=== PATIENT | male | born 1950 | race Caucasian/White ===

== ENCOUNTER 2021-11-22 11:44 | Emergency (ER) | payer MEDICARE, SELFPAY ==
--- NOTE | 2021-11-22 11:48 | ED.URI ---
HPI - URI/Sore Throat General Chief Complaint: Upper Respiratory Infection Stated Complaint: sinus infection Time Seen by Provider: 11/22/21 11:55 Source: patient Mode of arrival: ambulatory Limitations: no limitations History of Present Illness HPI Narrative: Mr. Tabares is a 71-year-old male patient presented to the clinic today with complaints of possible sinus infection. He reports he has been having a productive cough with green phlegm for the past 4 days. Denies any history of COPD or asthma he denies any fever or chills. Is currently on chemo treatment. History of 40-year smoker. He does not currently smoke and quit approximately 4 years ago MD elicited complaint: sore throat and nasal congestion Related Data Home Medications Medication Instructions Recorded Confirmed aspirin 81 mg tablet,delayed 81 mg PO DAILY 04/04/20 11/22/21 release tamsulosin 0.4 mg capsule 0.4 mg PO BID cap 04/04/20 11/22/21 cholecalciferol (vitamin D3) 25 2,000 unit PO DAILY tablet 08/07/20 11/22/21 mcg (1,000 unit) tablet atorvastatin 80 mg tablet 80 mg PO DAILY 08/09/20 11/22/21 multivitamin 1 tablet PO DAILY 08/09/20 11/22/21 glucosamine sulfate [Glucosamine] 500 mg PO DAILY 11/22/21 11/22/21 Allergies Allergy/AdvReac Type Severity Reaction Status Date / Time Penicillins Allergy Severe HALLUCINATIONS, Verified 11/22/21 11:58 PALPATATIONS Review of Systems Review of Systems: Pertinent positives per HPI. Patient denies any fever, chills, rash, headache, visual changes, dizziness, cough, shortness of breath, chest pain, palpitations, nausea, vomiting, diarrhea, constipation, abdominal pain, or any urinary issues. [facility] Past Medical History Medical History Colon polyp Diabetes Elevated PSA History of colon cancer Stage IV History of fracture History of prostate cancer HTN (hypertension) Hyperlipidemia Measles Mononucleosis Mumps HECTOR (obstructive sleep apnea) Surgical History Surgical History History of colon surgery Family History Family History Sibling Hepatitis C Social History Social History Smoking status: Former smoker Smoking end date: 08/17/12 Alcohol intake: current Comments At the time of my signature, I reviewed and agree with the nursing past medical, surgical, social, and family history. There is no relevant family history pertinent to the patient complaint. Exam Narrative: General: Well-developed, obese, in no apparent distress Head: Normocephalic, atraumatic Eyes: Pupils equally round and reactive to light bilaterally, EOM intact, sclera and conjunctive clear, no discharge, lids normal Ears: TMs intact and clear, ear canals clear, no drainage, grossly hearing normal. Nose: Nares patent, no discharge, no inflammation, no sinus tenderness. Mouth: Oral pharynx without lesions or masses, good dentition, MMM. Neck: Supple, trachea midline, no enlargement of anterior or posterior cervical nodes, no thyroid masses or goiter palpable. Cardio: Regular rate and rhythm, s1 and s2 normal, no murmur appreciated. Resp: Faint expiratory wheezing otherwise clear, no rhonchi, rales,or rubs Course Course Emergency Course: Portions of this record may have been created with voice recognition software. Level of Care: Express Care Visit Vital Signs Vital signs: Vital signs reviewed MDM - URI/Sore Throat MDM Narrative Medical decision making narrative: Upon assessment he is resting comfortably in the exam chair. Patient has expiratory wheezing. With productive cough with green phlegm. He has is currently on chemo treatment. Symptoms have been ongoing for 4 days. We will go ahead and treat for exacerbation of possible COPD as he does not have a diag
[2021-11-22 11:51] VITALS: BP 140/70; PULSE 72; RESP 20; TEMP 36.6; O2SAT 100
== END 2021-11-22 12:10 | disposition home or self-care (01) ==
PROVIDERS: Emergency Provider Nurse Practitioner Family
DX: J20.9 Acute bronchitis, unspecified (principal); Z87.891 Personal history of nicotine dependence; E11.9 Type 2 diabetes mellitus without complications; I10 Essential (primary) hypertension; E78.5 Hyperlipidemia, unspecified; G47.33 Obstructive sleep apnea (adult) (pediatric); Z85.038 Personal history of other malignant neoplasm of large intestine
CPT/HCPCS: 99213; G0463

== ENCOUNTER 2022-09-11 12:54 | Inpatient (IN) | payer MEDICARE, SELFPAY ==
[2022-09-11] VITALS (27 sets, daily range): BP systolic 102–140; BP diastolic 58–82; PULSE 72–147; RESP 13–20; TEMP 36.2–36.9; O2SAT 94–97; BMI 32.1
--- NOTE | ~2022-09-11 | XR_ITS ---
Portable chest x-ray Comparison: 07/21/2007 Clinical History: Shortness of breath Findings: Right-sided Mediport in satisfactory position. Lungs are clear, without focal consolidatio n or pleural effusion. Cardiomediastinal silhouette is stable. Bones and soft tissues are unremarkab le. Impression: Clear lungs. Reviewed, dictated and finalized at location . ONATION EQUIPMENT OPERATOR Impression: Clear lungs.
--- NOTE | 2022-09-11 13:24 | ECG_ITS ---
Measurements Intervals [place] Rate: 115 P: MN: 0 QRS: -81 QRSD: 124 T: 68 QT: 334 QTc: 463 Interpretive Statements ATRIAL FIBRILLATION WITH RAPID VENTRICULAR RESPONSE RIGHT BUNDLE BRANCH BLOCK LEFT ANTERIOR FASCICULAR BLOCK BASELINE ARTIFACT- V3 ABNORMAL ECG NO PREVIOUS ECG AVAILABLE FOR COMPARISON Electronically Signed On 09-11-2022 15:33:58 DRY CLEANER by Edgar Burciaga D.O.
--- NOTE | 2022-09-11 13:29 | ED.ARRPALP ---
HPI - Arrhythmia/Palpitations General Chief Complaint: Arrhythmia/Palpitations <Jyoti Whiting, AUTOMATIC PATTERN EDGER - Last Filed: 09/11/22 17:35> Stated Complaint: new onset afib <Jyoti Whiting AUTOMATIC PATTERN EDGER - Last Filed: 09/11/22 17:35> Time Seen by Provider: 09/11/22 12:58 <Jyoti Whiting, AUTOMATIC PATTERN EDGER - Last Filed: 09/11/22 17:35> History of Present Illness HPI narrative: 72-year-old male presents to the emergency room today by EMS for complaints of shortness of breath and cough since Thursday. He had a low-grade fever of 99.5 on Thursday but has not had any fever since then. He says that he felt little bit better yesterday but then started feeling worse again today. Cough has been semiproductive with white phlegm sometimes green sputum. He feels like his chest is tight. His EKG on arrival showed A. fib with RVR. He denies any previous history of atrial fibrillation. He has seen cardiology in the past but says all of his testing had been negative. Denies any history of congestive heart failure. He does have a history of colon cancer stage IV. He has mets to his lung and liver. He did not tolerate chemo so he is now taking Keytruda orally. He goes to [facility] for pulmonology and oncology. He says that all of his cancer lesions have been stable and not growing. <Jyoti Whiting, AUTOMATIC PATTERN EDGER - Last Filed: 09/11/22 17:35> Related Data Home Medications: Home Medications Medication Instructions Recorded Confirmed tamsulosin 0.4 mg capsule 0.4 mg PO BID 04/04/20 11/22/21 atorvastatin 80 mg tablet 80 mg PO DAILY 08/09/20 11/22/21 loratadine 10 mg tablet (Allergy 10 mg PO DAILY 01/07/22 Relief (loratadine)) ipratropium 18 mcg-albuterol 103 spray inhalation 09/11/22 mcg/actuation aerosol inhaler <Jyoti Whiting, AUTOMATIC PATTERN EDGER - Last Filed: 09/11/22 17:35> Allergies/Adverse Reactions: Allergies Allergy/AdvReac Type Severity Reaction Status Date / Time Penicillins Allergy Severe HALLUCINATIONS, Verified 09/11/22 11:33 PALPATATIONS <Jyoti Whiting APRN - Last Filed: 09/11/22 17:35> Review of Systems Review of Systems: CONSTITUTIONAL: feeling ill, low grade fever on Thursday ENT: Denies rhinorrhea, congestion, sore throat, or otalgia. CARDIOVASCULAR: Denies chest pain but reports that chest feels tight since Thursday. RESPIRATORY: Reports productive cough and shortness of breath. GASTROINTESTINAL: Denies abdominal pain, nausea, vomiting, or diarrhea. GENITOURINARY: Denies dysuria or hematuria. SKIN: Denies rash or itching. MUSCULOSKELETAL: Denies back pain, joint pain, or myalgia. NEUROLOGIC: Denies headache, numbness, dizziness, or weakness. PSYCHIATRIC: Denies anxiety or depression. <Jyoti Whiting APRN - Last Filed: 09/11/22 17:35> [facility] Past Medical History Medical History: Medical History Colon polyp Diabetes Elevated PSA History of colon cancer Stage IV History of fracture History of prostate cancer HTN (hypertension) Hyperlipidemia Measles Metastatic colon cancer to liver Mononucleosis Mumps HECTOR (obstructive sleep apnea) <Jyoti Whiting APRN - Last Filed: 09/11/22 17:35> Surgical History Surgical History: Surgical History History of colon surgery <Jyoti Whiting APRN - Last Filed: 09/11/22 17:35> Family History Family History: Family History Sibling Hepatitis C <Jyoti Whiting APRN - Last Filed: 09/11/22 17:35> Social History Social History: Social History Smoking packs per day: 1.5 Smoking cigarettes per day: 30.0 Years smoked: 45 Smoking pack-years: 67.50 Smoking status: Former smoker Tobacco type: cigarettes Smokeless tobacco user: other Smoking end date: 08/17/12 Alcohol intake: currangela
[2022-09-11] MEDS: ASPIRIN 81 MG CHEWABLE TABLET 324 MG PO (14:06)
[2022-09-11] MEDS: dilTIAZem HCl INJ 25 MG/5 ML VIAL 10 MG IV PUSH (14:06)
[2022-09-11] MEDS: dilTIAZem 100 MG/100 ML 100 MG/100 ML BAG IV CONT (14:14)
[2022-09-11 14:41] LABS: Basophils Absolute Auto 0.1 K/mm3 (0.0-0.1); Basophils Percent Auto 0.5 % (0.2-1.2); Eosinophils Absolute Auto 0.2 K/mm3 (0-0.3); Eosinophils Percent Auto 1.8 % (0-4.4); Hematocrit 39.4 % (42.0-52.0); Hemoglobin 12.8 g/dL (14.0-18.0); Immature Granulocyte Absolute 0.06 K/mm3 (0.00-0.031); Immature Granulocyte Percent A 0.5 % (0-0.5); Lymphocytes Absolute Auto 1.39 K/mm3 (0.9-3.2); Lymphocytes Percent Auto 12.7 % (18.3-44.2); Mean Corpuscular HGB Conc 32.5 g/dl (32-36); Mean Corpuscular Hemoglobin 29.1 pg (26-34); Mean Corpuscular Volume 89.5 fl (80-100); Mean Platelet Volume 9.4 fl (7.4-10.4); Monocytes Absolute Auto 0.8 K/mm3 (0.1-0.6); Monocytes Percent Auto 6.9 % (2.6-8.5); Neutrophils Absolute Auto 8.5 K/mm3 (1.3-6.7); Neutrophils Percent Auto 77.6 % (45.5-73.1); Platelet Count Result 296 k/mm3 (150-375); Red Cell Distribution Width 13.6 % (11.5-14.5); White Blood Count 10.9 K/mm3 (4.5-10.0)
[2022-09-11 14:45] LABS: Partial Thromboplastin Time 32.6 SECONDS (22.3-36.8)
[2022-09-11 14:48] LABS: Alanine Aminotransferase 33 U/L (6-50); Albumin Level 3.9 g/dL (3.5-5.1); Alkaline Phosphatase 104 U/L (38-126); Anion Gap 6 mmol/L (8-16); Aspartate Amino Transferase 33 U/L (17-59); Bilirubin,Total 0.5 mg/dL (0.2-1.3); Blood Urea Nitrogen 24 mg/dL (9-20); Calcium 8.6 mg/dL (8.4-10.2); Carbon Dioxide 25 mmol/L (22-30); Chloride 105 mmol/L (98-107); Estimated CRCL calculation 75 ml/min; Estimated Glomerular Filt Rate > 60; Glucose 134 mg/dL (65-110); Lipase 35 U/L (23-300); Magnesium 2.2 mg/dL (1.6-2.3); Potassium 4.7 mmol/L (3.4-5.0); Sodium 136 mmol/L (137-145)
[2022-09-11 14:59] LABS: Troponin I < 0.012 ng/mL (0.000-0.034)
[2022-09-11] MEDS: SODIUM CHLORIDE 0.9% IV 1,000 ML 999 ML IV CONT (15:23)
[2022-09-11 16:20] LABS: Influenza A QL RT-PCR Negative (Negative); Influenza B QL RT-PCR Negative (Negative); SARS-CoV-2 RNA PCR Negative
--- NOTE | 2022-09-11 17:20 | ADMGEN ---
This patient, Benjamin Tabares, was admitted to IMU Room 207-, 1700. Patient/family oriented to hospital policies and general routines including ID bracelet, bed and alarms, visiting hours, pain management, procedures, bathroom and other care routines, personal items, smoking policy, room service/diet, and visiting hours. Information on how to activate the Rapid Response Team has been discussed. Patient/Family are encouraged to report perceived risks to care and to ask questions if they do not understand what they are told or what they should do.
[2022-09-11 17:35] LABS: Troponin I < 0.012 ng/mL (0.000-0.034)
[2022-09-11 18:01] LABS: Glucose Point of Care 122 mg/dl (65-105)
--- NOTE | 2022-09-11 18:02 | PCRCNOTE ---
Spoke with Pt. about borrowing one of our CPAP machines or bringing his in from home. Pt. declined at this time but will let us know if he changes his mind. Cj. ruben.
--- NOTE | 2022-09-11 19:30 | PM.IMHP ---
H&P: HPI History of Present Illness Date/Time: 09/11/22 19:30 Chief Complaint: Palpitation Narrative: This is a 72-year-old male patient who has stage IV colon cancer who is on Keytruda and has had it under control. The patient stated that he has been feeling ill over the last several days. He had a low-grade fever of 99.5 on Thursday and has not had a fever since then. The patient has been coughing up thick sputum. The patient thought maybe he had COVID and test himself at home and it was negative. The patient continues to cough especially when laying flat. He has no history of any congestive heart failure any 8 irregular heart rate. The patient stated that he does have sleep apnea and has not had his machine change in several years. The patient stated that he is been changing his settings and turning it down lower than what it should be. He fears that his inappropriate use of his CPAP machine caused him to have an arrhythmia. Patient's EKG upon arrival was AFib with RVR. He denies any previous history of having atrial fibrillation. He has seen a boiler shop mechanic in the past but not for any specific problems. The patient stated that his cardiac workup a couple years ago was negative. He goes to the [facility] for his pulmonology and Oncology. He has states that he sees physicians over at [facility]. His white count is 10.9 H&H is 12.8 and 39.4. Have no previous labs for comparison. His blood sugars between 134 and 122. Last hemoglobin A1c was 6.3 that was noted from 3 years ago. His troponins are nonreactive. The patient is negative for influenza A/B influenza RSV and COVID. Chest x-ray was read as clear lungs. The patient was given aspirin, IV Cardizem, and placed on a Cardizem drip. He was also started on subcu Lovenox and normal saline. Patient's heart rate came down to the 70s and he converted to sinus rhythm. His Cardizem drip had been stopped. The patient is being admitted to observation status on the date of service of 09/11/2022. Review of Systems Review of Systems: See HPI All systems reviewed & are unremarkable except as noted in HPI and below Constitutional: Constitutional: Reports as per HPI and Reports no additional constitutional complaints Eyes: Eyes: Reports as per HPI and Reports no additional eye complaints ENT: Reports system reviewed and no additional complaints, except as documented and Reports Normal hearing present Cardiovascular: Cardiovascular: Reports no additional cardiovascular complaints Respiratory: Respiratory: Reports no additional respiratory complaints and Reports no additional respiratory complaints Gastrointestinal: Gastrointestinal: Reports as per HPI and Reports no additional gastrointestinal complaints Musculoskeletal: Musculoskeletal: Reports no additional musculoskeletal complaints Integumentary/Breasts: Skin/Breast: Reports system reviewed and no additional complaints, except as docu and Reports as per HPI Neurologic: Reports system reviewed and no additional complaints, except as documented, Reports as per HPI and Reports Normal hearing present Psychiatric: Psychiatric: Reports no additional psychiatric complaints and Reports as per HPI Endocrine: Endocrine: Reports no additional endocrine complaints Hematologic/Lymphatic: Hematologic/Lymphatic: Reports no additional hematologic/lymphatic complaints Allergic/Immunologic: Allergic/Immunologic: Reports no additional allergic/immunologic complaints [facility] Past Medical History Medical History (Updated 09/11/22 @ 20:57 by Deneen Valenzuela NP) Colon polyp Diabetes Elevated PSA History of colon cancer Stage IV History of diverticulitis History of fracture History of fracture of orbit History of kidney stones History of prostate cancer History of wrist fracture HTN (hypertension) Hyperlipidemia Measles Metastatic colon cancer to liver Mononucleosis Mumps HECTOR (obstructive sleep apnea) Surgical History Surgical History (
[2022-09-11 20:07] LABS: Troponin I < 0.012 ng/mL (0.000-0.034)
[2022-09-11] MEDS: ENOXAPARIN 100 MG/ML SYRINGE SUB-Q (21:05)
[2022-09-11] MEDS: LORATADINE 10 MG TABLET PO (21:37)
[2022-09-11] MEDS: ATORVASTATIN 40 MG TABLET 80 MG PO (21:37)
[2022-09-11] MEDS: TAMSULOSIN HCL 0.4 MG CAPSULE PO (21:37)
[2022-09-11] MEDS: guaiFENesin 12 HR 600 MG TABCR 1200 MG PO (21:37)
[2022-09-11] MEDS: FLUTICASONE PROPIONATE 0.05% NA SPR 16 GM BTL (*BKC) 1 SPRAY NASAL (21:38)
[2022-09-12] VITALS (24 sets, daily range): BP systolic 108–144; BP diastolic 60–84; PULSE 72–101; RESP 14–20; TEMP 36.2–36.9; O2SAT 95–98
--- NOTE | 2022-09-12 | ECHO_ITS ---
Patient Info Name: Benjamin Tabares Age: 72 years : 1950 Gender: Male Ht: 69 in Wt: 217 lbs BSA: 2.22 m2 HR: 90 bpm BP: 144 / 88 mmHg Heart Rhythm: Sinus Rhythm Technical Quality: Fair Exam Date: 09/12/2022 11:27 AM Exam Location: [facility] Room: 217 Patient Status: Inpatient Admit Date: 09/11/2022 Staff Ordering Physician: Deneen Valenzuela NP Electrical Engineer Mep: Bobbi Garcia RDCS Attending Provider: Costa Ruvalcaba MD Referring Physician: Bianca BERNSTEIN; Exam Type: CA echo doppler color flow Study Info Indications - new onset of AFIB RVR Complete two-dimensional, color flow and Doppler transthoracic echocardiogram is performed. Summary 1. Complete two-dimensional, color flow and Doppler transthoracic echocardiogram is performed. 2. Left ventricular chamber dimension is normal. 3. Left ventricular systolic function is normal, estimated at 50-55%. 4. Left atrial chamber dimension is mildly enlarged. 5. There is mild aortic valve sclerosis. 6. There is trace mitral valve regurgitation. Left Ventricle Left ventricular chamber dimension is normal. Left ventricular systolic function is normal, estimated at 50-55%. The left ventricular diastolic function is grade I diastolic dysfunction. Right Ventricle Right ventricular chamber dimension is normal. Left Atria Left atrial chamber dimension is mildly enlarged. Right Atria Right atrial chamber dimension is normal. Aortic Valve The aortic valve is trileaflet. There is mild aortic valve sclerosis. Pulmonic Valve The pulmonic valve is not well visualized. Mitral Valve The mitral valve has normal leaflets. There is trace mitral valve regurgitation. Tricuspid Valve The tricuspid valve leaflets are normal. Pericardium/Pleural The pericardium appears normal. Aorta The aortic root size at the sinus of Valsalva is normal. Left Ventricular Outflow Tract Name Value Normal LVOT 2D LVOT Diameter 2.1 cm LVOT Doppler LVOT Peak Gradient 4 mmHg LVOT Mean Gradient 3 mmHg LVOT VTI 21 cm LVOT VTI/AV VTI Ratio 0.9 LVOT Stroke Volume 72 ml LVOT CO 16.4 l/min LVOT CI 7.4 l/min/m2 Pulmonic Valve Name Value Normal PV Doppler PV Peak Gradient 4 mmHg Mitral Valve Name Value Normal MV Doppler MV Decel [place] 545 cm/s2 MV PHT 56 ms
[2022-09-12 05:12] LABS: Basophils Absolute Auto 0.1 K/mm3 (0.0-0.1); Basophils Percent Auto 0.5 % (0.2-1.2); Eosinophils Absolute Auto 0.3 K/mm3 (0-0.3); Eosinophils Percent Auto 3.1 % (0-4.4); Hematocrit 34.4 % (42.0-52.0); Hemoglobin 10.9 g/dL (14.0-18.0); Immature Granulocyte Absolute 0.07 K/mm3 (0.00-0.031); Immature Granulocyte Percent A 0.6 % (0-0.5); Lymphocytes Absolute Auto 2.12 K/mm3 (0.9-3.2); Lymphocytes Percent Auto 19.3 % (18.3-44.2); Mean Corpuscular HGB Conc 31.7 g/dl (32-36); Mean Corpuscular Hemoglobin 29.1 pg (26-34); Mean Corpuscular Volume 91.7 fl (80-100); Mean Platelet Volume 9.2 fl (7.4-10.4); Monocytes Absolute Auto 0.8 K/mm3 (0.1-0.6); Monocytes Percent Auto 6.8 % (2.6-8.5); Neutrophils Absolute Auto 7.7 K/mm3 (1.3-6.7); Neutrophils Percent Auto 69.7 % (45.5-73.1); Platelet Count Result 245 k/mm3 (150-375); Red Blood Count 3.75 M/mm3 (4.6-6.20); Red Cell Distribution Width 13.4 % (11.5-14.5)
[2022-09-12 05:24] LABS: Alanine Aminotransferase 30 U/L (6-50); Albumin Level 3.6 g/dL (3.5-5.1); Alkaline Phosphatase 93 U/L (38-126); Anion Gap 6 mmol/L (8-16); Aspartate Amino Transferase 29 U/L (17-59); Bilirubin,Total 0.7 mg/dL (0.2-1.3); Blood Urea Nitrogen 17 mg/dL (9-20); Carbon Dioxide 26 mmol/L (22-30); Chloride 104 mmol/L (98-107); Estimated CRCL calculation 83 ml/min; Estimated Glomerular Filt Rate > 60; Glucose 116 mg/dL (65-110); Magnesium 2.1 mg/dL (1.6-2.3); Potassium 4.1 mmol/L (3.4-5.0); Sodium 136 mmol/L (137-145)
[2022-09-12 05:26] LABS: Lactic Acid Reflex 0.8 mmol/L (0.7-2.0)
[2022-09-12] MEDS: LORATADINE 10 MG TABLET PO (08:50)
[2022-09-12] MEDS: amLODIPine BESYLATE 5 MG TABLET PO (08:51)
[2022-09-12] MEDS: ENOXAPARIN 40 MG/0.4 ML SYRINGE SUB-Q (08:51)
[2022-09-12] MEDS: guaiFENesin 12 HR 600 MG TABCR 1200 MG PO ×2 (08:51→20:19)
[2022-09-12] MEDS: TAMSULOSIN HCL 0.4 MG CAPSULE PO ×2 (08:51→18:04)
[2022-09-12] MEDS: lisinopriL 20 MG TABLET 40 MG PO (08:51)
[2022-09-12] MEDS: FLUTICASONE PROPIONATE 0.05% NA SPR 16 GM BTL (*BKC) 1 SPRAY NASAL ×2 (08:52→20:18)
--- NOTE | 2022-09-12 09:03 | ECG_ITS ---
Measurements Intervals [place] Rate: 82 P: 61 TN: 158 QRS: -77 QRSD: 129 T: 69 QT: 366 QTc: 428 Interpretive Statements SINUS RHYTHM ATRIAL PREMATURE COMPLEX RIGHT BUNDLE BRANCH BLOCK LEFT ANTERIOR FASCICULAR BLOCK ABNORMAL ECG COMPARED TO ECG 09/11/2022 13:02:49 SINUS RHYTHM NOW PRESENT Electronically Signed On 09-12-2022 11:09:10 DIRECTOR BIOLOGY by Edgar Burciaga D.O.
--- NOTE | 2022-09-12 09:18 | PM.IMPN ---
Progress Note: A&P Assessment and Plan (1) Atrial fibrillation with rapid ventricular response: Code(s): I48.91 - Unspecified atrial fibrillation Status: Acute Assessment and Plan: Appears to be new onset, possibly triggered by acute viral syndrome Cardiology consult pending Converted to normal sinus rhythm on cardizem drip, rate controlled at this time Echo pending Therapeutic dose of Lovenox x1 given in the ER TSH WNL (2) Viral syndrome: Code(s): B34.9 - Viral infection, unspecified Status: Acute Assessment and Plan: Suspect mild acute viral bronchitis vs URI, CXR clear, AFVSS on room air Flu/COVID negative (3) Metastatic colon cancer to liver: Code(s): C18.9 - Malignant neoplasm of colon, unspecified; C78.7 - Secondary malignant neoplasm of liver and intrahepatic bile duct Status: Acute Assessment and Plan: Stage IV colon cancer, sees Oncology at [facility] Controlled with Keytruda (4) HTN (hypertension): Qualifiers: Hypertension type: essential hypertension Qualified Code(s): I10 - Essential (primary) hypertension Code(s): I10 - Essential (primary) hypertension Status: Acute Assessment and Plan: Continue Norvasc and lisinopril (5) Hyperlipidemia: Qualifiers: Hyperlipidemia type: mixed hyperlipidemia Qualified Code(s): E78.2 - Mixed hyperlipidemia Code(s): E78.5 - Hyperlipidemia, unspecified Status: Acute Assessment and Plan: Continue statin (6) HECTOR (obstructive sleep apnea): Code(s): G47.33 - Obstructive sleep apnea (adult) (pediatric) Status: Acute Assessment and Plan: CPAP machine with auto titration given while in the hospital (7) Vitamin D deficiency: Code(s): E55.9 - Vitamin D deficiency, unspecified Status: Acute Assessment and Plan: Replace with vitamin D3 1000 IU daily Plan DVT prophylaxis with SCDs GI prophylaxis not indicated Code status full code Subjective Date/time seen: 09/12/22 09:18 Interval history: No overnight events noted. No chest pain or shortness of breath. No nausea, vomiting or diarrhea. No fevers or chills. Patient states he has had a sore throat, cough, runny nose as well as worsened shortness of breath over the last week, improving. Review of Systems Review of Systems: 12 point review of systems was assessed and was negative except as noted in the HPI Exam Narrative: General: No acute distress, alert and oriented per baseline HEENT: Atraumatic, normocephalic, mucous membranes moist CV: Regular rate and rhythm, S1, S2 Lungs: Scattered expiratory wheezes, good air entry, rhonchorous BS throughout Abdomen: Soft, nontender, nondistended Extremities: Normal to inspection Skin: No rashes noted, no lesions or wounds seen Psych: Euthymic, normal affect Objective Data Vital Signs Vital Signs: Vital Signs - 24 hr 09/11/22 12:54 09/11/22 13:05 09/11/22 13:08 Temperature 98.4 F Pulse Rate 147 H 114 H 107 H Respiratory Rate 18 Blood Pressure 139/74 Pulse Oximetry 96 95 Oxygen Delivery 09/11/22 13:12 09/11/22 13:15 09/11/22 14:14 Temperature Pulse Rate 119 H 132 H 110 H Respiratory Rate 17 16 Blood Pressure 120/62 120/62 Pulse Oximetry 97 96 Oxygen Delivery 09/11/22 13:30 09/11/22 13:45 09/11/22 14:00 Temperature Pulse Rate 122 H 110 H 127 H Respiratory Rate 13 16 Blood Pressure Pulse Oximetry 96 94 Oxygen Delivery 09/11/22 14:15 09/11/22 14:17 09/11/22 14:30 Temperature Pulse Rate 101 H 84 86 Respiratory Rate 15 17 Blood Pressure 102/64 Pulse Oximetry 97 95 96 Oxygen Delivery 09/11/22 14:31 09/11/22 14:45 09/11/22 15:00 Temperature Pulse Rate 81 88 90 Respiratory Rate 15 18 Blood Pressure Pulse Oximetry 95 95 94 Oxygen Delivery 09/11/22 15:14 09/11/22 15:15 09/11/22 15:16 Temperature Pulse Rate 107 H
--- NOTE | 2022-09-12 09:30 | PM.CNCAR ---
Assessment and Plan Assessment and plan (1) Atrial fibrillation with rapid ventricular response: Code(s): I48.91 - Unspecified atrial fibrillation Status: Acute Plan This is a 72-year-old man who has a history of stage IV colon cancer suboptimally treated sleep apnea and hypertension as well as a longstanding history of cigarette smoking which went on for about 40 years and undoubtedly by physical exam has significant obstructive lung disease as well. He presented with symptomatic atrial fibrillation after being given intravenous diltiazem he is back in sinus rhythm and feels better this morning. He clearly needs to be anticoagulated and I will start apixaban this morning. He also in my opinion should be started on antiarrhythmic therapy to try to maintain sinus rhythm. Because of his lung disease I have the sense that he will poorly tolerate a beta-murali so I am going to start some flecainide today. I will assess his response to that. Keep him here at least until tomorrow on telemetry. His echocardiogram has been ordered appropriately by the hospitalist but has not yet been performed this morning as of the time of this consultation. Costa Aparicio MD [facility] History of Present Illness History of Present Illness Consult date/time: 09/12/22 09:30 Reason For Visit: a fib with rvr Narrative: This is a 72-year-old man who is unknown to me prior to this consultation I am seeing him this morning at the request of the hospitalist because of atrial fibrillation. The patient was in his usual state of health until last weekend when he began to notice episodes of some shortness of breath and coughing. He was not really aware of the sense of palpitations or tachycardia. He had the symptoms significantly last Thursday they did get better for a couple of days and then persisted through the week. He was coughing and thought that he had some sort of bronchitis and went to see the PCP yesterday. In the office he was noted to be tachycardic and in rapid atrial fibrillation. He has no previous cardiac history is so he was sent to the emergency room for evaluation and management. In the emergency room his electrocardiogram shows atrial fibrillation with bifascicular block. His chest x-ray looked largely unremarkable and he was placed on intravenous diltiazem and given some subcutaneous Lovenox. Between admission and now he has converted to sinus rhythm his diltiazem infusion has been stopped he is relatively comfortable though says he still producing some mucus and coughing some sinus congestion this morning. He has no other complaints at this time. He says that he has seen a machinist supervisor in [place] for a cardiac evaluation in the past but for no particular reason he was just concerned that he was in his 60s and was at higher risk for heart disease. He describes having had a stress test of some sort which he was told was negative. His principal comorbidities are hypertension and history of colon cancer. Unfortunately he does have stage IV colon cancer which is metastatic to his liver and being followed by an oncologist in [place] as well. I have not had the opportunity to see any of those records at the time of this dictation this morning. His home medical regimen consists of amlodipine, atorvastatin and lisinopril. he also has a history of significant obstructive sleep apnea which according to the patient's is inadequately treated and is having adjustments made to his CPAP treatment. he a Review of Systems Constitutional: Constitutional: Reports no additional constitutional complaints Eyes: Eyes: Reports no additional eye complaints ENT: Reports nasal congestion Cardiovascular: Cardiovascular: Reports no additional cardiovascular complaints Respiratory: Respiratory: Reports dyspnea Gastrointestinal: Gastrointestinal: Reports no additional gastrointestinal complaints Genitourinary: Genitourinary: Reports no addit
[2022-09-12] MEDS: CHOLECALCIFEROL 1,000 UNITS TABLET 1000 UNITS PO (13:36)
[2022-09-12 14:28] LABS: Iron 66 ug/dL (49-181)
[2022-09-12 14:37] LABS: Percent Iron Saturation 21 % (20-50)
[2022-09-12 15:29] LABS: Folic Acid 12.1 ng/mL (2.76->20)
[2022-09-12] MEDS: ALBUTEROL SULFATE NEB 2.5 MG/3 ML INH INHALATION ×2 (16:24→20:54)
[2022-09-12] MEDS: ATORVASTATIN 40 MG TABLET 80 MG PO (20:17)
[2022-09-12] MEDS: APIXABAN 5 MG TABLET PO (20:17)
[2022-09-12] MEDS: FLECAINIDE ACETATE 100 MG TABLET PO (20:17)
[2022-09-13] VITALS (29 sets, daily range): BP systolic 112–153; BP diastolic 60–83; PULSE 31–99; RESP 14–24; TEMP 36.2–36.7; O2SAT 94–99
[2022-09-13] MEDS: ALBUTEROL SULFATE NEB 2.5 MG/3 ML INH INHALATION ×5 (00:28→20:53)
--- NOTE | 2022-09-13 08:08 | PM.PNCARD ---
Progress Note: A&P Assessment and Plan (1) Atrial fibrillation with rapid ventricular response: Code(s): I48.91 - Unspecified atrial fibrillation Status: Acute Plan 72-year-old man with symptomatic atrial fib with RVR. Currently in sinus rhythm started on flecainide yesterday. No adjustment in medication to recommend today. Patient states that someone on staff in the hospital told him that he has to stay here until Thursday because of initiation of antiarrhythmic therapy with flecainide. I am not sure why that was statement was made or by whom. I will see him tomorrow and by then he will of had 5 doses of flecainide on board and I do not see any reason he could go home if he has no signs of proarrhythmia Costa Aparicio MD [facility] Subjective Date/time seen: Date of service: 09/13/22 08:08 Interval history: Follow-up visit in this 72-year-old man with: Symptomatic atrial fibrillation with RVR. Patient has no previous underlying cardiac problems and has been converted to sinus rhythm. Started the patient yesterday on flecainide an attempt to maintain sinus rhythm. He does have underlying hypertension and sleep apnea as the most likely etiologies for this. Systemic anticoagulation also started. He feels well this morning asymptomatic says he slept well Exam Const: General: comfortable and no acute distress HENMT: Mouth: Yes moist mucous membranes Eyes: Sclera: sclerae normal Pupils: Equal, round and reactive pupils present Neck: Neck: supple and no JVD Resp: Effort & Inspection: normal respiratory effort Auscultation: clear to auscultation bilaterally Other: Breath sounds much clear today no significant wheezing Cardio: Rate: regular rate Rhythm: regular rhythm Other: No audible murmur gallop or rub GI: GI Palp: Yes Soft to palpation Auscultation: normal bowel sounds Skin: General skin exam: normal color Neuro: Other: Alert and oriented x3 Extrem: Other: Good distal perfusion Objective Data Vital Signs Vital Signs: Vital Signs - 24 hr 09/12/22 08:09 09/12/22 10:00 09/12/22 12:00 Temperature 36.2 C L Pulse Rate 83 81 85 Respiratory Rate 16 Blood Pressure 131/79 Pulse Oximetry 98 Oxygen Delivery 09/12/22 12:00 09/12/22 12:13 09/12/22 15:42 Temperature 36.5 C 36.9 C Pulse Rate 82 87 Respiratory Rate 16 16 Blood Pressure 134/83 119/84 Pulse Oximetry 96 97 Oxygen Delivery Room Air 09/12/22 16:00 09/12/22 14:00 09/12/22 16:00 Temperature 36.6 C Pulse Rate 80 84 85 Respiratory Rate 20 Blood Pressure 141/73 H Pulse Oximetry 96 Oxygen Delivery 09/12/22 16:00 09/12/22 16:24 09/12/22 16:33 Temperature Pulse Rate 81 87 Respiratory Rate 18 18 Blood Pressure Pulse Oximetry Oxygen Delivery Room Air 09/12/22 18:00 09/12/22 20:17 09/12/22 20:00 Temperature 36.7 C Pulse Rate 77 83 83 Respiratory Rate 20 Blood Pressure 139/71 Pulse Oximetry 97 Oxygen Delivery 09/12/22 20:00 09/12/22 20:00 09/12/22 22:00 Temperature Pulse Rate 83 83 84 Respiratory Rate 20 Blood Pressure Pulse Oximetry 97 Oxygen Delivery Room Air 09/12/22 23:03 09/12/22 23:44 09/13/22 00:00 Temperature 36.7 C Pulse Rate 82 82 79 Respiratory Rate 20 20 Blood Pressure 108/60 Pulse Oximetry 96 96 Oxygen Delivery Room Air 09/13/22 00:58 09/12/22 19:45 09/13/22 01:03 Temperature Pulse Rate 87 86 99 Respiratory Rate 16 14 Blood Pressure Pulse Oximetry 96 Oxygen Delivery Autopap 09/13/22 01:54 09/13/22 04:00 09/13/22 03:26 Temperature 36.7 C Pulse Rate 89 82 82 Respiratory Rate 20 20 Blood Pressure 135/80 Pulse Oximetry 95 95 Oxygen Delivery Room Air 09/13/22 04:00 09/13/22 05:15 09/13/22 00:52 Temperature Pulse Rate 81 80 87 Respiratory Rate 17 Blood Pressure Pulse Oximetry Oxygen Delivery 09/13/22 06:14 Temperature Pulse Rate 31 L Respi
[2022-09-13] MEDS: lisinopriL 20 MG TABLET 40 MG PO (08:57)
[2022-09-13] MEDS: CHOLECALCIFEROL 1,000 UNITS TABLET 1000 UNITS PO (08:57)
[2022-09-13] MEDS: TAMSULOSIN HCL 0.4 MG CAPSULE PO ×2 (08:58→17:23)
[2022-09-13] MEDS: amLODIPine BESYLATE 5 MG TABLET PO (08:58)
[2022-09-13] MEDS: LORATADINE 10 MG TABLET PO (08:58)
[2022-09-13] MEDS: FLECAINIDE ACETATE 100 MG TABLET PO ×2 (08:59→21:22)
[2022-09-13] MEDS: APIXABAN 5 MG TABLET PO ×2 (08:59→21:21)
[2022-09-13] MEDS: guaiFENesin 12 HR 600 MG TABCR 1200 MG PO ×2 (09:00→21:22)
[2022-09-13] MEDS: FLUTICASONE PROPIONATE 0.05% NA SPR 16 GM BTL (*BKC) 1 SPRAY NASAL ×2 (09:01→21:22)
--- NOTE | 2022-09-13 09:02 | PM.IMPN ---
Progress Note: A&P Assessment and Plan (1) Atrial fibrillation with rapid ventricular response: Code(s): I48.91 - Unspecified atrial fibrillation Status: Acute Assessment and Plan: Appears to be new onset, possibly triggered by acute viral syndrome Cardiology consult appreciated, started on flecainide, anticipate discharge tomorrow Converted to normal sinus rhythm on cardizem drip, rate controlled at this time Echo showed an EF of 50-55%, grade 1 diastolic dysfunction, no significant valvular abnormalities nor pulmonary hypertension noted Started on Eliquis TSH WNL (2) Viral syndrome: Code(s): B34.9 - Viral infection, unspecified Status: Acute Assessment and Plan: Suspect mild acute viral bronchitis vs URI, CXR clear, AFVSS on room air Flu/COVID negative (3) Metastatic colon cancer to liver: Code(s): C18.9 - Malignant neoplasm of colon, unspecified; C78.7 - Secondary malignant neoplasm of liver and intrahepatic bile duct Status: Acute Assessment and Plan: Stage IV colon cancer, sees Oncology at [facility] Controlled with Keytruda (4) HTN (hypertension): Qualifiers: Hypertension type: essential hypertension Qualified Code(s): I10 - Essential (primary) hypertension Code(s): I10 - Essential (primary) hypertension Status: Acute Assessment and Plan: Continue Norvasc and lisinopril (5) Hyperlipidemia: Qualifiers: Hyperlipidemia type: mixed hyperlipidemia Qualified Code(s): E78.2 - Mixed hyperlipidemia Code(s): E78.5 - Hyperlipidemia, unspecified Status: Acute Assessment and Plan: Continue statin (6) HECTOR (obstructive sleep apnea): Code(s): G47.33 - Obstructive sleep apnea (adult) (pediatric) Status: Acute Assessment and Plan: CPAP machine with auto titration given while in the hospital (7) Vitamin D deficiency: Code(s): E55.9 - Vitamin D deficiency, unspecified Status: Acute Assessment and Plan: Replace with vitamin D3 1000 IU daily Plan DVT prophylaxis with SCDs GI prophylaxis not indicated Code status full code Subjective Date/time seen: 09/13/22 09:02 Interval history: No overnight events noted. No chest pain or shortness of breath. No nausea, vomiting or diarrhea. No fevers or chills. Eager to go home tomorrow. Review of Systems Review of Systems: 12 point review of systems was assessed and was negative except as noted in the HPI Exam Narrative: General: No acute distress, alert and oriented per baseline HEENT: Atraumatic, normocephalic, mucous membranes moist CV: Regular rate and rhythm, S1, S2 Lungs: Scattered expiratory wheezes, good air entry, rhonchorous BS throughout Abdomen: Soft, nontender, nondistended Extremities: Normal to inspection Skin: No rashes noted, no lesions or wounds seen Psych: Euthymic, normal affect Objective Data Vital Signs Vital Signs: Vital Signs - 24 hr 09/12/22 10:00 09/12/22 12:00 09/12/22 12:00 Temperature Pulse Rate 81 85 Respiratory Rate Blood Pressure Pulse Oximetry Oxygen Delivery Room Air 09/12/22 12:13 09/12/22 15:42 09/12/22 16:00 Temperature 97.7 F 98.4 F 97.8 F Pulse Rate 82 87 80 Respiratory Rate 16 16 20 Blood Pressure 134/83 119/84 141/73 H Pulse Oximetry 96 97 96 Oxygen Delivery 09/12/22 14:00 09/12/22 16:00 09/12/22 16:00 Temperature Pulse Rate 84 85 Respiratory Rate Blood Pressure Pulse Oximetry Oxygen Delivery Room Air 09/12/22 16:24 09/12/22 16:33 09/12/22 18:00 Temperature Pulse Rate 81 87 77 Respiratory Rate 18 18 Blood Pressure Pulse Oximetry Oxygen Delivery 09/12/22 20:17 09/12/22 20:00 09/12/22 20:00 Temperature 98.1 F Pulse Rate 83 83 83 Respiratory Rate 20 20 Blood Pressure 139/71 Pulse Oximetry 97 97 Oxygen Delivery Room Air 09/12/22 20:00 09/12/22 22:00 09/12/22 23:0
[2022-09-13] MEDS: FLUTICASONE/UMECLIDIN/VILANTER 100-62.5-25 MCG ELLIPTA 1 PUFF INHALATION (09:11)
[2022-09-13] MEDS: ATORVASTATIN 40 MG TABLET 80 MG PO (21:21)
[2022-09-14] VITALS (15 sets, daily range): BP systolic 123–141; BP diastolic 81–92; PULSE 73–91; RESP 16–20; TEMP 36.3–36.8; O2SAT 95–98
[2022-09-14] MEDS: ALBUTEROL SULFATE NEB 2.5 MG/3 ML INH INHALATION ×3 (01:59→09:04)
[2022-09-14] MEDS: APIXABAN 5 MG TABLET PO (08:47)
[2022-09-14] MEDS: lisinopriL 20 MG TABLET 40 MG PO (08:47)
[2022-09-14] MEDS: amLODIPine BESYLATE 5 MG TABLET PO (08:47)
[2022-09-14] MEDS: CHOLECALCIFEROL 1,000 UNITS TABLET 1000 UNITS PO (08:47)
[2022-09-14] MEDS: FLECAINIDE ACETATE 100 MG TABLET PO (08:48)
[2022-09-14] MEDS: LORATADINE 10 MG TABLET PO (08:48)
[2022-09-14] MEDS: TAMSULOSIN HCL 0.4 MG CAPSULE PO (08:49)
[2022-09-14] MEDS: guaiFENesin 12 HR 600 MG TABCR 1200 MG PO (08:49)
[2022-09-14] MEDS: FLUTICASONE PROPIONATE 0.05% NA SPR 16 GM BTL (*BKC) 1 SPRAY NASAL (08:54)
[2022-09-14] MEDS: FLUTICASONE/UMECLIDIN/VILANTER 100-62.5-25 MCG ELLIPTA 1 PUFF INHALATION (09:04)
--- NOTE | 2022-09-14 10:22 | PM.DS ---
DS: Admitting Diagnosis Discharge Date 09/14/22 Admitting Diagnosis cough DS: Discharge Diagnosis Discharge Diagnosis (1) Atrial fibrillation with rapid ventricular response: Code(s): I48.91 - Unspecified atrial fibrillation Status: Acute (2) Viral syndrome: Code(s): B34.9 - Viral infection, unspecified Status: Acute (3) Metastatic colon cancer to liver: Code(s): C18.9 - Malignant neoplasm of colon, unspecified; C78.7 - Secondary malignant neoplasm of liver and intrahepatic bile duct Status: Acute (4) HTN (hypertension): Qualifiers: Hypertension type: essential hypertension Qualified Code(s): I10 - Essential (primary) hypertension Code(s): I10 - Essential (primary) hypertension Status: Acute (5) Hyperlipidemia: Qualifiers: Hyperlipidemia type: mixed hyperlipidemia Qualified Code(s): E78.2 - Mixed hyperlipidemia Code(s): E78.5 - Hyperlipidemia, unspecified Status: Acute (6) HECTOR (obstructive sleep apnea): Code(s): G47.33 - Obstructive sleep apnea (adult) (pediatric) Status: Acute (7) Vitamin D deficiency: Code(s): E55.9 - Vitamin D deficiency, unspecified Status: Acute DS: Summary Hospital Course Hospital Course: 72-year-old male patient who has stage IV colon cancer who is on Keytruda and has had it under control.? The patient stated that he has been feeling ill over the last several days.? He had a low-grade fever of 99.5 on Thursday and has not had a fever since then.? The patient has been coughing up thick sputum.? The patient thought maybe he had COVID and test himself at home and it was negative.? The patient continues to cough especially when laying flat.? He has no history of any congestive heart failure any 8 irregular heart rate.? The patient stated that he does have sleep apnea and has not had his machine change in several years.? The patient stated that he is been changing his settings and turning it down lower than what it should be.? He fears that his inappropriate use of his CPAP machine caused him to have an arrhythmia.? Patient's EKG upon arrival was AFib with RVR.? He denies any previous history of having atrial fibrillation.? He has seen a fiberline supervisor in the past but not for any specific problems.? The patient stated that his cardiac workup a couple years ago was negative.? He goes to the [facility] for his pulmonology and Oncology.? He has states that he sees physicians over at [facility].? His white count is 10.9 H&H is 12.8 and 39.4.? Have no previous labs for comparison.? His blood sugars between 134 and 122.? Last hemoglobin A1c was 6.3 that was noted from 3 years ago.? His troponins are nonreactive.? The patient is negative for influenza A/B influenza RSV and COVID.? Chest x-ray was read as clear lungs.? The patient was given aspirin, IV Cardizem, and placed on a Cardizem drip.? He was also started on subcu Lovenox and normal saline.? Patient's heart rate came down to the 70s and he converted to sinus rhythm. Echo with an EF 50-55%, grade I diastolic dysfunction, no major valvular abnormalities. Cardio was consulted and started the patient on flecainide and eliquis. The patient has converted to NSR and remained in NSR. After 5 doses of flecainide, he was able to be d/c in stable condition with close outpatient follow up by cardiology. Time Spent with Patient Time attestation: Total time spent providing and/or coordinating discharge services: Discharge Plan Discharge Attending physician on discharge: Chrissy Eagle Consulting providers: Reina Torres Discharging Clinician: Chrissy Eagle Patient Disposition: Home, Self-Care Activity: as tolerated Diet: as tolerated and heart healthy Patient Instructions: Antibiotic Form Stand Alone Forms: General Discharge Information Follow-up/Referrals: Reina Torres MD [Physician] - Jared Johnson DO [Primary Care Provider]
== END 2022-09-14 11:15 | disposition home or self-care (01) | DRG 309 ==
LOC: ANHED 15:48 → ANHIMU 16:06
PROVIDERS: Nurse Practitioner; Admitting Provider Chiropractor; Emergency Provider Nurse Practitioner Family; PCP Internal Medicine; Visit Provider Student in an Organized Health Care Education/Training Program
DX: I48.91 Unspecified atrial fibrillation (principal); C18.9 Malignant neoplasm of colon, unspecified; C78.00 Secondary malignant neoplasm of unspecified lung; C78.7 Secondary malignant neoplasm of liver and intrahepatic bile duct; B34.9 Viral infection, unspecified; C61 Malignant neoplasm of prostate; I10 Essential (primary) hypertension; E11.9 Type 2 diabetes mellitus without complications; E78.5 Hyperlipidemia, unspecified; G47.33 Obstructive sleep apnea (adult) (pediatric); Z87.891 Personal history of nicotine dependence; E55.9 Vitamin D deficiency, unspecified
CPT/HCPCS: 36415; 71045; 80053; 82607; 82728; 82746; 82948; 83540; 83550; 83605; 83690; 83735; 84443; 84484; 85025; 85610; 85730; 87636; 93005; 93306; 94640; 96365; 96372; 99285; A9270; G0378; J1650; J7030

== ENCOUNTER 2024-04-07 11:22 | Inpatient (IN) | payer MEDICARE, SELFPAY ==
[2024-04-07] VITALS (13 sets, daily range): BP systolic 118–141; BP diastolic 59–88; PULSE 92–143; RESP 14–20; TEMP 36.9–37; O2SAT 96–100
--- NOTE | ~2024-04-07 | XR_ITS ---
EXAMINATION: XR chest 2V DATE: 04/07/2024 12:45 INDICATION: Palpitations. TECHNIQUE: Frontal and lateral views of the chest were obtained. COMPARISON: Chest single view 09/11/22, CT abdomen and pelvis 07/15/17 FINDINGS: Calcified pulmonary nodules and calcified mediastinal lymph nodes are consistent with old g ranulomatous disease. No pleural effusion or pneumothorax. The heart size is normal. There is a right internal jugular port with tip in superior vena cava. There is mild chronic anterior wedging of L1 v ertebral body. IMPRESSION: 1. No acute cardiopulmonary disease. Reviewed, dictated and finalized at location A.
--- NOTE | 2024-04-07 11:33 | ECG_ITS ---
Test Date: 2024-04-07 11:36:55 Measurements Intervals [place] Rate: 126 P: 0 MS: 0 QRS: -88 QRSD: 137 T: 69 QT: 306 QTc: 444 Interpretive Statements ATRIAL FLUTTER/TACHYCARDIA WITH RAPID VENTRICULAR RESPONSE LEFT AXIS DEVIATION [QRS AXIS < -30] RIGHT BUNDLE BRANCH BLOCK [120+ ms QRS DURATION, UPRIGHT V1, 40+ ms S IN I/aVL/V4/V5/V6] No previous ECG available for comparison Electronically Signed On 04-07-2024 15:15:53 CDT by Arden Espinal M.D.
--- NOTE | 2024-04-07 11:55 | ED.ARRPALP ---
HPI - Arrhythmia/Palpitations General Chief Complaint: Arrhythmia/Palpitations <Leslie Faith APRN - Last Filed: 04/07/24 15:19> Stated Complaint: PALPATATIONS <Leslie Faith APRN - Last Filed: 04/07/24 15:19> Time Seen by Provider: 04/07/24 11:40 <Leslie Faith APRN - Last Filed: 04/07/24 15:19> Source: patient and family <Leslie Faith APRN - Last Filed: 04/07/24 15:19> Mode of arrival: EMS <Leslie Faith APRN - Last Filed: 04/07/24 15:19> Limitations: no limitations <Leslie Faith APRN - Last Filed: 04/07/24 15:19> History of Present Illness HPI narrative: Pt is a 73-year-old male who presents to the ER with complaints of chest pain and a fast heart rate. He reports he was diagnosed with a.fib several years ago, but today was the first day he had symptoms. 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 He endorses mild SOB and denies lower extremity edema. Pt also reports he has stage four cancer but I feel great! He currently denies chest pain, shortness of breath, or headaches. <Leslie Faith APRN - Last Filed: 04/07/24 15:19> Related Data Home Medications: Home Medications Medication Instructions Recorded Confirmed loratadine 10 mg tablet (Allergy 10 mg PO DAILY 01/07/22 04/07/24 Relief (loratadine)) Chemotherapy IV 03/31/23 10/07/23 loperamide 2 mg tablet 2 mg PO Q6H PRN Diarrhea 03/31/23 04/07/24 ondansetron HCl 4 mg tablet 4 mg PO Q8H 03/31/23 04/07/24 ropinirole 0.5 mg tablet 0.5 mg PO Q12H 03/31/23 04/07/24 albuterol sulfate 90 mcg/actuation 2 inh inhalation Q4-6H PRN 10/07/23 04/07/24 aerosol inhaler (Ventolin HFA) shortness of breath or wheezing budesonide 160 mcg-glycopyr 9 2 inh inhalation Q12H 10/07/23 04/07/24 mcg-formot 4.8 mcg/actuation HFA inhaler (Breztri Aerosphere) fluticasone propionate 50 1 spray intranasal Q12H 10/07/23 04/07/24 mcg/actuation nasal spray,suspension trazodone 50 mg tablet 150 mg PO QHS 10/07/23 04/07/24 finasteride 5 mg tablet 5 mg PO DAILY 04/07/24 04/07/24 tamsulosin 0.4 mg capsule 0.4 mg PO HS 04/07/24 04/07/24 trifluridine 15 mg-tipiracil 6.14 1 tablet PO Q12H 04/07/24 04/07/24 mg tablet (Lonsurf) <Leslie Faith APRN - Last Filed: 04/07/24 15:19> Allergies/Adverse Reactions: Allergies Allergy/AdvReac Type Severity Reaction Status Date / Time Penicillins Allergy Severe HALLUCINATIONS, Verified 03/31/23 10:58 PALPATATIONS <Leslie Faith APRN - Last Filed: 04/07/24 15:19> Review of Systems Review of Systems: All systems reviewed & are unremarkable except as noted in HPI and below <Leslie Faith APRN - Last Filed: 04/07/24 15:19> [facility] Past Medical History Medical History: Medical History (Updated 04/07/24 @ 15:33 by Mitali Aden APRN) Atrial fibrillation with RVR Colon polyp Elevated PSA History of colon cancer Stage IV History of diverticulitis History of fracture History of fracture of orbit History of kidney stones History of prostate cancer History of wrist fracture HTN (hypertension) Hyperlipidemia Measles Metastatic colon cancer to liver Mononucleosis Mumps HECTOR (obstructive sleep apnea) Prostate cancer Viral syndrome <Leslie Faith APRN - Last Filed: 04/07/24 15:19> Surgical History Surgical History: Surgical History H/O colonoscopy with polypectomy History of cataract extraction History of colon surgery Hx of total hip arthroplasty Hx of total knee arthroplasty Partial <Leslie Faith APRN - Last Filed: 04/07/24 15:19> Family History Family History: Family History (Updated 04/07/24 @ 16:21 by Diane Castro RN) Sibling Hepatitis C Hypertension Mother Macular degeneration Parkinson disease <Leslie Faith, KARYNA - Last Filed: 04/07/24 15:19> Social History Social History:
[2024-04-07 12:01] LABS: Basophils Percent Auto 0.5 % (0.2-1.2); Eosinophils Percent Auto 1.8 % (0-4.4); Hematocrit 31.7 % (42.0-52.0); Hemoglobin 10.2 g/dL (14.0-18.0); Immature Granulocyte Absolute 0.01 K/mm3 (0.00-0.031); Immature Granulocyte Percent A 0.5 % (0-0.5); Lymphocytes Absolute Auto 0.59 K/mm3 (0.9-3.2); Lymphocytes Percent Auto 27.2 % (18.3-44.2); Mean Corpuscular HGB Conc 32.2 g/dl (32-36); Mean Corpuscular Hemoglobin 30.8 pg (26-34); Mean Corpuscular Volume 95.8 fl (80-100); Mean Platelet Volume 10.1 fl (7.4-10.4); Monocytes Absolute Auto 0.2 K/mm3 (0.1-0.6); Monocytes Percent Auto 10.1 % (2.6-8.5); Neutrophils Absolute Auto 1.3 K/mm3 (1.3-6.7); Neutrophils Percent Auto 59.9 % (45.5-73.1); Platelet Count Result 212 k/mm3 (150-375); Red Blood Count 3.31 M/mm3 (4.6-6.20); Red Cell Distribution Width 16.9 % (11.5-14.5); White Blood Count 2.2 K/mm3 (4.5-10.0)
[2024-04-07 12:10] LABS: INR 1.2; Prothrombin Time 15.6 Seconds (11.1-14.7)
[2024-04-07 12:11] LABS: Partial Thromboplastin Time 34.3 Seconds (22.3-36.8)
[2024-04-07] MEDS: dilTIAZem HCl INJ 25 MG/5 ML VIAL 10 MG IV PUSH (12:14)
[2024-04-07 12:18] LABS: Alanine Aminotransferase 29 U/L (6-50); Albumin Level 3.5 g/dL (3.5-5.1); Alkaline Phosphatase 93 U/L (38-126); Anion Gap 8 mmol/L (4-12); Aspartate Amino Transferase 43 U/L (17-59); Bilirubin,Total 0.3 mg/dL (0.2-1.3); Blood Urea Nitrogen 26 mg/dL (9-20); Calcium 7.5 mg/dL (8.4-10.2); Carbon Dioxide 19 mmol/L (22-30); Chloride 107 mmol/L (98-107); Estimated CRCL calculation 87 ml/min; Estimated Glomerular Filt Rate > 60; Glucose 135 mg/dL (65-110); Lipase 90 U/L (23-300); Potassium 4.4 mmol/L (3.4-5.0); Sodium 134 mmol/L (137-145)
[2024-04-07 12:32] LABS: Troponin I 0.039 ng/mL (0.000-0.034)
[2024-04-07 13:52] LABS: Magnesium 1.9 mg/dL (1.6-2.3)
--- NOTE | 2024-04-07 15:07 | PM.IMHP ---
H&P: HPI History of Present Illness Date/Time: 04/07/24 15:07 Chief Complaint: Palpitations Narrative: 73 y/o M presents here with palpitations and chest tightness with PMH of AFib, stage 4 colorectal cancer (partial colon resection, undergoing chemo), COPD The patient presents here via EMS from home for further evaluation of palpitations and chest tightness. Patient reports onset of symptoms 1 hour prior to arrival at the emergency room, around 10:00-10:30 a.m. He further describes the chest tightness as non-painful, nonradiating, ebbed and flowed, aggravated by exertion, and alleviated by rest. He denies associated chest pain, diaphoresis, syncope, or nausea. Endorses accompanying mild shortness of breath and dizziness with exertion during event. Has known history of AFib and is currently on Flecainide and Eliquis. Denies any recent missed doses of Flecainide. Last occurrence of AFib was approximately 2 years ago. Follows with Markus FRANCO for his cardiac care, last visit on 01/21/24. Patient suspected an AFib episode which prompted his visit today. Currently receiving treatment for stage 4 colon cancer with mets to lungs and liver at [facility] with [facility], undergoing chemo and hopeful most recent oral chemo may bring remission. Has CT scheduled for tomorrow to reassess. Initial VS at presentation: 98.4? F, HR 143, RR 17, 123/64, and 99% on RA. ED workup showed: WBC 2.2, hemoglobin 10.2, INR 1.2, creatinine 0.7 and GFR >60, calcium 7.5 in the setting of normal albumin level, initial troponin 0.039. CXR showed no acute cardiopulmonary disease. Initial EKG showed atrial flutter/tachycardia with RVR, rate 126. Review of Systems Review of Systems: All systems reviewed & are unremarkable except as noted in HPI and below PMFSH Past Medical History Medical History (Updated 04/07/24 @ 15:33 by Mitali Aden APRN) Atrial fibrillation with RVR Colon polyp Elevated PSA History of colon cancer Stage IV History of diverticulitis History of fracture History of fracture of orbit History of kidney stones History of prostate cancer History of wrist fracture HTN (hypertension) Hyperlipidemia Measles Metastatic colon cancer to liver Mononucleosis Mumps HECTOR (obstructive sleep apnea) Prostate cancer Viral syndrome Surgical History Surgical History H/O colonoscopy with polypectomy History of cataract extraction History of colon surgery Hx of total hip arthroplasty Hx of total knee arthroplasty Partial Family History Family History (Updated 04/07/24 @ 16:21 by Diane Castro RN) Sibling Hepatitis C Hypertension Mother Macular degeneration Parkinson disease Social History Social History Social History: The patient is a former smoker. The patient lives with his and has 2 children. Patient stated he quit smoking many years ago. Code status full code Smoking packs per day: 1.5 Smoking cigarettes per day: 30.0 Years smoked: 50 Smoking pack-years: 75.00 Smoking status: Former smoker Tobacco type: cigarettes Smokeless tobacco user: other Smoking end date: 08/17/13 Alcohol intake: current Drinks per week: 3 Substance use: former Substance use type: marijuana Other substance usage details: Marihuana stopped 2 months ago Do You Feel Safe in your Home?: Yes Lack of Transportation: No Lack of Food: Never True Current Housing: I Have Housing Concerned About Future Housing: No Difficulty Paying Gas/Electric Bills: No Difficulty Paying for Meds: No Currently Unemployed: No Education: Decline to Answer Difficulty w/ Childcare or Family Care: Decline to Answer Spiritual care concerns: No Meds Home Medications and Allergies Home Medications Medication Instructions Recorded Confirmed Type loratadine 10 mg tablet (Allergy 1
[2024-04-07 15:17] LABS: Troponin I 0.054 ng/mL (0.000-0.034)
--- NOTE | 2024-04-07 16:09 | ADMGEN ---
This patient, Benjamin Tabares, was admitted to IMU Room 200-01. Patient/family oriented to hospital policies and general routines including ID bracelet, bed and alarms, visiting hours, pain management, procedures, bathroom and other care routines, personal items, smoking policy, room service/diet, and visiting hours. Information on how to activate the Rapid Response Team has been discussed. Patient/Family are encouraged to report perceived risks to care and to ask questions if they do not understand what they are told or what they should do.
[2024-04-07 18:29] LABS: Troponin I 0.049 ng/mL (0.000-0.034)
[2024-04-07] MEDS: METOPROLOL TARTRATE INJ 5 MG/5 ML VIAL IV PUSH ×3 (18:59→23:13)
[2024-04-07] MEDS: FLECAINIDE ACETATE 100 MG TABLET PO (21:27)
[2024-04-07] MEDS: APIXABAN 5 MG TABLET PO (21:27)
[2024-04-07] MEDS: ONDANSETRON HCL ODT 4 MG TABLET PO (21:27)
[2024-04-07] MEDS: rOPINIRole HCL 0.5 MG TABLET PO (21:27)
[2024-04-07] MEDS: ATORVASTATIN 40 MG TABLET 80 MG PO (21:28)
[2024-04-07] MEDS: traZODone HCL 50 MG TABLET 150 MG PO (21:28)
[2024-04-07] MEDS: FLUTICASONE PROPIONATE 0.05% NA SPR 16 GM BTL (*BKC) 1 SPRAY NASAL (21:29)
[2024-04-07] MEDS: TAMSULOSIN HCL 0.4 MG CAPSULE PO (22:34)
[2024-04-07] MEDS: METOPROLOL TARTRATE 25 MG TABLET PO (23:34)
[2024-04-08] VITALS (26 sets, daily range): BP systolic 92–110; BP diastolic 50–83; PULSE 55–100; RESP 16–18; TEMP 36.4–36.8; O2SAT 97–99
[2024-04-08 05:28] LABS: Anion Gap 6 mmol/L (4-12); Blood Urea Nitrogen 23 mg/dL (9-20); Calcium 8.3 mg/dL (8.4-10.2); Carbon Dioxide 26 mmol/L (22-30); Chloride 103 mmol/L (98-107); Eosinophils Percent Auto 1.6 % (0-4.4); Estimated CRCL calculation 75 ml/min; Estimated Glomerular Filt Rate > 60; Glucose 94 mg/dL (65-110); Hematocrit 31.6 % (42.0-52.0); Hemoglobin 9.9 g/dL (14.0-18.0); Immature Granulocyte Absolute 0.03 K/mm3 (0.00-0.031); Immature Granulocyte Percent A 1.2 % (0-0.5); Lymphocytes Absolute Auto 1.16 K/mm3 (0.9-3.2); Lymphocytes Percent Auto 46.8 % (18.3-44.2); Mean Corpuscular HGB Conc 31.3 g/dl (32-36); Mean Corpuscular Hemoglobin 30.1 pg (26-34); Monocytes Absolute Auto 0.3 K/mm3 (0.1-0.6); Monocytes Percent Auto 11.3 % (2.6-8.5); Neutrophils Percent Auto 39.1 % (45.5-73.1); Platelet Count Result 220 k/mm3 (150-375); Potassium 4.4 mmol/L (3.4-5.0); Red Blood Count 3.29 M/mm3 (4.6-6.20); Red Cell Distribution Width 16.8 % (11.5-14.5); Sodium 135 mmol/L (137-145); White Blood Count 2.5 K/mm3 (4.5-10.0)
[2024-04-08 05:58] LABS: Anisocytosis 1+; Hypochromasia 1+; Platelet Estimate Adequate (Adequate); Poikilocytosis 1+; Schistocytes None Seen
[2024-04-08] MEDS: ONDANSETRON HCL ODT 4 MG TABLET PO ×2 (06:24→14:00)
[2024-04-08] MEDS: FLUTICASONE/UMECLIDIN/VILANTER 100-62.5-25 MCG ELLIPTA 1 PUFF INHALATION (09:07)
[2024-04-08] MEDS: METOPROLOL TARTRATE 25 MG TABLET PO ×2 (09:14→20:17)
[2024-04-08] MEDS: APIXABAN 5 MG TABLET PO ×2 (09:15→20:18)
[2024-04-08] MEDS: FLECAINIDE ACETATE 100 MG TABLET PO (09:15)
[2024-04-08] MEDS: amLODIPine BESYLATE 5 MG TABLET PO (09:15)
[2024-04-08] MEDS: lisinopriL 20 MG TABLET 40 MG PO (09:16)
[2024-04-08] MEDS: CHOLECALCIFEROL 1,000 UNITS TABLET 1000 UNITS PO (09:16)
[2024-04-08] MEDS: rOPINIRole HCL 0.5 MG TABLET PO ×2 (09:16→20:17)
[2024-04-08] MEDS: TAMSULOSIN HCL 0.4 MG CAPSULE PO ×2 (09:16→20:18)
[2024-04-08] MEDS: FINASTERIDE 5 MG TABLET PO (09:16)
[2024-04-08] MEDS: LORATADINE 10 MG TABLET PO (09:16)
--- NOTE | 2024-04-08 11:16 | PM.IMPN ---
Progress Note: A&P Assessment and Plan (1) Atrial flutter with rapid ventricular response: Code(s): I48.92 - Unspecified atrial flutter Status: Acute Assessment and Plan: - EKG, initial: atrial flutter/ tachycardia with RVR, rate 126, left axis deviation, RBBB. - CXR showed no evidence of pulmonary edema or cardiomegaly - Troponin: 0.039 -> 0.054 -> 6 hr ordered - given diltiazem 10 mg IVP in ED, initially rate controlled. Now back in AFib with rate 100-115. Will trial metoprolol 5 mg IVP. If successful will add metoprolol 12.5 mg b.i.d., may need to be titrated to 25 mg b.i.d.. Restarted flecainide. - cardiology consulted, awaiting recs - continue home anticoagulant: Eliquis - echo, previous (08/2022): normal LV systolic function, estimated EF 50-55%, grade 1 diastolic dysfunction. See report for details. - telemetry monitoring - seen per card:'He reports to be very compliant with his antiarrhythmic and anticoagulation regimen. It is certainly possible that this recurrences related to his recent COVID infection and/or recent intake of a more alcohol than typical. In any event I believe we should transition his antiarrhythmic regimen to amiodarone. I am going to start him on intravenous amiodarone since he is hospitalized. Stop the flecainide and observed for conversion to sinus rhythm. If he does not medically convert I would anticipate electrical cardioversion Thursday. If he does convert over the weekend he can be transitioned to oral amiodarone regimen and discharged. (2) HECTOR (obstructive sleep apnea): Code(s): G47.33 - Obstructive sleep apnea (adult) (pediatric) Status: Acute Assessment and Plan: - continue home CPAP (3) HTN (hypertension): Qualifiers: Hypertension type: essential hypertension Qualified Code(s): I10 - Essential (primary) hypertension Code(s): I10 - Essential (primary) hypertension Status: Acute Assessment and Plan: - chronic, currently 141/73 - continue home medications: Amlodipine 5 mg, lisinopril 40 mg - monitor Plan Diet: heart healthy GI Prophylaxis: not currently indicated DVT Prophylaxis: continue home anticoagulant Lines: peripheral Code Status: full code Time Spent With Patient Time with patient: Greater than 35 minutes Subjective Date/time seen: 04/08/24 11:16 Interval history: Chief Complaint: Palpitations Narrative retrieved form H/P: 73 y/o M presents here with palpitations and chest tightness with PMH of AFib, stage 4 colorectal cancer (partial colon resection, undergoing chemo), COPD The patient presents here via EMS from home for further evaluation of palpitations and chest tightness. Patient reports onset of symptoms 1 hour prior to arrival at the emergency room, around 10:00-10:30 a.m. He further describes the chest tightness as non-painful, nonradiating, ebbed and flowed, aggravated by exertion, and alleviated by rest. He denies associated chest pain, diaphoresis, syncope, or nausea. Endorses accompanying mild shortness of breath and dizziness with exertion during event. Has known history of AFib and is currently on Flecainide and Eliquis. Denies any recent missed doses of Flecainide. Last occurrence of AFib was approximately 2 years ago. Follows with Markus FRANCO for his cardiac care, last visit on 01/21/24. Patient suspected an AFib episode which prompted his visit today. Currently receiving treatment for stage 4 colon cancer with mets to lungs and liver at [facility] with [facility], undergoing chemo and hopeful most recent oral chemo may bring remission. Has CT scheduled for tomorrow to reassess. Initial VS at presentation: 98.4? F, HR 143, RR 17, 123/64, and 99% on RA. ED workup showed: WBC 2.2, hemoglobin 10.2, INR 1.2, creatinine 0.7 and GFR >60, calcium 7.5 in the setting of normal albumin level, initial troponin 0.039. CXR showed no acute cardiopulmonary disease. Initial EKG showed
--- NOTE | 2024-04-08 11:43 | PM.CNCAR ---
Assessment and Plan Assessment and plan (1) Atrial flutter with rapid ventricular response: Code(s): I48.92 - Unspecified atrial flutter Status: Acute Plan this is a 73-year-old man with a history of paroxysmal atrial fib admitted with a persistent/ symptomatic recurrence of his arrhythmia despite taking flecainide. He reports to be very compliant with his antiarrhythmic and anticoagulation regimen. It is certainly possible that this recurrences related to his recent COVID infection and/or recent intake of a more alcohol than typical. In any event I believe we should transition his antiarrhythmic regimen to amiodarone. I am going to start him on intravenous amiodarone since he is hospitalized. Stop the flecainide and observed for conversion to sinus rhythm. If he does not medically convert I would anticipate electrical cardioversion Thursday. If he does convert over the weekend he can be transitioned to oral amiodarone regimen and discharged. Costa Aparicio MD [facility] History of Present Illness History of Present Illness Consult date/time: 04/08/24 11:43 Reason For Visit: a fib with rvr,positive baseline troponin Narrative: this is a 73-year-old man I am seeing in consultation request today because of recurrent atrial fibrillation. The patient was in his usual state of when he thinks his rather good health until the evening before last when he was feeling unwell somewhat lightheaded and noticed he was feeling generally weak. After a while of this he decided to check his pulse and found to be rapid and difficult to appreciate. When this went on for most of the day he came into the hospital last night for evaluation was found to be in atrial fibrillation with rapid ventricular response. He was given some intravenous med to metoprolol, it looks acute received a dose of intravenous diltiazem and was admitted to IMU. The patient has a history of atrial fibrillation I saw him I believe back in 2021 with the 1st episode of this. My impression clinically was that this is related to chronic lung disease with a prior history of COPD he also has a important history of colorectal cancer which is known to be metastatic and is being managed by his oncologist. On the combination of flecainide and apixaban he has been maintaining sinus rhythm and has not had any significant complaints. He does not have history of ischemic heart disease or left ventricular systolic dysfunction. He does have bifascicular block on his electrocardiogram as well. In this setting I am seeing him in consultation. He is currently feeling better he still in atrial fib with a heart rate in the 80s. the patient states that prior to this recurrence of his atrial fib he was recently on vacation up in [place] and he did come down with a febrile illness and tested positive for coronavirus. He did have some fever and chest discomfort with coughing with that illness but did not really notice any symptoms of recurrent atrial fib at that time. He states that the day before the symptoms began he was out to dinner with some friends and drank about 4 or 5 glasses of wine which is more alcohol than he will typically drink Review of Systems Constitutional: Constitutional: Reports lethargy Eyes: Eyes: Reports no additional eye complaints ENT: Reports system reviewed and no additional complaints, except as documented Cardiovascular: Cardiovascular: Reports palpitations Respiratory: Respiratory: Reports dyspnea Gastrointestinal: Gastrointestinal: Reports no additional gastrointestinal complaints Musculoskeletal: Musculoskeletal: Reports no additional musculoskeletal complaints Integumentary/Breasts: Skin/Breast: Reports system reviewed and no additional complaints, except as docu Neurologic: Comments: Lightheadedness Endocrine: Endocrine: Reports no additional endocrine complaints Hematologic/Lymphatic: Hematologic/Lymphatic: Reports no additional hematol
[2024-04-08] MEDS: AMIODARONE 150 MG/D5W 100 ML 150 MG/100 ML BAG 600 MG IV CONT ×2 (12:03→12:30)
[2024-04-08] MEDS: AMIODARONE 360 MG/D5W 200 ML 360 MG/200 ML BAG 16.67 MG IV CONT ×2 (12:54→23:50)
[2024-04-08] MEDS: FLUTICASONE PROPIONATE 0.05% NA SPR 16 GM BTL (*BKC) 1 SPRAY NASAL (17:59)
[2024-04-08] MEDS: traZODone HCL 50 MG TABLET 150 MG PO (20:15)
[2024-04-08] MEDS: ATORVASTATIN 40 MG TABLET 80 MG PO (20:17)
[2024-04-09] VITALS (16 sets, daily range): BP systolic 96–119; BP diastolic 57–75; PULSE 54–80; RESP 12–20; TEMP 36.2–36.8; O2SAT 97–100
--- NOTE | 2024-04-09 07:33 | PM.IMPN ---
Progress Note: A&P Assessment and Plan (1) Atrial flutter with rapid ventricular response: Code(s): I48.92 - Unspecified atrial flutter Status: Acute Assessment and Plan: - EKG, initial: atrial flutter/ tachycardia with RVR, rate 126, left axis deviation, RBBB. - CXR showed no evidence of pulmonary edema or cardiomegaly - Troponin: 0.039 -> 0.054 -> 6 hr ordered - given diltiazem 10 mg IVP in ED, initially rate controlled. Now back in AFib with rate 100-115. Will trial metoprolol 5 mg IVP. If successful will add metoprolol 12.5 mg b.i.d., may need to be titrated to 25 mg b.i.d.. Restarted flecainide. - cardiology consulted, awaiting recs - continue home anticoagulant: Eliquis - echo, previous (08/2022): normal LV systolic function, estimated EF 50-55%, grade 1 diastolic dysfunction. See report for details. - telemetry monitoring - seen per card:'He reports to be very compliant with his antiarrhythmic and anticoagulation regimen. It is certainly possible that this recurrences related to his recent COVID infection and/or recent intake of a more alcohol than typical. In any event I believe we should transition his antiarrhythmic regimen to amiodarone. I am going to start him on intravenous amiodarone since he is hospitalized. Stop the flecainide and observed for conversion to sinus rhythm. If he does not medically convert I would anticipate electrical cardioversion Thursday. If he does convert over the weekend he can be transitioned to oral amiodarone regimen and discharged. 04/09- nsr this am- card is follwoing- will switch to amiodarone po and monitor. discharge when stable and ok with card (2) HECTOR (obstructive sleep apnea): Code(s): G47.33 - Obstructive sleep apnea (adult) (pediatric) Status: Acute Assessment and Plan: - continue home CPAP (3) HTN (hypertension): Qualifiers: Hypertension type: essential hypertension Qualified Code(s): I10 - Essential (primary) hypertension Code(s): I10 - Essential (primary) hypertension Status: Acute Assessment and Plan: - chronic, currently 141/73 - continue home medications: Amlodipine 5 mg, lisinopril 40 mg - monitor Plan Diet: heart healthy GI Prophylaxis: not currently indicated DVT Prophylaxis: continue home anticoagulant Lines: peripheral Code Status: full code Time Spent With Patient Time with patient: Greater than 35 minutes Subjective Date/time seen: 04/09/24 07:33 Interval history: Chief Complaint: Palpitations Narrative retrieved form H/P: 73 y/o M presents here with palpitations and chest tightness with PMH of AFib, stage 4 colorectal cancer (partial colon resection, undergoing chemo), COPD The patient presents here via EMS from home for further evaluation of palpitations and chest tightness. Patient reports onset of symptoms 1 hour prior to arrival at the emergency room, around 10:00-10:30 a.m. He further describes the chest tightness as non-painful, nonradiating, ebbed and flowed, aggravated by exertion, and alleviated by rest. He denies associated chest pain, diaphoresis, syncope, or nausea. Endorses accompanying mild shortness of breath and dizziness with exertion during event. Has known history of AFib and is currently on Flecainide and Eliquis. Denies any recent missed doses of Flecainide. Last occurrence of AFib was approximately 2 years ago. Follows with Markus FRANCO for his cardiac care, last visit on 01/21/24. Patient suspected an AFib episode which prompted his visit today. Currently receiving treatment for stage 4 colon cancer with mets to lungs and liver at [facility] with [facility], undergoing chemo and hopeful most recent oral chemo may bring remission. Has CT scheduled for tomorrow to reassess. Initial VS at presentation: 98.4? F, HR 143, RR 17, 123/64, and 99% on RA. ED workup showed: WBC 2.2, hemoglobin 10.2, INR 1.2, creatinine 0.7 and GFR >60, calcium 7.5 in th
[2024-04-09] MEDS: FLUTICASONE/UMECLIDIN/VILANTER 100-62.5-25 MCG ELLIPTA 1 PUFF INHALATION (07:54)
[2024-04-09] MEDS: APIXABAN 5 MG TABLET PO (09:05)
[2024-04-09] MEDS: TAMSULOSIN HCL 0.4 MG CAPSULE PO (09:06)
[2024-04-09] MEDS: rOPINIRole HCL 0.5 MG TABLET PO (09:06)
[2024-04-09] MEDS: METOPROLOL TARTRATE 25 MG TABLET PO (09:07)
[2024-04-09] MEDS: FINASTERIDE 5 MG TABLET PO (09:07)
[2024-04-09] MEDS: LORATADINE 10 MG TABLET PO (09:08)
[2024-04-09] MEDS: amLODIPine BESYLATE 5 MG TABLET PO (09:08)
[2024-04-09] MEDS: CHOLECALCIFEROL 1,000 UNITS TABLET 1000 UNITS PO (09:08)
[2024-04-09] MEDS: lisinopriL 20 MG TABLET 40 MG PO (09:09)
--- NOTE | 2024-04-09 11:08 | PM.PNCARD ---
Progress Note: A&P Assessment and Plan (1) Atrial flutter with rapid ventricular response: Code(s): I48.92 - Unspecified atrial flutter Status: Acute Assessment and Plan: Converted to sinus rhythm. Stop IV Amiodarone drip. Start PO Amiodarone 400mg once daily. Will keep him on this dose until he follows up with Dr. Aparicio in the office. He will call our office Thursday morning to make a hospital follow up appointment. Continue Apixaban for anticoagulation. Continue Metoprolol. (2) HTN (hypertension): Qualifiers: Hypertension type: essential hypertension Qualified Code(s): I10 - Essential (primary) hypertension Code(s): I10 - Essential (primary) hypertension Status: Acute Assessment and Plan: Stable. Continue Amlodipine, Lisinopril, Metoprolol. (3) Diabetes: Qualifiers: Diabetes mellitus type: type 2 Diabetes mellitus intermediate insulin use: without terminal operations manager use Diabetes mellitus complication status: without complication Qualified Code(s): E11.9 - Type 2 diabetes mellitus without complications Code(s): E11.9 - Type 2 diabetes mellitus without complications Status: Acute Assessment and Plan: Management as per primary team. (4) Hyperlipidemia: Qualifiers: Hyperlipidemia type: mixed hyperlipidemia Qualified Code(s): E78.2 - Mixed hyperlipidemia Code(s): E78.5 - Hyperlipidemia, unspecified Status: Acute Assessment and Plan: Continue Atorvastatin. Plan Recommendations and plan discussed with Hospitalist. Subjective Date/time seen: 04/09/24 11:08 Interval history: Reason for visit: Atrial flutter with RVR HPI: This is a 73-year-old man I am seeing in consultation request today because of recurrent atrial fibrillation. The patient was in his usual state of when he thinks his rather good health until the evening before last when he was feeling unwell somewhat lightheaded and noticed he was feeling generally weak. After a while of this he decided to check his pulse and found to be rapid and difficult to appreciate. When this went on for most of the day he came into the hospital last night for evaluation was found to be in atrial fibrillation with rapid ventricular response. He was given some intravenous med to metoprolol, it looks acute received a dose of intravenous diltiazem and was admitted to IMU. The patient has a history of atrial fibrillation I saw him I believe back in 2021 with the 1st episode of this. My impression clinically was that this is related to chronic lung disease with a prior history of COPD he also has a important history of colorectal cancer which is known to be metastatic and is being managed by his oncologist. On the combination of flecainide and apixaban he has been maintaining sinus rhythm and has not had any significant complaints. He does not have history of ischemic heart disease or left ventricular systolic dysfunction. He does have bifascicular block on his electrocardiogram as well. In this setting I am seeing him in consultation. He is currently feeling better he still in atrial fib with a heart rate in the 80s. the patient states that prior to this recurrence of his atrial fib he was recently on vacation up in [place] and he did come down with a febrile illness and tested positive for coronavirus. He did have some fever and chest discomfort with coughing with that illness but did not really notice any symptoms of recurrent atrial fib at that time. He states that the day before the symptoms began he was out to dinner with some friends and drank about 4 or 5 glasses of wine which is more alcohol than he will typically drink Date of service 04/09: Converted to sinus rhythm around 11PM last night and is remaining in sinus rhythm this morning. Feeling well. Review of Systems Review of Systems: All systems reviewed & are unremarkable except as noted in HPI and below (HPI) Exam Const:
--- NOTE | 2024-04-09 11:23 | PM.DS ---
DS: Admitting Diagnosis Discharge Date 04/09 Admitting Diagnosis palpitations DS: Discharge Diagnosis Discharge Diagnosis (1) Atrial flutter with rapid ventricular response: Code(s): I48.92 - Unspecified atrial flutter Status: Acute Assessment and Plan: - EKG, initial: atrial flutter/ tachycardia with RVR, rate 126, left axis deviation, RBBB. - CXR showed no evidence of pulmonary edema or cardiomegaly - Troponin: 0.039 -> 0.054 -> 6 hr ordered - given diltiazem 10 mg IVP in ED, initially rate controlled. Now back in AFib with rate 100-115. Will trial metoprolol 5 mg IVP. If successful will add metoprolol 12.5 mg b.i.d., may need to be titrated to 25 mg b.i.d.. Restarted flecainide. - cardiology consulted, awaiting recs - continue home anticoagulant: Eliquis - echo, previous (08/2022): normal LV systolic function, estimated EF 50-55%, grade 1 diastolic dysfunction. See report for details. - telemetry monitoring - seen per card:'He reports to be very compliant with his antiarrhythmic and anticoagulation regimen. It is certainly possible that this recurrences related to his recent COVID infection and/or recent intake of a more alcohol than typical. In any event I believe we should transition his antiarrhythmic regimen to amiodarone. I am going to start him on intravenous amiodarone since he is hospitalized. Stop the flecainide and observed for conversion to sinus rhythm. If he does not medically convert I would anticipate electrical cardioversion Thursday. If he does convert over the weekend he can be transitioned to oral amiodarone regimen and discharged. 04/09- nsr this am- card is follwoing- will switch to amiodarone po and monitor. discharge when stable and ok with card. ok to dischareg from cardiology stand point- will send PO amio rx and f/u - call mondya for an garcia (2) HECTOR (obstructive sleep apnea): Code(s): G47.33 - Obstructive sleep apnea (adult) (pediatric) Status: Acute Assessment and Plan: - continue home CPAP (3) HTN (hypertension): Qualifiers: Hypertension type: essential hypertension Qualified Code(s): I10 - Essential (primary) hypertension Code(s): I10 - Essential (primary) hypertension Status: Acute Assessment and Plan: - chronic, currently 141/73 - continue home medications: Amlodipine 5 mg, lisinopril 40 mg - monitor Plan Diet: heart healthy GI Prophylaxis: not currently indicated DVT Prophylaxis: continue home anticoagulant Lines: peripheral Code Status: full code DS: Summary Hospital Course Hospital Course: Narrative retrieved form H/P: 73 y/o M presents here with palpitations and chest tightness with PMH of AFib, stage 4 colorectal cancer (partial colon resection, undergoing chemo), COPD The patient presents here via EMS from home for further evaluation of palpitations and chest tightness. Patient reports onset of symptoms 1 hour prior to arrival at the emergency room, around 10:00-10:30 a.m. He further describes the chest tightness as non-painful, nonradiating, ebbed and flowed, aggravated by exertion, and alleviated by rest. He denies associated chest pain, diaphoresis, syncope, or nausea. Endorses accompanying mild shortness of breath and dizziness with exertion during event. Has known history of AFib and is currently on Flecainide and Eliquis. Denies any recent missed doses of Flecainide. Last occurrence of AFib was approximately 2 years ago. Follows with Markus FARNCO for his cardiac care, last visit on 01/21/24. Patient suspected an AFib episode which prompted his visit today. Currently receiving treatment for stage 4 colon cancer with mets to lungs and liver at [facility] with [facility], undergoing chemo and hopeful most recent oral chemo may bring remission. Has CT scheduled for tomorrow to reassess. Initial VS at presentation: 98.4? F, HR 143, RR 17, 123/64, and 99% on RA. ED workup showed: WBC 2.2, hemog
[2024-04-09] MEDS: AMIODARONE HCL 200 MG TABLET 400 MG PO (11:35)
== END 2024-04-09 13:33 | disposition home or self-care (01) | DRG 309 ==
LOC: ANHED 14:47 → ANHIMU 15:41
PROVIDERS: Emergency Medicine; Student in an Organized Health Care Education/Training Program; Admitting Provider General Practice; Emergency Provider Registered Nurse; PCP Internal Medicine; Visit Provider Nurse Practitioner
DX: I48.92 Unspecified atrial flutter (principal); C18.9 Malignant neoplasm of colon, unspecified; C78.7 Secondary malignant neoplasm of liver and intrahepatic bile duct; C78.00 Secondary malignant neoplasm of unspecified lung; I48.20 Chronic atrial fibrillation, unspecified; I45.2 Bifascicular block; I10 Essential (primary) hypertension; C61 Malignant neoplasm of prostate; E78.5 Hyperlipidemia, unspecified; K57.30 Diverticulosis of large intestine without perforation or abscess without bleeding; G47.33 Obstructive sleep apnea (adult) (pediatric); Z96.649 Presence of unspecified artificial hip joint; Z96.659 Presence of unspecified artificial knee joint; Z87.891 Personal history of nicotine dependence; Z79.01 Long term (current) use of anticoagulants
CPT/HCPCS: 36415; 71046; 80048; 80053; 83690; 83735; 84484; 85025; 85610; 85730; 87040; 93005; 94640; 96374; 96375; 96376; 99285; A9270; G0378; J0282

== ENCOUNTER 2025-01-28 12:09 | Emergency (ER) | payer MEDICARE, SELFPAY ==
[2025-01-28] VITALS (21 sets, daily range): BP systolic 101–125; BP diastolic 67–88; PULSE 65–91; RESP 15–26; TEMP 36.9; O2SAT 95–100
--- NOTE | ~2025-01-28 | XR_ITS ---
XR chest 1V portable 01/28/2025 12:35 Indication: Shortness of breath. Atrial fibrillation. Procedure: AP portable chest Comparison: 04/07/2024 Findings: Borderline heart size. Portacatheter tip in the SVC. No focal air space disease, pulmonary edema, pleural effusion or suspected pneumothorax. Prominent bilateral second costochondral cartilage . Impression: 1: No acute cardiopulmonary disease. Reviewed, dictated and finalized at location B. Impression: 1: No acute cardiopulmonary disease.
--- NOTE | 2025-01-28 12:10 | ECG_ITS ---
Test Date: 2025-01-28 12:17:54 Measurements Intervals [place] Rate: 90 P: -16 [place]: 176 QRS: -82 QRSD: 144 T: 72 QT: 384 QTc: 471 Interpretive Statements SINUS RHYTHM RIGHT BUNDLE BRANCH BLOCK LEFT ANTERIOR FASCICULAR BLOCK CANNOT R/O SEPTAL INFARCT, AGE INDETERMINATE ABNORMAL ECG Compared to ECG 04/07/2024 11:36:55 ATRIAL FLUTTER/TACHYCARDIA NO LONGER PRESENT Electronically Signed On 01-28-2025 13:43:06 CDT by Edgar Burciaga D.O.
--- OUTSIDE RECORDS SUMMARY | 2025-01-28 12:10 | XMS_ITS | Continuity of Care Document ---
Author Organization [facility] [place] [address] [place] [address] Phone Care Team Providers Care Casino Banker Name Role Phone Noe Velasco Unavailable Unavailable Procedures Procedure Date Post-op Follow-up Visit Post-op Follow-up Visit Remove Cataract, Insert Lens Eye Exam, New Patient Echo Exam Of Eye Advance Directives Directive Yes / No Effective Date File Name No Information Encounters Encounter Description Practice Location Reason(s) For Visit Diagnoses Date Provider Providers Copied on Encounter [facility], [address] [place] [address] [address], [place], [place], [id number], tel:[phone] [facility] No Information 8 Rod Liu. [address] [place], [place] [address]ate [address], [place], [place], [facility], . tel:[phone] [facility], [address] [place] [address] [address], [place], [place], [id number], [place] tel:[phone] [facility] No Information 8 Rod Liu. [address] [facility] [address], [place], [place], [facility], [place]. tel:[phone] Referring Provider: Felice Odom, [address], [place], [place], [facility]. tel:[phone] [facility], [address], [place], [place], [id number], [place] tel:[phone] [facility] No Information 200 [address] Rod Edzaria. [address] [place] [address] , [address], [place], [place], [facility], [place]. tel:[phone] Referring Provider: Feilce Odom, [address] [place] [address] [address], [place], [place], [facility]. tel:[phone] [facility], [address], [place], [place], [id number], [place] tel:[phone] [facility] No Information 200 [address] Rod Liu. [address] [place] [address] , [address], [place], [place], [facility], [place]. tel:[phone] Referring Provider: Felice Odom, [address] [place] [address] [address], [place], [place], [facility]. tel:[phone] Family History Family Member Type Diagnosis Age At Onset No Information Payers Payer name Insurance type Covered libertarian ID Authoriza tion(s) No Information Social History Type Description Quantity Date Captured Comments Sex Male Smoking Status No Information Chief Complaint And Reason For Visit No Information Reason For Referral Reason For Referral No Information History Of Present Illness Encounter Date Complaint History Of Prese nt Illness No Information Functional Status Date Functional Assessmen t No Information Instructions Date Instruction Additional Infor mation No Information Assessments Type Assessment Date No Information Patient Care Teams Name Effective Dates (start - stop) Status Members No Information
--- OUTSIDE RECORDS SUMMARY | 2025-01-28 12:10 | XMS_ITS | Continuity of Care Document ---
Author Organization [facility] Address [address] [place] [address] Phone Care Team Providers Care Airplane Dispatcher Name Role Phone Amie Duran MD Unavailable Unavailable Allergies, Adverse Reactions, Alerts Substance Reaction Status Criticality PENICILLIN Active No Information Medications Medication Instructions Dosage Effective Dates (start - stop) Status Comments amlodipine 10 mg tablet take 1 tablet by oral route every day 10 MG - Active lisinopril 40 mg tablet take 1 tablet by oral route every day 40 MG - Active hydrochlorothiazide 12.5 mg capsule take 1 capsule by oral route every day 12.5 MG - Active atorvastatin 80 mg tablet take 1 tablet by oral route every day 80 MG - Active Aspir-81 81 mg tablet,delayed release take 1 tablet by oral route every day - Active Advance Directives Directive Yes / No Effective Date File Name No Information Encounters Encounter Description Practice Location Reason(s) For Visit Diagnoses Date Provider Providers Copied on Encounter [facility], [address], [place], [place], [id number], tel:[phone] [facility] Status post total hip replacement, right Renee Holloway. [address], [place], [place], [id number] , [place]. tel: [phone] Referring Provider: [address], [place], [address] . tel:[phone] [facility], [address], [place], [place], [id number], tel:[phone] [facility] Primary osteoarthritis of right hipStatus post total hip replacement, right Renee Holloway. [address], [place], [place], [id number] , [place]. [phone] Referring Provider: Amie Duran, [address], [place], [address] . tel:[phone] [facility], [address], [place], [place], [id number], [place] tel:[phone] [facility] Primary osteoarthritis of right hip Renee Hammondon. [address], [place], [place], [id number] , [place]. [phone] Referring Provider: Delonte [address], [place], [address] . tel:[phone] Family History Family Member Type Diagnosis Age At Onset Problem (finding) Family history of Hepat itis C Payers Payer name Insurance type Covered libertarian ID Authoriza tion(s) MEDICARE MB [id number] BCBS INACTIVE OUT OF STATE [id number] Social History Type Description Quantity Date Captured Comments Alcohol Use Details beer & wine Caffeine Use Details Unknown Tobacco Use Status No Information Smoking Status Former smoker Sex Male Chief Complaint And Reason For Visit No Information Reason For Referral Reason For Referral No Information History Of Present Illness Encounter Date Complaint History Of Prese nt Illness No Information Functional Status Date Functional Assessmen t No Information Medications Administered Medication Instructions Dosage Effective Dates (start - stop) Status Comments No Drug Therapy Prescribed Instructions Date Instruction Additional Infor mation No Information Assessments Type Assessment Date No Information Patient Care Teams Name Effective Dates (start - stop) Status Members No Information
--- OUTSIDE RECORDS SUMMARY | 2025-01-28 12:11 | XMS_ITS | Encounter Summary ---
Author Organization [facility] Healthcare Address [address] [place] [address] Care Team Providers Care General Assignment Reporter Name Role Phone Benjamin Murrell DO Unavailable [phone] Brad Farrell MD Unavailable [phone] Jared Johnson DO Primary Care Provider [phone] Costa Aparicio MD Unavailable [phone] Encounter Details Date Type Department Care Team (Late st Contact Info) Description 01/27/2025 Telephone [facility] Medical Group Cardiology [address] [facility] [address] [address] Costa Aparicio MD [address] [place] [address] Social History Tobacco Use Types Packs/Day Years Used Date Smoking Tobacco: Former Cigarettes 1.5 45 1 971 - 2016 Passive Smoke Exposure: Past Smokeless Tobacco: Never Alcohol Use Standard Drinks/Week Comments Yes 0 (1 standard drink = 0.6 oz pur e alcohol) 2-3 pr week [facility] Utilities Answer Date Recorded In the past 12 months has e electric, gas, oil, or water company threatened to shut off services in your home? No 03/08/2024 Social Connection and Isolat ion Panel [NHANES] Answer Date Recorded In a typical week, how many times do you talk on the phone with family, friends, or neighbors? More than three times a week 03/08/2024 How often do you get togethe r with friends or relatives? More than three times a week 03/08/2024 How often do you attend chur ch or shinto services? More than 4 times per year 03/08/2024 Do you belong to any clubs o r organizations such as congregational groups, unions, fraternal or athletic groups, or school groups? No 03/08/2024 How often do you attend meet ings of the clubs or organizations you belong to? Never 03/08/2024 Are you , , di vorced, , never , or living with a partner? 03/08/2024 AUDIT-C Answer Date Recorded Q1: How often do you have a drink containing alcohol? Monthly or less 01/20/2025 Q2: How many drinks containi ng alcohol do you have on a typical day when you are drinking? Patient does not drink Q3: How often do you have si x or more drinks on one occasion? Never 01/20/2025 Overall Financial Resource Strain (CARDIA) Answe r Date Recorded How hard is it for you to pa y for the very basics like food, housing, medical care, and heating? Not hard at all 03/08/2024 Hunger Vital Sign Answer Date Recorded Within the past 12 months, y ou worried that your food would run out before you got the money to buy more. Never true 03/08/20 24 Within the past 12 months, t he food you bought just didn't last and you didn't have money to get more. Never true 03/08/2024 PRAPARE - Transportation Answer Date Re corded In the past 12 months, has l ack of transportation kept you from medical appointments or from getting medications? No 02/15 In the past 12 months, has l ack of transportation kept you from meetings, work, or from getting things needed for daily living? No 03/08/2024 Housing Stability Vital Sign Answer Mario e Recorded In the last 12 months, was t here a time when you were not able to pay the mortgage or rent on time? No 03/05/2023 In the last 12 months, how many places have you lived? 1 03/05/2023 In the last 12 months, was t here a time when you did not have a steady place to sleep or slept in a jail (including now)? No 03/05/2023 Housing Stability Vital Sign Answer Mario e Recorded In the last 12 months, was t here a time when you were not able to pay the mortgage or rent on time? No 03/08/2024 In the past 12 months, how m any times have you moved where you were living? 0 03/08/2024 At any time in the past 12 m [facility], were you homeless or living in a jail (including now)? No 03/08/2024 Personal Safety Answer Date Recorded Have you ever been in or are you currently in a harmful physical or emotional relationship or is someone making you feel afraid or unsafe? 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 Pt hasn't had any med changes recently, and usually only experiences symptoms when going from sitting to standing position, but was dizzy the other night when just laying in bed. Informed her would send to Dr. Aparicio for review and call her back with his recommendations please advise * Telephone Encounter - Alice Mirza - 01/27/2025 11:08 AM CDT Thu (pts spouse) returning call to provide the following BP and HR information: Resting BP: 108/60 HR: 62 Standing BP: 104/61 HR: 70 Contact [phone] * Telephone Encounter - Osmel Mcclure RN - 01/27/2025 9:51 AM CDT Spoke with , only experiencing symptoms when going from sitting to standing position. They havechecked it during this time and states it is lower. She is not at home right now. She reports he has had a problem with dehydration in the past but he's been receiving fluids outpatient at [facility] (pt continues to be treated by oncologist at [facility] for colon cancer) Advised to call back with BP and HR readings while resting, and then within 1 minute of standing. Advised to stand up slowly, make sure to stay hydrated, compression stockings. Will review readingswhen calls back, and can forward to Dr. Aparicio for review. * Telephone Encounter - Diane Barnes - 01/27/2025 9:26 AM CDT Pts called to let us know pt has been having episodes of lightheadedness and dizziness. They went and saw his urologist and he recommended they speak to his formal waiter/waitress because he may be on toomuch BP medications. Please advise she would a call back with an update on what [facility] thinks needs niles done thank you Contact: documented in this encounter Plan of Treatment Not on file documented as of this encounter Visit Diagnoses Not on filedocumented in this encounter Care Teams General Assignment Reporter Relationship Specialty Start Date End Date Jared Johnson DO [address] [place] [address] PCP - General Internal Medicine 03/25/23 Benjamin Murrell DO [address] [place] [address] MEDICAL ONCOLOGY, [address] [address] Medical Oncologist/Nipping Machine Operator Hematology and Oncology 08/21/22 Brad Farrell MD [address] [address] Consulting Physician Pulmonary Disease 03/05/23 Costa Aparicio MD [address] [address] Consulting Physician Cardiology 03/25/23 documented as of this encounter
--- OUTSIDE RECORDS SUMMARY | 2025-01-28 12:11 | XMS_ITS ---
Author Organization [facility] Address [facility] [place] [address] Care Team Providers Care Assurance Associate Name Role Phone Benjamin Murrell DO Unavailable [phone] Brad Farrell MD Unavailable [phone] Jared Johnson DO Primary Care Provider [phone] Costa Aparicio MD Unavailable [phone] Active Problems Problem Noted Date Diagnosed Date Acute dehydration 01/20/2025 Anemia associated with chemotherapy 12/16/2024 Carcinoma metastatic to lung 08/21/2024 Prevention of chemotherapy-induced neutropenia 1 10/06/2023 Gastroesophageal reflux disease without esophagi tis 06/10/2024 COVID 03/07/2024 Hypocalcemia 03/07/2024 Elevated troponin 03/07/2024 Sepsis 03/07/2024 Urinary retention due to benign prostatic hyperp lasia 03/07/2024 Insomnia 03/07/2024 Centrilobular emphysema 06/15/2023 Assessment & Plan (10/31/2024 11:18 AM CDT): Due to ongoing symptoms, the patient will continue with Breztri 2 puffs b.i.d.. Patient has an albuterol inhaler to use on a p.r.n. basis and up to 4 times a day as needed for symptom control. The patient continues his allergy regimen. I asked the patient to resume the Mucinex b.i.d. to see if this may help with the postnasal drip/phlegm. Assessment & Plan (07/21/2024 10:38 AM ALTERATION TAILOR): The patient has stage II COPD and no significant change in the spirometric flows on baseline spirometry. His bronchodilator response was not as great. The DLCO was decreased but I suspect this is related to his anemia from treatment of his colon cancer. I will continue with Breztri 2 puffs b.i.d. and albuterol MDI q.i.d. p.r.n. Assessment & Plan (06/13/2024 11:30 AM CDT): Due to continued symptoms, the patient will continue Breztri 2 puffs b.i.d.. The patient has an albuterol inhaler to use on a p.r.n. basis and up to 4 times a day as needed for symptom control. The patient will continue Claritin and Flonase. I have added Astelin nasal spray due to the postnasal drip causing a cough. I have ordered a PFT Assessment & Plan (12/07/2023 10:36 AM CDT): His breathing is comfortable with use of breztri 2 puffs b.i.d. and p.r.n. albuterol MDI Assessment & Plan (06/15/2023 11:19 AM CDT): He continues on breztri 2 puffs b.i.d. and I did recommend that he complete the 5 day course of doxycycline for the possible bronchitis and I did recommend that he wear a mask when he is outside to help decrease his coughing and use albuterol MDI on a p.r.n. basis. He will follow up here in 6 months. 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 Pulmonary nodule 10/23/2022 Assessment & Plan (10/31/2024 11:19 AM CDT): CT scanning managed by Oncology every 3 months. Assessment & Plan (07/21/2024 10:36 AM ALTERATION TAILOR): The pulmonary nodules are presumed metastatic lesions from his colon cancer. He has another chest/abdomen CT scheduled for later this month and he continues to follow with his oncologist. Assessment & Plan (06/13/2024 11:14 AM CDT): The pulmonary nodules continue to be monitored by oncology with CT scanning every 3 months. The patient is currently on treatment for stage IV cancer Assessment & Plan (12/07/2023 10:35 AM CDT): Pulmonary nodules have not changed on the chest CT from last month and the oncologist is following Q three-month studies. Assessment & Plan (06/15/2023 11:18 AM CDT): Pulmonary nodules have been stable on the most recent chest CT from yesterday and he continues to follow with Dr. Murrell who has been ordering the serial chest CTs. Assessment & Plan (12/08/2022 11:13 AM CDT): The patient is getting a CT scan of the chest and abdomen every three months as ordered by the oncologist. There was pulmonary nodules noted on the last CT scan. He continues to be followed by Oncology. The patient is currently on Keytruda. Assessment & Plan (10/23/2022 12:49 PM ALTERATION TAILOR): The patient is getting a CT scan of the chest and abdomen every three months as ordered by the oncologist. There was pulmonary nodules noted on the last CT scan. He continues to be followed by Oncology. The patient is currently on Keytruda. PLMD (periodic limb movement disorder) Assessment & Plan (10/31/2024 11:19 AM CDT): Under control with gabapentin 600 mg 4 times a day and Requip 1 mg t.i.d.. Oncology is ordering the gabapentin. I will refill the Requip for 1 year Assessment & Plan (07/21/2024 10:37 AM ALTERATION TAILOR): The PLMS/RLS symptoms are under control with Requip 1 mg in the morning and 2 mg at bedtime. Assessment & Plan (06/13/2024 11:14 AM CDT): Due to continued symptoms, the patient will continue Requip 1 mg t.i.d.. I did encourage the patient to take 1 mg ropinirole in the morning and 2 mg in the evening/bedtime. The patient is also going to reach out to Oncology in regards to gabapentin Assessment & Plan (12/07/2023 10:35 AM CDT): PLMS are under control with Requip 0.5 mg at bedtime. Assessment & Plan (06/15/2023 11:18 AM CDT): The PLMS are under control with Requip 0.5 mg at bedtime. Assessment & Plan (12/08/2022 11:13 AM CDT): The patient has seen a significant change in his limb movements with the Requip 0.5 mg. Assessment & Plan (10/23/2022 12:50 PM ALTERATION TAILOR): Due to the patient's limb movements on the titration study and also reported by his I have started him on a trial of Requip 0.5 mg p.o. Q bedtime. Personal history of tobacco use 10/23/2022 Assessment & Plan (10/31/2024 11:19 AM CDT): Continues to be tobacco free for approximately [address] scanning is being managed by Oncology every 3 months Assessment & Plan (07/21/2024 10:37 AM ALTERATION TAILOR): The patient did smoke a few cigarettes 1-2 months ago but currently is not smoking. Assessment & Plan (06/13/2024 11:15 AM CDT): Continues to be tobacco free and is having CT scans monitored by Oncology Assessment & Plan (12/07/2023 10:36 AM CDT): He would qualify for screening chest CTs but he is undergoing every 3 month chest CTs to follow the pulmonary nodules. He quit smoking about 8 years ago. Assessment & Plan (06/15/2023 11:18 AM CDT): He would qualify for screening chest CTs but currently is obtaining serial CTs through the oncologist. Assessment & Plan (12/08/2022 11:15 AM CDT): The patient did smoke 1-2 packs of cigarettes per day for 45 years. He did stop smoking six years ago however was smoking marijuana. He has stop smoking marijuana. Currently he is having chest CT scans ordered by his oncologist. The patient does qualify for low-dose screening CT scan. After the oncologist is no longer ordering CT scans of the chest he would need a low-dose screening CT scan ordered. Assessment & Plan (10/23/2022 12:52 PM ALTERATION TAILOR): The patient did smoke 1-2 packs of cigarettes per day for 45 years. He did stop smoking six years ago however was smoking marijuana. He has stop smoking marijuana. Currently he is having chest CT scans ordered by his oncologist. The patient does qualify for low-dose screening CT scan. After the oncologist is no longer ordering CT scans of the chest he would need a low-dose screening CT scan ordered. Paroxysmal atrial fibrillation 09/12/2022 Encounter for management of implanted device 03/2023 HTN (hypertension) 07/17/2022 Mixed hyperlipidemia 07/17/2022 Overview (07/17/2022): 04/05 Cholesterol 121 HDL 51 LDL 56 triglyceride 70, AST 26 ALT 24 glucose 92 11/03 Cholesterol 137 HDL 55 LDL 62-66d triglyceride 102, CMP virtually normal except glucose 124 11/02 Cholesterol 129 HDL 45 LDL 58 triglyceride 131, AST 29 ALT 36 glucose 124 08/03 Cholesterol 130 HDL 55 LDL 62 triglyceride 64, normal LFTs glucose 120 10/03 Cholesterol 149 HDL 55 LDL 69 triglyceride 126 11/30 Cholesterol 157 HDL 52 LDL 89 triglyceride 79, on atorvastatin 80 mg daily 07/31 cholesterol 264 HDL 64 LDL 155 triglyceride 226, normal AST/ALT glucose 116, on simvastatin 20 mg daily 2000s cholesterol 280s Acute cough 07/17/2022 Assessment & Plan (08/21/2022 11:15 AM ALTERATION TAILOR): Has improved with the use of Mucinex and Flonase daily Assessment & Plan (07/17/2022 12:38 PM ALTERATION TAILOR): The patient has had problems with significant coughing and sputum production. I will order Mucinex 600 mg p.o. b.i.d. and he will also start Flonase 2 puffs in each nostril daily. Prostate cancer 05/28/2022 Overview (05/28/2022): Added automatically from request for surgery [id number] Dehydration 12/03/2020 Malignant neoplasm of cecum 08/29/2020 Malignant neoplasm metastatic to liver 0 HECTOR on CPAP 06/30/2016 Overview (07/17/2022): 07/02 sleep study: mild HECTOR -> CPAP Assessment & Plan (10/31/2024 11:20 AM CDT): Due to the patient stating it feels like his pressure may be too high, I have decreased the pressure to 9 cm water pressure. I have asked the patient to call into the office if the pressure needs to be readjusted. DME [employer] Assessment & Plan (07/21/2024 10:36 AM ALTERATION TAILOR): The patient has restarted CPAP at 11 cm water pressure for ongoing symptoms of HECTOR. His DME supplier is [employer]. Assessment & Plan (06/13/2024 11:13 AM CDT): Due to continued symptoms, the patient will continue CPAP at 15 cm water pressure. Denied need for supplies. DME [employer] Assessment & Plan (12/07/2023 10:35 AM CDT): The patient continues to benefit from CPAP at 15 cm water pressure for ongoing symptoms of HECTOR. His DME supplier is [employer]. Assessment & Plan (06/15/2023 11:18 AM CDT): The patient continues to benefit from CPAP at 15 cm water pressure. His DME supplier is [employer]. Assessment & Plan (12/08/2022 11:14 AM CDT): Patient continue to wear his CPAP at 15 cm water pressure while sleeping. His DME is [employer]. Assessment & Plan (10/23/2022 12:49 PM ALTERATION TAILOR): Due to the patient being unable to tolerate the CPAP titration study and snoring under the mask I will increase the patient's CPAP to 13 cm of water pressure while sleeping. His DME is [employer]. Assessment & Plan (08/21/2022 11:16 AM ALTERATION TAILOR): Will continue with CPAP therapy at 11 cm water pressure. Patient will complete a CPAP titration study later this month starting at 11 cm water pressure and titrated as needed. Assessment & Plan (07/17/2022 12:36 PM ALTERATION TAILOR): The patient was diagnosed with obstructive sleep apnea in 2015 and is currently using CPAP at 11 cm water pressure. Because of his snoring under the CPAP mask, I will proceed with a CPAP titration study starting at 11 cm water pressure. Abnormal EKG 09/26/2015 Overview (07/17/2022): 01/28 EKG: SR, RBBB, LAD 07/31 EKG: SR, RBBB, LAD, PRWP 10/02 stress echo 6:31--93% maximal heart rate, no ischemia, EF 65-70% 07/02 EKG: SR, PACs, RBBB, LAD, PRWP, tiny -Q-waves 08/03 EKG: SR at 98, PACs, RBBB, LAD, PRWP, tiny -Q-waves 05/06 EKG: SR at 80, RBBB, LAD, PRWP, tiny -Q-waves; little change c/w 07/02 & 08/03 Vasovagal syncope 09/26/2015 Overview (07/17/2022): 11/28 probable vasovagal syncope after coughing fit 10/02 Holter: SR at 79, range 54-129, rare PVCs/PACs, no pauses Type 2 diabetes mellitus 09/24/2015 Overview (07/17/2022): 10/03 A1c 6 07/31 A1c 6.6 Current Treatment and Therapy Plans DARBEPOETIN (ARANESP) INJECTION EVERY 3 WEEKS* Plan Start Date:12/30/2024 Plan Provider:Benjamin Murrell DO Linked Problems Anemia associated with chemo therapyMalignant neoplasm metastatic to liver (HCC)Malignant neoplasm of cecum (HCC) Treatment Medications No medications scheduled. Fluorouracil / Leucovorin ([place]) 8 week Cycles - Colon* Plan Start Date: 02/01/2025 Plan Provider:Benjamin Murrell DO Linked Problems Malignant neoplasm metastati c to liver (HCC)Malignant neoplasm of cecum (HCC) Treatment Medications Current Day (Day 1 , Cycle 1 - Planned for 02/01/2025) Next Day (Day 8, Cycle 1 - Planned for 02/08/2025) fluorouracil (ADRUCIL)leucovorin fluorouracil (ADRUCIL) IV syringe 1,025 mg 20.5 mLleucovorin 1,025 mg in dextrose 5% 250 mL IVPB fluorouracil (ADRUCIL) IV syringe 1,025 mg 20.5 mLleucovorin 1,025 mg in dextrose 5% 250 mL IVPB Hydration Therapy Plan* Plan Start Date:12/30/2024 Plan Provider:Benjamin Murrell DO Linked Problems Malignant neoplasm of cecum (HCC)Dehydration Treatment Medications No medications scheduled. Other Current Plans IV Maintenance Therapy Plan & ALTEPLASE (CATHFLO ACTIVASE) - ORDERS FOR OCCLUDED CATHETERS* Plan Start Date:12/04/2021 Plan Provider:Benjamin Murrell DO Linked Problems Encounter for management of implanted device Treatment Medications No medications scheduled. Past Treatment and Therapy Plans Blood Products Plan Name Start Date Discontinue Date Treatment Medications Discontinue Reason Plan Provider Adult BMT/ONC - Blood and/or Platelet Administration for Outpatient 12/30/2024 01/24/2025 No medications scheduled. Therapy Complete Benjamin Murrell DO Adult BMT/ONC - Blood and/or Platelet Administration for Outpatient 10/21/2024 11/18/2024 No medications scheduled. Therapy Complete Benjamin Murrell DO Oncology Chemotherapy Treatment Plan Name Start Date Discontinue Date Treatment Medications Discontinue Reason Plan Provider Cycles Regorafenib 80 mg Titrated to 160 mg PO 28 Day Cycles - GI 05/11/20 24 08/04/2024 regorafenib (STIVARGA) Provider Discretion Benjamin Murrell DO 3 of 6 cycles started Panitumumab / Irinotecan 14 Day Cycles - Colon/Rectal 04/01/20 23 01/06/2024 IRINOtecan (CAMPTOSAR)IRINOte can (CAMPTOSAR) IVPB in 250 mLpanitumumab (VECTIBIX)panitumu mab (VECTIBIX) IVPB in 100 mL Progression Benjamin Murrell DO 19 of 23 cycles started Pembrolizumab 21 Day Cycles 12/12/19 22 03/25/2023 pembrolizumab (KEYTRUDA)pembroli zumab (KEYTRUDA) IVPB in 100 mL Progression Benjamin Murrell DO 21 of 24 cycles started [id number]: (Fluorouracil / Leucovorin/ Oxaliplatin) + Parris (Starting C2) 14 Day Cycles - GI - Eloxatin d/c'd on 12/26/20 08/27/19 21 12/04/2021 bevacizumab (AVASTIN)bevacizum ab (AVASTIN) IVPBfluorouracil (ADRUCIL)fluoroura cil (ADRUCIL) infusion - for home infusion (ADRUCIL)leucovori nleucovorin IVPB in 250 mLoxaliplatin (ELOXATIN)oxalipla tin (ELOXATIN) IVPB Progressive Disease Artis Quiroga Jr., MD 29 of 31 cycles completed Oncology Treatment (2) Plan Name Start Date Discontinue Date Treatment Medications Discontinue Reason Plan Provider Cycles IROX: (Oxaliplat in / Irinotecan ) 21 Day Cycles - Colon/Rect um 08/12/20 24 01/20/2025 dexAMETHasone (DECADRON)IRINOt ecan (CAMPTOSAR)IRINO tecan (CAMPTOSAR) IVPB in 250 mLoxaliplatin (ELOXATIN)oxalip latin (ELOXATIN) IVPB Toxicity/Compl ication Benjamin Murrell DO 7 of 9 cycles started Trifluridi ne/Tipirac il PO BID 28 days/cycle - GI 4 05/09/2024 No medications scheduled. Progression Benjamin Murrell DO Treatment not started Specialty Infusion Treatment Plan Name Start Date Discontinue Date Treatment Medications Discontinue Reason Plan Provider ALTEPLASE (CATHFLO ACTIVASE) - ORDERS FOR OCCLUDED CATHETERS 06/10/2021 08/24/2022 No medications scheduled. Therapy Complete Artis Quiroga Jr., MD Lifetime Dose Tracking * Chemical Lifetime Dose Automatic Entry Manual Entr y Fluoro Time 0.883 minutes 0.883 minutes 0 minutes Air kerma at the reference point (Ka,r) 7.375 mGy 7 .375 mGy 0 mGy DLP 1,996 mGycm 1,996 mGycm 0 mGycm Resolved Problems Problem Noted Date Diagnosed Date Resolved Date Chest pain, unspecified type 08/20/2024 08/22/2024 COPD (chronic obstructive pulmonary disease) 4 06/13/2024 Panlobular emphysema 10/23/2022 023 Assessment & Plan (12/08/2022 11:14 AM CDT): The patient continue with Breztri two puffs twice a day. I have sent out an albuterol inhaler for the patient to use as needed up to 4 times a day for shortness of breath. Assessment & Plan (10/23/2022 12:48 PM ALTERATION TAILOR): Patient continue to use Breztri two puffs twice a day. Patient continue with an albuterol inhaler as needed up to 4 times a day for shortness of breath. I did recommend the patient start pulmonary rehab. The patient states that he would like to think about it and be ask again at his next visit. The patient states that he does have a lot of medical issues going on at this time due to his cancer diagnosis. Shortness of breath 07/17/2022 10/24/19 23 Assessment & Plan (08/21/2022 11:16 AM ALTERATION TAILOR): Patient will complete a PFT later this month. I have given the patient a discount card for Breztri and the patient will continue with Combivent in the meantime. The patient was instructed to call into the office to see if we have samples of Breztri. Patient is following with Oncology and continues Keytruda. Assessment & Plan (07/17/2022 12:36 PM ALTERATION TAILOR): The patient presents with dyspnea and has been receiving Keytruda. He quit smoking 6 years ago and did smoke 1.5 packs of cigarettes per day for 45 years. I have recommended starting with full PFTs .
--- OUTSIDE RECORDS SUMMARY | 2025-01-28 12:11 | XMS_ITS | Clinical Summary ---
Author Organization [facility] Address [address] [place] [address] Care Team Providers Care Dba Manager Name Role Phone Jared Johnson DO Primary Care Provider Amie Duran MD Unavailable [phone] Source Comments [facility],non-owned Affiliates and Associated Physician Practices is amultiple site organization consisting of ambulatory clinics and hospital sitesin [place], [place], [place] and [place]. This disclosure is being madepursuant to the Care Everywhere program and may not contain all information available regarding this patient. Last updated 18.[facility] Allergies Active Allergy Reactions Criticality Noted Date Comments Penicillins Other 01/11/2014 hallucinations Medications * Be aware that medications may not be up to date on this document. Alwaysverify current medications with the patient. lisinopril (PRINIVIL; ZESTRIL) 40 MG tablet Take 40 mg by mouth once daily Active hydrochlorothia zide (MICROZIDE) 12.5 MG capsule Take 12.5 mg by mouth once daily Active aspirin EC (ECOTRIN) 81 MG tablet Take 1 Tab by mouth 2 times daily Take for 4 weeks for blood clot prevention 0 6 Active tamsulosin (FLOMAX) 0.4 MG capsule Take 0.4 mg by mouth once daily 5 06/03/ 8 Active Glucosamine-Cho ndroitin (GLUCOSAMINE CHONDR COMPLEX PO) Take by mouth once daily Active Active Problems Problem Noted Date Diagnosed Date HECTOR on CPAP 06/30/2016 Overview (06/30/2017): 07/02 sleep study: mild HECTOR -> CPAP Abnormal EKG 09/26/2015 Overview (04/17/2020): 01/28 EKG: SR, RBBB, LAD 07/31 EKG: SR, RBBB, LAD, PRWP 10/02 stress echo 6:31--93% maximal heart rate, no ischemia, EF 65-70% 07/02 EKG: SR, PACs, RBBB, LAD, PRWP, tiny -Q-waves 08/03 EKG: SR at 98, PACs, RBBB, LAD, PRWP, tiny -Q-waves 05/06 EKG: SR at 80, RBBB, LAD, PRWP, tiny -Q-waves; little change c/w 07/02 & 08/03 Vasovagal syncope 09/26/2015 Overview (10/03/2015): 11/28 probable vasovagal syncope after coughing fit 10/02 Holter: SR at 79, range 54-129, rare PVCs/PACs, no pauses Type 2 diabetes mellitus 09/24/2015 Overview (08/02/2018): 10/03 A1c 6 07/31 A1c 6.6 Hypertension Mixed hyperlipidemia Overview (04/17/2020): 04/05 Cholesterol 121 HDL 51 LDL 56 [...] simvastatin 20 mg daily 2000s cholesterol 280s Resolved Problems Problem Noted Date Diagnosed Date Resolved Date Colon polyps 09/24/2015 09/24/2015 S/P left unicompartmental knee replacement 05/26/2014 09/24/2015 Knee pain-left 01/11/2014 09/24/2015 Family History Relation Name Status Comments Brother 1 Alive no known heart dz Brother 2 Alive no known heart dz Brother 3 Alive no known heart dz Father (Age 35) in ca r accident; no known heart dz Maternal Grandfather (Age 93) (o ld MIs at autopsy) Maternal Grandmother (Age 99) ol d age Mother Alive no known heart dz Paternal Grandfather (Age 72) di ed cerebral hemorrhage Paternal Grandmother (Age 93) ol d age half-brother Jose Herrera Alive CAD (severe CAD at 45) half-sister Alive no known heart dz Social History Tobacco Use Types Packs/Day Years Used Date Smoking Tobacco: Former Cigarettes Q uit: 12/15/2013 Smokeless Tobacco: Never Alcohol Use Standard Drinks/Week Comments Yes 1 (1 standard drink = 0.6 oz pur e alcohol) previously more Sex and Gender Information Value Date Recorded Sex Assigned at Not on file Legal Sex Male 11:02 AM CDT Gender Identity Not on file Sexual Orientation Not on file 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) Not on file Not on file N ot on file Last Filed Vital Signs Vital Sign Reading Time Taken Comments Blood Pressure 131/89 04/17/2020 2:06 PM CDT Pulse 69 04/17/2020 2:06 PM CDT Temperature 36.7 C (98 F) 10/13/2017 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 Respiratory Rate 20 08/02/2018 1:55 PM SECURITY DOOR INSTALLER Oxygen Saturation 99% 04/17/2020 2:06 PM CDT Inhaled Oxygen Concentration - - Weight 90.7 kg (200 lb) 04/17/2020 2:06 PM CDT Height 174 cm (5' 8.5) 04/17/2020 2:06 PM CDT Body Mass Index 29.97 04/17/2020 2:06 PM CDT Plan of Treatment Health Maintenance Due Date Last Done Comments REBEKAH (AGES 45-75) - COLON CA SCREENING 1949 COLON MONITORING 1949 COLONOSCOPY - COLON CA SCREENING 1949 CT COLONOGRAPHY - COLON CA SCREENING 1949 Colorectal Cancer Screening 1949 FIT - COLON CA SCREENING 1949 FLEX SIG - COLON CA SCREENING 1949 DTAP/TDAP/TD VACCINES (1 - Tdap) 1968 DIABETES-STATIN 1989 PNEUMOCOCCAL VACCINE 50+ (1 of 1 - PCV) 1999 ZOSTER VACCINE (1 of 2) 1999 DIABETES-FOOT EXAM WITH MONOFILAMENT 06/30/2017 DIABETES-HGB A1C 06/30/2017 DIABETES-SERUM CREATININE 10/30/20202019, 07/21/2018, 09/14/2017, Additional history exists COVID-19 VACCINE ( - season) 2024 Respiratory Syncytial Virus (RSV) Vaccine Pt: or over 60 yrs (1 - 1-dose 75+ series) 2024 DEPRESSION SCREENING 08/17/2024 DIABETES - URINE PROTEIN SCREENING 08/17/2024 INFLUENZA VACCINE (Season Ended) 2025 HEPATITIS C SCREENING Completed 09/14/2017 HEPATITIS B VACCINE Aged Out No longe r eligible based on patient's age to complete this topic HIB VACCINE Aged Out No longer eligi ble based on patient's age to complete this topic HPV VACCINE Aged Out No longer eligi ble based on patient's age to complete this topic MENINGOCOCCAL (Group B) VACCINE SHARED DECISION-MAKING Aged Out No longer eligible based on patient's age to complete this topic MENINGOCOCCAL GROUPS A/C/Y/W VACCINE Aged Out No longer eligible based on patient's age to complete this topic Medical Devices Implanted Type Area Welding Pantograph Machine Operator Device Identifier Shelf Expiration Date Model / Serial / Lot Kannan Bone [place] Hv Implanted:Qty: 1 on 02/23/2014 by Amie Duran MD at [facility] Left: Knee [employer] 06/17/2015 [id number] / / Femural 2 Pegged Medium Implanted:Qty: 1 on 02/23/2014 by Amie Duran MD at [facility] Left: Knee [id number] / / Tibial Component B 4 Implanted:Qty: 1 on 02/23/2014 by Amie Duran MD at [facility] Left: Knee [id number] / / Acetabular Liner Implanted:Qty: 1 on 07/29/2016 by Amie Duran MD at [facility] Right: Hip [id number] 01/17/2021 [id number] / / [id number] Bone Screw Implanted:Qty: 1 on 07/29/2016 by Amie Duran MD at [facility] Right: Hip [id number] 05/23/2025 [id number] / / [id number] Acetabular Shell Implanted:Qty: 1 on 07/29/2016 by Amie Duran MD at [facility] Right: Hip [id number] 07/06/2026 [id number] / / [id number] Femoral Stem Implanted:Qty: 1 on 07/29/2016 by Amie Duran MD at [facility] Right: Hip [id number] 02/19/2026 [id number] / / [id number] Head Implanted:Qty: 1 on 07/29/2016 by Amie Duran MD at [facility] Right: Hip [id number] 06/22/2026 [id number] / / [id number] Procedures Procedure Name Priority Date/Time Associated Diagnosis Comments COMPREHENSIVE METABOLIC PANEL 10/31/2019 9:58 AM CDT HEPATITIS C RNA QUANTITATIVE Routine 09/14/2017 3:03 PM 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 DOOR 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 from Last 3 Months or Most Recently Relevant to Health Maintenance Results * (ABNORMAL) COMPREHENSIVE METABOLIC PANEL (10/31/2019 9:58 AM CDT) Glucose 124(H) 65 - 99 mg/dL [facility] B[facility] BUN 23 8 - 27 mg/dL [facility] Creatinine 0.94 0.76 - 1.27 mg/dL [facility]URANCE BILL eGFR by MDRD 82 >59 mL/min/1.7 3 [facility] INSURANCE BILL eGFR by MDRD 95 >59 mL/min/1.7 3 [facility] INSURANCE BILL BUN/Creatinine Ratio 24 10 - 24 [facility] Sodium 135 134 - 144 mmol/L [facility] Potassium 4.7 3.5 - 5.2 mmol/L [facility] BILL Chloride 98 96 - 106 mmol/L [facility]ANCE B[facility] CO2 23 20 - 29 mmol/L [facility] B[facility] Calcium 9.4 8.6 - 10.2 mg/dL [facility] B[facility] Protein Total 6.9 6.0 - 8.5 g/dL [facility]ANCE B[facility] Albumin 4.8 3.8 - 4.8 g/dL [facility] BILL Globulin Total 2.1 1.5 - 4.5 g/dL [facility]URANCE BILL Albumin/Globulin Ratio 2.3(H) 1.2 - 2.2 [facility]URANCE BILL Bilirubin Total 0.4 0.0 - 1.2 mg/dL [facility]URANCE BILL Alkaline Phosphatase 77 39 - 117 IU/L [facility] AST 23 0 - 40 IU/L [facility]ANCE B[facility] ALT 30 0 - 44 IU/L [facility] B[facility] Comment:FASTING 10/31/2019 9:58 AM CDT 10/31/2019 Narrative Resulting Agency Comment Lab Testing performed at: [facility] [address] [id number] Cheikh Valdez MD LAB - CHEMISTRY ORDERABLES F inal Result [facility]URANCE BILL [address] [place] [address] * HEPATITIS C RNA QUANTITATIVE PCR (09/14/2017 3:03 PM SECURITY DOOR INSTALLER) Hepatitis C Virus RNA PCR Accession No: [id number] [facility] Hepatitis C Virus RNA PCR Specimen: Serum [facility] Hepatitis C Virus RNA PCR Reference: [id number] [facility] Hepatitis C Virus RNA PCR [facility] Hepatitis C Virus RNA PCR [facility] Hepatitis C Virus RNA PCR [facility] Hepatitis C Virus RNA PCR Test: Hepatitis C RT-PCR (Quantitative) [facility] Hepatitis C Virus RNA PCR [facility] Hepatitis C Virus RNA PCR [facility] Hepatitis C Virus RNA PCR RESULT [facility] Hepatitis C Virus RNA PCR Not Detected [facility] Hepatitis C Virus RNA PCR [facility] Hepatitis C Virus RNA PCR Reference Range [facility] Hepatitis C Virus RNA PCR Not Detected [facility] Hepatitis C Virus RNA PCR [facility] Hepatitis C Virus RNA PCR INTERPRETATION [facility] Hepatitis C Virus RNA PCR The quantitative Hepatitis C viral RNA RT-PCR determination [facility] Hepatitis C Virus RNA PCR was performed on a serum sample and is reported in IU/ml. [facility] Hepatitis C Virus RNA PCR Hepatitis C viral RNA was not detected. [facility] Hepatitis C Virus RNA PCR [facility] Hepatitis C Virus RNA PCR COMMENT [facility] Hepatitis C Virus RNA PCR The Hepatitis C viral (HCV) RNA analysis utilized a serum [facility] Hepatitis C Virus RNA PCR sample, real-time reverse city carrier PCR, and is reported [facility] Hepatitis C Virus RNA PCR as Not Detected, Detected (<12 IU/ml), Quantity (IU/ml) or [facility] Hepatitis C Virus RNA PCR >100,000,000 IU/ml. [facility] Hepatitis C Virus RNA PCR [facility] Hepatitis C Virus RNA PCR The limit of quantiation of the assay is 12 IU/ml (100% of [facility] Hepatitis C Virus RNA PCR samples with this HCV RNA level were detected). The linear [facility] Hepatitis C Virus RNA PCR range is from 12 IU/ml to 100,000,000 IU/ml. Values less [facility] Hepatitis C Virus RNA PCR than 12 IU/ml are reported as Detected (<12 IU/ml). Values [facility] Hepatitis C Virus RNA PCR greater than 100,000,000 IU/ml are reported as >100,000,000 [facility] Hepatitis C Virus RNA PCR IU/ml. [facility] Hepatitis C Virus RNA PCR [facility] Hepatitis C Virus RNA PCR The detection/quantita tion of HCV RNA in serum is based on [facility] Hepatitis C Virus RNA PCR the isolation of HCV RNA with reverse city carrier of [facility] Hepatitis C Virus RNA PCR genomic HCV RNA followed by real-time PCR in the presence of [facility] Hepatitis C Virus RNA PCR an unrelated RNA internal control. The internal control [facility] Hepatitis C Virus RNA PCR ensures that RNA is isolated, and that no general [facility] Hepatitis C Virus RNA PCR significant inhibitors of the RT-PCR process are present. [facility] Hepatitis C Virus RNA PCR [facility] Hepatitis C Virus RNA PCR This analysis was performed using an [place] FDA approved test [facility] Hepatitis C Virus RNA PCR methodology (Bro RealTime HCV). [facility] Hepatitis C Virus RNA PCR [facility] Hepatitis C Virus RNA PCR [facility] Hepatitis C Virus RNA PCR [facility] Hepatitis C Virus RNA PCR [facility] Hepatitis C Virus RNA PCR Test performed at [facility] Hepatitis C Virus RNA PCR Laboratories, [address] [place] [address] PATHOLOGY LAB Hepatitis C Virus RNA PCR [facility] Hepatitis C Virus RNA PCR [facility] Hepatitis C Virus RNA PCR [facility] Hepatitis C Virus RNA PCR This case has been personally reviewed and interpreted by [facility] Hepatitis C Virus RNA PCR the attending (teaching) pathologist. [facility] Hepatitis C Virus RNA PCR [facility] Hepatitis C Virus RNA PCR [facility] Hepatitis C Virus RNA PCR Final Diagnosis performed by Carlos Seth PHD. [facility] Hepatitis C Virus RNA PCR Electronically signed 09/19/2017 [facility] Blood specimen (specimen) BLOOD SPECIMEN / Unknown 09/14/2017 3:03 PM SECURITY DOOR INSTALLER 09/14/2017 3:22 PM SECURITY DOOR INSTALLER Ba Lau MD LAB - CHEMISTRY ORDERABLES Alexandra pedroza Result [facility] [address] [place] [address]. [address] [phone] from Last 3 Months or Most Recently Relevant to Health Maintenance Insurance MEDICARE ANTHEM MEDICARE ANTHEM ANTHEM MEDICARE [facility] Advance Directives * Full Code (Latest Code Status on File) Date Activated Date Inactivated Comments 07/29/2016 2:38 PM 07/31/2016 3:10 PM * Full Code Date Activated Date Inactivated Comments 02/23/2014 11:04 AM 02/24/2014 4:53 PM Care Teams Dba Manager Relationship Specialty Start Date End Date Jared Johnson DO PCP - General Internal Medicine 01/02/14 Amie Duran MD Orthopedic Surgery 01/11/14
--- OUTSIDE RECORDS SUMMARY | 2025-01-28 12:11 | XMS_ITS | Referral Summary ---
Author Organization [facility] Address [facility] [place] [address] Care Team Providers Care Pharmaceutical Salesperson Name Role Phone Benjamin Murrell DO Unavailable [phone] Brad Farrell MD Unavailable [phone] Jared Johnson DO Primary Care Provider + [phone] Costa Aparicio MD Unavailable [phone] Encounters Date Type Department Care Team Description 01/27/2025 Telephone [facility] Cardiology [address] [place] [address] Costa Aparicio MD 01/20/2025 10:17 AM CDT - 01/21/2025 4:40 PM CDT Hospital Encounter [facility] 4 Med [address] [place] [phone] Benjamin Murrell DO Obstipation (Primary Dx); Centrilobular emphysema (HCC); Lumbar radiculopathy; Paroxysmal atrial fibrillation (HCC); Primary hypertension; Urinary retention due to benign prostatic hyperplasia; Gastroesophageal reflux disease without esophagitis; Cluneal neuropathy; Chronic right-sided low back pain, unspecified whether sciatica present; Spondylosis of lumbar region without myelopathy or radiculopathy; Insomnia, unspecified type; Acute dehydration Discharge Disposition: Discharge to home or self care 01/20/2025 Orders Only [facility] Oncology [address] [place] [phone] Meg Lopez RN Malignant neoplasm of cecum (HCC) (Primary Dx); Malignant neoplasm metastatic to liver (HCC) 01/20/2025 7:30 AM CDT Clinical Support [address] [address] Malignant neoplasm metastatic to liver (HCC); Malignant neoplasm of cecum (HCC); Prevention of chemotherapy-induced neutropenia 01/20/2025 8:00 AM CDT Office Visit [facility] Oncology [address] [place] [phone] Benjamin Murrell DO Malignant neoplasm of cecum (HCC) (Primary Dx); Malignant neoplasm metastatic to liver (HCC); Prevention of chemotherapy-induced neutropenia 01/17/2025 3:06 PM CDT - 01/17/2025 11:59 PM CDT Hospital Encounter [facility] Office Building [address] [place] [phone] Prostate cancer (HCC); Incomplete bladder emptying Discharge Disposition: Discharge to home or self care 01/17/2025 2:20 PM CDT Office Visit [facility] Surgery [address] [place] [phone] Cheikh Dexter MD Prostate cancer (HCC) (Primary Dx); Incomplete bladder emptying; BPH with obstruction/lower urinary tract symptoms 01/06/2025 12:45 PM CDT Infusion [address] [phone] Dehydration (Primary Dx); Malignant neoplasm of cecum (HCC); Malignant neoplasm metastatic to liver (HCC) 01/06/2025 11:30 AM CDT - 01/06/2025 11:59 PM CDT Hospital Encounter [facility] MOB 1 DIAG IMG [address] [place] [phone] Malignant neoplasm of cecum (HCC); Malignant neoplasm metastatic to liver (HCC); Bloating Discharge Disposition: Discharge to home or self care 01/06/2025 11:15 AM CDT Clinical Support [facility] at [address] [phone] Malignant neoplasm of cecum (HCC); Malignant neoplasm metastatic to liver (HCC) 01/06/2025 10:30 AM CDT Office Visit [facility] Oncology [address] [place] [phone] Benjamin Murrell DO Bloating (Primary Dx); Malignant neoplasm of cecum (HCC); Malignant neoplasm metastatic to liver (HCC) 01/05/2025 Telephone [facility] Oncology [address] [place] [phone] Bianca Christianson, ELI 01/03/2025 Telephone [facility] Oncology [address] [place] [phone] Bianca Christianson, ELI 12/30/2024 2:44 PM CDT - 12/30/2024 11:59 PM CDT Hospital Encounter [facility] [address] [place] [address] Malignant neoplasm of cecum (HCC); Malignant neoplasm metastatic to liver (HCC); Memory loss; Dizziness Discharge Disposition: Discharge to home or self care 12/30/2024 1:00 PM CDT Infusion [facility] at [address] [phone] Anemia associated with chemotherapy (Primary Dx); Malignant neoplasm of cecum (HCC); Malignant neoplasm metastatic to liver (HCC); Iron deficiency anemia, unspecified iron deficiency anemia type 12/30/2024 Orders Only [facility] Oncology [address] [place] [phone] Bianca Christianson, ELI Malignant neoplasm of cecum (HCC) (Primary Dx); Malignant neoplasm metastatic to liver (HCC); Iron deficiency anemia, unspecified iron deficiency anemia type; Memory loss; Dizziness 12/30/2024 Orders Only [facility] Oncology [address] [place] [phone] Benjamin Murrell DO 12/30/2024 4:30 PM CDT Infusion [facility] at [address] [phone] Malignant neoplasm of cecum (HCC); Malignant neoplasm metastatic to liver (HCC) 12/30/2024 8:30 AM CDT Infusion [address] [phone] Anemia associated with chemotherapy (Primary Dx); Malignant neoplasm metastatic to liver (HCC); Malignant neoplasm of cecum (HCC); Prevention of chemotherapy-induced neutropenia; Dehydration; Iron deficiency anemia, unspecified iron deficiency anemia type 12/30/2024 8:00 AM CDT Clinical Support [address] [address] Malignant neoplasm metastatic to liver (HCC); Malignant neoplasm of cecum (HCC); Prevention of chemotherapy-induced neutropenia; Iron deficiency anemia, unspecified iron deficiency anemia type 12/16/2024 10:30 AM CDT Clinical Support [address] [address] Malignant neoplasm metastatic to liver (HCC); Malignant neoplasm of cecum (HCC); Prevention of chemotherapy-induced neutropenia 12/16/2024 11:00 AM CDT Office Visit [facility] Physicians [facility] Oncology [address] [place] [phone] Benjamin Murrell DO Malignant neoplasm of cecum (HCC) (Primary Dx); Malignant neoplasm metastatic to liver (HCC); Prevention of chemotherapy-induced neutropenia 12/15/2024 Orders Only [facility] Oncology [address] [place] [phone] Benjamin Murrell DO 11/24/2024 8:45 AM CDT Clinical Support [address] [address] Malignant neoplasm metastatic to liver (HCC); Malignant neoplasm of cecum (HCC); Prevention of chemotherapy-induced neutropenia; Abnormal PSA 11/24/2024 9:45 AM CDT Infusion [facility] at [address] [phone] Prevention of chemotherapy-induced neutropenia (Primary Dx); Malignant neoplasm metastatic to liver (HCC); Malignant neoplasm of cecum (HCC) 11/24/2024 9:15 AM CDT Office Visit [facility] Physicians [facility] Oncology [address] [place] [phone] Benjamin Murrell DO Malignant neoplasm metastatic to liver (HCC) (Primary Dx); Malignant neoplasm of cecum (HCC); Prevention of chemotherapy-induced neutropenia; Iron deficiency anemia, unspecified iron deficiency anemia type 11/23/2024 Orders Only [facility] Oncology [address] [place] [phone] Benjamin Murrell DO 11/18/2024 5:23 PM CDT - 11/18/2024 11:59 PM CDT Hospital Encounter [facility] [address] [place] [address] Malignant neoplasm metastatic to liver (HCC); Malignant neoplasm of cecum (HCC) Discharge Disposition: Discharge to home or self care 11/04/2024 Orders Only [facility] Oncology [address] [place] [phone] Benjamin Murrell DO 11/04/2024 12:30 PM CDT Infusion [facility] at [address] [phone] Prevention of chemotherapy-induced neutropenia (Primary Dx); Malignant neoplasm metastatic to liver (HCC); Malignant neoplasm of cecum (HCC); Abnormal PSA 11/04/2024 12:00 PM CDT Clinical Support [address] [phone] Malignant neoplasm metastatic to liver (HCC); Malignant neoplasm of cecum (HCC); Prevention of chemotherapy-induced neutropenia 10/31/2024 Telephone [facility] Pulmonary [address] [place] [phone] Brad Farrell MD Request For Order(s) 10/31/2024 10:45 AM CDT Office Visit [facility] Pulmonary [address] [place] [phone] Christina Owen NP HECTOR on CPAP (Primary Dx); Pulmonary nodule; Centrilobular emphysema (HCC); PLMD (periodic limb movement disorder); Personal history of tobacco use from Last 3 Months Allergies Active Allergy Reactions Criticality Noted Date Comments Penicillins Palpitations,Hallucinations Medium 014 Medications atorvastatin (LIPITOR) 80 mg tablet Take 1 tablet (80 mg total) by mouth nightly 4 03/10/20 19 Active lisinopril (PRINIVIL,ZEST RIL) 40 mg tablet Take 1 tablet (40 mg total) by mouth daily 0 03/31/20 19 Active loratadine (CLARITIN) 10 mg tablet Take 1 tablet (10 mg total) by mouth daily Active inhalational spacing device (Aerochamber MV) spacerIndicati ons:Cough, unspecified type 1 applicator 2 (two) times a day 1 each 2 07/17/20 22 Active Breztri Aerosphere 160-9-4.8 mcg/actuation HFA aerosol inhaler INHALE 2 PUFFS BY MOUTH TWICE DAILY. RINSE MOUTH WITH WATER AFTER USE. DO NOT SWALLOW 10.7 g 5 08/05/20 23 Active ondansetron (ZOFRAN) 8 mg tabletIndicati ons:Malignant neoplasm of cecum (HCC),Malignan t neoplasm metastatic to liver (HCC) Take 30 minutes prior to each dose of Lonsurf, then every 8 hours as needed up to 3 doses in 24 hours for nausea/vomiting i 24 tablet 3 01/06/20 24 Active Additional Information Patient taking differently: As needed, Take 30 minutes prior to each dose of Lonsurf, then every 8 hours as needed up to 3 doses in 24 hours for nausea/vomiting i, Reported on 01/20/2025 amLODIPine (NORVASC) 5 mg tablet Take 1 tablet (5 mg total) by mouth daily 04/21/20 24 Active cholecalcifero l 25 mcg (1,000 unit) tablet Take 1 tablet (1,000 Units total) by mouth daily Active rOPINIRole (REQUIP) 1 mg tablet Take 1 tablet (1 mg total) by mouth 3 (three) times a day 90 tablet 5 08/30/19 25 Active furosemide (LASIX) 20 mg tablet Take 1 tablet (20 mg total) by mouth daily for 7 days 7 tablet 11/01/19 25 Active metoprolol tartrate (LOPRESSOR) 25 mg immediate release tablet TAKE 1 TABLET BY MOUTH EVERY 12 HOURS 180 tablet 11/19/19 25 Active albuterol HFA (PROVENTIL HFA,VENTOLIN HFA,PROAIR HFA) 90 mcg/actuation inhaler INHALE 2 PUFFS BY MOUTH EVERY 6 HOURS NEEDED FOR WHEEZING OR SHORTNESS OF BREATH 3 each 1 11/30/19 25 Active fluticasone propionate (FLONASE) 50 mcg/actuation nasal sprayIndicatio ns:Cough, unspecified type SHAKE LIQUID AND USE 2 SPRAYS IN EACH NOSTRIL EVERY DAY 48 g 12/20/19 25 Active azelastine (ASTELIN) 137 mcg (0.1 %) nasal sprayIndicatio ns:Centrilobul ar emphysema (HCC) USE 1 SPRAY IN EACH NOSTRIL TWICE DAILY DIRECTED 30 mL 3 12/29/19 25 Active amiodarone (PACERONE) 200 mg tablet TAKE 1 TABLET(200 MG) BY MOUTH DAILY 30 tablet 1 01/03/20 25 Active amantadine (SYMMETREL) 100 mg capsule Take 1 capsule (100 mg total) by mouth 2 (two) times a day 60 capsule 01/04/20 25 2024 Active gabapentin (NEURONTIN) 600 mg tablet TAKE 1 TABLET(600 MG) BY MOUTH FOUR TIMES DAILY 120 tablet 1 01/06/20 25 Active levOCARNitine 500 mg tabletIndicati ons:NEUROPATHY Take 1,000 mg by mouth 2 (two) times a day 120 tablet 2 01/14/20 25 Active pyridoxine (VITAMIN B-6) 100 mg tabletIndicati ons:NEUROPATHY Take 2 tablets (200 mg total) by mouth daily 60 tablet 2 01/14/20 25 Active alpha lipoic acid 600 mg capsuleIndicat ions:NEUROPATH Y Take 1 capsule (600 mg total) by mouth 2 (two) times a day 60 capsule 2 01/14/20 25 Active FeroSuL 325 mg (65 mg iron) tablet TAKE 1 TABLET(325 MG) BY MOUTH THREE TIMES DAILY WITH MEALS 90 tablet 01/17/20 25 Active finasteride (PROSCAR) 5 mg tablet Take 1 tablet (5 mg total) by mouth daily 90 tablet 3 01/18/20 25 2025 Active tamsulosin (FLOMAX) 0.4 mg extended release capsule Take 1 capsule (0.4 mg total) by mouth 2 (two) times a day 90 capsule 3 01/18/20 25 Active lactulose solution 10 gram/15mL Take 15 mL by mouth twice a day on 01/07 and 01/08 then twice a day as needed for constipation 473 mL 01/19/20 25 Active Eliquis 5 mg tablet TAKE 1 TABLET(5 MG) BY MOUTH TWICE DAILY 180 tablet 3 01/26/20 25 Active loperamide (IMODIUM) 2 mg capsule Take 1-2 tabs after first loose stool and 1 tab after each subsequent stool, up to 8 tabs per day 30 capsule 1 01/28/[address] (PROTONIX) 40 mg EC tablet TAKE 1 TABLET(40 MG) BY MOUTH TWICE DAILY 180 tablet 01/28/20 25 Active tamsulosin (FLOMAX) 0.4 mg extended release capsule Take 1 capsule (0.4 mg total) by mouth 2 (two) times a day 06/03/20 18 2024 Discontinued(R eorder) apixaban (Eliquis) 5 mg tablet TAKE 1 TABLET(5 MG) BY MOUTH TWICE DAILY 180 tablet 3 02/04/20 24 2024 Discontinued finasteride (PROSCAR) 5 mg tablet Take 1 tablet (5 mg total) by mouth daily 30 tablet 11 04/05/20 24 2024 Discontinued(R eorder) loperamide (IMODIUM) 2 mg capsule Take 1 capsule (2 mg total) by mouth 4 (four) times a day as needed for diarrhea 30 capsule 08/02/20 24 2024 Discontinued(R eorder) aspirin 81 mg enteric coated tablet Take 1 tablet (81 mg total) by mouth daily 30 tablet 11 08/22/19 25 2024 Discontinued(T herapy completed) amiodarone (PACERONE) 200 mg tablet TAKE 1 TABLET(200 MG) BY MOUTH DAILY 30 tablet 1 09/07/19 [address] (PROTONIX) 40 mg EC tablet TAKE 1 TABLET(40 MG) BY MOUTH TWICE DAILY 180 tablet 10/29/19 25 2024 Discontinued gabapentin (NEURONTIN) 600 mg tablet TAKE 1 TABLET(600 MG) BY MOUTH FOUR TIMES DAILY 120 tablet 1 11/10/19 25 2024 Discontinued mirtazapine (REMERON) 7.5 mg tablet Take 1 tablet (7.5 mg total) by mouth nightly 30 tablet 12/17/19 25 2024 Discontinued ferrous sulfate (FeroSuL) 325 mg (65 mg of elemental iron) tablet Take 1 tablet (325 mg total) by mouth 3 (three) times a day with meals 90 tablet 12/20/19 25 2024 Discontinued pyridoxine (VITAMIN B-6) 100 mg tablet TAKE 1 TABLET BY MOUTH DAILY 30 tablet 12/23/19 25 2024 Discontinued(A lternate therapy) lactulose solution 10 gram/15mL Take 15 mL by mouth twice a day on 01/07 and 01/08 then twice a day as needed for constipation 473 mL 01/07/20 25 2024 Discontinued(R eorder) Active Problems Problem Noted Date Diagnosed Date [...] drip/phlegm. Assessment & Plan (07/21/2024 10:38 AM OEM SALES MANAGER): The patient has stage II COPD and [...] 10/23/2022 Assessment & Plan (10/23/2022 12:50 PM OEM SALES MANAGER): I have ordered an iron and ferritin level. Pulmonary nodule 10/23/2022 Assessment & Plan (10/31/2024 11:19 AM CDT): CT scanning managed by Oncology every 3 months. Assessment & Plan (07/21/2024 10:36 AM OEM SALES MANAGER): The pulmonary nodules are presumed metastatic lesions [...] Keytruda. 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 Assessment & Plan (10/23/2022 12:50 PM OEM SALES MANAGER): Due to the patient's limb movements on [...] months Assessment & Plan (07/21/2024 10:37 AM OEM SALES MANAGER): The patient did smoke a few cigarettes [...] ordered. Assessment & Plan (10/23/2022 12:52 PM OEM SALES MANAGER): The patient did smoke 1-2 packs of [...] 09/12/2022 Encounter for management of implanted device 01/ 03/2023 HTN (hypertension) 07/17/2022 Mixed hyperlipidemia 07/17/2022 [...] 07/17/2022 Assessment & Plan (08/21/2022 11:15 AM OEM SALES MANAGER): Has improved with the use of Mucinex and Flonase daily Assessment & Plan (07/17/2022 12:38 PM OEM SALES MANAGER): The patient has had problems with significant coughing and sputum production. I will order Mucinex 600 mg p.o. b.i.d. and he will also start Flonase 2 puffs in each nostril daily. Prostate cancer 05/28/2022 Overview (05/28/2022): Added automatically from request for surgery [id number] Dehydration 12/03/2020 Malignant neoplasm of cecum 08/29/2020 [...] adapt Assessment & Plan (07/21/2024 10:36 AM OEM SALES MANAGER): The patient has restarted CPAP at 11 [...] adapt. Assessment & Plan (10/23/2022 12:49 PM OEM SALES MANAGER): Due to the patient being unable to tolerate the CPAP titration study and snoring under the mask I will increase the patient's CPAP to 13 cm of water pressure while sleeping. His DME is adapt. Assessment & Plan (08/21/2022 11:16 AM OEM SALES MANAGER): Will continue with CPAP therapy at 11 cm water pressure. Patient will complete a CPAP titration study later this month starting at 11 cm water pressure and titrated as needed. Assessment & Plan (07/17/2022 12:36 PM OEM SALES MANAGER): The patient was diagnosed with obstructive sleep [...] (07/17/2022): 10/03 A1c 6 07/31 A1c 6.6 Resolved Problems Problem Noted Date Diagnosed Date [...] breath. Assessment & Plan (10/23/2022 12:48 PM OEM SALES MANAGER): Patient continue to use Breztri two puffs [...] cancer diagnosis. Shortness of breath 07/17/2022 10/24/19 Assessment & Plan (08/21/2022 11:16 AM OEM SALES MANAGER): Patient will complete a PFT later this month. I have given the patient a discount card for Breztri and the patient will continue with Combivent in the meantime. The patient was instructed to call into the office to see if we have samples of Breztri. Patient is following with Oncology and continues Keytruda. Assessment & Plan (07/17/2022 12:36 PM OEM SALES MANAGER): The patient presents with dyspnea and has been receiving Keytruda. He quit smoking 6 years ago and did smoke 1.5 packs of cigarettes per day for 45 years. I have recommended starting with full PFTs . Immunizations Immunization Administration Dates Next Due Influenza, Quadrivalent, Spl it, Intramuscular 06/13/2022 Influenza, Quadrivalent, Spl it, Preservative Free, Intramuscular 04/05/2020 Influenza, Trivalent, High D ose, Split, Preservative Free, Intramuscular 08/22/2024(Deferred: Patient Refused),07/02/2019,04/26/2017 Moderna SARS-CoV-2 Monovalen t Vaccination (12+ YRS) 06/12/2021,10/30/2020,09/19/2020 Tdap 04/26/2017 Social History Tobacco Use Types Packs/Day Years Used Date Smoking Tobacco: Former Cigarettes 1.5 45 1 971 - 2016 Passive Smoke Exposure: Past Smokeless Tobacco: Never Tobacco Cessation:Counseling Given: Not Answered Alcohol Use Standard Drinks/Week Comments Yes 0 (1 standard drink = 0.6 oz pur e alcohol) 2-3 pr week [facility] Utilities Answer Date Recorded In the past 12 months has [employer], gas, oil, or water company threatened to [...] often do you attend chur ch or jehovah's witness services? More than 4 times per year 03/08/2024 Do you belong to any clubs o r organizations such as druze groups, unions, fraternal or athletic groups, or [...] place to sleep or slept in a residential (including now)? No 03/05/2023 Housing Stability Vital Sign Answer Mario e Recorded In the last 12 months, was t here a time when you were not able to pay the mortgage or rent on time? No 03/08/2024 In the past 12 months, how m any times have you moved where you were living? 0 03/08/2024 At any time in the past 12 m [facility], were you homeless or living in a residential (including now)? No 03/08/2024 Personal Safety Answer Date Recorded Have you ever been in or are you currently in a harmful physical or emotional relationship or is someone making you feel afraid or unsafe? Denies 01/20/2025 Sex and Gender Information Value Date Recorded Sex Assigned at Not on file Legal Sex Male 4:14 AM OEM SALES MANAGER Gender Identity Male 11/07/2019 11:07 AM CDT Sexual Orientation Straight 11/07/2019 11 :07 AM CDT Last Filed Vital Signs Vital Sign Reading Time Taken Comments Blood Pressure 120/68 01/21/2025 9:10 AM CDT Pulse 73 01/21/2025 9:04 AM CDT Temperature 36.4 C (97.5 F) 01/21/2025 8:38 AM CDT Respiratory Rate 18 01/21/2025 9:10 AM CDT Oxygen Saturation 100% 01/21/2025 9:10 AM CDT Inhaled Oxygen Concentration - - Weight 88.3 kg (194 lb 10.7 oz) 025 10:45 AM CDT Height 175.3 cm (5' 9) 01/20/2025 10:4 5 AM CDT Body Mass Index 28.75 01/20/2025 10:45 AM CDT Plan of Treatment Not on file Medical Devices Implanted Type Area Derrick Boat Operator Device Identifier Shelf Expiration Date Model / Serial / Lot Lt Partial Knee Arthroplasty-09/17 Implanted:2013 (Quantity not on file) Knee Rt Total Hip Arthroplasty-09/17 Implanted:2015 (Quantity not on file) Hip Procedures Procedure Name Priority Date/Time Associated Diagnosis Comments CT ABDOMEN PELVIS W CONTRAST ED Urgent/IP Urgent 01/20/2025 12:17 PM CDT EGFR STAT 01/20/2025 7:43 AM CDT Malignant neoplasm metastatic to liver (HCC) Malignant neoplasm of cecum (HCC) Prevention of chemotherapy-induc ed neutropenia DIFFERENTIAL AUTO Routine 01/20/2025 7:4 3 AM CDT Malignant neoplasm metastatic to liver (HCC) Malignant neoplasm of cecum (HCC) Prevention of chemotherapy-induc ed neutropenia CBC WITH AUTO DIFFERENTIAL Routine 01/20/2025 7:43 AM CDT Malignant neoplasm metastatic to liver (HCC) Malignant neoplasm of cecum (HCC) Prevention of chemotherapy-induc ed neutropenia COMPREHENSIVE METABOLIC PANEL STAT 01/20/2025 7:43 AM CDT Malignant neoplasm metastatic to liver (HCC) Malignant neoplasm of cecum (HCC) Prevention of chemotherapy-induc ed neutropenia MEASURE POST VOID RESIDUAL Routine 01/17/2025 2:51 PM CDT Prostate cancer (HCC) Incomplete bladder emptying URINE CULTURE Routine 01/17/2025 2:49 PM CDT Prostate cancer (HCC) Incomplete bladder emptying POCT URINALYSIS DIPSTICK Routine 01/17/2025 2:48 PM CDT Prostate cancer (HCC) Incomplete bladder emptying XR ABDOMEN ERECT AND OR DECUBITS 2 VIEWS Schedule Routine, Read Routine (OP Routine) 01/06/2025 11:57 AM CDT Malignant neoplasm of cecum (HCC) Malignant neoplasm metastatic to liver (HCC) Bloating EGFR Routine 01/06/2025 11:25 AM CDT Malignant neoplasm of cecum (HCC) Malignant neoplasm metastatic to liver (HCC) DIFFERENTIAL AUTO Routine 01/06/2025 11:25 AM CDT Malignant neoplasm of cecum (HCC) Malignant neoplasm metastatic to liver (HCC) CBC WITH AUTO DIFFERENTIAL Routine 01/06/2025 11:25 AM CDT Malignant neoplasm of cecum (HCC) Malignant neoplasm metastatic to liver (HCC) COMPREHENSIVE METABOLIC PANEL Routine 01/06/2025 11:25 AM CDT Malignant neoplasm of cecum (HCC) Malignant neoplasm metastatic to liver (HCC) AMMONIA Routine 01/06/2025 11:25 AM CDT Malignant neoplasm of cecum (HCC) Malignant neoplasm metastatic to liver (HCC) CT HEAD W WO CONTRAST Schedule LUCIE, Read LUCIE (Appt Today, Awaiting Results) 12/30/2024 3:37 PM CDT Malignant neoplasm of cecum (HCC) Malignant neoplasm metastatic to liver (HCC) Memory loss Dizziness TRANSFUSE RED BLOOD CELLS Timed 12/30/2024 10:58 AM CDT Malignant neoplasm of cecum (HCC) Malignant neoplasm metastatic to liver (HCC) Anemia associated with chemotherapy PREPARE RBC STAT 12/30/2024 10:21 AM CDT Malignant neoplasm of cecum (HCC) Malignant neoplasm metastatic to liver (HCC) Anemia associated with chemotherapy CROSSMATCH Routine 12/30/2024 9:14 AM CDT Malignant neoplasm of cecum (HCC) Malignant neoplasm metastatic to liver (HCC) Iron deficiency anemia, unspecified iron deficiency anemia type ANTIBODY SCREEN Routine 12/30/2024 9:14 AM CDT Malignant neoplasm of cecum (HCC) Malignant neoplasm metastatic to liver (HCC) Iron deficiency anemia, unspecified iron deficiency anemia type ABO/RH Routine 12/30/2024 9:14 AM CDT Malignant neoplasm of cecum (HCC) Malignant neoplasm metastatic to liver (HCC) Iron deficiency anemia, unspecified iron deficiency anemia type TYPE AND SCREEN Routine 12/30/2024 9:14 AM CDT Malignant neoplasm of cecum (HCC) Malignant neoplasm metastatic to liver (HCC) Iron deficiency anemia, unspecified iron deficiency anemia type RETICULOCYTES Routine 12/30/2024 8:14 AM CDT Malignant neoplasm metastatic to liver (HCC) Malignant neoplasm of cecum (HCC) Prevention of chemotherapy-induc ed neutropenia FERRITIN Routine 12/30/2024 8:14 AM CDT Malignant neoplasm of cecum (HCC) Malignant neoplasm metastatic to liver (HCC) Iron deficiency anemia, unspecified iron deficiency anemia type IRON PROFILE W/ IBC Routine 12/30/2024 8 :14 AM CDT Malignant neoplasm of cecum (HCC) Malignant neoplasm metastatic to liver (HCC) Iron deficiency anemia, unspecified iron deficiency anemia type VITAMIN B12 Routine 12/30/2024 8:14 AM CDT Malignant neoplasm of cecum (HCC) Malignant neoplasm metastatic to liver (HCC) Iron deficiency anemia, unspecified iron deficiency anemia type EGFR STAT 12/30/2024 8:14 AM CDT Malignant neoplasm metastatic to liver (HCC) Malignant neoplasm of cecum (HCC) Prevention of chemotherapy-induc ed neutropenia DIFFERENTIAL AUTO Routine 12/30/2024 8:1 4 AM CDT Malignant neoplasm metastatic to liver (HCC) Malignant neoplasm of cecum (HCC) Prevention of chemotherapy-induc ed neutropenia CBC WITH AUTO DIFFERENTIAL Routine 12/30/2024 8:14 AM CDT Malignant neoplasm metastatic to liver (HCC) Malignant neoplasm of cecum (HCC) Prevention of chemotherapy-induc ed neutropenia COMPREHENSIVE METABOLIC PANEL STAT 12/30/2024 8:14 AM CDT Malignant neoplasm metastatic to liver (HCC) Malignant neoplasm of cecum (HCC) Prevention of chemotherapy-induc ed neutropenia EGFR STAT 12/16/2024 10:11 AM CDT Malignant neoplasm metastatic to liver (HCC) Malignant neoplasm of cecum (HCC) Prevention of chemotherapy-induc ed neutropenia DIFFERENTIAL AUTO Routine 12/16/2024 10:11 AM CDT Malignant neoplasm metastatic to liver (HCC) Malignant neoplasm of cecum (HCC) Prevention of chemotherapy-induc ed neutropenia CBC WITH AUTO DIFFERENTIAL Routine 12/16/2024 10:11 AM CDT Malignant neoplasm metastatic to liver (HCC) Malignant neoplasm of cecum (HCC) Prevention of chemotherapy-induc ed neutropenia COMPREHENSIVE METABOLIC PANEL STAT 12/16/2024 10:11 AM CDT Malignant neoplasm metastatic to liver (HCC) Malignant neoplasm of cecum (HCC) Prevention of chemotherapy-induc ed neutropenia ERYTHROPOIETIN Routine 11/24/2024 11:02 AM CDT Malignant neoplasm metastatic to liver (HCC) EGFR STAT 11/24/2024 8:51 AM CDT Malignant neoplasm metastatic to liver (HCC) Malignant neoplasm of cecum (HCC) Prevention of chemotherapy-induc ed neutropenia DIFFERENTIAL AUTO Routine 11/24/2024 8:5 1 AM CDT Malignant neoplasm metastatic to liver (HCC) Malignant neoplasm of cecum (HCC) Prevention of chemotherapy-induc ed neutropenia PSA DIAGNOSTIC Routine 11/24/2024 8:51 AM CDT Malignant neoplasm metastatic to liver (HCC) Malignant neoplasm of cecum (HCC) Abnormal PSA CEA Routine 11/24/2024 8:51 AM CDT Malignant neoplasm metastatic to liver (HCC) Malignant neoplasm of cecum (HCC) CBC WITH AUTO DIFFERENTIAL Routine 11/24/2024 8:51 AM CDT Malignant neoplasm metastatic to liver (HCC) Malignant neoplasm of cecum (HCC) Prevention of chemotherapy-induc ed neutropenia COMPREHENSIVE METABOLIC PANEL STAT 11/24/2024 8:51 AM CDT Malignant neoplasm metastatic to liver (HCC) Malignant neoplasm of cecum (HCC) Prevention of chemotherapy-induc ed neutropenia CT CHEST ABDOMEN PELVIS W CONTRAST Schedule Routine, Read Routine (OP Routine) 11/18/2024 5:53 PM CDT Malignant neoplasm metastatic to liver (HCC) Malignant neoplasm of cecum (HCC) CEA Routine 11/04/2024 12:33 PM CDT Malignant neoplasm metastatic to liver (HCC) Malignant neoplasm of cecum (HCC) EGFR STAT 11/04/2024 12:33 PM CDT Malignant neoplasm metastatic to liver (HCC) Malignant neoplasm of cecum (HCC) Prevention of chemotherapy-induc ed neutropenia DIFFERENTIAL AUTO Routine 11/04/2024 12:33 PM CDT Malignant neoplasm metastatic to liver (HCC) Malignant neoplasm of cecum (HCC) Prevention of chemotherapy-induc ed neutropenia CBC WITH AUTO DIFFERENTIAL Routine 11/04/2024 12:33 PM CDT Malignant neoplasm metastatic to liver (HCC) Malignant neoplasm of cecum (HCC) Prevention of chemotherapy-induc ed neutropenia COMPREHENSIVE METABOLIC PANEL STAT 11/04/2024 12:33 PM CDT Malignant neoplasm metastatic to liver (HCC) Malignant neoplasm of cecum (HCC) Prevention of chemotherapy-induc ed neutropenia POCT LIPID PANEL Routine 08/30/2024 3:16 PM [employer] Need for lipid screening HEMOGLOBIN A1C Routine 10/14/2023 9:51 AM [employer] SAL[employer]GER HEPATITIS C ANTIBODY Routine 07/30/2017 4:07 PM [employer] SALES MA[employer]GER from Last 3 Months or Most Recently Relevant to Health Maintenance Results * CT abdomen pelvis with contrast (01/20/2025 12:17 PM CDT) Anatomical Region Laterality Modality Body N/A Computed Tomogra phy 01/20/2025 12:3 5 PM CDT Narrative 01/20/2025 12:52 PM CDT EXAM DESCRIPTION: CT ABDOMEN PELVIS W CONTRAST REASON FOR STUDY: Bowel obstruction suspected Suspected bowel obstruction TECHNIQUE: CT scan of the abdomen and pelvis performed with intravenous and without oral contrast using helical scanning technique with dynamic intravenous contrast injection. Reconstructed coronal and sagittal MPR images reviewed. All images stored on PACS. Automated exposure control was used as a dose optimization technique for this examination. CONTRAST TYPE/DOSE: 100mL of IOVERSOL 350 MG IODINE/ML INTRAVENOUS SYRINGE injected via intravenous COMPARISON: 11/18/2024 FINDINGS: LOWER CHEST: Solid pulmonary nodule in the right lower lobe measures 1.8 cm, previously 1.5 cm. 8 mm pulmonary nodule in the right middle lobe, previously 6 mm. And other small right middle lobe pulmonary nodule has increased in size. New 4 mm pulmonary nodule in the right middle lobe (series 2, image 8). Right lower lobe pulmonary nodule measuring 7 mm in the right lower lobe has increased, previously measuring 4 mm. New 6 mm pulmonary nodule in the left lower lobe (series 2, image 8). New 15 mm pulmonary nodule in the right middle lobe (series 2, image 20). New 10 mm and 4 mm pulmonary nodule in the right middle lobe (series 2, image 27). Coronary artery calcification. The heart is mildly enlarged. LIVER: Interval increase in size of the hypoenhancing mass in hepatic segment 7 measuring 8.2 x 8.0 cm, previously 6.9 x 6.6 cm when remeasured today. Multiple other hepatic lesions have increased in size in the interval. Numerous new lesions such as a new 2.0 cm lesion in hepatic segment 2 (series 2, image 43). New perihepatic ascites. The liver has a mildly nodular surface contour which could possibly represent developing pseudo cirrhosis. Redemonstrated partially occlusive thrombus within the main portal vein. Thrombus appears increased in size and more occlusive compared to the prior examination. 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 GALLBLADDER: No stones identified. No wall thickening or inflammatory changes. BILE DUCTS: There is increasing biliary dilation in the left hepatic lobe which is now moderate to severe, presumably due to the metastasis near the robert hepatis. SPLEEN: The spleen is now mildly enlarged measuring 14.0 cm in craniocaudal dimension, likely due to developing portal hypertension from metastasis/portal vein thrombus. PANCREAS: No identified cystic or solid masses. No significant calcifications. No adjacent inflammation or peripancreatic fluid collections. Pancreatic duct not dilated. ADRENALS: Mild interval increase in the right adrenal metastasis measuring 4.1 cm, previously 3.8 cm. No definitive left adrenal lesion. KIDNEYS/URINARY TRACT: No identified significant cystic or solid masses. No visualized stones. No hydronephrosis or hydroureter. Symmetric enhancement. The urinary bladder is moderately distended. There are numerous bladder diverticula. GI: Trace hiatal hernia which contains a small amount of ascites. Stomach enhances homogeneously. There is no evidence of small-bowel obstruction. There is colonic diverticulosis without evidence of acute diverticulitis. The sigmoid colon is significantly redundant. There is postoperative changes of right hemicolectomy with ileocolonic anastomosis. PERITONEUM: Small volume ascites, primarily perihepatic, is new from prior examination no free air identified. There is redemonstration of celiac axis, gastrohepatic ligament, and robert hepatis lymphadenopathy. A precaval lymph node now measures 1.8 cm in short axis, previously 1.6 cm (series 2, image 57). A celiac axis/gastrohepatic ligament lymph node and robert hepatis lymph node have mildly increased in size. RETROPERITONEUM: No mass or adenopathy. REPRODUCTIVE: The prostate gland is obscured due to beam hardening artifact. VASCULATURE: Moderate vascular calcifications are noted. No aneurysm of the aorta. MUSCULOSKELETAL: Multilevel degenerative changes are present without fracture. No concerning lesions are present. Right hip arthroplasty. OTHER: No other abnormality. IMPRESSION: No evidence of bowel obstruction as clinically queried. Redemonstrated right hemicolectomy with ileocolonic anastomosis. Interval disease progression since 11/18/2024. This includes interval development of multiple new pulmonary nodules measuring up to 1.5 cm. Multiple new and enlarging hepatic metastasis with increased left hepatic lobe biliary dilation. 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 Right adrenal metastasis has mildly increased. New small volume ascites. New mild splenomegaly. THIS IS AN ELECTRONICALLY VERIFIED FINAL REPORT 01/20/2025 12:52 PM - Electronically signed by Frank Evangelista M.D. MM: MM Report ID: [id number] Reading Location: [place] [address] Procedure Note Frank Evangelista MD - 01/20/2025 EXAM DESCRIPTION: CT ABDOMEN PELVIS W CONTRAST REASON FOR STUDY: Bowel obstruction suspected Suspected bowel obstruction TECHNIQUE: CT scan of the abdomen and pelvis performed with intravenousand without oral contrast using helical scanning technique with dynamic intravenous contrast injection. Reconstructed coronal and sagittal MPRimages reviewed. All images stored on PACS. Automated exposure control was usedas a dose optimization technique for this examination. CONTRAST TYPE/DOSE: 100mL of IOVERSOL 350 MG IODINE/ML INTRAVENOUSSYRINGE injected via intravenous COMPARISON: 11/18/2024 FINDINGS: LOWER CHEST: Solid pulmonary nodule in the right lower lobe measures 1.8 cm, previously 1.5 cm. 8 mm pulmonary nodule in the right middle lobe, previously 6 mm. And other small right middle lobe pulmonary nodule has increased in size. New 4 mm pulmonary nodule in the rightmiddle lobe (series 2, image 8). Right lower lobe pulmonary nodule measuring 7mm in the right lower lobe has increased, previously measuring 4 mm. New 6 mm pulmonary nodule in the left lower lobe (series 2, image 8). New 15 mm pulmonary nodule in the right middle lobe (series 2, image 20). New 10 mmand 4 mm pulmonary nodule in the right middle lobe (series 2, image 27).Coronary artery calcification. The heart is mildly enlarged. LIVER: Interval increase in size of the hypoenhancing mass in hepatic segment 7 measuring 8.2 x 8.0 cm, previously 6.9 x 6.6 cm when remeasured today. Multiple other hepatic lesions have increased in size in theinterval. Numerous new lesions such as a new 2.0 cm lesion in hepatic segment 2 (series 2, image 43). New perihepatic ascites. The liver has a mildly nodular surface contour which could possibly represent developing pseudo cirrhosis. Redemonstrated partially occlusive thrombus within the main portal vein. Thrombus appears increased in size and more occlusive compared to theprior examination. 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 GALLBLADDER: No stones identified. No wall thickening or inflammatory changes. BILE DUCTS: There is increasing biliary dilation in the left hepaticlobe which is now moderate to severe, presumably due to the metastasis near the robert hepatis. SPLEEN: The spleen is now mildly enlarged measuring 14.0 cm incraniocaudal dimension, likely due to developing portal hypertension frommetastasis/portal vein thrombus. PANCREAS: No identified cystic or solid masses. No significant calcifications. No adjacent inflammation or peripancreatic fluidcollections. Pancreatic duct not dilated. ADRENALS: Mild interval increase in the right adrenal metastasismeasuring 4.1 cm, previously 3.8 cm. No definitive left adrenal lesion. KIDNEYS/URINARY TRACT: No identified significant cystic or solid masses.No visualized stones. No hydronephrosis or hydroureter. Symmetricenhancement. The urinary bladder is moderately distended. There are numerous bladder diverticula. GI: Trace hiatal hernia which contains a small amount of ascites.Stomach enhances homogeneously. There is no evidence of small-bowel obstruction. There is colonic diverticulosis without evidence of acute diverticulitis.The sigmoid colon is significantly redundant. There is postoperative changesof right hemicolectomy with ileocolonic anastomosis. PERITONEUM: Small volume ascites, primarily perihepatic, is new fromprior examination no free air identified. There is redemonstration of celiac axis, gastrohepatic ligament, and robert hepatis lymphadenopathy. A precaval lymph node now measures 1.8 cm inshort axis, previously 1.6 cm (series 2, image 57). A celiacaxis/gastrohepatic ligament lymph node and robert hepatis lymph node have mildly increased insize. RETROPERITONEUM: No mass or adenopathy. REPRODUCTIVE: The prostate gland is obscured due to beam hardeningartifact. VASCULATURE: Moderate vascular calcifications are noted. No aneurysm ofthe aorta. MUSCULOSKELETAL: Multilevel degenerative changes are present without fracture. No concerning lesions are present. Right hip arthroplasty. OTHER: No other abnormality. IMPRESSION: No evidence of bowel obstruction as clinically queried. Redemonstratedright hemicolectomy with ileocolonic anastomosis. Interval disease progression since 11/18/2024. This includes interval development of multiple new pulmonary nodules measuring up to 1.5 cm. Multiple new and enlarging hepatic metastasis with increased left hepaticlobe biliary dilation. 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 Right adrenalmetastasis has mildly increased. New small volume ascites. New mild splenomegaly. THIS IS AN ELECTRONICALLY VERIFIED FINAL REPORT 01/20/2025 12:52 PM - Electronically signed by Frank Evangelista M.D. MM: MM Report ID: [id number] Reading Location: [id number] Mitali Moulton [employer] IMG CT PROCEDURES Final Resul t * eGFR (01/20/2025 7:43 AM CDT) eGFR 89 >=60 mL/min/1. 73 m2 Comment: Interpretive Data Reference Interval Normal >/= 90 mL/min/1.73m2 Mildly decreased* 60 - 89 mL/min/1.73m2 Mildly to moderately decreased 45 - 59 mL/min/1.73m2 Moderately to severely decreased 30 - 44 mL/min/1.73m2 Severely decreased 15 - 29 mL/min/1.73m2 Kidney Failure < 15 mL/min/1.73m2 *Relative to young adult level Estimated glomerular filtration rate is determined by the 2020 CKD-EPI equation recommended by the National Kid[employer] (A Unifying Approach to GFR Estimation: Recommendations of the NKF-ASK Task Force on Reassessing the Inclusion of Race in Diagnosing Kidney Disease, JASN 202). The CKD-EPI equation should not be used for patients with unstable renal function and has not been validated in children and those over 70. Current interpretive data was last reviewed 2021. Testing performed by: [address] [address] Blood 01/20/2025 7:43 AM CDT 01/20/2025 8:06 AM CDT Benjamin Murrell DO LAB BLOOD ORDERABLES Final R esult [facility] [address] [facility] Department [place] [address] * Differential, auto (01/20/2025 7:43 AM CDT) Neutrophil abs 4.76 1.50 - 6.50 K/cumm Comment:Testing performed by : [address] [address] Imm gran abs 0.02 0.00 - 0.10 K/cumm UBALDO Comment:Testing performed by : [address] [address] Lymphocyte abs 1.70 0.80 - 3.30 K/cumm UBALDO Comment:Testing performed by : [address] [address] Monocyte abs 0.76 0.20 - 0.80 K/cumm UBALDO Comment:Testing performed by : [address] [address] Eosinophil abs 0.10 0.00 - 0.50 K/cumm UBALDO Comment:Testing performed by : [address] [address] Basophil abs 0.04 0.00 - 0.10 K/cumm [facility] Comment:Testing performed by : [address] [address] Neutrophil pct 64.5 % [facility] Comment: Interpretive Data Percent cell count reference ranges are not reported, since discordance with absolute values may lead to misinterpretation of CBC data. Current Interpretive Data was last revised on 2017. Testing performed by: [address] [address] Imm gran pct 0.3 % [facility] Comment: Interpretive Data Percent cell count reference ranges are not reported, since discordance with absolute values may lead to misinterpretation of CBC data. Current Interpretive Data was last revised on 2017. Testing performed by: [address] [address] Lymphocyte pct 23.0 % [facility] Comment: Interpretive Data Percent cell count reference ranges are not reported, since discordance with absolute values may lead to misinterpretation of CBC data. Current Interpretive Data was last revised on 2017. Testing performed by: [address] [address] Monocyte pct 10.3 % [facility] Comment: Interpretive Data Percent cell count reference ranges are not reported, since discordance with absolute values may lead to misinterpretation of CBC data. Current Interpretive Data was last revised on 2017. Testing performed by: [address] [address] Eosinophil pct 1.4 % [facility] Comment: Interpretive Data Percent cell count reference ranges are not reported, since discordance with absolute values may lead to misinterpretation of CBC data. Current Interpretive Data was last revised on 2017. Testing performed by: [address] [address] Basophil pct 0.5 % [facility] Comment: Interpretive Data Percent cell count reference ranges are not reported, since discordance with absolute values may lead to misinterpretation of CBC data. Current Interpretive Data was last revised on 2017. Testing performed by: [address] [address] Blood 01/20/2025 7:43 AM CDT 01/20/2025 7:45 AM CDT Benjamin Murrell DO LAB BLOOD ORDERABLES Final R esult [facility] [address] [facility] Department of Laboratories [place], [place] [id number] * (ABNORMAL) CBC with auto differential (01/20/2025 7:43 AM CDT) Pathologist [facility] WBC 7.38 3.80 - 9.90 K/cumm Comment:Testing performed by : [address] [address] Hgb 9.9(L) 13.0 - 17.5 g/dL UBALDO Comment:Testing performed by : [address] [address] Hct 31.8(L) 38.9 - 50.3 % UBALDO Comment:Testing performed by : [address] [address] Plt 250 150 - 400 K/cumm UBALDO Comment:Testing performed by : [address] [address] MPV 11.0 9.1 - 12.3 fL UBALDO Comment:Testing performed by : [address] [address] RBC 3.66(L) 4.30 - 5.80 M/cumm UBALDO Comment:Testing performed by : [address] [address] MCV 86.9 81.3 - 96.4 fL UBALDO Comment:Testing performed by : [address] [address] MCH 27.0(L) 27.1 - 33.3 pg UBALDO Comment:Testing performed by : [address] [address] MCHC 31.1(L) 32.3 - 35.7 g/dL UBALDO Comment:Testing performed by : [address] [address] RDW CV 19.3(H) 11.1 - 14.9 % UBALDO Comment:Testing performed by : [address] [address] RDW SD 61.1(H) 35.7 - 48.1 fL UBALDO MATAMOROS Comment:Testing performed by : [address] [address] NRBC abs 0.00 0.00 - 0.01 K/cumm UBALDO Comment:Testing performed by : [address] [address] ANC Prelim 4.76 1.50 - 6.50 K/cumm UBALDO Comment: Interpretive Data The rapid ANC is a preliminary automated count and may vary from the final ANC (Neut Abs) reported in the WBC differential that follows. Current interpretive data was last revised 2024. Testing performed by: [address] [address] Blood 01/20/2025 7:43 AM CDT 01/20/2025 7:45 AM CDT us Benjamin Murrell DO LAB BLOOD ORDERABLES Final R esult [facility] [address] [facility] Department [place] [address] * (ABNORMAL) Comprehensive metabolic panel (01/20/2025 7:43 AM CDT) Sodium 131(L) 135 - 145 mmol/L Comment:Testing performed by : [address] [address] Potassium, pl 4.1 3.3 - 4.9 mmol/L UBALDO MATAMOROS Comment:Testing performed by : [address] [address] Chloride 99 97 - 110 mmol/L UBALDO Comment:Testing performed by : [address] [address] CO2 21(L) 22 - 32 mmol/L UBALDO MH Comment:Testing performed by : [address] [address] Anion gap 11 2 - 15 mmol/L [facility] Comment:Testing performed by : [address] [address] BUN 14 6 - 25 mg/dL [facility] Comment:Testing performed by : [address] [address] Creatinine 0.90 0.80 - 1.30 mg/dL [facility] Comment:Testing performed by : [address] [address] Glucose 103 70 - 199 mg/dL [facility] Comment: Interpretive Data Fasting glucose >/= 126 mg/dl is diagnostic for diabetes. Fasting is defined as no caloric intake for at least 8 hours. Fasting glucose between 100 mg/dl to 125 mg/dl is diagnostic of prediabetes. In a patient with classic symptoms of hyperglycemia or hyperglycemic crisis, a random glucose >/= 200 mg/dl is diagnostic for diabetes. In the absence of unequivocal hyperglycemia, results should be confirmed by repeat testing. The classification and Diagnosis of Diabetes Diabetes Care 202; 46: S19-S40. Current interpretive data was last revised 2022. Testing performed by: [address] [address] Calcium 9.2 8.5 - 10.3 mg/dL [facility] Comment:Testing performed by : [address] [address] Bilirubin, total 0.7 0.1 - 1.2 mg/dL [facility] Comment:Testing performed by : [address] [address] Protein, pl 7.1 6.5 - 8.5 g/dL [facility] Comment:Testing performed by : [address] [address] Albumin 3.4(L) 3.5 - 5.0 g/dL [facility] Comment:Testing performed by : [address] [address] Alk phos 414(H) 40 - 130 Units/L UBALDO MATAMOROS Comment:Testing performed by : [facility], [address] [place] [address]., [address] ALT 27 7 - 55 Units/L UBALDO MATAMOROS Comment:Testing performed by : [address] [address] AST 81(H) 10 - 50 Units/L UBALDO MATAMOROS Comment:Testing performed by : [facility], [address] [place] [address]., [address] Blood 01/20/2025 7:43 AM CDT 01/20/2025 7:45 AM CDT Benjamin Murrell DO LAB BLOOD ORDERABLES Final R esult [facility] [address] [facility] [employer] [place], [place] [id number] * Measure post void residual (01/17/2025 2:51 PM CDT) Narrative Stephanie Bailey [facility] - 01/17/2025 2:51 PM CDT Measurement of Post Void Residual urine and/or bladder capacity PVR = 369 ml Cheikh Dexter MD NURSING ASSESSMENTS Final Result * Urine culture Urine, bladder (01/17/2025 2:49 PM CDT) Report Final Report: Less than 100,000 colonies/mL (clinically insignificant growth based on current clinical standards) Comment:Testing performed by : [facility], [address] [place]., [address] Organism (CLINICALLY INSIGNIFICANT GROWTH UBALDO MATAMOROS Urine, bladder 01/17/2025 2: 49 PM CDT 01/18/2025 12:02 AM CDT Narrative UBALDO MATAMOROS - 01/19/2025 8:08 AM CDT Testing performed by [facility] Microbiology Laboratory ([phone]) Cheikh Dexter MD LAB MICROBIOLOGY - GENERAL ORDER CAM Final Result Performing Organization Address City/[facility]/ZIP Co de Phone Number UBALDO [address] [facility] [place] [address] * (ABNORMAL) POCT urinalysis dipstick (01/17/2025 2:48 PM CDT) Color, Urine, POC Dark Kasey Clarity, ur, POC Clear Clear Glucose, ur, POC Negative Negative Bilirubin, ur, POC 1+(A) Negative Ketones, ur, POC Negative Negative Specific Tiro, POC 1.025 1.003 - 1.030 Blood, ur, POC Negative Negative pH, ur, POC 6.0 5.0 - 8.0 Protein, ur, POC 1+(A) Negative Urobilinogen, urine, POC 0.2 0.2 - 1.0 mg/dL Nitrite, ur, POC Negative Negative Leukocytes, ur, POC Large(A) Negative Lot Number 0 Urine 01/17/2025 2:48 PM CDT Cheikh Dexter MD POINT OF CARE TEST ORDERABLES Fi nal Result * XR Abdomen Erect and or Decubitus 2 Views (01/06/2025 11:57 AM CDT) Anatomical Region Laterality Modality Body, Abdomen N/A Computed Radiogr aphy 01/06/2025 2:33 PM CDT Narrative 01/06/2025 2:38 PM CDT EXAM DESCRIPTION: XR ABDOMEN ERECT AND OR DECUBITUS 2 VIEWS REASON FOR STUDY: bloating, metastatic colon cancer Bloating for a few days , concern for possible ascites. TECHNIQUE: Frontal radiograph of the abdomen and pelvis. COMPARISON: CT abdomen and pelvis 11/18/2024. FINDINGS: The lung bases are clear. There is no pleural effusion. There is a mild dextrocurvature of the lumbar spine. There is a large amount of fecal material present in the colon evidence of constipation. The fecal material seen throughout the colon. There is a nonobstructive bowel gas pattern. There is no acute osseous abnormality. Mild elevation of the right hemidiaphragm. No aggressive osseous lesions are identified. There is a right hip arthroplasty. No acute or aggressive osseous lesion is seen. The liver size appears prominent. Although not optimally suited for assessment of ascites, there does not appear to be central ization of bowel as can be seen with ascites. IMPRESSION: Large amount of fecal material in the colon evidence of constipation. Nonobstructive bowel gas pattern. Hepatomegaly. THIS IS AN ELECTRONICALLY VERIFIED FINAL REPORT 01/06/2025 2:38 PM - Electronically signed by Ryan Greene M.D. CH: CH Report ID: [id number] Reading Location: [id number] Procedure Note Ryan Greene Jr., MD - 01/06/2025 EXAM DESCRIPTION: XR ABDOMEN ERECT AND OR DECUBITUS 2 VIEWS REASON FOR STUDY: bloating, metastatic colon cancer Bloating for a few days , concern for possible ascites. TECHNIQUE: Frontal radiograph of the abdomen and pelvis. COMPARISON: CT abdomen and pelvis 11/18/2024. FINDINGS: The lung bases are clear. There is no pleural effusion. Thereis a mild dextrocurvature of the lumbar spine. There is a large amount offecal material present in the colon evidence of constipation. The fecalmaterial seen throughout the colon. There is a nonobstructive bowel gas pattern. There is no acute osseous abnormality. Mild elevation of the right hemidiaphragm. No aggressive osseous lesions are identified. There is a right hip arthroplasty. No acute or aggressive osseous lesion is seen. The liver size appears prominent. Although not optimally suited for assessment of ascites, there does not appear to be central ization ofbowel as can be seen with ascites. IMPRESSION: Large amount of fecal material in the colon evidence of constipation. Nonobstructive bowel gas pattern. Hepatomegaly. THIS IS AN ELECTRONICALLY VERIFIED FINAL REPORT 01/06/2025 2:38 PM - Electronically signed by Ryan Greene M.D. CH: CH Report ID: [id number] Reading Location: [id number] Benjamin Murrell DO IMG XR PROCEDURES Final Resu lt * eGFR (01/06/2025 11:25 AM CDT) eGFR 89 >=60 mL/min/1. 73 m2 Comment: Interpretive Data Reference Interval Normal >/= 90 mL/min/1.73m2 Mildly decreased* 60 - 89 mL/min/1.73m2 Mildly to moderately decreased 45 - 59 mL/min/1.73m2 Moderately to severely decreased 30 - 44 mL/min/1.73m2 Severely decreased 15 - 29 mL/min/1.73m2 Kidney Failure < 15 mL/min/1.73m2 *Relative to young adult level Estimated glomerular filtration rate is determined by the 2020 CKD-EPI equation recommended by the National Kidney Foundation (A Unifying Approach to GFR Estimation: Recommendations of the NKF-ASK Task Force on Reassessing the Inclusion of Race in Diagnosing Kidney Disease, JASN 2020). The CKD-EPI equation should not be used for patients with unstable renal function and has not been validated in children and those over 70. Current interpretive data was last reviewed 2021. Testing performed by: [address] [address] Blood 01/06/2025 11:2 5 AM CDT 01/06/2025 11:36 AM CDT us Benjamin Murrell DO LAB BLOOD ORDERABLES Final R esult UBALDO [address] [facility] Department [place] [address] * (ABNORMAL) Differential, auto (01/06/2025 11:25 AM CDT) Neutrophil abs 4.42 1.50 - 6.50 K/cumm Comment:Testing performed by : [address] [address] Imm gran abs 0.40(H) 0.00 - 0.10 K/cumm UBALDO MATAMOROS Comment:Testing performed by : [address] [address] Lymphocyte abs 1.10 0.80 - 3.30 K/cumm UBALDO Comment:Testing performed by : [address] [address] Monocyte abs 0.59 0.20 - 0.80 K/cumm [facility] Comment:Testing performed by : [address] [address] Eosinophil abs 0.12 0.00 - 0.50 K/cumm [facility] Comment:Testing performed by : [address] [address] Basophil abs 0.03 0.00 - 0.10 K/cumm [facility] Comment:Testing performed by : [address] [address] Neutrophil pct 66.3 % [facility] Comment: Interpretive Data Percent cell count reference ranges are not reported, since discordance with absolute values may lead to misinterpretation of CBC data. Current Interpretive Data was last revised on 2017. Testing performed by: [address] [address] Imm gran pct 6.0 % [facility] Comment: Interpretive Data Percent cell count reference ranges are not reported, since discordance with absolute values may lead to misinterpretation of CBC data. Current Interpretive Data was last revised on 2017. Testing performed by: [address] [address] Lymphocyte pct 16.5 % [facility] Comment: Interpretive Data Percent cell count reference ranges are not reported, since discordance with absolute values may lead to misinterpretation of CBC data. Current Interpretive Data was last revised on 2017. Testing performed by: [address] [address] Monocyte pct 8.9 % [facility] Comment: Interpretive Data Percent cell count reference ranges are not reported, since discordance with absolute values may lead to misinterpretation of CBC data. Current Interpretive Data was last revised on 2017. Testing performed by: [address] [address] Eosinophil pct 1.8 % [facility] Comment: Interpretive Data Percent cell count reference ranges are not reported, since discordance with absolute values may lead to misinterpretation of CBC data. Current Interpretive Data was last revised on 2017. Testing performed by: [address] [address] Basophil pct 0.5 % UBALDO MATAMOROS Comment: Interpretive Data Percent cell count reference ranges are not reported, since discordance with absolute values may lead to misinterpretation of CBC data. Current Interpretive Data was last revised on 2017. Testing performed by: [address] [address] Blood 01/06/2025 11:2 5 AM CDT 01/06/2025 11:36 AM CDT us Benjamin Murrell DO LAB BLOOD ORDERABLES Final R esult UBALDO [address] [facility] Department [place] [address] * (ABNORMAL) CBC with auto differential (01/06/2025 11:25 AM CDT) WBC 6.66 3.80 - 9.90 K/cumm Comment:Testing performed by : [address] [address] Hgb 9.4(L) 13.0 - 17.5 g/dL UBALDO Comment:Testing performed by : [address] [address] Hct 29.8(L) 38.9 - 50.3 % UBALDO Comment:Testing performed by : [address] [address] Plt 207 150 - 400 K/cumm UBALDO Comment:Testing performed by : [address] [address] MPV 10.8 9.1 - 12.3 fL UBALDO Comment:Testing performed by : [address] [address] RBC 3.36(L) 4.30 - 5.80 M/cumm UBALDO MATAMOROS Comment:Testing performed by : [address] [address] MCV 88.7 81.3 - 96.4 fL UBALDO Comment:Testing performed by : [address] [address] MCH 28.0 27.1 - 33.3 pg UBALDO Comment:Testing performed by : [address] [address] MCHC 31.5(L) 32.3 - 35.7 g/dL UBALDO Comment:Testing performed by : [address] [address] RDW CV 18.5(H) 11.1 - 14.9 % UBALDO Comment:Testing performed by : [address] [address] RDW SD 60.4(H) 35.7 - 48.1 fL UBALDO Comment:Testing performed by : [address] [address] NRBC abs 0.00 0.00 - 0.01 K/cumm UBALDO Comment:Testing performed by : [address] [address] ANC Prelim 4.42 1.50 - 6.50 K/cumm UBALDO Comment: Interpretive Data The rapid ANC is a preliminary automated count and may vary from the final ANC (Neut Abs) reported in the WBC differential that follows. Current interpretive data was last revised 2024. Testing performed by: [address] [address] Blood 01/06/2025 11:2 5 AM CDT 01/06/2025 11:36 AM CDT Benjamin Murrell DO LAB BLOOD ORDERABLES Final R esult [facility] [address] [facility] Department [place] [address] * Ammonia (01/06/2025 11:25 AM CDT) Ammonia 32 <=50 mcmol/L Comment: Please note on 12/23/2023 the unit of measure changed from mcg/dL to mcmol/L. Current Interpretive Data was last revised on 2023. Testing performed by: [address] [address] Blood 01/06/2025 11:2 5 AM CDT 01/06/2025 11:36 AM CDT Benjamin Murrell DO LAB BLOOD ORDERABLES Final R esult [facility] [address] [facility] Department [place] [address] * (ABNORMAL) Comprehensive metabolic panel (01/06/2025 11:25 AM CDT) Sodium 134(L) 135 - 145 mmol/L Comment:Testing performed by : [address] [address] Potassium, pl 4.6 3.3 - 4.9 mmol/L UBALDO Comment:Testing performed by : [address] [address] Chloride 101 97 - 110 mmol/L UBALDO Comment:Testing performed by : [address] [address] CO2 23 22 - 32 mmol/L UBALDO Comment:Testing performed by : [address] [address] Anion gap 10 2 - 15 mmol/L UBALDO Comment:Testing performed by : [address] [address] BUN 16 6 - 25 mg/dL UBALDO Comment:Testing performed by : [address] [address] Creatinine 0.90 0.80 - 1.30 mg/dL UBALDO Comment:Testing performed by : [address] [address] Glucose 139 70 - 199 mg/dL UBALDO Comment: Interpretive Data Fasting glucose >/= 126 mg/dl is diagnostic for diabetes. Fasting is defined as no caloric intake for at least 8 hours. Fasting glucose between 100 mg/dl to 125 mg/dl is diagnostic of prediabetes. In a patient with classic symptoms of hyperglycemia or hyperglycemic crisis, a random glucose >/= 200 mg/dl is diagnostic for diabetes. In the absence of unequivocal hyperglycemia, results should be confirmed by repeat testing. The classification and Diagnosis of Diabetes Diabetes Care 202; 46: S19-S40. Current interpretive data was last revised 2022. Testing performed by: [address] [address] Calcium 8.9 8.5 - 10.3 mg/dL UBALDO Comment:Testing performed by : [address] [address] Bilirubin, total 0.6 0.1 - 1.2 mg/dL UBALDO Comment:Testing performed by : [address] [address] Protein, pl 6.7 6.5 - 8.5 g/dL UBALDO Comment:Testing performed by : [address] [address] Albumin 3.2(L) 3.5 - 5.0 g/dL UBALDO Comment:Testing performed by : [address] [address] Alk phos 375(H) 40 - 130 Units/L UBALDO Comment:Testing performed by : [address] [address] ALT 27 7 - 55 Units/L UABLDO Comment:Testing performed by : [address] [address] AST 60(H) 10 - 50 Units/L UBALDO Comment:Testing performed by : [address] [address] Blood 01/06/2025 11:2 5 AM CDT 01/06/2025 11:36 AM CDT us Benjamin Murrell DO LAB BLOOD ORDERABLES Final R esult UBALDO MATAMOROS [address] [facility] Department [place] [address] * CT head with & without contrast (12/30/2024 3:37 PM CDT) Anatomical Region Laterality Modality Head and Neck N/A Computed Tomogra phy 12/30/2024 4:33 PM CDT Narrative 12/30/2024 4:38 PM CDT EXAM DESCRIPTION: CT HEAD W WO CONTRAST REASON FOR STUDY: dizziness, memory loss Patient having dizziness and memory loss over the last month, history of malignant neoplasm of cecum TECHNIQUE: Axial images acquired through the brain without and with intravenous contrast. Images stored on PACS. Automated exposure control was used as a dose optimization technique for this examination. CONTRAST TYPE/DOSE: 50mL of IOVERSOL 350 MG IODINE/ML INTRAVENOUS SYRINGE injected via intravenous COMPARISON: 06/14/2023. FINDINGS: BRAIN: No acute intraparenchymal hemorrhage, cerebral edema, hydrocephalus, mass, or mass effect. Mild periventricular white matter hypoattenuation is present, while nonspecific, evidence of chronic microangiopathic gliosis. EXTRA-AXIAL SPACES: No extra-axial fluid collection or mass. CALVARIUM: No acute skull base or calvarial abnormality. SINUSES/MASTOIDS: The left frontal sinus is opacified. ORBITS: No significant abnormality. OTHER: No other significant abnormality. POSTCONTRAST: No identified abnormal postcontrast enhancement. IMPRESSION: No evidence of an acute intracranial abnormality. Evidence of mild chronic microangiopathic gliosis. Left frontal sinus opacification. THIS IS AN ELECTRONICALLY VERIFIED FINAL REPORT 12/30/2024 4:38 PM - Electronically signed by Ryan Greene M.D. T: Report ID: [id number] Reading Location: [id number] Procedure Note Ryan Greene Jr., MD - 12/30/2024 EXAM DESCRIPTION: CT HEAD W WO CONTRAST REASON FOR STUDY: dizziness, memory loss Patient having dizziness and memory loss over the last month, history of malignant neoplasm of cecum TECHNIQUE: Axial images acquired through the brain without and with intravenous contrast. Images stored on PACS. Automated exposure controlwas used as a dose optimization technique for this examination. CONTRAST TYPE/DOSE: 50mL of IOVERSOL 350 MG IODINE/ML INTRAVENOUS SYRINGE injected via intravenous COMPARISON: 06/14/2023. FINDINGS: BRAIN: No acute intraparenchymal hemorrhage, cerebral edema,hydrocephalus, mass, or mass effect. Mild periventricular white matter hypoattenuationis present, while nonspecific, evidence of chronic microangiopathic gliosis. EXTRA-AXIAL SPACES: No extra-axial fluid collection or mass. CALVARIUM: No acute skull base or calvarial abnormality. SINUSES/MASTOIDS: The left frontal sinus is opacified. ORBITS: No significant abnormality. OTHER: No other significant abnormality. POSTCONTRAST: No identified abnormal postcontrast enhancement. IMPRESSION: No evidence of an acute intracranial abnormality. Evidence of mild chronic microangiopathic gliosis. Left frontal sinus opacification. THIS IS AN ELECTRONICALLY VERIFIED FINAL REPORT 12/30/2024 4:38 PM - Electronically signed by Ryan Greene M.D. T: Report ID: [id number] Reading Location: [place] [address] Benjamin Murrell DO IMG CT PROCEDURES Final Resu lt * Transfuse RBC (12/30/2024 1:19 PM CDT) Blood Benjamin Murrell DO BLOOD TRANSFUSION ORDERABLES Final Result * Prepare RBC: 1 Units (12/30/2024 10:21 AM CDT) Units requested 1 Comment:Testing performed by : [address] [address] Units requested Ready UBALDO Comment:Testing performed by : [address] [address] Unit Number [id number] Product code [id number] UBALDO Blood Expiration Date [id number] UBALDO Product Blood Type (for scanning) 6200 UBALDO Product Blood Type APOS UBALDO Dispense Status DISPENSED UBALDO Blood 12/30/2024 10:2 1 AM CDT 12/30/2024 10:21 AM CDT Benjamin Murrell DO BLOOD BANK PRODUCT ORDERABLE S Final Result [address] [address] * ABO/Rh (12/30/2024 9:14 AM CDT) ABO/Rh A Positive Comment:Testing performed by : [facility], [address] [place] [address]., [address] Blood 12/30/2024 9:14 AM CDT 12/30/2024 9:37 AM CDT Narrative UBALDO - 12/30/2024 10:19 AM CDT Has the patient had Daratumumab or Isatuximab in the past 6 months?->No Benjamin Murrell DO LAB BLOOD BANK TEST ORDERABL ES Final Result Performing Organization Address [facility] de Phone Number [address] [address] * Crossmatch (12/30/2024 9:14 AM CDT) Pathologist [facility] Crossmatch Compatible [facility] Unit number for crossmatch [id number] [facility] Blood 12/30/2024 9:14 AM CDT 12/30/2024 9:37 AM CDT Benjamin Murrell DO LAB BLOOD BANK TEST ORDERABL ES Final Result Performing Organization Address [facility] de Phone Number [address] [address] * Antibody screen (12/30/2024 9:14 AM CDT) Ruperto, indirect, Gel Interpretation Negative ABSC Comment:Testing performed by : [facility], [address] [place] [address]., [address] Blood 12/30/2024 9:14 AM CDT 12/30/2024 9:37 AM CDT Narrative UBALDO - 12/30/2024 10:22 AM CDT Has the patient had Daratumumab or Isatuximab in the past 6 months?->No Benjamin Murrell DO LAB BLOOD BANK TEST ORDERABL ES Final Result Performing Organization Address [facility] de Phone Number UBALDO [address] [place] [address] * eGFR (12/30/2024 8:14 AM CDT) eGFR 78 >=60 mL/min/1. 73 m2 Comment: Interpretive Data Reference Interval Normal >/= 90 mL/min/1.73m2 Mildly decreased* 60 - 89 mL/min/1.73m2 Mildly to moderately decreased 45 - 59 mL/min/1.73m2 Moderately to severely decreased 30 - 44 mL/min/1.73m2 Severely decreased 15 - 29 mL/min/1.73m2 Kidney Failure < 15 mL/min/1.73m2 *Relative to young adult level Estimated glomerular filtration rate is determined by the 2020 CKD-EPI equation recommended by the National Kidney Foundation (A Unifying Approach to GFR Estimation: Recommendations of the NKF-ASK Task Force on Reassessing the Inclusion of Race in Diagnosing Kidney Disease, JASN 2020). The CKD-EPI equation should not be used for patients with unstable renal function and has not been validated in children and those over 70. Current interpretive data was last reviewed 2021. Testing performed by: [facility], [address] [place] [address]., [address] Blood 12/30/2024 8:14 AM CDT 12/30/2024 8:16 AM CDT Benjamin Murrell DO LAB BLOOD ORDERABLES Final R esult Performing Organization Address [facility] Co de Phone Number UBALDO [address] [place] [address] * Differential, auto (12/30/2024 8:14 AM CDT) Neutrophil abs 5.64 1.50 - 6.50 K/cumm Comment:Testing performed by : [address] [address] Imm gran abs 0.08 0.00 - 0.10 K/cumm [facility] Comment:Testing performed by : [address] [address] Lymphocyte abs 1.33 0.80 - 3.30 K/cumm [facility] Comment:Testing performed by : [address] [address] Monocyte abs 0.80 0.20 - 0.80 K/cumm [facility] Comment:Testing performed by : [address], [place]., [address] Eosinophil abs 0.07 0.00 - 0.50 K/cumm [facility] Comment:Testing performed by : [address] [address] Basophil abs 0.04 0.00 - 0.10 K/cumm [facility] Comment:Testing performed by : [address] [address] Neutrophil pct 70.8 % [facility] Comment: Interpretive Data Percent cell count reference ranges are not reported, since discordance with absolute values may lead to misinterpretation of CBC data. Current Interpretive Data was last revised on 2017. Testing performed by: [address] [address] Imm gran pct 1.0 % [facility] Comment: Interpretive Data Percent cell count reference ranges are not reported, since discordance with absolute values may lead to misinterpretation of CBC data. Current Interpretive Data was last revised on 2017. Testing performed by: [address] [address] Lymphocyte pct 16.7 % [facility] Comment: Interpretive Data Percent cell count reference ranges are not reported, since discordance with absolute values may lead to misinterpretation of CBC data. Current Interpretive Data was last revised on 2017. Testing performed by: [address] [address] Monocyte pct 10.1 % [facility] Comment: Interpretive Data Percent cell count reference ranges are not reported, since discordance with absolute values may lead to misinterpretation of CBC data. Current Interpretive Data was last revised on 2017. Testing performed by: [address] [address] Eosinophil pct 0.9 % UBALDO Comment: Interpretive Data Percent cell count reference ranges are not reported, since discordance with absolute values may lead to misinterpretation of CBC data. Current Interpretive Data was last revised on 2017. Testing performed by: [address] [address] Basophil pct 0.5 % UBALDO Comment: Interpretive Data Percent cell count reference ranges are not reported, since discordance with absolute values may lead to misinterpretation of CBC data. Current Interpretive Data was last revised on 2017. Testing performed by: [address] [address] Blood 12/30/2024 8:14 AM CDT 12/30/2024 8:16 AM CDT Benjamin Murrell DO LAB BLOOD ORDERABLES Final R esult [facility] [address] [facility] Department [place] [address] * (ABNORMAL) Iron profile w/ IBC (12/30/2024 8:14 AM CDT) Iron 24(L) 50 - 150 mcg/dL Comment:Testing performed by : [address] [address] TIBC 199(L) 250 - 400 mcg/dL UBALDO Comment:Testing performed by : [address] [address] Transferrin saturation 12(L) 20 - 50 % UBALDO Comment:Testing performed by : [address] [address] Blood 12/30/2024 8:14 AM CDT 12/30/2024 9:37 AM CDT Benjamin Murrell DO LAB BLOOD ORDERABLES Final R esult [facility] [address] [facility] Department [place] [address] * (ABNORMAL) CBC with auto differential (12/30/2024 8:14 AM CDT) WBC 7.96 3.80 - 9.90 K/cumm Comment:Testing performed by : [address] [address] Hgb 8.3(L) 13.0 - 17.5 g/dL UBALDO Comment:Testing performed by : [address] [address] Hct 26.2(L) 38.9 - 50.3 % UBALDO Comment:Testing performed by : [address] [address] Plt 210 150 - 400 K/cumm UBALDO Comment:Testing performed by : [address] [address] MPV 9.9 9.1 - 12.3 fL UBALDO Comment:Testing performed by : [address] [address] RBC 2.95(L) 4.30 - 5.80 M/cumm UBALDO Comment:Testing performed by : [address] [address] MCV 88.8 81.3 - 96.4 fL UBALDO Comment:Testing performed by : [address] [address] MCH 28.1 27.1 - 33.3 pg UBALDO Comment:Testing performed by : [address] [address] MCHC 31.7(L) 32.3 - 35.7 g/dL UBALDO Comment:Testing performed by : [address] [address] RDW CV 18.7(H) 11.1 - 14.9 % UBALDO Comment:Testing performed by : [address], [address] RDW SD 60.2(H) 35.7 - 48.1 fL UBALDO Comment:Testing performed by : [address] [address] NRBC abs 0.00 0.00 - 0.01 K/cumm UBALDO Comment:Testing performed by : [address] [address] ANC Prelim 5.64 1.50 - 6.50 K/cumm UBALDO Comment: Interpretive Data The rapid ANC is a preliminary automated count and may vary from the final ANC (Neut Abs) reported in the WBC differential that follows. Current interpretive data was last revised 2024. Testing performed by: [address] [address] Blood 12/30/2024 8:14 AM CDT 12/30/2024 8:16 AM CDT Benjamin Murrell DO LAB BLOOD ORDERABLES Final R esult Performing Organization Address [facility]/State/ZIP Co de Phone Number UBALDO [address] [facility] Department [place] [address] * (ABNORMAL) Reticulocyte Count (12/30/2024 8:14 AM CDT) Retics, absolute 58 20 - 87 K/cumm Comment:Testing performed by : [address] [address] Retics 1.9 0.4 - 2.9 % UBALDO Comment:Testing performed by : [address] [address] Reticulocyte Hgb 25.4(L) 30.5 - 38.0 pg UBALDO Comment:Testing performed by : [address] [address] Blood 12/30/2024 8:14 AM CDT 12/30/2024 8:16 AM CDT Benjamin Murrell DO LAB BLOOD ORDERABLES Final R esult Performing Organization Address [facility] Co de Phone Number ANGELA[address] [address] * (ABNORMAL) Ferritin (12/30/2024 8:14 AM CDT) Pathologist [facility] Ferritin 942(H) 30 - 400 ng/mL Comment:Testing performed by : [address] [address] Blood 12/30/2024 8:14 AM CDT 12/30/2024 9:37 AM CDT Benjamin Murrell DO LAB BLOOD ORDERABLES Final R esult Performing Organization Address [facility] Co de Phone Number ANGELA[address] [place] [address] * (ABNORMAL) Vitamin B12 (12/30/2024 8:14 AM CDT) [facility] Vitamin B12 >2,000(H) 230 - 1,250 pg/mL Comment:Testing performed by : [address] [address] Blood 12/30/2024 8:14 AM CDT 12/30/2024 9:37 AM CDT Benjamin Murrell DO LAB BLOOD ORDERABLES [facility] Performing Organization Address [facility] Co de Phone Number ANGELA[address] [address] * (ABNORMAL) Comprehensive metabolic panel (12/30/2024 8:14 AM CDT) [facility] Sodium 134(L) 135 - 145 mmol/L Comment:Testing performed by : [address] [address] Potassium, pl 4.2 3.3 - 4.9 mmol/L UBALDO Comment:Testing performed by : [address] [address] Chloride 101 97 - 110 mmol/L UBALDO Comment:Testing performed by : [address] [address] CO2 21(L) 22 - 32 mmol/L UBALDO Comment:Testing performed by : [address] [address] Anion gap 12 2 - 15 mmol/L UBALDO Comment:Testing performed by : [address] [address] BUN 18 6 - 25 mg/dL UBALDO Comment:Testing performed by : [address], [place]., [address] Creatinine 1.00 0.80 - 1.30 mg/dL UBALDO Comment:Testing performed by : [address] [address] Glucose 187 70 - 199 mg/dL UBALDO Comment: Interpretive Data Fasting glucose >/= 126 mg/dl is diagnostic for diabetes. Fasting is defined as no caloric intake for at least 8 hours. Fasting glucose between 100 mg/dl to 125 mg/dl is diagnostic of prediabetes. In a patient with classic symptoms of hyperglycemia or hyperglycemic crisis, a random glucose >/= 200 mg/dl is diagnostic for diabetes. In the absence of unequivocal hyperglycemia, results should be confirmed by repeat testing. The classification and Diagnosis of Diabetes Diabetes Care 202; 46: S19-S40. Current interpretive data was last revised 2022. Testing performed by: [address] [address] Calcium 8.5 8.5 - 10.3 mg/dL UBALDO Comment:Testing performed by : [address] [address] Bilirubin, total 0.4 0.1 - 1.2 mg/dL UBALDO Comment:Testing performed by : [address] [address] Protein, pl 6.5 6.5 - 8.5 g/dL UBALDO Comment:Testing performed by : [address] [address] Albumin 3.2(L) 3.5 - 5.0 g/dL UBALDO Comment:Testing performed by : [address] [address] Alk phos 346(H) 40 - 130 Units/L UBALDO MATAMOROS Comment:Testing performed by : [address] [address] ALT 26 7 - 55 Units/L UBALDO MATAMOROS Comment:Testing performed by : [address] [address] AST 65(H) 10 - 50 Units/L UBALDO Comment:Testing performed by : [address] [address] Blood 12/30/2024 8:14 AM CDT 12/30/2024 8:16 AM CDT Benjamin Murrell DO LAB BLOOD ORDERABLES Final R esult UBALDO [facility] Department [place] [address] * eGFR (12/16/2024 10:11 AM CDT) eGFR >90 >=60 mL/min/1. 73 m2 Comment: Interpretive Data Reference Interval Normal >/= 90 mL/min/1.73m2 Mildly decreased* 60 - 89 mL/min/1.73m2 Mildly to moderately decreased 45 - 59 mL/min/1.73m2 Moderately to severely decreased 30 - 44 mL/min/1.73m2 Severely decreased 15 - 29 mL/min/1.73m2 Kidney Failure < 15 mL/min/1.73m2 *Relative to young adult level Estimated glomerular filtration rate is determined by the 2020 CKD-EPI equation recommended by the National Kidney Foundation (A Unifying Approach to GFR Estimation: Recommendations of the NKF-ASK Task Force on Reassessing the Inclusion of Race in Diagnosing Kidney Disease, JASN 202). The CKD-EPI equation should not be used for patients with unstable renal function and has not been validated in children and those over 70. Current interpretive data was last reviewed 2021. Testing performed by: [address] [address] Blood 12/16/2024 10:1 1 AM CDT 12/16/2024 10:16 AM CDT us Benjamin Murrell DO LAB BLOOD ORDERABLES Final R esult UBALDO [address] [facility] Department [place] [address] * (ABNORMAL) Differential, auto (12/16/2024 10:11 AM CDT) Neutrophil abs 6.39 1.50 - 6.50 K/cumm Comment:Testing performed by : [address] [address] Imm gran abs 0.19(H) 0.00 - 0.10 K/cumm UBALDO Comment:Testing performed by : [address] [address] Lymphocyte abs 1.68 0.80 - 3.30 K/cumm UBALDO Comment:Testing performed by : [address] [address] Monocyte abs 1.61(H) 0.20 - 0.80 K/cumm UBALDO Comment:Testing performed by : [address] [address] Eosinophil abs 0.07 0.00 - 0.50 K/cumm UBALDO Comment:Testing performed by : [address] [address] Basophil abs 0.03 0.00 - 0.10 K/cumm [facility] Comment:Testing performed by : [address] [address] Neutrophil pct 64.1 % [facility] Comment: Interpretive Data Percent cell count reference ranges are not reported, since discordance with absolute values may lead to misinterpretation of CBC data. Current Interpretive Data was last revised on 2017. Testing performed by: [address] [address] Imm gran pct 1.9 % UBALDO Comment: Interpretive Data Percent cell count reference ranges are not reported, since discordance with absolute values may lead to misinterpretation of CBC data. Current Interpretive Data was last revised on 2017. Testing performed by: [address] [address] Lymphocyte pct 16.9 % [facility] Comment: Interpretive Data Percent cell count reference ranges are not reported, since discordance with absolute values may lead to misinterpretation of CBC data. Current Interpretive Data was last revised on 2017. Testing performed by: [address] [address] Monocyte pct 16.1 % [facility] Comment: Interpretive Data Percent cell count reference ranges are not reported, since discordance with absolute values may lead to misinterpretation of CBC data. Current Interpretive Data was last revised on 2017. Testing performed by: [address] [address] Eosinophil pct 0.7 % [facility] Comment: Interpretive Data Percent cell count reference ranges are not reported, since discordance with absolute values may lead to misinterpretation of CBC data. Current Interpretive Data was last revised on 2017. Testing performed by: [address] [address] Basophil pct 0.3 % [facility] Comment: Interpretive Data Percent cell count reference ranges are not reported, since discordance with absolute values may lead to misinterpretation of CBC data. Current Interpretive Data was last revised on 2017. Testing performed by: [address] [address] Blood 12/16/2024 10:1 1 AM CDT 12/16/2024 10:16 AM CDT us Benjamin Murrell DO LAB BLOOD ORDERABLES Final R esult UBALDO MATAMOROS [address] [facility] Department [place] [address] * (ABNORMAL) CBC with auto differential (12/16/2024 10:11 AM CDT) WBC 9.97(H) 3.80 - 9.90 K/cumm Comment:Testing performed by : [address] [address] Hgb 9.2(L) 13.0 - 17.5 g/dL CERMARK MH Comment:Testing performed by : [address] [address] Hct 29.5(L) 38.9 - 50.3 % CERNER MH Comment:Testing performed by : [address] [address] Plt 261 150 - 400 K/cumm CERMARK MH Comment:Testing performed by : [address] [address] MPV 11.0 9.1 - 12.3 fL CERMARK Comment:Testing performed by : [address] [address] RBC 3.26(L) 4.30 - 5.80 M/cumm CERMARK MH Comment:Testing performed by : [address] [address] MCV 90.5 81.3 - 96.4 fL CERNER Comment:Testing performed by : [address], [address] MCH 28.2 27.1 - 33.3 pg CERMARK MH Comment:Testing performed by : [address] [address] MCHC 31.2(L) 32.3 - 35.7 g/dL CERNER Comment:Testing performed by : [address] [address] RDW CV 18.4(H) 11.1 - 14.9 % CERNER Comment:Testing performed by : [address], [address] RDW SD 60.7(H) 35.7 - 48.1 fL CERMARK Comment:Testing performed by : [address] [address] NRBC abs 0.00 0.00 - 0.01 K/cumm UBALDO MH Comment:Testing performed by : [address] [address] ANC Prelim 6.39 1.50 - 6.50 K/cumm UBALDO Comment: Interpretive Data The rapid ANC is a preliminary automated count and may vary from the final ANC (Neut Abs) reported in the WBC differential that follows. Current interpretive data was last revised 2024. Testing performed by: [address] [address] Blood 12/16/2024 10:1 1 AM CDT 12/16/2024 10:16 AM CDT us Benjamin Murrell DO LAB BLOOD ORDERABLES Final R esult UBALDO [address] [facility] Department [place] [address] * (ABNORMAL) Comprehensive metabolic panel (12/16/2024 10:11 AM CDT) Sodium 133(L) 135 - 145 mmol/L Comment:Testing performed by : [address] [address] Potassium, pl 4.1 3.3 - 4.9 mmol/L UBALDO Comment:Testing performed by : [address] [address] Chloride 96(L) 97 - 110 mmol/L UBALDO Comment:Testing performed by : [address] [address] CO2 25 22 - 32 mmol/L UBALDO Comment:Testing performed by : [address] [address] Anion gap 12 2 - 15 mmol/L UBALDO Comment:Testing performed by : [address] [address] BUN 15 6 - 25 mg/dL UBALDO Comment:Testing performed by : [address] [address] Creatinine 0.70(L) 0.80 - 1.30 mg/dL UBALDO Comment:Testing performed by : [address] [address] Glucose 149 70 - 199 mg/dL UBALDO Comment: Interpretive Data Fasting glucose >/= 126 mg/dl is diagnostic for diabetes. Fasting is defined as no caloric intake for at least 8 hours. Fasting glucose between 100 mg/dl to 125 mg/dl is diagnostic of prediabetes. In a patient with classic symptoms of hyperglycemia or hyperglycemic crisis, a random glucose >/= 200 mg/dl is diagnostic for diabetes. In the absence of unequivocal hyperglycemia, results should be confirmed by repeat testing. The classification and Diagnosis of Diabetes Diabetes Care 2021; 46: S19-S40. Current interpretive data was last revised 2022. Testing performed by: [address] [address] Calcium 8.6 8.5 - 10.3 mg/dL UBALDO Comment:Testing performed by : [address] [address] Bilirubin, total 0.4 0.1 - 1.2 mg/dL UBALDO Comment:Testing performed by : [address] [address] Protein, pl 6.5 6.5 - 8.5 g/dL UBALDO Comment:Testing performed by : [address] [address] Albumin 3.5 3.5 - 5.0 g/dL UBALDO Comment:Testing performed by : [address] [address] Alk phos 375(H) 40 - 130 Units/L UBALDO Comment:Testing performed by : [address] [address] ALT 24 7 - 55 Units/L UBALDO Comment:Testing performed by : [address] [address] AST 51(H) 10 - 50 Units/L UBALDO Comment:Testing performed by : [address] [address] Blood 12/16/2024 10:1 1 AM CDT 12/16/2024 10:16 AM CDT Benjamin Murrell [employer] LAB BLOOD ORDERABLES Final R esult Performing Organization Address City/[facility] Co de Phone Number UBALDO [address] [employer] [place], [place] [id number] * (ABNORMAL) Erythropoietin (11/24/2024 11:02 AM CDT) Erythropoietin 36.7(H) 2.6 - 18.5 mIUnits/m L [place] [facility] Comment: Test Performed by: [facility] [address] [place] [address] Statistics Manager: Leighton Gregory Ph.D.; CLIA# [id number] Testing performed by: [facility], [address] [place] [address]., [address] Blood 11/24/2024 11:0 2 AM CDT 11/24/2024 11:13 AM CDT Benjamin Murrell [employer] LAB BLOOD ORDERABLES Final R esult Performing Organization Address [facility] Co de Phone Number UBALDO [address] [place] [address] [place] ref Lab * eGFR (11/24/2024 8:51 AM CDT) eGFR >90 >=60 mL/min/1. 73 m2 Comment: Interpretive Data Reference Interval Normal >/= 90 mL/min/1.73m2 Mildly decreased* 60 - 89 mL/min/1.73m2 Mildly to moderately decreased 45 - 59 mL/min/1.73m2 Moderately to severely decreased 30 - 44 mL/min/1.73m2 Severely decreased 15 - 29 mL/min/1.73m2 Kidney Failure < 15 mL/min/1.73m2 *Relative to young adult level Estimated glomerular filtration rate is determined by the 2020 CKD-EPI equation recommended by the National Kidney Foundation (A Unifying Approach to GFR Estimation: Recommendations of the NKF-ASK Task Force on Reassessing the Inclusion of Race in Diagnosing Kidney Disease, JASN 2020). The CKD-EPI equation should not be used for patients with unstable renal function and has not been validated in children and those over 70. Current interpretive data was last reviewed 2021. Testing performed by: [address] [address] Blood 11/24/2024 8:51 AM CDT 11/24/2024 8:52 AM CDT Benjamin Murrell DO LAB BLOOD ORDERABLES Final R esult [facility] [address] [facility] Department [place] [address] * (ABNORMAL) Differential, auto (11/24/2024 8:51 AM CDT) Neutrophil abs 8.23(H) 1.50 - 6.50 K/cumm Comment:Testing performed by : [address] [address] Imm gran abs 0.21(H) 0.00 - 0.10 K/cumm UBALDO Comment:Testing performed by : [address] [address] Lymphocyte abs 1.69 0.80 - 3.30 K/cumm UBALDO Comment:Testing performed by : [address] [address] Monocyte abs 1.45(H) 0.20 - 0.80 K/cumm UBALDO Comment:Testing performed by : [address] [address] Eosinophil abs 0.04 0.00 - 0.50 K/cumm UBALDO Comment:Testing performed by : [address] [address] Basophil abs 0.03 0.00 - 0.10 K/cumm UBALDO Comment:Testing performed by : [address] [address] Neutrophil pct 70.7 % UBALDO Comment: Interpretive Data Percent cell count reference ranges are not reported, since discordance with absolute values may lead to misinterpretation of CBC data. Current Interpretive Data was last revised on 2017. Testing performed by: [address] [address] Imm gran pct 1.8 % [facility] Comment: Interpretive Data Percent cell count reference ranges are not reported, since discordance with absolute values may lead to misinterpretation of CBC data. Current Interpretive Data was last revised on 2017. Testing performed by: [address] [address] Lymphocyte pct 14.5 % [facility] Comment: Interpretive Data Percent cell count reference ranges are not reported, since discordance with absolute values may lead to misinterpretation of CBC data. Current Interpretive Data was last revised on 2017. Testing performed by: [address] [address] Monocyte pct 12.4 % [facility] Comment: Interpretive Data Percent cell count reference ranges are not reported, since discordance with absolute values may lead to misinterpretation of CBC data. Current Interpretive Data was last revised on 2017. Testing performed by: [address] [address] Eosinophil pct 0.3 % [facility] Comment: Interpretive Data Percent cell count reference ranges are not reported, since discordance with absolute values may lead to misinterpretation of CBC data. Current Interpretive Data was last revised on 2017. Testing performed by: [address] [address] Basophil pct 0.3 % [facility] Comment: Interpretive Data Percent cell count reference ranges are not reported, since discordance with absolute values may lead to misinterpretation of CBC data. Current Interpretive Data was last revised on 2017. Testing performed by: [address] [address] Blood 11/24/2024 8:51 AM CDT 11/24/2024 8:52 AM CDT us Benjamin Murrell DO LAB BLOOD ORDERABLES Final R esult UBALDO [address] [facility] Department [place] [address] * (ABNORMAL) CBC with auto differential (11/24/2024 8:51 AM CDT) [facility] WBC 11.65(H) 3.80 - 9.90 K/cumm Comment:Testing performed by : [address] [address] Hgb 8.8(L) 13.0 - 17.5 g/dL UBALDO Comment:Testing performed by : [address] [address] Hct 28.0(L) 38.9 - 50.3 % UBALDO Comment:Testing performed by : [address], [address] Plt 191 150 - 400 K/cumm UBALDO Comment:Testing performed by : [address] [address] MPV 9.7 9.1 - 12.3 fL UABLDO Comment:Testing performed by : [address], [address] RBC 3.13(L) 4.30 - 5.80 M/cumm UBALDO Comment:Testing performed by : [address] [address] MCV 89.5 81.3 - 96.4 fL UBALDO Comment:Testing performed by : [address] [address] MCH 28.1 27.1 - 33.3 pg UBALDO Comment:Testing performed by : [address], [address] MCHC 31.4(L) 32.3 - 35.7 g/dL UBALDO Comment:Testing performed by : [address], [address] RDW CV 19.4(H) 11.1 - 14.9 % UBALDO Comment:Testing performed by : [address] [address] RDW SD 63.8(H) 35.7 - 48.1 fL UBALDO Comment:Testing performed by : [address], [address] NRBC abs 0.00 0.00 - 0.01 K/cumm UBALDO Comment:Testing performed by : [address] [address] ANC Prelim 8.23(H) 1.50 - 6.50 K/cumm UBALDO Comment: Interpretive Data The rapid ANC is a preliminary automated count and may vary from the final ANC (Neut Abs) reported in the WBC differential that follows. Current interpretive data was last revised 2024. Testing performed by: [address] [address] Blood 11/24/2024 8:51 AM CDT 11/24/2024 8:52 AM CDT Benjamin Murrell [employer] LAB BLOOD ORDERABLES Final R esult Performing Organization Address [facility] de Phone Number [place] [id number] [facility] [place] [address] * PSA diagnostic (11/24/2024 8:51 AM CDT) PSA-Total 1.67 <=6.20 ng/mL Comment: Interpretive Data AGE SEX REFERENCE INTERVAL 0 minutes-150 years Female None 0 minutes-49 years Male None 50-59 years Male 0-3.90 60-69 years Male 0-5.40 70-79 years Male 0-6.20 80-150 years Male 0-6.20 The [email or web address] PSA Total assay procedure was used. Results from different manufacturers or methods may not be comparable. Serial testing should be performed using the same method. Current interpretive data last revised 21. Testing performed by: [address] [address] Blood 11/24/2024 8:51 AM CDT 11/24/2024 9:43 AM CDT Benjamin Vidya Handy LAB BLOOD ORDERABLES Final R esult Performing Organization Address [facility] de Phone Number [place] [id number] [facility] [place] [address] * (ABNORMAL) CEA (11/24/2024 8:51 AM CDT) Pathologist [facility] CEA 156.0(H) <=5.0 ng/mL Comment: Interpretive Data: Reference Range: Non-Smokers: 0.0 5.0 ng/mL Smokers: 0.0 6.5 ng/mL The [employer] CEA assay procedure was used. Results from different manufacturers or methods may not be comparable. Serial testing should be performed using the same method. Current interpretive data was last revised 2023. Testing performed by: [address] [address] Blood 11/24/2024 8:51 AM CDT 11/24/2024 9:43 AM CDT Benjamin Murrell DO LAB BLOOD ORDERABLES Final R esult UBALDO [address] [facility] Department [place] [address] * (ABNORMAL) Comprehensive metabolic panel (11/24/2024 8:51 AM CDT) [facility] Sodium 135 135 - 145 mmol/L Comment:Testing performed by : [address] [address] Potassium, pl 4.3 3.3 - 4.9 mmol/L UBALDO Comment:Testing performed by : [address] [address] Chloride 100 97 - 110 mmol/L UBALDO Comment:Testing performed by : [address] [address] CO2 25 22 - 32 mmol/L UBALDO Comment:Testing performed by : [address] [address] Anion gap 10 2 - 15 mmol/L UBALDO Comment:Testing performed by : [address] [address] BUN 18 6 - 25 mg/dL UBALDO Comment:Testing performed by : [address] [place] [address] Creatinine 0.70(L) 0.80 - 1.30 mg/dL UBALDO Comment:Testing performed by : [address] [address] Glucose 120 70 - 199 mg/dL UBALDO Comment: Interpretive Data Fasting glucose >/= 126 mg/dl is diagnostic for diabetes. Fasting is defined as no caloric intake for at least 8 hours. Fasting glucose between 100 mg/dl to 125 mg/dl is diagnostic of prediabetes. In a patient with classic symptoms of hyperglycemia or hyperglycemic crisis, a random glucose >/= 200 mg/dl is diagnostic for diabetes. In the absence of unequivocal hyperglycemia, results should be confirmed by repeat testing. The classification and Diagnosis of Diabetes Diabetes Care 2021; 46: S19-S40. Current interpretive data was last revised 2022. Testing performed by: [address] [address] Calcium 8.8 8.5 - 10.3 mg/dL UBALDO Comment:Testing performed by : [address] [address] Bilirubin, total 0.5 0.1 - 1.2 mg/dL [facility] Comment:Testing performed by : [address] [address] Protein, pl 6.7 6.5 - 8.5 g/dL [facility] Comment:Testing performed by : [address] [address] Albumin 3.7 3.5 - 5.0 g/dL [facility] Comment:Testing performed by : [address] [address] Alk phos 310(H) 40 - 130 Units/L UBALDO Comment:Testing performed by : [address] [address] ALT 29 7 - 55 Units/L [facility] Comment:Testing performed by : [address] [address] AST 51(H) 10 - 50 Units/L UBALDO Comment:Testing performed by : [address] [address] Blood 11/24/2024 8:51 AM CDT 11/24/2024 8:52 AM CDT us Benjamin Murrell DO LAB BLOOD ORDERABLES Final R esult UBALDO [address] [facility] Department [place] [address] * CT Chest Abdomen Pelvis W Contrast (11/18/2024 5:53 PM CDT) Anatomical Region Laterality Modality Body N/A Computed Tomogra phy 11/25/2024 8:08 AM CDT Narrative 11/25/2024 8:46 AM CDT EXAM DESCRIPTION: CT CHEST ABDOMEN PELVIS W CONTRAST REASON FOR STUDY: restaging metastatic colon cancer Dx approx 3 yrs ago with metastatic colon cancer, metastatic to liver and cecum. Pt states no sx hx TECHNIQUE: CT scan of the chest, abdomen, and pelvis performed with intravenous and without oral contrast using helical scanning technique with dynamic intravenous contrast injection. Reconstructed coronal and sagittal MPR images reviewed. All images stored on PACS. Automated exposure control was used as a dose optimization technique for this examination. CONTRAST TYPE/DOSE: 100mL of IOVERSOL 350 MG IODINE/ML INTRAVENOUS SYRINGE injected via intravenous COMPARISON: 10/10/2024 FINDINGS: CHEST LUNGS: There is no definite evidence of a pneumothorax. The central airways are grossly patent. There are scattered subtle mild bronchial wall thickening, which raises the concern for mild acute or chronic bronchitis/bronchiolitis. There are trace bilateral pleural effusions versus pleural thickening. There is scattered mild subsegmental atelectasis and scarring. There is no definite evidence of focal consolidation. There is redemonstration of multiple pulmonary nodules in the bilateral lungs which is overall similar to the prior study. For example, there is stable spiculated nodule in the central right upper lobe measuring 1.0 x 0.7 cm (axial image 26). There is a stable 0.6 cm nodule in the right middle lobe (axial image 56). There is stable spiculated nodule in the posterior right lower lobe measuring 1.5 by 1.5 cm (axial image 64). There is stable lobulated spiculated nodule in the central left upper lobe measuring 1.3 cm (axial image 20). There is a stable 0.7 cm left lower lobe pulmonary nodule (axial image 76). MEDIASTINUM/VELMA: The heart size is stable. There is no definite evidence of a pericardial effusion. There are atherosclerotic changes of the coronary vessels and aorta. There is no definite evidence of mediastinal, hilar, or axillary lymphadenopathy. There are scattered prominent subcentimeter mediastinal lymph nodes noted with largest measuring 0.8 cm in the subcarinal region (axial image 45). There are scattered calcified mediastinal and right hilar lymph nodes noted. CHEST WALL: No masses. No subcutaneous air. HARDWARE/LINES/TUBES: Right-sided infusion port is noted with its distal tip in the right subclavian vein, similar to the prior study. ABDOMEN/PELVIS LIVER: The liver is grossly stable in size and contour. There is redemonstration of multiple lesions in the liver, which is compatible with metastasis. Some of these lesions containing calcifications, which is likely related to posttreatment changes. For example, there is lesion noted in segment 4A of the liver measuring 8.0 by 6.6 cm, which previously measured 8.0 x 6.6 cm (axial image 27). This lesion is associated tumor thrombus extending into the main portal vein measuring 2.8 by 1.4 cm, which previously measured 2.9 by 1.4 cm (axial image 41). This mass continues to encase the hepatic veins along with intrahepatic biliary ductal dilatation in the left hepatic lobe, which is similar to the prior study. This mass encases the intrahepatic IVC with mild associated narrowing, which is similar to the prior study. There is a lesion in segment 8/7 of the liver measuring 7.0 cm, which previously measured up to 7.0 cm (axial image 28). There is a lesion noted in segment 5/6 of the liver measuring 2.6 by 1.8 cm, which previously measured 2.6 x 1.8 cm (axial image 46). 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 GALLBLADDER: Grossly unremarkable. BILE DUCTS: There is intrahepatic biliary ductal dilatation of the left hepatic lobe, which is overall similar to multiple prior studies. There is no definite evidence of extrahepatic biliary ductal dilatation. SPLEEN: The spleen is grossly stable in size and unremarkable. PANCREAS: The pancreas appears grossly stable without definite of pancreatic ductal dilatation, peripancreatic inflammatory changes, or peripancreatic fluid collection. ADRENALS: There is redemonstration of the right adrenal metastasis measuring 4.1 x 2.6 cm, which previously measured 4.1 x 2.4 cm (axial image 21). There is grossly stable nonspecific nodular thickening of the left adrenal gland. KIDNEYS/URINARY TRACT: The bilateral kidneys enhance symmetrically. There is no definite evidence of a focal renal lesion. There is no definite evidence of hydronephrosis or hydroureter. There is circumferential mucosal thickening of the urinary bladder. There is a redemonstration of the trabeculated appearance of the urinary bladder with multiple bladder diverticula, which may be related to sequela of chronic urinary bladder outlet obstruction. The prostate gland measures 5.3 cm. GI: Postsurgical changes of right hemicolectomy with ileocolonic anastomosis are noted. There is no definite evidence of local recurrence. There is no definite evidence of a bowel obstruction. There are scattered colonic diverticula without definite evidence of diverticulitis. There is small fat containing periumbilical hernia. There is no definite evidence of free air or fluid in the abdomen and pelvis. There is redemonstration of celiac axis, gastrohepatic ligament, and robert hepatis lymphadenopathy, which is similar to the prior study. For example, there is a celiac axis/gastrohepatic ligament lymph node measuring 1.3 cm, which previously measured 1.3 cm (axial image 29). There is a robert hepatis lymph node measuring 1.4 cm, which previously measured 1.4 cm (axial image 45). MUSCULOSKELETAL: There is mild osteopenia. There is minimal reverse S shaped scoliotic curvature of the spine with degenerative changes. There are degenerative changes bilateral sacroiliac joints and left hip. Postsurgical changes right hip arthroplasty are noted. 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 OTHER: No significant abnormality. IMPRESSION: Grossly stable postsurgical changes of right hemicolectomy with ileocolonic anastomosis. No definite evidence of local recurrence or bowel obstruction. Redemonstration of the pulmonary metastasis, which is overall similar to the prior study. 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 Redemonstration of celiac axis, gastrohepatic ligament, and robert hepatis lymphadenopathy, which is overall similar to the prior study. Redemonstration of the right adrenal metastasis, which is overall grossly similar to the prior study. Scattered mild subsegmental atelectasis and scarring. No definite evidence of focal consolidation. No definite evidence of bowel obstruction. Circumferential mucosal thickening of the urinary bladder, which may be related to underdistention, chronic urinary bladder outlet obstruction secondary to enlarged prostate gland, or cystitis. Clinical correlation with urinary analysis is recommended as clinically indicated. Enlarged prostate gland. Clinical correlation with physical exam findings and PSA values is recommended as clinically indicated. Scattered colonic diverticula without definite evidence of diverticulitis. THIS IS AN ELECTRONICALLY VERIFIED FINAL REPORT 11/25/2024 8:46 AM - Electronically signed by Tony Marsh D.O. PS: PS Report ID: [id number] Reading Location: [id number] Procedure Note Tony Marsh, DO - 11/25/2024 EXAM DESCRIPTION: CT CHEST ABDOMEN PELVIS W CONTRAST REASON FOR STUDY: restaging metastatic colon cancer Dx approx 3 yrs ago with metastatic colon cancer, metastatic to liver and cecum. Pt states no sx hx TECHNIQUE: CT scan of the chest, abdomen, and pelvis performed with intravenous and without oral contrast using helical scanning techniquewith dynamic intravenous contrast injection. Reconstructed coronal and sagittalMPR images reviewed. All images stored on PACS. Automated exposure control was used as a dose optimization technique for this examination. CONTRAST TYPE/DOSE: 100mL of IOVERSOL 350 MG IODINE/ML INTRAVENOUS SYRINGE injected via intravenous COMPARISON: 10/10/2024 FINDINGS: CHEST LUNGS: There is no definite evidence of a pneumothorax. The centralairways are grossly patent. There are scattered subtle mild bronchial wall thickening, which raises the concern for mild acute or chronic bronchitis/bronchiolitis. There are trace bilateral pleural effusionsversus pleural thickening. There is scattered mild subsegmental atelectasis and scarring. There is no definite evidence of focal consolidation. There is redemonstration of multiple pulmonary nodules in the bilaterallungs which is overall similar to the prior study. For example, there is stable spiculated nodule in the central right upper lobe measuring 1.0 x 0.7 cm (axial image 26). There is a stable 0.6 cm nodule in the right middlelobe (axial image 56). There is stable spiculated nodule in the posteriorright lower lobe measuring 1.5 by 1.5 cm (axial image 64). There is stable lobulated spiculated nodule in the central left upper lobe measuring 1.3cm (axial image 20). There is a stable 0.7 cm left lower lobe pulmonarynodule (axial image 76). MEDIASTINUM/VELMA: The heart size is stable. There is no definiteevidence of a pericardial effusion. There are atherosclerotic changes of thecoronary vessels and aorta. There is no definite evidence of mediastinal, hilar, or axillary lymphadenopathy. There are scattered prominent subcentimeter mediastinal lymph nodes noted with largest measuring 0.8 cm in the subcarinal region (axial image 45). There are scattered calcified mediastinal and righthilar lymph nodes noted. CHEST WALL: No masses. No subcutaneous air. HARDWARE/LINES/TUBES: Right-sided infusion port is noted with its distaltip in the right subclavian vein, similar to the prior study. ABDOMEN/PELVIS LIVER: The liver is grossly stable in size and contour. There is redemonstration of multiple lesions in the liver, which is compatible with metastasis. Some of these lesions containing calcifications, which islikely related to posttreatment changes. For example, there is lesion noted in segment 4A of the liver measuring 8.0 by 6.6 cm, which previously measured8.0 x 6.6 cm (axial image 27). This lesion is associated tumor thrombusextending into the main portal vein measuring 2.8 by 1.4 cm, which previouslymeasured 2.9 by 1.4 cm (axial image 41). This mass continues to encase the hepatic veins along with intrahepatic biliary ductal dilatation in the lefthepatic lobe, which is similar to the prior study. This mass encases theintrahepatic IVC with mild associated narrowing, which is similar to the prior study. There is a lesion in segment 8/7 of the liver measuring 7.0 cm, which previously measured up to 7.0 cm (axial image 28). There is a lesionnoted in segment 5/6 of the liver measuring 2.6 by 1.8 cm, which previouslymeasured 2.6 x 1.8 cm (axial image 46). 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 GALLBLADDER: Grossly unremarkable. BILE DUCTS: There is intrahepatic biliary ductal dilatation of the left hepatic lobe, which is overall similar to multiple prior studies. Thereis no definite evidence of extrahepatic biliary ductal dilatation. SPLEEN: The spleen is grossly stable in size and unremarkable. PANCREAS: The pancreas appears grossly stable without definite ofpancreatic ductal dilatation, peripancreatic inflammatory changes, or peripancreatic fluid collection. ADRENALS: There is redemonstration of the right adrenal metastasismeasuring 4.1 x 2.6 cm, which previously measured 4.1 x 2.4 cm (axial image 21).There is grossly stable nonspecific nodular thickening of the left adrenalgland. KIDNEYS/URINARY TRACT: The bilateral kidneys enhance symmetrically.There is no definite evidence of a focal renal lesion. There is no definite evidence of hydronephrosis or hydroureter. There is circumferentialmucosal thickening of the urinary bladder. There is a redemonstration of the trabeculated appearance of the urinary bladder with multiple bladder diverticula, which may be related to sequela of chronic urinary bladderoutlet obstruction. The prostate gland measures 5.3 cm. GI: Postsurgical changes of right hemicolectomy with ileocolonicanastomosis are noted. There is no definite evidence of local recurrence. There isno definite evidence of a bowel obstruction. There are scattered colonic diverticula without definite evidence of diverticulitis. There is smallfat containing periumbilical hernia. There is no definite evidence of freeair or fluid in the abdomen and pelvis. There is redemonstration of celiac axis, gastrohepatic ligament, and robert hepatis lymphadenopathy, which is similar to the prior study. Forexample, there is a celiac axis/gastrohepatic ligament lymph node measuring 1.3 cm, which previously measured 1.3 cm (axial image 29). There is a portahepatis lymph node measuring 1.4 cm, which previously measured 1.4 cm (axial image 45). MUSCULOSKELETAL: There is mild osteopenia. There is minimal reverse S shaped scoliotic curvature of the spine with degenerative changes. Thereare degenerative changes bilateral sacroiliac joints and left hip.Postsurgical changes right hip arthroplasty are noted. 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 OTHER: No significant abnormality. IMPRESSION: Grossly stable postsurgical changes of right hemicolectomy withileocolonic anastomosis. No definite evidence of local recurrence or bowelobstruction. Redemonstration of the pulmonary metastasis, which is overall similar tothe prior study. 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 Redemonstration of celiac axis, gastrohepatic ligament, and robert hepatis lymphadenopathy, which is overall similar to the prior study. Redemonstration of the right adrenal metastasis, which is overall grossly similar to the prior study. Scattered mild subsegmental atelectasis and scarring. No definiteevidence of focal consolidation. No definite evidence of bowel obstruction. Circumferential mucosal thickening of the urinary bladder, which may be related to underdistention, chronic urinary bladder outlet obstruction secondary to enlarged prostate gland, or cystitis. Clinical correlationwith urinary analysis is recommended as clinically indicated. Enlarged prostate gland. Clinical correlation with physical exam findingsand PSA values is recommended as clinically indicated. Scattered colonic diverticula without definite evidence ofdiverticulitis. THIS IS AN ELECTRONICALLY VERIFIED FINAL REPORT 11/25/2024 8:46 AM - Electronically signed by Tony Marsh D.O. PS: PS Report ID: [id number] Reading Location: [id number] us Benjamin Murrell DO IMG CT PROCEDURES Final Resu lt * eGFR (11/04/2024 12:33 PM CDT) eGFR >90 >=60 mL/min/1. 73 m2 Comment: Interpretive Data Reference Interval Normal >/= 90 mL/min/1.73m2 Mildly decreased* 60 - 89 mL/min/1.73m2 Mildly to moderately decreased 45 - 59 mL/min/1.73m2 Moderately to severely decreased 30 - 44 mL/min/1.73m2 Severely decreased 15 - 29 mL/min/1.73m2 Kidney Failure < 15 mL/min/1.73m2 *Relative to young adult level Estimated glomerular filtration rate is determined by the 2020 CKD-EPI equation recommended by the National [employer] (A Unifying Approach to GFR Estimation: Recommendations of the NKF-ASK Task Force on Reassessing the Inclusion of Race in Diagnosing Kidney Disease, JASN 2020). The CKD-EPI equation should not be used for patients with unstable renal function and has not been validated in children and those over 70. Current interpretive data was last reviewed 2021. Testing performed by: [address] [address] Blood 11/04/2024 12:3 3 PM CDT 11/04/2024 12:35 PM CDT Benjamin Murrell DO LAB BLOOD ORDERABLES Final R esult UBALDO [facility] Department of Laboratories [place], [place] [id number] * (ABNORMAL) Differential, auto (11/04/2024 12:33 PM CDT) Neutrophil abs 7.4(H) 1.5 - 6.5 K/cumm Comment:Testing performed by : [address] [address] Imm gran abs 0.2(H) 0.0 - 0.1 K/cumm UBALDO Comment:Testing performed by : [address] [address] Lymphocyte abs 1.8 0.8 - 3.3 K/cumm UBALDO Comment:Testing performed by : [address] [address] Monocyte abs 1.5(H) 0.2 - 0.8 K/cumm UBALDO Comment:Testing performed by : [address] [address] Eosinophil abs 0.1 0.0 - 0.5 K/cumm UBALDO Comment:Testing performed by : [address] [address] Basophil abs 0.0 0.0 - 0.1 K/vickeym UBALDO Comment:Testing performed by : [address] [address] Neutrophil pct 67.2 % UBALDO Comment: Interpretive Data Percent cell count reference ranges are not reported, since discordance with absolute values may lead to misinterpretation of CBC data. Current Interpretive Data was last revised on 2017. Testing performed by: [address] [address] Imm gran pct 1.6 % [facility] Comment: Interpretive Data Percent cell count reference ranges are not reported, since discordance with absolute values may lead to misinterpretation of CBC data. Current Interpretive Data was last revised on 2017. Testing performed by: [address] [address] Lymphocyte pct 16.5 % [facility] Comment: Interpretive Data Percent cell count reference ranges are not reported, since discordance with absolute values may lead to misinterpretation of CBC data. Current Interpretive Data was last revised on 2017. Testing performed by: [address] [address] Monocyte pct 13.2 % [facility] Comment: Interpretive Data Percent cell count reference ranges are not reported, since discordance with absolute values may lead to misinterpretation of CBC data. Current Interpretive Data was last revised on 2017. Testing performed by: [address] [address] Eosinophil pct 1.1 % UBALDO Comment: Interpretive Data Percent cell count reference ranges are not reported, since discordance with absolute values may lead to misinterpretation of CBC data. Current Interpretive Data was last revised on 2017. Testing performed by: [address] [address] Basophil pct 0.4 % [facility] Comment: Interpretive Data Percent cell count reference ranges are not reported, since discordance with absolute values may lead to misinterpretation of CBC data. Current Interpretive Data was last revised on 2017. Testing performed by: [address] [address] Blood 11/04/2024 12:3 3 PM CDT 11/04/2024 12:35 PM CDT us Benjamin Murrell DO LAB BLOOD ORDERABLES Final R esult UBALDO [address] [facility] Department [place] [address] * (ABNORMAL) CBC with auto differential (11/04/2024 12:33 PM CDT) WBC 11.0(H) 3.8 - 9.9 K/cumm Comment:Testing performed by : [address] [address] Hgb 9.7(L) 13.0 - 17.5 g/dL UBALDO Comment:Testing performed by : [address] [address] Hct 31.3(L) 38.9 - 50.3 % UBALDO Comment:Testing performed by : [address] [address] Plt 290 150 - 400 K/cumm UBALDO Comment:Testing performed by : [address] [address] MPV 9.6 9.1 - 12.3 fL UBALDO Comment:Testing performed by : [address] [address] RBC 3.46(L) 4.30 - 5.80 M/cumm UBALDO Comment:Testing performed by : [address] [address] MCV 90.5 81.3 - 96.4 fL UBALDO Comment:Testing performed by : [address] [address] MCH 28.0 27.1 - 33.3 pg UBALDO Comment:Testing performed by : [address] [address] MCHC 31.0(L) 32.3 - 35.7 g/dL UBALDO Comment:Testing performed by : [facility], [address] [place] [address]., [address] RDW CV 20.1(H) 11.1 - 14.9 % UBALDO Comment:Testing performed by : [address] [address] RDW SD 67.0(H) 35.7 - 48.1 fL UBALDO Comment:Testing performed by : [address] [address] NRBC abs 0.00 0.00 - 0.01 K/cumm UBALDO Comment:Testing performed by : [address] [address] Blood 11/04/2024 12:3 3 PM CDT 11/04/2024 12:35 PM CDT Benjamin Murrell [employer] LAB BLOOD ORDERABLES Final R [employer] Performing Organization Address [facility] de Phone Number [address] Department [place] [address] * (ABNORMAL) CEA (11/04/2024 12:33 PM CDT) [facility] Signature CEA 141.0(H) <=5.0 ng/mL Comment: Interpretive Data: Reference Range: Non-Smokers: 0.0 5.0 ng/mL Smokers: 0.0 6.5 ng/mL The Lester CEA assay procedure was used. Results from different manufacturers or methods may not be comparable. Serial testing should be performed using the same method. Current interpretive data was last revised 2023. Testing performed by: [address] [address] Blood 11/04/2024 12:3 3 PM CDT 11/04/2024 3:56 PM CDT Benjamin Murrell [employer] LAB BLOOD ORDERABLES Final R [employer] Per[employer] Organization Address [facility] de Phone Number [address] Department [place] [address] * (ABNORMAL) Comprehensive metabolic panel (11/04/2024 12:33 PM CDT) Sodium 135 135 - 145 mmol/L Comment:Testing performed by : [address], [place]., [address] Potassium, pl 4.8 3.3 - 4.9 mmol/L UBALDO Comment:Testing performed by : [address], [place]., [address] Chloride 99 97 - 110 mmol/L UBALDO Comment:Testing performed by : [address] [address] CO2 27 22 - 32 mmol/L UBALDO Comment:Testing performed by : [address], [place]., [address] Anion gap 9 2 - 15 mmol/L UBALDO Comment:Testing performed by : [address] [address] BUN 22 6 - 25 mg/dL UBALDO Comment:Testing performed by : [address], [place]., [address] Creatinine 0.70(L) 0.80 - 1.30 mg/dL UBALDO Comment:Testing performed by : [address], [place]., [address] Glucose 91 70 - 199 mg/dL UBALDO Comment: Interpretive Data Fasting glucose >/= 126 mg/dl is diagnostic for diabetes. Fasting is defined as no caloric intake for at least 8 hours. Fasting glucose between 100 mg/dl to 125 mg/dl is diagnostic of prediabetes. In a patient with classic symptoms of hyperglycemia or hyperglycemic crisis, a random glucose >/= 200 mg/dl is diagnostic for diabetes. In the absence of unequivocal hyperglycemia, results should be confirmed by repeat testing. The classification and Diagnosis of Diabetes Diabetes Care 202; 46: S19-S40. Current interpretive data was last revised 2022. Testing performed by: [address], [place]., [address] Calcium 9.0 8.5 - 10.3 mg/dL UBALDO Comment:Testing performed by : [address] [address] Bilirubin, total 0.3 0.1 - 1.2 mg/dL UBALDO Comment:Testing performed by : [address] [address] Protein, pl 6.8 6.5 - 8.5 g/dL UBALDO Comment:Testing performed by : [address] [address] Albumin 3.8 3.5 - 5.0 g/dL UBALDO Comment:Testing performed by : [address], [place]., [address] Alk phos 360(H) 40 - 130 Units/L UBALDO Comment:Testing performed by : [address] [address] ALT 21 7 - 55 Units/L UBALDO Comment:Testing performed by : [address] [address] AST 30 10 - 50 Units/L UBALDO Comment:Testing performed by : [address] [address] Blood 11/04/2024 12:3 3 PM CDT 11/04/2024 12:35 PM CDT Benjamin Murrell DO LAB BLOOD ORDERABLES Final R esult UBALDO [address] [facility] Department [place] [address] * POCT lipid panel (08/30/2024 3:16 PM OEM SALES MANAGER) Cholesterol, POC 113 mg/dL Comment:GLU 100 HDL, POC 44 mg/dL Triglycerides, POC 79 mg/dL LDL Cholesterol POC 53 mg/dL Chol/HDL Ratio, POC 1.2 Non-HDL Cholesterol, POC 69 mg/dL Cholesterol Total, POC 113 mg/dL Capillary blood 08/30/2024 3 :16 PM OEM SALES MANAGER Costa Aparicio MD POINT OF CARE TEST ORDER CAM Final Result * (ABNORMAL) Hemoglobin A1c (10/14/2023 9:51 AM OEM SALES MANAGER) [facility] Hgb A1C 6.6(H) 4.0 - 5.6 % UBALDO Comment:Testing performed by : [facility], [address] [place] [address]., [address] Estimated Average Glucose 143 mg/dL UBALDO Comment: The ADA recommends reporting an estimated Average Glucose (eAG) with all Hemoglobin A1c results using the equation derived from a study of 507 normal and diabetic adults. Minority populations were underrepresented and children were not included. (Diabetes Care 31:1895-9161, 2008). The eAG is not equivalent to a fasting glucose. Testing performed by: [facility], [address] [place] [address]., [id number] Blood 10/14/2023 9:51 AM OEM SALES MANAGER 10/14/2023 12:19 PM OEM SALES MANAGER us [employer] Unknown LAB BLOOD ORDERABLES Final Res ult UBALDO [address] [facility] Department of Laboratories [place], [place] [id number] * (ABNORMAL) Hepatitis C antibody (07/30/2017 4:07 PM OEM SALES MANAGER) [facility] Hep C Ab REACTIVE( H) NONREACTIVE 07/30/2017 6:24 PM OEM SALES MANAGER [facility] HISTORICAL RESULTS Comment: [employer]ens [employer] using LUIS DANIEL (chemiluminescent immunoassay) technology. NONREACTIVE: Antibodies to Hepatitis C not detected. This does not exclude early acute Hepatitis C infection, possibility of exposure to Hepatitis C, antibodies below detection limit, or to lack of antibody reactivity to the antigen used in this assay. EQUIVOCAL: Antibodies to Hepatitis C may or may not be present. Sample to be confirmed by real-time PCR method. REACTIVE: Antibodies to Hepatitis C detected. Hepatitis C Virus Note 07/30/2017 6:24 PM OEM SALES MANAGER [facility] HISTORICAL RESULTS Comment: Sample to be confirmed by real-time PCR method. 07/30/2017 4:07 PM OEM SALES MANAGER 07/30/2017 4:12 PM OEM SALES MANAGER Narrative [facility] HISTORICAL RESULTS - 07/30/2017 6:24 PM OEM SALES MANAGER Mayco Mcmullen MD LAB MICROBIOLOGY - GENERAL ORDERABLES Final Result [facility] HISTORICAL RESULTS from Last 3 Months or Most Recently Relevant to Health Maintenance Insurance MEDICARE [facility] MEDICARE SUPPLEMENT MEDICARE [facility] MEDICARE SUPPLEMENT Advance Directives For more information, please contact: [phone] * Full Code (Latest Code Status on File) Date Activated Date Inactivated Comments 08/20/2024 10:17 AM 08/22/2024 7:39 PM * Full Code Date Activated Date Inactivated Comments 08/11/2024 11:45 AM 08/12/2024 5:12 AM * Full Code Date Activated Date Inactivated Comments 03/07/2024 3:13 PM 03/09/2024 6:03 PM * Full Code Date Activated Date Inactivated Comments 03/04/2023 3:57 PM 03/06/2023 5:13 PM Care Teams Pharmaceutical Salesperson Relationship Specialty Start Date End Date Jared Johnson DO [address] [place] [address] PCP - General Internal Medicine 03/25/23 Benjamin Murrell DO [address] [place] [address] MEDICAL ONCOLOGY, [address] [address] Medical Oncologist/Sleeve Maker Hematology and Oncology 08/21/22 Brad Farrell MD [address] [place] [address] Consulting Physician Pulmonary Disease 03/05/23 Costa Aparicio MD [address] [facility] [address] [place] [address] Consulting Physician Cardiology 03/25/23
--- OUTSIDE RECORDS SUMMARY | 2025-01-28 12:11 | XMS_ITS | Clinical Summary ---
Author Organization [facility] Address [facility] [place] [address] Care Team Providers Care Director Of Marketing Communications Name Role Phone Benjamin Murrell DO Unavailable [phone] Brad Farrell MD Unavailable [phone] Jared Johnson DO Primary Care Provider Costa Aparicio MD Unavailable [phone] Allergies Active Allergy Reactions Criticality Noted Date [...] drip/phlegm. Assessment & Plan (07/21/2024 10:38 AM MITER SAWYER): The patient has stage II COPD and [...] 10/23/2022 Assessment & Plan (10/23/2022 12:50 PM MITER SAWYER): I have ordered an iron and ferritin level. Pulmonary nodule 10/23/2022 Assessment & Plan (10/31/2024 11:19 AM CDT): CT scanning managed by Oncology every 3 months. Assessment & Plan (07/21/2024 10:36 AM MITER SAWYER): The pulmonary nodules are presumed metastatic lesions [...] Keytruda. 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 Assessment & Plan (10/23/2022 12:50 PM MITER SAWYER): Due to the patient's limb movements on [...] months Assessment & Plan (07/21/2024 10:37 AM MITER SAWYER): The patient did smoke a few cigarettes [...] ordered. Assessment & Plan (10/23/2022 12:52 PM MITER SAWYER): The patient did smoke 1-2 packs of [...] 07/17/2022 Assessment & Plan (08/21/2022 11:15 AM MITER SAWYER): Has improved with the use of Mucinex and Flonase daily Assessment & Plan (07/17/2022 12:38 PM MITER SAWYER): The patient has had problems with significant coughing and sputum production. I will order Mucinex 600 mg p.o. b.i.d. and he will also start Flonase 2 puffs in each nostril daily. Prostate cancer 05/28/2022 Overview (05/28/2022): Added automatically from request for surgery [id number] Dehydration 12/03/2020 Malignant neoplasm of cecum 08/29/2020 [...] adapt Assessment & Plan (07/21/2024 10:36 AM MITER SAWYER): The patient has restarted CPAP at 11 [...] adapt. Assessment & Plan (10/23/2022 12:49 PM MITER SAWYER): Due to the patient being unable to tolerate the CPAP titration study and snoring under the mask I will increase the patient's CPAP to 13 cm of water pressure while sleeping. His DME is adapt. Assessment & Plan (08/21/2022 11:16 AM MITER SAWYER): Will continue with CPAP therapy at 11 cm water pressure. Patient will complete a CPAP titration study later this month starting at 11 cm water pressure and titrated as needed. Assessment & Plan (07/17/2022 12:36 PM MITER SAWYER): The patient was diagnosed with obstructive sleep [...] breath. Assessment & Plan (10/23/2022 12:48 PM MITER SAWYER): Patient continue to use Breztri two puffs [...] 23 Assessment & Plan (08/21/2022 11:16 AM MITER SAWYER): Patient will complete a PFT later this month. I have given the patient a discount card for Breztri and the patient will continue with Combivent in the meantime. The patient was instructed to call into the office to see if we have samples of Breztri. Patient is following with Oncology and continues Keytruda. Assessment & Plan (07/17/2022 12:36 PM MITER SAWYER): The patient presents with dyspnea and has been receiving Keytruda. He quit smoking 6 years ago and did smoke 1.5 packs of cigarettes per day for 45 years. I have recommended starting with full PFTs . Encounters Date Type Department Care Team Description 01/27/2025 Telephone [facility] Medical Group Cardiology [address] [place] [address] Costa Aparicio MD 01/20/2025 10:17 AM CDT - 01/21/2025 4:40 PM CDT Hospital Encounter [place] [address] Med Surg [address] [place] [address] Benjamin Murrell, Obstipation (Primary Dx); Centrilobular emphysema (HCC); Lumbar radiculopathy; Paroxysmal atrial fibrillation (HCC); Primary hypertension; Urinary retention due to benign prostatic hyperplasia; Gastroesophageal reflux disease without esophagitis; Cluneal neuropathy; Chronic right-sided low back pain, unspecified whether sciatica present; Spondylosis of lumbar region without myelopathy or radiculopathy; Insomnia, unspecified type; Acute dehydration Discharge Disposition: Discharge to home or self care 01/20/2025 8:00 AM CDT Office Visit [facility] Oncology [address] [place] [address] [phone] Benjamin Murrell DO Malignant neoplasm of cecum (HCC) (Primary Dx); Malignant neoplasm metastatic to liver (HCC); Prevention of chemotherapy-induced neutropenia 01/20/2025 7:30 AM CDT Clinical Support [address] [address] Malignant neoplasm metastatic to liver (HCC); Malignant neoplasm of cecum (HCC); Prevention of chemotherapy-induced neutropenia 01/20/2025 Orders Only [facility] Oncology [address] [place] [address] [phone] Meg Lopez RN Malignant neoplasm of cecum (HCC) (Primary Dx); Malignant neoplasm metastatic to liver (HCC) 01/17/2025 3:06 PM CDT - 01/17/2025 11:59 PM CDT Hospital Encounter [facility] Office Building [address] [place] [address] Prostate cancer (HCC); Incomplete bladder emptying Discharge Disposition: Discharge to home or self care 01/17/2025 2:20 PM CDT Office Visit [facility] Surgery [address] [place] [address] [phone] Cheikh Dexter MD Prostate cancer (HCC) (Primary Dx); Incomplete bladder emptying; BPH with obstruction/lower urinary tract symptoms 01/06/2025 12:45 PM CDT Infusion [address] [phone] Dehydration (Primary Dx); Malignant neoplasm of cecum (HCC); Malignant neoplasm metastatic to liver (HCC) 01/06/2025 11:30 AM CDT - 01/06/2025 11:59 PM CDT Hospital Encounter [facility] MOB 1 DIAG IMG [address] [place] [address] Malignant neoplasm of cecum (HCC); Malignant neoplasm metastatic to liver (HCC); Bloating Discharge Disposition: Discharge to home or self care 01/06/2025 11:15 AM CDT Clinical Support [address] [address] Malignant neoplasm of cecum (HCC); Malignant neoplasm metastatic to liver (HCC) 01/06/2025 10:30 AM CDT Office Visit [facility] Oncology [address] [place] [address] [phone] Benjamin Murrell, Bloating (Primary Dx); Malignant neoplasm of cecum (HCC); Malignant neoplasm metastatic to liver (HCC) 01/05/2025 Telephone [facility] Oncology [address] [place] [address] [place] [phone] Bianca Christianson, ELI 01/03/2025 Telephone [facility] Oncology [address] [place] [address] [place] [phone] Bianca Christianson, ELI 12/30/2024 4:30 PM CDT Infusion [address] [phone] Malignant neoplasm of cecum (HCC); Malignant neoplasm metastatic to liver (HCC) 12/30/2024 2:44 PM CDT - 12/30/2024 11:59 PM CDT Hospital Encounter [facility] CT [address] [place] [address] Malignant neoplasm of cecum (HCC); Malignant neoplasm metastatic to liver (HCC); Memory loss; Dizziness Discharge Disposition: Discharge to home or self care 12/30/2024 1:00 PM CDT Infusion [address] [phone] Anemia associated with chemotherapy (Primary Dx); Malignant neoplasm of cecum (HCC); Malignant neoplasm metastatic to liver (HCC); Iron deficiency anemia, unspecified iron deficiency anemia type 12/30/2024 8:30 AM CDT Infusion [facility] at [address] [phone] Anemia associated with chemotherapy (Primary Dx); Malignant neoplasm metastatic to liver (HCC); Malignant neoplasm of cecum (HCC); Prevention of chemotherapy-induced neutropenia; Dehydration; Iron deficiency anemia, unspecified iron deficiency anemia type 12/30/2024 8:00 AM CDT Clinical Support [address] [address] Malignant neoplasm metastatic to liver (HCC); Malignant neoplasm of cecum (HCC); Prevention of chemotherapy-induced neutropenia; Iron deficiency anemia, unspecified iron deficiency anemia type 12/30/2024 Orders Only [facility] Oncology [address] [place] [phone] Bianca Christianson RN Malignant neoplasm of cecum (HCC) (Primary Dx); Malignant neoplasm metastatic to liver (HCC); Iron deficiency anemia, unspecified iron deficiency anemia type; Memory loss; Dizziness 12/30/2024 Orders Only [facility] Oncology [address] [place] [phone] Benjamin Murrell DO 12/16/2024 11:00 AM CDT Office Visit [facility] Oncology [address] [place] [phone] Benjamin Murrell, Malignant neoplasm of cecum (HCC) (Primary Dx); Malignant neoplasm metastatic to liver (HCC); Prevention of chemotherapy-induced neutropenia 12/16/2024 10:30 AM CDT Clinical Support [facility] at [address] [address] Malignant neoplasm metastatic to liver (HCC); Malignant neoplasm of cecum (HCC); Prevention of chemotherapy-induced neutropenia 12/15/2024 Orders Only [facility] Oncology [address] [place] [phone] Benjamin Murrell DO 11/24/2024 9:45 AM CDT Infusion [address] [place] [phone] Prevention of chemotherapy-induced neutropenia (Primary Dx); Malignant neoplasm metastatic to liver (HCC); Malignant neoplasm of cecum (HCC) 11/24/2024 9:15 AM CDT Office Visit [facility] Oncology [address] [place] [phone] Benjamin Murrell, Malignant neoplasm metastatic to liver (HCC) (Primary Dx); Malignant neoplasm of cecum (HCC); Prevention of chemotherapy-induced neutropenia; Iron deficiency anemia, unspecified iron deficiency anemia type 11/24/2024 8:45 AM CDT Clinical Support [address] [address] Malignant neoplasm metastatic to liver (HCC); Malignant neoplasm of cecum (HCC); Prevention of chemotherapy-induced neutropenia; Abnormal PSA 11/23/2024 Orders Only [facility] Oncology [address] [place] [phone] Benjamin Murrell DO 11/18/2024 5:23 PM CDT - 11/18/2024 11:59 PM CDT Hospital Encounter [facility] [address] [place] [address] Malignant neoplasm metastatic to liver (HCC); Malignant neoplasm of cecum (HCC) Discharge Disposition: Discharge to home or self care 11/04/2024 12:30 PM CDT Infusion [address] [phone] Prevention of chemotherapy-induced neutropenia (Primary Dx); Malignant neoplasm metastatic to liver (HCC); Malignant neoplasm of cecum (HCC); Abnormal PSA 11/04/2024 12:00 PM CDT Clinical Support [place] [address] [place] [address] Malignant neoplasm metastatic to liver (HCC); Malignant neoplasm of cecum (HCC); Prevention of chemotherapy-induced neutropenia 11/04/2024 Orders Only [facility] Oncology [address] [place] [address] [address] [place] [phone] Benjamin Murrell DO 10/31/2024 10:45 AM CDT Office Visit [facility] Medical Group Pulmonary [address] [place] [phone] Christina Owen NP HECTOR on CPAP (Primary Dx); Pulmonary nodule; Centrilobular emphysema (HCC); PLMD (periodic limb movement disorder); Personal history of tobacco use 10/31/2024 Telephone [facility] Pulmonary [address] [place] [phone] Brad Farrell MD Request For Order(s) from Last 3 Months Immunizations Immunization Administration Dates Next Due Influenza, Quadrivalent, Spl it, Intramuscular 06/13/2022 Influenza, Quadrivalent, Spl it, Preservative Free, Intramuscular 04/05/2020 Influenza, Trivalent, High D ose, Split, Preservative Free, Intramuscular 08/22/2024(Deferred: Patient Refused),07/02/2019,04/26/2017 Moderna SARS-CoV-2 Monovalen t Vaccination (12+ YRS) 06/12/2021,10/30/2020,09/19/2020 Tdap 04/26/2017 Surgical History Surgery Date Site/Laterality Comments COLECTOMY 06/17/2017 - 07/16/2017 1 foot of colon removed r/t cancerous polyp UMBILICAL HERNIA REPAIR CATARACT EXTRACTION Bilateral TOTAL HIP ARTHROPLASTY Right PARTIAL KNEE ARTHROPLASTY Left COLONOSCOPY PORTACATH PLACEMENT 08/17/2020 - 09/16/2020 PROSTATE BIOPSY x2; Post Positive. Medical History Medical History Date Comments Colon cancer (HCC) Hypertension Hypercholesteremia Sleep apnea + CPAP Irregular heart beat cardiologis t seen in PACU - anxiety Allergic rhinitis OWEN (dyspnea on exertion) Pulmonary nodules GERD (gastroesophageal reflux disease) Hepatitis C antibody test positive Never developed the virus per PCP. Neuropathy to feet from [place] very mild. Liver metastases 2020 from colon canc er in 2017; Cancer currently Stable per Oncologist History of chemotherapy x 11 mon ths Immunotherapy 2021 Obesity HL (hearing loss) BPH (benign prostatic hyperplasia) Dental crowns present molar [place] Hyperlipidemia Anesthesia complication Difficu tly laying still during surgery COPD (chronic obstructive pu lmonary disease) (HCC) 08/27/2022 Prostate cancer (HCC) Family History Medical History Relation Name Comments Parkinsonism Mother Colon cancer Mother's Sister Kidney disease Mother's Sister Stomach cancer Other Relation Name Status Comments Mother Mother's Sister Other Social History Tobacco Use Types Packs/Day Years Used Date Smoking Tobacco: Former Cigarettes 1.5 45 1 971 - 2016 Passive Smoke Exposure: Past Smokeless Tobacco: Never Tobacco Cessation:Counseling Given: Not Answered Alcohol Use Standard Drinks/Week Comments Yes 0 (1 standard drink = 0.6 oz pur e alcohol) 2-3 pr week [facility] Utilities Answer Date Recorded In the past 12 months has e [employer], gas, oil, or water [email or web address] threatened to shut off services in your [...] week 03/08/2024 How often do you attend [facility] or restorationist services? More than 4 times per year 03/08/2024 Do you belong to any clubs o r organizations such as rastafari groups, unions, fraternal or athletic groups, or [...] place to sleep or slept in a long term (including now)? No 03/05/2023 Housing Stability Vital Sign Answer Mario e Recorded In the last 12 months, was t here a time when you were not able to pay the mortgage or rent on time? No 03/08/2024 In the past 12 months, how m any times have you moved where you were living? 0 03/08/2024 At any time in the past 12 [facility], were you homeless or living in a long term (including now)? No 03/08/2024 Personal Safety Answer Date Recorded Have you ever been in or are you currently in a harmful physical or emotional relationship or is someone making you feel afraid or unsafe? Denies 01/20/2025 Sex and Gender Information Value Date Recorded Sex Assigned at Not on file Legal Sex Male 4:14 AM MITER SAWYER Gender Identity Male 11/07/2019 11:07 AM CDT Sexual Orientation Straight 11/07/2019 11 :07 AM CDT Obstetrics History Last Filed Vital Signs Vital Sign Reading [...] 01/20/2025 10:45 AM CDT Plan of Treatment Health Maintenance Due Date Last Done Comments Albumin Creatinine Ratio, Urine 1949 Colon Cancer Screening-Colonoscopy 1950 Depression Screening 1950 Dilated Eye Exam 1949 Foot Exam 1949 Hepatitis B Screening 1967 Pneumococcal vaccine 65+ (1 of 2 - PCV) 1968 Zoster Vaccine (1 of 2) 1968 Well Visit 65+ 2014 Hemoglobin A1C 04/13/2024 10/14/2023, 03/17, 03/04/2023 Covid-19 Vaccine (2023-2 5 season) 2024 06/02/2022, 12/20/2021, 06/12/2021, Additional history exists Influenza Vaccine (Season Ended) 2025 06/13/2022, 04/05/2020, 07/02/2019, Additional history exists Lipid Panel 08/30/2025 08/30/2024, 06/0 01/2024, 03/05/2023, Additional history exists eGFR 01/20/2026 01/20/2025, 2 10/2024, 12/30/2024, Additional history exists Fall Risk Assessment 01/21/2026 01/21/2025 DTaP/Tdap/Td Vaccine (2 - Td or Tdap) 04/26/2027 04/26/2017 Hepatitis C Screening Completed 07/30/2017 , 07/30/2017, 07/30/2017 Abdominal Aortic Aneurysm (A AA) Screen Completed 01/20/2025, 11/18/2024, 10/10/2024, Additional history exists Medical Devices Implanted Type Area Bread Packer Device Identifier Shelf Expiration Date Model / [...] POCT LIPID PANEL Routine 08/30/2024 3:16 PM MITER SAWYER Need for lipid screening HEMOGLOBIN A1C Routine 10/14/2023 9:51 AM MITER SAWYER HEPATITIS C ANTIBODY Routine 07/30/2017 4:07 PM MITER SAWYER from Last 3 Months or Most Recently [...] Frank Evangelista M.D. MM: MM Report ID: [id number] Reading Location: [place] [address] Procedure Note Frank Evangelista MD - 01/20/2025 [...] Frank Evangelista M.D. MM: MM Report ID: [id number] Reading Location: [id number] us Mitali [place] [facility] LIBRARIAN IMG CT PROCEDURES Final Resul t * [...] was last reviewed 2021. Testing performed by: [address] [address] Blood 01/20/2025 7:43 AM CDT 01/20/2025 8:06 AM CDT us Benjamin Murrell DO LAB BLOOD ORDERABLES Final R esult [facility] [address] [facility] Department [place] [address] * Differential, auto (01/20/2025 7:43 AM CDT) Neutrophil abs 4.76 1.50 - 6.50 K/cumm Comment:Testing performed by : [address] [address] Imm gran abs 0.02 0.00 - 0.10 K/cumm [facility] Comment:Testing performed by : [address] [address] Lymphocyte abs 1.70 0.80 - 3.30 K/cumm [facility] Comment:Testing performed by : [address], [place]., [address] Monocyte abs 0.76 0.20 - 0.80 K/cumm [facility] Comment:Testing performed by : [address], [place]., [address] Eosinophil abs 0.10 0.00 - 0.50 K/cumm [facility] Comment:Testing performed by : [address], [place]., [address] Basophil abs 0.04 0.00 - 0.10 K/cumm [facility] Comment:Testing performed by : [address] [address] Neutrophil pct 64.5 % [facility] Comment: Interpretive Data Percent cell count reference ranges are not reported, since discordance with absolute values may lead to misinterpretation of CBC data. Current Interpretive Data was last revised on 2017. Testing performed by: [address] [address] Imm gran pct 0.3 % [facility] Comment: Interpretive Data Percent cell count reference ranges are not reported, since discordance with absolute values may lead to misinterpretation of CBC data. Current Interpretive Data was last revised on 2017. Testing performed by: [address] [address] Lymphocyte pct 23.0 % [facility] Comment: Interpretive Data Percent cell count reference ranges are not reported, since discordance with absolute values may lead to misinterpretation of CBC data. Current Interpretive Data was last revised on 2017. Testing performed by: [address] [address] Monocyte pct 10.3 % [facility] Comment: Interpretive Data Percent cell count reference ranges are not reported, since discordance with absolute values may lead to misinterpretation of CBC data. Current Interpretive Data was last revised on 2017. Testing performed by: [address] [address] Eosinophil pct 1.4 % [facility] Comment: Interpretive Data Percent cell count reference ranges are not reported, since discordance with absolute values may lead to misinterpretation of CBC data. Current Interpretive Data was last revised on 2017. Testing performed by: [address] [address] Basophil pct 0.5 % [facility] Comment: Interpretive Data Percent cell count reference ranges are not reported, since discordance with absolute values may lead to misinterpretation of CBC data. Current Interpretive Data was last revised on 2017. Testing performed by: [address] [address] Blood 01/20/2025 7:43 AM CDT 01/20/2025 7:45 AM CDT Benjamin Murrell DO LAB BLOOD ORDERABLES Final R esult [facility] Department [place] [address] * (ABNORMAL) CBC with auto differential (01/20/2025 7:43 AM CDT) WBC 7.38 3.80 - 9.90 K/cumm Comment:Testing performed by : [address] [address] Hgb 9.9(L) 13.0 - 17.5 g/dL [facility] Comment:Testing performed by : [address] [address] Hct 31.8(L) 38.9 - 50.3 % [facility] Comment:Testing performed by : [address] [address] Plt 250 150 - 400 K/cumm [facility] Comment:Testing performed by : [address] [address] MPV 11.0 9.1 - 12.3 fL [facility]AM[facility]OS Comment:Testing performed by : [address] [address] RBC 3.66(L) 4.30 - 5.80 M/cumm [facility] MATAMOROS Comment:Testing performed by : [address] [address] MCV 86.9 81.3 - 96.4 fL [facility] Comment:Testing performed by : [address] [address] MCH 27.0(L) 27.1 - 33.3 pg [facility] Comment:Testing performed by : [address] [address] MCHC 31.1(L) 32.3 - 35.7 g/dL [facility] Comment:Testing performed by : [address] [address] RDW CV 19.3(H) 11.1 - 14.9 % [facility] Comment:Testing performed by : [address] [address] RDW SD 61.1(H) 35.7 - 48.1 fL [facility] Comment:Testing performed by : [address] [address] NRBC abs 0.00 0.00 - 0.01 K/cumm [facility] Comment:Testing performed by : [address] [address] ANC Prelim 4.76 1.50 - 6.50 K/cumm [facility] Comment: Interpretive Data The rapid ANC is a preliminary automated count and may vary from the final ANC (Neut Abs) reported in the WBC differential that follows. Current interpretive data was last revised 2024. Testing performed by: [address] [address] Blood 01/20/2025 7:43 AM CDT 01/20/2025 7:45 AM CDT us Benjamin Murrell DO LAB BLOOD ORDERABLES Final R esult [facility]AM[facility] [address] [facility] Department [place] [address] * (ABNORMAL) Comprehensive metabolic panel (01/20/2025 7:43 AM CDT) Sodium 131(L) 135 - 145 mmol/L Comment:Testing performed by : [facility], [address] [place] [address]., [address] Potassium, pl 4.1 3.3 - 4.9 mmol/L [facility] Comment:Testing performed by : [address], [place]., [address] Chloride 99 97 - 110 mmol/L [facility] Comment:Testing performed by : [address], [place]., [address] CO2 21(L) 22 - 32 mmol/L [facility] Comment:Testing performed by : [address], [place]., [address] Anion gap 11 2 - 15 mmol/L [facility] Comment:Testing performed by : [address], [place]., [address] BUN 14 6 - 25 mg/dL [facility] Comment:Testing performed by : [address], [place]., [address] Creatinine 0.90 0.80 - 1.30 mg/dL [facility] Comment:Testing performed by : [address], [place]., [address] Glucose 103 70 - 199 mg/dL [facility] Comment: Interpretive Data Fasting glucose >/= 126 [...] was last revised 2022. Testing performed by: [address] [address] Calcium 9.2 8.5 - 10.3 mg/dL [facility] Comment:Testing performed by : [address], [place]., [address] Bilirubin, total 0.7 0.1 - 1.2 mg/dL [facility] Comment:Testing performed by : [address] [address] Protein, pl 7.1 6.5 - 8.5 g/dL [facility] Comment:Testing performed by : [address] [address] Albumin 3.4(L) 3.5 - 5.0 g/dL [facility] Comment:Testing performed by : [address] [address] Alk phos 414(H) 40 - 130 Units/L [facility] Comment:Testing performed by : [address] [address] ALT 27 7 - 55 Units/L [facility] Comment:Testing performed by : [address] [address] AST 81(H) 10 - 50 Units/L [facility] Comment:Testing performed by : [address] [address] Blood 01/20/2025 7:43 AM CDT 01/20/2025 7:45 AM CDT us Benjamin Murrell DO LAB BLOOD ORDERABLES Final R esult [facility] Department [place] [address] * Measure post void residual (01/17/2025 2:51 PM CDT) Narrative Stephanie Bailey [facility] - 01/17/2025 2:51 PM CDT Measurement of Post Void Residual urine and/or bladder capacity PVR = 369 ml us Cheikh Dexter MD NURSING ASSESSMENTS Final Result * Urine culture Urine, bladder (01/17/2025 2:49 PM CDT) Report Final Report: Less than 100,000 colonies/mL (clinically insignificant growth based on current clinical standards) Comment:Testing performed by : [facility], [address] [facility] [place] [address] Organism (CLINICALLY INSIGNIFICANT GROWTH UBALDO Urine, bladder 01/17/2025 2: 49 PM CDT 01/18/2025 12:02 AM CDT Narrative UBALDO MATAMOROS - 01/19/2025 8:08 AM CDT Testing performed by [facility] ([phone]) Cheikh Dexter MD LAB MICROBIOLOGY - GENERAL ORDER CAM Final Result UBALDO [address] [facility] Department [place] [address] * (ABNORMAL) POCT urinalysis dipstick (01/17/2025 2:48 PM CDT) Color, Urine, POC Dark Kasey Clarity, ur, POC Clear Clear Glucose, ur, POC Negative Negative Bilirubin, ur, POC 1+(A) Negative Ketones, ur, POC Negative Negative Specific Maunie, POC 1.025 1.003 - 1.030 Blood, ur, [...] Electronically signed by Ryan Greene M.D. CH: Report ID: [id number] Reading Location: [id number] Procedure Note Ryan Greene Jr., MD - [...] Electronically signed by Ryan Greene M.D. CH: SARITA Report ID: [id number] Reading Location: [id number] us Benjamin Murrell DO IMG XR PROCEDURES Final [...] was last reviewed 2021. Testing performed by: [facility], [address] [place] [address]., [address] Blood 01/06/2025 11:2 5 AM CDT 01/06/2025 11:36 AM CDT us Benjamin Murrell DO LAB BLOOD ORDERABLES Final R esult UBALDO IV [address] [facility] Department [place] [address] * (ABNORMAL) Differential, auto (01/06/2025 11:25 AM CDT) Neutrophil abs 4.42 1.50 - 6.50 K/cumm Comment:Testing performed by : [facility], [address] [place] [address], [place]., [address] Imm gran abs 0.40(H) 0.00 - 0.10 K/cumm [facility] Comment:Testing performed by : [address], [place]., [address] Lymphocyte abs 1.10 0.80 - 3.30 K/cumm [facility] Comment:Testing performed by : [address], [place]., [address] Monocyte abs 0.59 0.20 - 0.80 K/cumm [facility] Comment:Testing performed by : [address], [place]., [address] Eosinophil abs 0.12 0.00 - 0.50 K/cumm [facility] Comment:Testing performed by : [address], [place]., [address] Basophil abs 0.03 0.00 - 0.10 K/cumm [facility] Comment:Testing performed by : [address] [address] Neutrophil pct 66.3 % [facility] Comment: Interpretive Data Percent cell count reference ranges are not reported, since discordance with absolute values may lead to misinterpretation of CBC data. Current Interpretive Data was last revised on 2017. Testing performed by: [address] [address] Imm gran pct 6.0 % [facility] Comment: Interpretive Data Percent cell count reference ranges are not reported, since discordance with absolute values may lead to misinterpretation of CBC data. Current Interpretive Data was last revised on 2017. Testing performed by: [address] [address] Lymphocyte pct 16.5 % CERNER Comment: Interpretive Data Percent cell count reference ranges are not reported, since discordance with absolute values may lead to misinterpretation of CBC data. Current Interpretive Data was last revised on 2017. Testing performed by: [address] [address] Monocyte pct 8.9 % CERNER Comment: Interpretive Data Percent cell count reference ranges are not reported, since discordance with absolute values may lead to misinterpretation of CBC data. Current Interpretive Data was last revised on 2017. Testing performed by: [address] [address] Eosinophil pct 1.8 % UBALDO Comment: Interpretive Data Percent cell count reference ranges are not reported, since discordance with absolute values may lead to misinterpretation of CBC data. Current Interpretive Data was last revised on 2017. Testing performed by: [address] [address] Basophil pct 0.5 % UBALDO Comment: Interpretive Data Percent cell count reference ranges are not reported, since discordance with absolute values may lead to misinterpretation of CBC data. Current Interpretive Data was last revised on 2017. Testing performed by: [address] [address] Blood 01/06/2025 11:2 5 AM CDT 01/06/2025 11:36 AM CDT us Benjamin Murrell DO LAB BLOOD ORDERABLES Final R esult UBALDO [address] [facility] Department [place] [address] * (ABNORMAL) CBC with auto differential (01/06/2025 11:25 AM CDT) WBC 6.66 3.80 - 9.90 K/cumm Comment:Testing performed by : [address] [address] Hgb 9.4(L) 13.0 - 17.5 g/dL UBALDO Comment:Testing performed by : [address] [address] Hct 29.8(L) 38.9 - 50.3 % UBALDO Comment:Testing performed by : [address] [address] Plt 207 150 - 400 K/cumm UBALDO Comment:Testing performed by : [address] [address] MPV 10.8 9.1 - 12.3 fL UBALDO Comment:Testing performed by : [address] [address] RBC 3.36(L) 4.30 - 5.80 M/cumm UBALDO Comment:Testing performed by : [address] [address] MCV 88.7 81.3 - 96.4 fL UBALDO Comment:Testing performed by : [address] [address] MCH 28.0 27.1 - 33.3 pg UBALDO Comment:Testing performed by : [address] [address] MCHC 31.5(L) 32.3 - 35.7 g/dL UBALDO Comment:Testing performed by : [address] [address] RDW CV 18.5(H) 11.1 - 14.9 % UBALDO Comment:Testing performed by : [address] [address] RDW SD 60.4(H) 35.7 - 48.1 fL UBALDO Comment:Testing performed by : [address] [address] NRBC abs 0.00 0.00 - 0.01 K/cumm UBALDO Comment:Testing performed by : [address] [address] ANC Prelim 4.42 1.50 - 6.50 K/cumm UBALDO Comment: Interpretive Data The rapid ANC is a preliminary automated count and may vary from the final ANC (Neut Abs) reported in the WBC differential that follows. Current interpretive data was last revised 2024. Testing performed by: [address] [address] Blood 01/06/2025 11:2 5 AM CDT 01/06/2025 11:36 AM CDT us Benjamin Murrell DO LAB BLOOD ORDERABLES Final R esult Performing Organization Address City/[facility] Co de Phone Number UBALDO [address] [place] [address] * Ammonia (01/06/2025 11:25 AM CDT) Ammonia 32 <=50 mcmol/L Comment: Please note on 12/23/2023 the unit of measure changed from mcg/dL to mcmol/L. Current Interpretive Data was last revised on 2023. Testing performed by: [address] [address] Blood 01/06/2025 11:2 5 AM CDT 01/06/2025 11:36 AM CDT Benjamin Murrell DO LAB BLOOD ORDERABLES Final R esult Performing Organization Address [facility] Co de Phone Number UBALDO [facility] [place] [address] * (ABNORMAL) Comprehensive metabolic panel (01/06/2025 11:25 AM CDT) Sodium 134(L) 135 - 145 mmol/L Comment:Testing performed by : [address] [address] Potassium, pl 4.6 3.3 - 4.9 mmol/L UBALDO Comment:Testing performed by : [address] [address] Chloride 101 97 - 110 mmol/L UBALDO Comment:Testing performed by : [address] [address] CO2 23 22 - 32 mmol/L UBALDO Comment:Testing performed by : [address] [address] Anion gap 10 2 - 15 mmol/L UBALDO Comment:Testing performed by : [address] [address] BUN 16 6 - 25 mg/dL UBALDO Comment:Testing performed by : [address] [address] Creatinine 0.90 0.80 - 1.30 mg/dL [facility] Comment:Testing performed by : [address] [address] Glucose 139 70 - 199 mg/dL [facility] Comment: Interpretive Data Fasting glucose >/= 126 [...] was last revised 2022. Testing performed by: [address] [address] Calcium 8.9 8.5 - 10.3 mg/dL [facility] Comment:Testing performed by : [address] [address] Bilirubin, total 0.6 0.1 - 1.2 mg/dL [facility] Comment:Testing performed by : [address] [address] Protein, pl 6.7 6.5 - 8.5 g/dL [facility] Comment:Testing performed by : [address] [address] Albumin 3.2(L) 3.5 - 5.0 g/dL [facility] Comment:Testing performed by : [address] [address] Alk phos 375(H) 40 - 130 Units/L [facility] Comment:Testing performed by : [address] [address] ALT 27 7 - 55 Units/L [facility] Comment:Testing performed by : [address] [address] AST 60(H) 10 - 50 Units/L [facility] Comment:Testing performed by : [address] [address] Blood 01/06/2025 11:2 5 AM CDT 01/06/2025 11:36 AM CDT Benjamin Murrell DO LAB BLOOD ORDERABLES Final R esult UBALDO [facility] Department [place] [address] * CT head with & without contrast [...] by Ryan Greene M.D. T: Report ID: [id number] Reading Location: [id number] Procedure Note Ryan Greene Jr., MD - [...] 4:38 PM - Electronically signed by Ryan Grenee M.D. T: Report ID: [id number] Reading Location: [place] [address] Benjamin Murrell DO IMG CT PROCEDURES Final Resu lt * Transfuse RBC (12/30/2024 1:19 PM CDT) Blood us Benjamin Murrell DO BLOOD TRANSFUSION ORDERABLES Final Result * Prepare RBC: 1 Units (12/30/2024 10:21 AM CDT) Units requested 1 Comment:Testing performed by : [facility], [address] [place] [address]., [address] Units requested Cata MATAMOROS Comment:Testing performed by : [address] [address] Unit Number [id number] Product code [id number] [facility] Blood Expiration Date [facility] Product Blood Type (for scanning) 6200 [facility] Product Blood Type APOS [facility] Dispense Status DISPENSED [facility] Blood 12/30/2024 10:2 1 AM CDT 12/30/2024 10:21 AM CDT Benjamin Murrell BLOOD BANK PRODUCT ORDERABLE S Final Result Performing Organization Address [facility] de Phone Number [address] [place] [address] * ABO/Rh (12/30/2024 9:14 AM CDT) ABO/Rh A Positive Comment:Testing performed by : [facility], [address] [place] [address], [address] Blood 12/30/2024 9:14 AM CDT 12/30/2024 9:37 AM CDT Narrative [facility] - 12/30/2024 10:19 AM CDT Has the patient had Daratumumab or Isatuximab in the past 6 months?->No Benjamin Murrell LAB BLOOD BANK TEST ORDERABL ES Final Result Performing Organization Address [facility] de Phone Number [address] [place] [address] * Crossmatch (12/30/2024 9:14 AM CDT) Crossmatch Compatible [facility] Unit number for crossmatch [id number] [facility] Blood 12/30/2024 9:14 AM CDT 12/30/2024 9:37 AM CDT Benjamin Murrell LAB BLOOD BANK TEST ORDERABL ES Final Result Performing Organization Address [facility] Co de Phone Number [address] [place] [address] * Antibody screen (12/30/2024 9:14 AM CDT) Ruperto, indirect, Gel Interpretation Negative ABSC Comment:Testing performed by : [facility], [address] [place] [address]., [address] Blood 12/30/2024 9:14 AM CDT 12/30/2024 9:37 AM CDT Kelly UBALDO - 12/30/2024 10:22 AM CDT Has the patient had Daratumumab or Isatuximab in the past 6 months?->No Benjamin Murrell DO LAB BLOOD BANK TEST ORDERABL ES Final Result UBALDO [facility] [place] [address] * eGFR (12/30/2024 8:14 AM CDT) Pathologist [facility] eGFR 78 >=60 mL/min/1. 73 m2 Comment: [...] was last reviewed 2021. Testing performed by: [facility], [address] [place] [address]., [address] Blood 12/30/2024 8:14 AM CDT 12/30/2024 8:16 AM CDT us Benjamin Murrell DO LAB BLOOD ORDERABLES Final R esult UBALDO [address] [facility] Department [place] [address] * Differential, auto (12/30/2024 8:14 AM CDT) Neutrophil abs 5.64 1.50 - 6.50 K/cumm Comment:Testing performed by : [address] [address] Imm gran abs 0.08 0.00 - 0.10 K/cumm UBALDO Comment:Testing performed by : [address] [address] Lymphocyte abs 1.33 0.80 - 3.30 K/cumm UBALDO Comment:Testing performed by : [address] [address] Monocyte abs 0.80 0.20 - 0.80 K/cumm UBALDO Comment:Testing performed by : [address] [address] Eosinophil abs 0.07 0.00 - 0.50 K/cumm UBALDO Comment:Testing performed by : [address] [address] Basophil abs 0.04 0.00 - 0.10 K/cumm UBALDO Comment:Testing performed by : [address] [address] Neutrophil pct 70.8 % UBALDO Comment: Interpretive Data Percent cell count reference ranges are not reported, since discordance with absolute values may lead to misinterpretation of CBC data. Current Interpretive Data was last revised on 2017. Testing performed by: [address] [address] Imm gran pct 1.0 % UBALDO Comment: Interpretive Data Percent cell count reference ranges are not reported, since discordance with absolute values may lead to misinterpretation of CBC data. Current Interpretive Data was last revised on 2017. Testing performed by: [address] [address] Lymphocyte pct 16.7 % [facility] Comment: Interpretive Data Percent cell count reference ranges are not reported, since discordance with absolute values may lead to misinterpretation of CBC data. Current Interpretive Data was last revised on 2017. Testing performed by: [address] [address] Monocyte pct 10.1 % [facility] Comment: Interpretive Data Percent cell count reference ranges are not reported, since discordance with absolute values may lead to misinterpretation of CBC data. Current Interpretive Data was last revised on 2017. Testing performed by: [address] [address] Eosinophil pct 0.9 % [facility] Comment: Interpretive Data Percent cell count reference ranges are not reported, since discordance with absolute values may lead to misinterpretation of CBC data. Current Interpretive Data was last revised on 2017. Testing performed by: [address] [address] Basophil pct 0.5 % [facility] Comment: Interpretive Data Percent cell count reference ranges are not reported, since discordance with absolute values may lead to misinterpretation of CBC data. Current Interpretive Data was last revised on 2017. Testing performed by: [address] [address] Blood 12/30/2024 8:14 AM CDT 12/30/2024 8:16 AM CDT Benjamin Murrell DO LAB BLOOD ORDERABLES Final R esult [facility] [address] [facility] Department [place] [address] * (ABNORMAL) Iron profile w/ IBC (12/30/2024 8:14 AM CDT) Pathologist [facility] Iron 24(L) 50 - 150 mcg/dL Comment:Testing performed by : [address] [address] TIBC 199(L) 250 - 400 mcg/dL UBALDO Comment:Testing performed by : [address] [address] Transferrin saturation 12(L) 20 - 50 % UBALDO Comment:Testing performed by : [address] [address] Blood 12/30/2024 8:14 AM CDT 12/30/2024 9:37 AM CDT Benjamin Murrell DO LAB BLOOD ORDERABLES Final R esult [facility] [address] [facility] Department [place] [address] * (ABNORMAL) CBC with auto differential (12/30/2024 8:14 AM CDT) WBC 7.96 3.80 - 9.90 K/cumm Comment:Testing performed by : [address] [address] Hgb 8.3(L) 13.0 - 17.5 g/dL UBALDO Comment:Testing performed by : [address] [address] Hct 26.2(L) 38.9 - 50.3 % UBALDO Comment:Testing performed by : [address] [address] Plt 210 150 - 400 K/cumm UBALDO Comment:Testing performed by : [address] [address] MPV 9.9 9.1 - 12.3 fL UBALDO Comment:Testing performed by : [address] [address] RBC 2.95(L) 4.30 - 5.80 M/cumm UBALDO Comment:Testing performed by : [address] [address] MCV 88.8 81.3 - 96.4 fL UBALDO Comment:Testing performed by : [address] [address] MCH 28.1 27.1 - 33.3 pg UBALDO Comment:Testing performed by : [address] [address] MCHC 31.7(L) 32.3 - 35.7 g/dL UBALDO MATAMOROS Comment:Testing performed by : [address] [address] RDW CV 18.7(H) 11.1 - 14.9 % UBALDO Comment:Testing performed by : [address] [address] RDW SD 60.2(H) 35.7 - 48.1 fL UBALDO Comment:Testing performed by : [address] [address] NRBC abs 0.00 0.00 - 0.01 K/cumm UBALDO Comment:Testing performed by : [address] [address] ANC Prelim 5.64 1.50 - 6.50 K/cumm UBALDO Comment: Interpretive Data The rapid ANC is a preliminary automated count and may vary from the final ANC (Neut Abs) reported in the WBC differential that follows. Current interpretive data was last revised 2024. Testing performed by: [address] [address] Blood 12/30/2024 8:14 AM CDT 12/30/2024 8:16 AM CDT Benjamin Murrell DO LAB BLOOD ORDERABLES Final R esult UBALDO [address] [facility] Department [place] [address] * (ABNORMAL) Reticulocyte Count (12/30/2024 8:14 AM CDT) Retics, absolute 58 20 - 87 K/cumm Comment:Testing performed by : [address] [address] Retics 1.9 0.4 - 2.9 % UBALDO Comment:Testing performed by : [address] [address] Reticulocyte Hgb 25.4(L) 30.5 - 38.0 pg UBALDO Comment:Testing performed by : [address] [address] Blood 12/30/2024 8:14 AM CDT 12/30/2024 8:16 AM CDT Benjamin Murrell DO LAB BLOOD ORDERABLES Final R esult Performing Organization Address City/[facility] Co de Phone Number [address] [place] [address] * (ABNORMAL) Ferritin (12/30/2024 8:14 AM CDT) Ferritin 942(H) 30 - 400 ng/mL Comment:Testing performed by : [address] [address] Blood 12/30/2024 8:14 AM CDT 12/30/2024 9:37 AM CDT Benjamin Murrell DO LAB BLOOD ORDERABLES Final R esult Performing Organization Address [facility] Co de Phone Number [address] [place] [address] * (ABNORMAL) Vitamin B12 (12/30/2024 8:14 AM CDT) Vitamin B12 >2,000(H) 230 - 1,250 pg/mL Comment:Testing performed by : [address] [address] Blood 12/30/2024 8:14 AM CDT 12/30/2024 9:37 AM CDT Benjamin Murrell DO LAB BLOOD ORDERABLES Final R esult Performing Organization Address City/[facility] Co de Phone Number [address] [place] [address] * (ABNORMAL) Comprehensive metabolic panel (12/30/2024 8:14 AM CDT) Sodium 134(L) 135 - 145 mmol/L Comment:Testing performed by : [address] [address] Potassium, pl 4.2 3.3 - 4.9 mmol/L UBALDO Comment:Testing performed by : [address] [address] Chloride 101 97 - 110 mmol/L UBALDO Comment:Testing performed by : [address] [address] CO2 21(L) 22 - 32 mmol/L UBALDO Comment:Testing performed by : [address] [address] Anion gap 12 2 - 15 mmol/L UBALDO Comment:Testing performed by : [address] [address] BUN 18 6 - 25 mg/dL UBALDO Comment:Testing performed by : [address] [address] Creatinine 1.00 0.80 - 1.30 mg/dL UBALDO Comment:Testing performed by : [address] [address] Glucose 187 70 - 199 mg/dL UBALDO [...] was last revised 2022. Testing performed by: [address] [address] Calcium 8.5 8.5 - 10.3 mg/dL UBALDO Comment:Testing performed by : [address] [address] Bilirubin, total 0.4 0.1 - 1.2 mg/dL UBALDO Comment:Testing performed by : [address] [address] Protein, pl 6.5 6.5 - 8.5 g/dL UBALDO Comment:Testing performed by : [address] [address] Albumin 3.2(L) 3.5 - 5.0 g/dL UBALDO Comment:Testing performed by : [address] [address] Alk phos 346(H) 40 - 130 Units/L UBALDO Comment:Testing performed by : [address] [address] ALT 26 7 - 55 Units/L UBALDO Comment:Testing performed by : [address], [address] AST 65(H) 10 - 50 Units/L UBALDO Comment:Testing performed by : [address] [address] Blood 12/30/2024 8:14 AM CDT 12/30/2024 8:16 AM CDT Benjamin Murrell DO LAB BLOOD ORDERABLES Final R esult UBALDO [address] [facility] Department of Laboratories [place] [id number] * eGFR (12/16/2024 10:11 AM CDT) eGFR [...] was last reviewed 2021. Testing performed by: [address] [address] Blood 12/16/2024 10:1 1 AM CDT 12/16/2024 10:16 AM CDT Benjamin Murrell DO LAB BLOOD ORDERABLES Final R esult [facility] [address] [facility] Department [place] [address] * (ABNORMAL) Differential, auto (12/16/2024 10:11 AM CDT) Neutrophil abs 6.39 1.50 - 6.50 K/cumm Comment:Testing performed by : [address] [address] Imm gran abs 0.19(H) 0.00 - 0.10 K/cumm UBALDO Comment:Testing performed by : [address] [address] Lymphocyte abs 1.68 0.80 - 3.30 K/cumm UBALDO Comment:Testing performed by : [address] [address] Monocyte abs 1.61(H) 0.20 - 0.80 K/cumm UBALDO Comment:Testing performed by : [address] [address] Eosinophil abs 0.07 0.00 - 0.50 K/cumm UBALDO Comment:Testing performed by : [address] [address] Basophil abs 0.03 0.00 - 0.10 K/cumm UBALDO Comment:Testing performed by : [address] [address] Neutrophil pct 64.1 % UBALDO Comment: Interpretive Data Percent cell count reference ranges are not reported, since discordance with absolute values may lead to misinterpretation of CBC data. Current Interpretive Data was last revised on 2017. Testing performed by: [address] [address] Imm gran pct 1.9 % UBALDO Comment: Interpretive Data Percent cell count reference ranges are not reported, since discordance with absolute values may lead to misinterpretation of CBC data. Current Interpretive Data was last revised on 2017. Testing performed by: [address] [address] Lymphocyte pct 16.9 % [facility] Comment: Interpretive Data Percent cell count reference ranges are not reported, since discordance with absolute values may lead to misinterpretation of CBC data. Current Interpretive Data was last revised on 2017. Testing performed by: [address] [address] Monocyte pct 16.1 % [facility] Comment: Interpretive Data Percent cell count reference ranges are not reported, since discordance with absolute values may lead to misinterpretation of CBC data. Current Interpretive Data was last revised on 2017. Testing performed by: [address] [address] Eosinophil pct 0.7 % [facility] Comment: Interpretive Data Percent cell count reference ranges are not reported, since discordance with absolute values may lead to misinterpretation of CBC data. Current Interpretive Data was last revised on 2017. Testing performed by: [address] [address] Basophil pct 0.3 % [facility] Comment: Interpretive Data Percent cell count reference ranges are not reported, since discordance with absolute values may lead to misinterpretation of CBC data. Current Interpretive Data was last revised on 2017. Testing performed by: [address] [address] Blood 12/16/2024 10:1 1 AM CDT 12/16/2024 10:16 AM CDT us Benjamin Murrell DO LAB BLOOD ORDERABLES Final R esult UBALDO [address] [facility] [place] [address] * (ABNORMAL) CBC with auto differential (12/16/2024 10:11 AM CDT) [facility] [address] WBC 9.97(H) 3.80 - 9.90 K/cumm Comment:Testing performed by : [address] [address] Hgb 9.2(L) 13.0 - 17.5 g/dL UBALDO Comment:Testing performed by : [address] [address] Hct 29.5(L) 38.9 - 50.3 % UBALDO Comment:Testing performed by : [address] [address] Plt 261 150 - 400 K/cumm UBALDO Comment:Testing performed by : [address] [address] MPV 11.0 9.1 - 12.3 fL UBALDO Comment:Testing performed by : [address] [address] RBC 3.26(L) 4.30 - 5.80 M/cumm UBALDO Comment:Testing performed by : [address] [address] MCV 90.5 81.3 - 96.4 fL UBALDO Comment:Testing performed by : [address] [address] MCH 28.2 27.1 - 33.3 pg UBALDO Comment:Testing performed by : [address] [address] MCHC 31.2(L) 32.3 - 35.7 g/dL UBALDO Comment:Testing performed by : [address], [address] RDW CV 18.4(H) 11.1 - 14.9 % UBALDO MATAMOROS Comment:Testing performed by : [address] [address] RDW SD 60.7(H) 35.7 - 48.1 fL UBALDO MATAMOROS Comment:Testing performed by : [address] [address] NRBC abs 0.00 0.00 - 0.01 K/cumm UBALDO MATAMOROS Comment:Testing performed by : [address] [address] ANC Prelim 6.39 1.50 - 6.50 K/cumm UBALDO Comment: Interpretive Data The rapid ANC is a preliminary automated count and may vary from the final ANC (Neut Abs) reported in the WBC differential that follows. Current interpretive data was last revised 2024. Testing performed by: [address] [address] Blood 12/16/2024 10:1 1 AM CDT 12/16/2024 10:16 AM CDT us Benjamin Murrell DO LAB BLOOD ORDERABLES Final R esult UBALDO [address] [facility] Department of Laboratories [place], [place] [id number] * (ABNORMAL) Comprehensive metabolic panel (12/16/2024 10:11 AM CDT) Sodium 133(L) 135 - 145 mmol/L Comment:Testing performed by : [address] [address] Potassium, pl 4.1 3.3 - 4.9 mmol/L UBALDO MATAMOROS Comment:Testing performed by : [address] [address] Chloride 96(L) 97 - 110 mmol/L UBALDO MATAMOROS Comment:Testing performed by : [address] [address] CO2 25 22 - 32 mmol/L UBALDO MATAMOROS Comment:Testing performed by : [address] [address] Anion gap 12 2 - 15 mmol/L UBALDO Comment:Testing performed by : [address] [address] BUN 15 6 - 25 mg/dL UBALDO Comment:Testing performed by : [address], [place]., [address] Creatinine 0.70(L) 0.80 - 1.30 mg/dL UBALDO Comment:Testing performed by : [address] [address] Glucose 149 70 - 199 mg/dL UBALDO [...] was last revised 2022. Testing performed by: [address] [address] Calcium 8.6 8.5 - 10.3 mg/dL UBALDO Comment:Testing performed by : [address] [address] Bilirubin, total 0.4 0.1 - 1.2 mg/dL UBALDO Comment:Testing performed by : [address] [address] Protein, pl 6.5 6.5 - 8.5 g/dL UBALDO Comment:Testing performed by : [address] [address] Albumin 3.5 3.5 - 5.0 g/dL UBALDO Comment:Testing performed by : [address] [address] Alk phos 375(H) 40 - 130 Units/L UBALDO Comment:Testing performed by : [address] [address] ALT 24 7 - 55 Units/L UBALDO Comment:Testing performed by : [facility], [address] [place] [address]., [address] AST 51(H) 10 - 50 Units/L UBALDO Comment:Testing performed by : [facility], [address] [place] [address]., [address] Blood 12/16/2024 10:1 1 AM CDT 12/16/2024 10:16 AM CDT Benjamin Murrell DO LAB BLOOD ORDERABLES Final R esult Performing Organization Address [facility] Co de Phone Number ANGELA[address] [place] [address] * (ABNORMAL) Erythropoietin (11/24/2024 11:02 AM CDT) [facility] [address] Erythropoietin 36.7(H) 2.6 - 18.5 mIUnits/m L [place] ref Lab Comment: Test Performed by: [facility] [address] [place] [address] Skating Rink Manager: Leighton Gregory Ph.D.; CLIA# [id number] Testing performed by: [address] [address] Blood 11/24/2024 11:0 2 AM CDT 11/24/2024 11:13 AM CDT Benjamin Murrell DO LAB BLOOD ORDERABLES Final R esult Performing Organization Address [facility] Co de Phone Number ANGELA[address] [place] [address] Joseph ref Lab * eGFR (11/24/2024 8:51 AM CDT) [facility] [address] eGFR >90 >=60 mL/min/1. 73 m2 Comment: [...] was last reviewed 2021. Testing performed by: [address] [address] Blood 11/24/2024 8:51 AM CDT 11/24/2024 8:52 AM CDT Benjamin Murrell DO LAB BLOOD ORDERABLES Final R esult [facility] [address] [facility] Department of Laboratories [place], [place] [id number] * (ABNORMAL) Differential, auto (11/24/2024 8:51 AM CDT) Neutrophil abs 8.23(H) 1.50 - 6.50 K/cumm Comment:Testing performed by : [address] [address] Imm gran abs 0.21(H) 0.00 - 0.10 K/cumm UBALDO Comment:Testing performed by : [address] [address] Lymphocyte abs 1.69 0.80 - 3.30 K/cumm UBALDO Comment:Testing performed by : [address] [address] Monocyte abs 1.45(H) 0.20 - 0.80 K/cumm UBALDO Comment:Testing performed by : [address] [address] Eosinophil abs 0.04 0.00 - 0.50 K/cumm UBALDO Comment:Testing performed by : [address] [address] Basophil abs 0.03 0.00 - 0.10 K/cumm UBALDO Comment:Testing performed by : [address] [address] Neutrophil pct 70.7 % [facility] Comment: Interpretive Data Percent cell count reference ranges are not reported, since discordance with absolute values may lead to misinterpretation of CBC data. Current Interpretive Data was last revised on 2017. Testing performed by: [address] [address] Imm gran pct 1.8 % [facility] Comment: Interpretive Data Percent cell count reference ranges are not reported, since discordance with absolute values may lead to misinterpretation of CBC data. Current Interpretive Data was last revised on 2017. Testing performed by: [address] [address] Lymphocyte pct 14.5 % [facility] Comment: Interpretive Data Percent cell count reference ranges are not reported, since discordance with absolute values may lead to misinterpretation of CBC data. Current Interpretive Data was last revised on 2017. Testing performed by: [address] [address] Monocyte pct 12.4 % [facility] Comment: Interpretive Data Percent cell count reference ranges are not reported, since discordance with absolute values may lead to misinterpretation of CBC data. Current Interpretive Data was last revised on 2017. Testing performed by: [address] [address] Eosinophil pct 0.3 % [facility] Comment: Interpretive Data Percent cell count reference ranges are not reported, since discordance with absolute values may lead to misinterpretation of CBC data. Current Interpretive Data was last revised on 2017. Testing performed by: [address] [address] Basophil pct 0.3 % [facility] Comment: Interpretive Data Percent cell count reference ranges are not reported, since discordance with absolute values may lead to misinterpretation of CBC data. Current Interpretive Data was last revised on 2017. Testing performed by: [address] [address] Blood 11/24/2024 8:51 AM CDT 11/24/2024 8:52 AM CDT Benjamin Murrell DO LAB BLOOD ORDERABLES Final R esult UBALDO [address] [facility] Department [place] [address] * (ABNORMAL) CBC with auto differential (11/24/2024 8:51 AM CDT) WBC 11.65(H) 3.80 - 9.90 K/cumm Comment:Testing performed by : [address] [address] Hgb 8.8(L) 13.0 - 17.5 g/dL UBALDO Comment:Testing performed by : [address] [address] Hct 28.0(L) 38.9 - 50.3 % UBALDO Comment:Testing performed by : [address] [address] Plt 191 150 - 400 K/cumm UBALDO Comment:Testing performed by : [address] [address] MPV 9.7 9.1 - 12.3 fL UBALDO Comment:Testing performed by : [address] [address] RBC 3.13(L) 4.30 - 5.80 M/cumm UBALDO Comment:Testing performed by : [address] [address] MCV 89.5 81.3 - 96.4 fL UBALDO Comment:Testing performed by : [address] [address] MCH 28.1 27.1 - 33.3 pg UBALDO Comment:Testing performed by : [address] [address] MCHC 31.4(L) 32.3 - 35.7 g/dL UBALDO Comment:Testing performed by : [address] [address] RDW CV 19.4(H) 11.1 - 14.9 % UBALDO Comment:Testing performed by : [address] [address] RDW SD 63.8(H) 35.7 - 48.1 fL UBALDO Comment:Testing performed by : [address] [address] NRBC abs 0.00 0.00 - 0.01 K/cumm UBALDO Comment:Testing performed by : [address] [address] ANC Prelim 8.23(H) 1.50 - 6.50 K/cumm UBALDO Comment: Interpretive Data The rapid ANC is a preliminary automated count and may vary from the final ANC (Neut Abs) reported in the WBC differential that follows. Current interpretive data was last revised 2024. Testing performed by: [address] [address] Blood 11/24/2024 8:51 AM CDT 11/24/2024 8:52 AM CDT us Benjamin Murrell DO LAB BLOOD ORDERABLES Final R esult [facility] [address] [facility] Department [place] [address] * PSA diagnostic (11/24/2024 8:51 AM CDT) PSA-Total 1.67 <=6.20 ng/mL Comment: Interpretive Data AGE SEX REFERENCE INTERVAL 0 minutes-150 years Female None 0 minutes-49 years Male None 50-59 years Male 0-3.90 60-69 years Male 0-5.40 70-79 years Male 0-6.20 80-150 years Male 0-6.20 The Lester PSA Total assay procedure was used. Results from different manufacturers or methods may not be comparable. Serial testing should be performed using the same method. Current interpretive data last revised 21. Testing performed by: [address] [address] Blood 11/24/2024 8:51 AM CDT 11/24/2024 9:43 AM CDT Benjamin Murrell LAB BLOOD ORDERABLES Final R esult Performing Organization Address [facility] de Phone Number [address] [place] [address] * (ABNORMAL) CEA (11/24/2024 8:51 AM CDT) CEA 156.0(H) <=5.0 ng/mL Comment: Interpretive Data: Reference Range: Non-Smokers: 0.0 5.0 ng/mL Smokers: 0.0 6.5 ng/mL The Lester CEA assay procedure was used. Results from different manufacturers or methods may not be comparable. Serial testing should be performed using the same method. Current interpretive data was last revised 2023. Testing performed by: [address] [address] Blood 11/24/2024 8:51 AM CDT 11/24/2024 9:43 AM CDT Benjamin Murrell LAB BLOOD ORDERABLES Final R [facility] Performing Organization Address City/[facility] de Phone Number [place] [id number] [facility] [address] [place] [address] * (ABNORMAL) Comprehensive metabolic panel (11/24/2024 8:51 AM CDT) Sodium 135 135 - 145 mmol/L Comment:Testing performed by : [address] [address] Potassium, pl 4.3 3.3 - 4.9 mmol/L UBALDO Comment:Testing performed by : [address] [address] Chloride 100 97 - 110 mmol/L UBALDO Comment:Testing performed by : [address] [address] CO2 25 22 - 32 mmol/L UBALDO Comment:Testing performed by : [address] [address] Anion gap 10 2 - 15 mmol/L UBALDO Comment:Testing performed by : [address] [address] BUN 18 6 - 25 mg/dL UBALDO Comment:Testing performed by : [address] [address] Creatinine 0.70(L) 0.80 - 1.30 mg/dL UBALDO Comment:Testing performed by : [address] [address] Glucose 120 70 - 199 mg/dL UBALDO [...] was last revised 2022. Testing performed by: [address] [address] Calcium 8.8 8.5 - 10.3 mg/dL UBALDO Comment:Testing performed by : [address] [address] Bilirubin, total 0.5 0.1 - 1.2 mg/dL UBALDO Comment:Testing performed by : [address] [address] Protein, pl 6.7 6.5 - 8.5 g/dL UBALDO Comment:Testing performed by : [address] [address] Albumin 3.7 3.5 - 5.0 g/dL UBALDO Comment:Testing performed by : [facility], [address] [place] [address]., [address] Alk phos 310(H) 40 - 130 Units/L UBALDO MATAMOROS Comment:Testing performed by : [address] [address] ALT 29 7 - 55 Units/L UBALDO MATAMOROS Comment:Testing performed by : [address] [address] AST 51(H) 10 - 50 Units/L UBALDO Comment:Testing performed by : [address] [address] Blood 11/24/2024 8:51 AM CDT 11/24/2024 8:52 AM CDT Benjamin Murrell DO LAB BLOOD ORDERABLES Final R esult Performing Organization Address City/State/[facility] Co de Phone Number UBALDO [address] [facility] Department [place] [address] * CT Chest Abdomen Pelvis W Contrast [...] Tony Marsh D.O. PS: PS Report ID: [id number] Reading Location: [id number] Procedure Note Tony Marsh, DO - 11/25/2024 [...] Tony Marsh D.O. PS: PS Report ID: [id number] Reading Location: [id number] us Benjamin Murrell DO IMG CT PROCEDURES [...] was last reviewed 2021. Testing performed by: [address] [address] Blood 11/04/2024 12:3 3 PM CDT 11/04/2024 12:35 PM CDT us Benjamin Murrell DO LAB BLOOD ORDERABLES Final R esult UBALDO [address] [facility] Department [place] [address] * (ABNORMAL) Differential, auto (11/04/2024 12:33 PM CDT) Neutrophil abs 7.4(H) 1.5 - 6.5 K/cumm Comment:Testing performed by : [address] [address] Imm gran abs 0.2(H) 0.0 - 0.1 K/cumm UBALDO MATAMOROS Comment:Testing performed by : [address] [address] Lymphocyte abs 1.8 0.8 - 3.3 K/cumm CERNER Comment:Testing performed by : [address] [address] Monocyte abs 1.5(H) 0.2 - 0.8 K/cumm CERNER Comment:Testing performed by : [address], [place]., [address] Eosinophil abs 0.1 0.0 - 0.5 K/cumm [facility] Comment:Testing performed by : [address], [place]., [address] Basophil abs 0.0 0.0 - 0.1 K/cumm [facility] Comment:Testing performed by : [address] [address] Neutrophil pct 67.2 % CERNER Comment: Interpretive Data Percent cell count reference ranges are not reported, since discordance with absolute values may lead to misinterpretation of CBC data. Current Interpretive Data was last revised on 2017. Testing performed by: [address] [address] Imm gran pct 1.6 % CERNER Comment: Interpretive Data Percent cell count reference ranges are not reported, since discordance with absolute values may lead to misinterpretation of CBC data. Current Interpretive Data was last revised on 2017. Testing performed by: [address] [address] Lymphocyte pct 16.5 % CERNER Comment: Interpretive Data Percent cell count reference ranges are not reported, since discordance with absolute values may lead to misinterpretation of CBC data. Current Interpretive Data was last revised on 2017. Testing performed by: [address] [address] Monocyte pct 13.2 % CERNER Comment: Interpretive Data Percent cell count reference ranges are not reported, since discordance with absolute values may lead to misinterpretation of CBC data. Current Interpretive Data was last revised on 2017. Testing performed by: [address] [address] Eosinophil pct 1.1 % CERNER Comment: Interpretive Data Percent cell count reference ranges are not reported, since discordance with absolute values may lead to misinterpretation of CBC data. Current Interpretive Data was last revised on 2017. Testing performed by: [address] [address] Basophil pct 0.4 % UBALDO Comment: Interpretive Data Percent cell count reference ranges are not reported, since discordance with absolute values may lead to misinterpretation of CBC data. Current Interpretive Data was last revised on 2017. Testing performed by: [address] [address] Blood 11/04/2024 12:3 3 PM CDT 11/04/2024 12:35 PM CDT us Benjamin Murrell DO LAB BLOOD ORDERABLES Final R esult UBALDO [address] [facility] Department [place] [address] * (ABNORMAL) CBC with auto differential (11/04/2024 12:33 PM CDT) WBC 11.0(H) 3.8 - 9.9 K/cumm Comment:Testing performed by : [address] [address] Hgb 9.7(L) 13.0 - 17.5 g/dL UBALDO Comment:Testing performed by : [address] [address] Hct 31.3(L) 38.9 - 50.3 % UBALDO Comment:Testing performed by : [address] [address] Plt 290 150 - 400 K/cumm UBALDO Comment:Testing performed by : [address] [address] MPV 9.6 9.1 - 12.3 fL UBALDO Comment:Testing performed by : [address] [address] RBC 3.46(L) 4.30 - 5.80 M/cumm UBALDO Comment:Testing performed by : [address] [address] MCV 90.5 81.3 - 96.4 fL UBALDO Comment:Testing performed by : [address] [address] MCH 28.0 27.1 - 33.3 pg UBALDO Comment:Testing performed by : [address] [address] MCHC 31.0(L) 32.3 - 35.7 g/dL UBALDO Comment:Testing performed by : [address] [address] RDW CV 20.1(H) 11.1 - 14.9 % UBALDO Comment:Testing performed by : [address] [address] RDW SD 67.0(H) 35.7 - 48.1 fL UBALDO Comment:Testing performed by : [address] [address] NRBC abs 0.00 0.00 - 0.01 K/cumm UBALDO Comment:Testing performed by : [address] [address] Blood 11/04/2024 12:3 3 PM CDT 11/04/2024 12:35 PM CDT Benjamin Murrell DO LAB BLOOD ORDERABLES Final R esult UBALDO [address] [facility] Department of Laboratories [place], [place] [id number] * (ABNORMAL) CEA (11/04/2024 12:33 PM CDT) [facility] [address] CEA 141.0(H) <=5.0 ng/mL Comment: Interpretive Data: Reference Range: Non-Smokers: 0.0 5.0 ng/mL Smokers: 0.0 6.5 ng/mL The Lester CEA assay procedure was used. Results from different manufacturers or methods may not be comparable. Serial testing should be performed using the same method. Current interpretive data was last revised 2023. Testing performed by: [address] [address] Blood 11/04/2024 12:3 3 PM CDT 11/04/2024 3:56 PM CDT Benjamin Murrell DO LAB BLOOD ORDERABLES Final R esult UBALDO [address] [facility] Department [place] [address] * (ABNORMAL) Comprehensive metabolic panel (11/04/2024 12:33 PM CDT) Sodium 135 135 - 145 mmol/L Comment:Testing performed by : [address] [address] Potassium, pl 4.8 3.3 - 4.9 mmol/L UBALDO Comment:Testing performed by : [address] [address] Chloride 99 97 - 110 mmol/L UBALDO Comment:Testing performed by : [address] [address] CO2 27 22 - 32 mmol/L UBALDO Comment:Testing performed by : [address] [address] Anion gap 9 2 - 15 mmol/L UBALDO Comment:Testing performed by : [address] [address] BUN 22 6 - 25 mg/dL UBALDO Comment:Testing performed by : [address] [address] Creatinine 0.70(L) 0.80 - 1.30 mg/dL UBALDO Comment:Testing performed by : [address] [address] Glucose 91 70 - 199 mg/dL UBALDO [...] was last revised 2022. Testing performed by: [address] [address] Calcium 9.0 8.5 - 10.3 mg/dL UBALDO Comment:Testing performed by : [address] [address] Bilirubin, total 0.3 0.1 - 1.2 mg/dL UBALDO Comment:Testing performed by : [address] [address] Protein, pl 6.8 6.5 - 8.5 g/dL UBALDO Comment:Testing performed by : [address] [address] Albumin 3.8 3.5 - 5.0 g/dL UBALDO Comment:Testing performed by : [address] [address] Alk phos 360(H) 40 - 130 Units/L UBALDO Comment:Testing performed by : [address] [address] ALT 21 7 - 55 Units/L UBALDO Comment:Testing performed by : [address] [address] AST 30 10 - 50 Units/L UBALDO Comment:Testing performed by : [address] [address] Blood 11/04/2024 12:3 3 PM CDT 11/04/2024 12:35 PM CDT us Benjamin Murrell DO LAB BLOOD ORDERABLES Final R esult UBALDO [address] [facility] Department [place] [address] * POCT lipid panel (08/30/2024 3:16 PM MITER SAWYER) [facility] [address] Cholesterol, POC 113 mg/dL Comment:GLU 100 HDL, POC 44 mg/dL Triglycerides, POC 79 mg/dL LDL Cholesterol POC 53 mg/dL Chol/HDL Ratio, POC 1.2 Non-HDL Cholesterol, POC 69 mg/dL Cholesterol Total, POC 113 mg/dL Capillary blood 08/30/2024 3 :16 PM MITER SAWYER us Costa Aparicio MD POINT OF CARE TEST ORDER CAM Final Result * (ABNORMAL) Hemoglobin A1c (10/14/2023 9:51 AM MITER SAWYER) [facility] [address] Hgb A1C 6.6(H) 4.0 - 5.6 % UBALDO Comment:Testing performed by : [address] [address] Estimated Average Glucose 143 mg/dL UBALDO Comment: The ADA recommends reporting an estimated Average Glucose (eAG) with all Hemoglobin A1c results using the equation derived from a study of 507 normal and diabetic adults. Minority populations were underrepresented and children were not included. (Diabetes Care 31:7042-0969, 2008). The eAG is not equivalent to a fasting glucose. Testing performed by: [facility], [address] [place] [address]., [address] Blood 10/14/2023 9:51 AM MITER SAWYER 10/14/2023 12:19 PM MITER SAWYER us Notinfile Unknown LAB BLOOD ORDERABLES Final Res ult [facility] [address] [facility] Department [place] [address] * (ABNORMAL) Hepatitis C antibody (07/30/2017 4:07 PM MITER SAWYER) [facility] [address] Hep C Ab REACTIVE( H) NONREACTIVE 07/30/2017 6:24 PM MITER SAWYER [facility] HISTORICAL RESULTS Comment: [employer] Labs[employer]XP using LUIS DANIEL (chemiluminescent immunoassay) technology. NONREACTIVE: [...] Hepatitis C Virus Note 07/30/2017 6:[address] [facility] HISTORICAL RESULTS Comment: Sample to be confirmed by real-time PCR method. 07/30/2017 4:07 PM MITER SAWYER 07/30/2017 4:12 PM MITER SAWYER [facility]ative [facility] HISTORICAL RESULTS - 07/30/2017 6:24 PM MITER SAWYER Mayco Mcmullen MD LAB MICROBIOLOGY - GENERAL ORDERABLES Final Result [facility] HISTORICAL RESULTS from Last 3 Months or Most Recently Relevant to Health Maintenance Insurance MEDICARE [facility] MEDICARE SUPPLEMENT MEDICARE [facility] MEDICARE SUPPLEMENT Advance Directives For more information, please contact: [phone] * Full Code (Latest Code Status on File) Date Activated Date Inactivated Comments 08/20/2024 10:17 AM 08/22/2024 7:39 PM * Full Code Date Activated Date Inactivated Comments 08/11/2024 11:45 AM 08/12/2024 5:12 AM * Full Code Date Activated Date Inactivated Comments 03/07/2024 3:13 PM 03/09/2024 6:03 PM * Full Code Date Activated Date Inactivated Comments 03/04/2023 3:57 PM 03/06/2023 5:13 PM Care Teams Director Of Marketing Communications Relationship Specialty Start Date End Date Jared Johnson DO [address] [facility] [place] [address] PCP - General Internal Medicine 03/25/23 Benjamin Murrell DO [address] [facility], [facility] [address] [place] [address] Medical Oncologist/Wet Sander Hematology and Oncology 08/21/22 Brad Farrell MD [address] [facility] [address] [place] [address] Consulting Physician Pulmonary Disease 03/05/23 Costa Aparicio MD [address] [facility] [address] [facility] [address] [place] [address] Consulting Physician Cardiology 03/25/23
--- OUTSIDE RECORDS SUMMARY | 2025-01-28 12:11 | XMS_ITS | Encounter Summary ---
Author Organization [facility] Address [address] [place] [address] Phone Care Team Providers Care Survey Party Chief Name Role Phone Jared Johnson DO Primary Care Provider [phone] Junaid Mccauley MD, [facility] Unavailable [phone] Jared Johnson DO Primary Care Provider [phone] Cheikh Valdez MD Unavailable Benjamin Murrell DO Unavailable [phone] Benjamin Murrell DO Unavailable Brad Farrell MD Unavailable [phone] Jared Johnson DO Primary Care Provider Costa Aparicio MD Unavailable Encounter Details Date Type Department Care Team (Late st Contact Info) Description 08/27/2020 Telephone [facility] Oncology [address] [place] [address] [address] [place] [address] Idalia Blake, ELI Social History Tobacco Use Types Packs/Day Years Used Date Smoking Tobacco: Former Cigarettes 1.5 45 Smokeless Tobacco: Never Alcohol Use Standard Drinks/Week Comments Yes 0 (1 standard drink = 0.6 oz pur e alcohol) 2-3 pr week Sex and Gender Information Value Date Recorded Sex Assigned at Not on file Legal Sex Male 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 03/19/2024 03/20/2024 06/17/2024 3:05 AM C DT documented as of this encounter Care Teams Survey Party Chief Relationship Specialty Start Date End Date Jared Johnson DO PCP - General 07/31/20 01/21/21 Jared Johnson DO PCP - General Internal Medicine 01/22/21 03/24/23 Jared Johnson DO [address] [address] PCP - General Internal Medicine 03/25/23 Artis Quiroga Jr., MD Medical Oncologist/Community Support Associate Medical Oncology 09/24/20 08/20/22 Cheikh Valdez MD [address] [facility] [address], [place] [address] Consulting Physician Cardiology 07/15/22 03/24/23 Benjamin Murrell DO [address] [address] Medical Oncologist/Community Support Associate Hematology and Oncology 07/15/22 08/20/22 Benjamin Murrell DO [address] [place] [address] [address] Medical Oncologist/Community Support Associate Hematology and Oncology 08/21/22 Brad Farrell MD [address] [address] Consulting Physician Pulmonary Disease 03/05/23 Costa Aparicio MD [address] [address] Consulting Physician Cardiology 03/25/23 documented as of this encounter
--- OUTSIDE RECORDS SUMMARY | 2025-01-28 12:11 | XMS_ITS | Continuity of Care Document ---
Author Organization [facility] Address [address] [place] [address] Phone Care Team Providers Care Microsoft Bi Consultant Name Role Phone Vickey PT,MPT,ATC, Mikal Unavailable Unavai lable Procedures Procedure Date Therapeutic Activities Neuromuscular Re-Ed Therapeutic Exercise Therapeutic Activities Neuromuscular Re-Ed Therapeutic Exercise Doc neg elder mal no plan PT Evaluation High Complexity Therapeutic Activities Therapeutic Exercise Advance Directives Directive Yes / No Effective Date File Name No Information Encounters Encounter Description Practice Location Reason(s) For Visit Diagnoses Date Provider Providers Copied on Encounter [facility] [address], [place], [place], [id number], tel:[phone] [place] No Information AMAURY Sarmiento, [place]. [facility], [place], [place], [id number], tel:[phone] [place] No Information AMAURY Sarmiento, [place]. Referring Provider: Benjamin Shepherd[address], [address]. tel:[phone] [facility], [place], [place], [address], tel:[phone] [place] No Information [address] Vickey Renae [place], [place], [place]. Referring Provider: Benjamin Shepherd, [address], [place], [address]. tel:[phone] [facility] [place], [address], [place], [place], [id number], [place] tel:[phone] [place] No Information Vickey Renae [place], . Referring Provider: Benjamin Shepherd, [address], [place], [address]. tel:[phone] Family History Family Member Type Diagnosis Age At Onset No Information Payers Payer name Insurance type Covered libertarian ID Authortomya gabriela(s) Medicare [place] MB [id number] [facility] [id number] Social History Type Description Quantity Date Captured Comments Sex Male Smoking Status No Information Chief Complaint And Reason For Visit No Information Reason For Referral Reason For Referral No Information Plan Of Treatment Date Type Action Status Appointment Benjamin Tabares BOOKED Appointment Benjamin Tabares BOOKED Appointment Benjamin Tabares BOOKED Appointment Benjamin TabaresED History Of Present Illness Encounter Date Complaint History Of Prese nt Illness No Information Functional Status Date Functional Assessmen t No Information Instructions Date Instruction Additional Infor mation No Information Assessments Type Assessment Date No Information Patient Care Teams Name Effective Dates (start - stop) Status Members No Information
--- NOTE | 2025-01-28 12:33 | ED_ITS ---
HPI - General Adult General Chief complaint: Arrhythmia/Palpitations Stated complaint: afib Time Seen by Provider: 01/28/25 12:11 History of Present Illness HPI narrative: 74-year-old male with history of AFib with RVR, high cholesterol, diabetes, hypertension, metastatic colon cancer, prostate cancer present to the emergency department for evaluation for a heart monitor at home that reported ?signs of atrial fibrillation. Patient denies any heart palpitations chest pain or shortness of breath but had been having some increased exertional fatigue and increased work of breathing per over the last few days. They decided to check his heart rate on the garcia and it reported possible atrial fibrillation. Upon arrival emergency department patient states he feels at his baseline denies any chest pain or shortness of breath. Patient has normal sinus rhythm with heart rate of 90 and a blood pressure of 122/77. Patient did have recent hospitalization at [facility] for rehydration last week. Related Data Home Medications ?Medication ?Instructions ?Recorded ?Confirmed ?Last Taken ?Type loratadine 10 mg tablet (Allergy 10 mg PO DAILY 01/07/22 01/17/25 04/07/24 History Relief (loratadine)) loperamide 2 mg tablet 2 mg PO Q6H PRN Diarrhea 03/31/23 01/17/25 Unknown History ondansetron HCl 4 mg tablet 4 mg PO Q8H 03/31/23 01/17/25 Unknown History albuterol sulfate 90 mcg/actuation 2 inh inhalation Q4-6H PRN 10/07/23 01/17/25 Unknown History aerosol inhaler (Ventolin HFA) shortness of breath or wheezing budesonide 160 mcg-glycopyr 9 2 inh inhalation Q12H 10/07/23 01/17/25 04/07/24 History mcg-formot 4.8 mcg/actuation HFA inhaler (Breztri Aerosphere) fluticasone propionate 50 1 spray intranasal Q12H 10/07/23 01/17/25 04/07/24 History mcg/actuation nasal spray,suspension finasteride 5 mg tablet 5 mg PO DAILY 04/07/24 01/17/25 04/07/24 History ropinirole 1 mg tablet 1 mg PO TID 04/14/24 01/17/25 Unknown History alpha lipoic acid 600 mg capsule 600 mg PO Q12H 01/17/25 01/17/25 Unknown History amantadine HCl 100 mg capsule 100 mg PO BID 01/17/25 01/17/25 Unknown History amiodarone 200 mg tablet (Pacerone) 200 mg PO DAILY@0800 01/17/25 01/17/25 Unknown History aspirin 81 mg tablet 81 mg PO DAILY 01/17/25 01/17/25 Unknown History azelastine 137 mcg (0.1 %) nasal 137 mcg intranasal Q12H 01/17/25 01/17/25 Unknown History spray ferrous sulfate 325 mg (65 mg 325 mg PO TID 01/17/25 01/17/25 Unknown History iron) tablet (FeroSul) gabapentin 600 mg tablet 600 mg PO QID 01/17/25 01/17/25 Unknown History lactulose 10 gram/15 mL oral 15 ml PO BID 01/17/25 01/17/25 Unknown History solution levocarnitine 500 mg tablet 1,000 mg PO BID 01/17/25 01/17/25 Unknown History mirtazapine 7.5 mg tablet 7.5 mg PO DAILY 01/17/25 01/17/25 Unknown History pantoprazole 40 mg tablet,delayed 40 mg PO BID 01/17/25 01/17/25 Unknown History release pyridoxine (vitamin B6) 100 mg 200 mg PO DAILY 01/17/25 01/17/25 Unknown History tablet Allergies Allergy/AdvReac Type Severity Reaction Status Date / Time Penicillins Allergy Severe HALLUCINATIONS, Verified 01/17/25 11:11 PALPATATIONS Review of Systems 2 Review of Systems: All systems reviewed & are unremarkable except as noted in HPI and below PMFSH Past Medical History Medical History (Updated 01/28/25 @ 14:02 by Aiden Nur MD) Prostate cancer Viral syndrome History of fracture of orbit History of wrist fracture History of diverticulitis History of kidney stones Atrial fibrillation with RVR Metastatic colon cancer to liver HECTOR (obstructive sleep apnea) Elevated PSA History of colon cancer Stage IV History of prostate cancer Mononucleosis Mumps Measles Colon polyp History of fracture Hyperlipidemia HTN (hypertension) Surgical History Surgical History History of cataract extraction Hx of total knee arthroplasty Partial Hx of total hip arthroplasty H/O colonoscopy with polypectomy History of colon surgery Family History Family History Sibling Hepatitis C Hypertension Mother Macular degeneration Parkinson disease Social History Social History Social History: The patient is a former smoker. The patient lives with his and has 2 children. Patient stated he quit smoking many years ago. Code status full code Smoking packs per day: 1.5 Smoking cigarettes per day: 30.0 Years smoked: 50 Smoking pack-years: 75.00 Smoking status: Former smoker Tobacco type: cigarettes Smokeless tobacco user: other Smoking end date: 08/17/13 Alcohol intake: current Drinks per week: 3 Substance use: former Substance use type: marijuana Other substance usage details: Marihuana stopped 2 months ago Do You Feel Safe in your Home?: Yes Lack of Transportation: No Lack of Food: Never True Current Housing: I Have Housing Concerned About Future Housing: No Difficulty Paying Gas/Electric Bills: No Difficulty Paying for Meds: No Currently Unemployed: No Education: Decline to Answer Difficulty w/ Childcare or Family Care: Decline to Answer Spiritual care concerns: No Exam 2 Narrative: APPEARANCE: Well appearing, no pain, no distress, well-nourished. HEAD: normocephalic, atraumatic. EYES: PERRLA/EOMI, conjunctivae clear. NOSE: Normal no drainage EARS:TMS clear with good light reflex. THROAT: Pharynx clear, no exudate. NECK: Supple. No adenopathy, no masses. RESPIRATORY: Airway patent, respirations nonlabored. Clear to auscultation bilaterally, no rales, rhonchi, wheezing. CARDIOVASCULAR: Regular rate and rhythm without murmurs rubs or gallops. ABDOMINAL: Soft, nontender, nondistended, normal bowel sounds MUSCULOSKELETAL: Bilateral lower extremity +2 pitting edema NEURO: Alert. Cranial nerves II through XII intact. Good gait. Good coordination SKIN: Warm, dry. Normal Color Course Vital Signs Vital signs: Vital Signs Temperature 98.5 F 01/28/25 12:15 Pulse Rate 90 01/28/25 12:15 Respiratory Rate 22 H 01/28/25 12:15 Blood Pressure 122/77 01/28/25 12:15 Pulse Oximetry 99 01/28/25 12:15 Oxygen Delivery Room Air 01/28/25 12:15 Temperature 98.5 F 01/28/25 12:15 Pulse Rate 66 01/28/25 14:29 Respiratory Rate 18 01/28/25 14:29 Blood Pressure 109/77 01/28/25 14:29 Pulse Oximetry 98 01/28/25 14:29 Oxygen Delivery Room Air 01/28/25 12:15 Medical Decision Making MDM Narrative Medical decision making narrative: 74-year-old male with history of AFib in the emergency department for evaluation for concern for AFib. Patient has been normal sinus rhythm in the emergency department. Patient is currently afebrile with leukocytosis hemoglobin 9.8 which is similar to his baseline. Patient has no significant acute abnormalities on his CMP, patient's proBNP is elevated at 690 but patient's chest x-ray shows no evidence of pulmonary edema. Patient is saturating well on room air. Patient has no dyspnea on exam. Patient was encouraged close follow- up with primary care physicians. Differential Diagnosis Differential Diagnosis: Pneumonia, pleural effusion, AFib with RVR, rate controlled AFib Vital Signs Vital Signs: Vital Signs Temperature 98.5 F 01/28/25 12:15 Pulse Rate 90 01/28/25 12:15 Respiratory Rate 22 H 01/28/25 12:15 Blood Pressure 122/77 01/28/25 12:15 Pulse Oximetry 99 01/28/25 12:15 Oxygen Delivery Room Air 01/28/25 12:15 Temperature 98.5 F 01/28/25 12:15 Pulse Rate 66 01/28/25 14:29 Respiratory Rate 18 01/28/25 14:29 Blood Pressure 109/77 01/28/25 14:29 Pulse Oximetry 98 01/28/25 14:29 Oxygen Delivery Room Air 01/28/25 12:15 Lab Data Lab results reviewed: Yes I reviewed the patient's lab results. 01/28/25 12:28 01/28/25 12:28 Labs: Lab Results 01/28/25 Range/Units 12:28 WBC 9.6 (4.5-10.0) K/mm3 RBC 3.61 L (4.6-6.20) M/mm3 Hgb 9.8 L (14.0-18.0) g/dL Hct 32.3 L (42.0-52.0) % MCV 89.5 (80-100) fl MCH 27.1 (26-34) pg MCHC 30.3 L (32-36) g/dl RDW 19.5 H (11.5-14.5) % Plt Count 234 (150-375) k/mm3 MPV 10.2 (7.4-10.4) fl Immature Gran % (Auto) 0.3 (0-0.5) % Neut % (Auto) 79.3 H (45.5-73.1) % Lymph % (Auto) 10.6 L (18.3-44.2) % [place] % (Auto) 9.1 H (2.6-8.5) % Eos % (Auto) 0.4 (0-4.4) % Baso % (Auto) 0.3 (0.2-1.2) % Lymph # (Auto) 1.02 (0.9-3.2) K/mm3 [place] # (Auto) 0.9 H (0.1-0.6) K/mm3 Eos # (Auto) 0.0 (0-0.3) K/mm3 Baso # (Auto) 0.0 (0.0-0.1) K/mm3 Abs Immat Gran (auto) 0.03 (0.00-0.031) K/mm3 Absolute Neuts (auto) 7.6 H (1.3-6.7) K/mm3 Absolute Nucleated RBC 0.000 (0.0-0.012) K/mm3 Nucleated RBC % 0.0 (0.0-0.2) % PT 17.9 H (11.1-14.7) Seconds INR 1.5 APTT 37.3 H (22.3-36.8) Seconds Sodium 136 L (137-145) mmol/L Potassium 4.3 (3.4-5.0) mmol/L Chloride 105 (98-107) mmol/L Carbon Dioxide 19 L (22-30) mmol/L Anion Gap 12 (4-12) mmol/L BUN 15 D (9-20) mg/dL Creatinine 0.86 (0.7-1.3) mg/dL Estim Creat Clear Calc 73 ml/min Estimated GFR > 60 (59 - ) Glucose 157 H (65-110) mg/dL Calcium 8.9 (8.4-10.2) mg/dL Total Bilirubin 1.3 (0.2-1.3) mg/dL AST 108 H (17-59) U/L ALT 31 (6-50) U/L Alkaline Phosphatase 346 H (38-126) U/L NT-Pro-B Natriuret Pep 690 H (19.9-100) pg/mL Total Protein 7.0 (6.3-8.2) g/dL Albumin 3.4 L (3.5-5.1) g/dL Imaging Data Radiologist's impression: Impressions Chest X-Ray 01/28/25 13:04 Impression: 1: No acute cardiopulmonary disease. ECG Data EKG #1: EKG Interpretation: normal rate, sinus rhythm, no ectopy, non-specific ST changes, normal QRS, normal QT and left axis Discharge Plan Discharge Clinical Impression: A-fib Patient Disposition: Home Condition: Stable Instructions: Antibiotic Form Additional Instructions: Have close follow-up with your physicians. If you have any worsening symptoms then please call or return to the emergency department. Patient Language: Cypriot Prescriptions: No Action loratadine [Allergy Relief (loratadine)] 10 mg tablet 10 mg PO DAILY Breztri Aerosphere 160-9-4.8 mcg/actuation HFA aerosol inhaler 2 inh inhalation Q12H fluticasone propionate 50 mcg/actuation spray,suspension 1 spray intranasal Q12H albuterol sulfate [Ventolin HFA] 90 mcg/actuation HFA aerosol inhaler 2 inh inhalation Q4-6H PRN (Reason: shortness of breath or wheezing) amiodarone [Pacerone] 200 mg tablet 200 mg PO DAILY@0800 aspirin 81 mg tablet 81 mg PO DAILY azelastine 137 mcg (0.1 %) spray,non-aerosol 137 mcg intranasal Q12H Rx Instructions: administer into each nostril gabapentin 600 mg tablet 600 mg PO QID pantoprazole 40 mg tablet,delayed release (DR/EC) 40 mg PO BID pyridoxine (vitamin B6) 100 mg tablet 200 mg PO DAILY mirtazapine 7.5 mg tablet 7.5 mg PO DAILY ferrous sulfate [FeroSul] 325 mg (65 mg iron) tablet 325 mg PO TID lactulose 10 gram/15 mL solution 15 ml PO BID alpha lipoic acid 600 mg capsule 600 mg PO Q12H levocarnitine 500 mg tablet 1,000 mg PO BID Rx Instructions: must administer with a meal/food amantadine HCl 100 mg capsule 100 mg PO BID loperamide 2 mg tablet 2 mg PO Q6H PRN (Reason: Diarrhea) ondansetron HCl 4 mg tablet 4 mg PO Q8H ropinirole 1 mg tablet 1 mg PO TID Patient Comments: take 1 tab two to three times daily finasteride 5 mg tablet 5 mg PO DAILY metoprolol tartrate 25 mg Tablet 25 mg PO Q12HR Qty: 90 0RF Eliquis 5 mg Tablet 5 mg PO Q12HR 30 Days Qty: 60 0RF cholecalciferol (vitamin D3) [Vitamin D3] 25 mcg (1,000 unit) Tablet 1,000 unit PO DAILY 30 Days Qty: 30 0RF amlodipine 5 mg tablet 5 mg PO DAILY Qty: 90 3RF lisinopril 40 mg tablet 40 mg PO DAILY Qty: 90 1RF Rx Instructions: LAST REFILL UNTIL SEEN atorvastatin 80 mg tablet See Rx Instructions .ROUTE .COMPLEX Qty: 90 1RF Dose Instruction: TAKE 1 TABLET BY MOUTH AT BEDTIME Rx Instructions: TAKE 1 TABLET BY MOUTH AT BEDTIME tamsulosin 0.4 mg capsule See Rx Instructions .ROUTE .COMPLEX Qty: 180 0RF Dose Instruction: TAKE 1 CAPSULE BY MOUTH TWICE DAILY Rx Instructions: TAKE 1 CAPSULE BY MOUTH TWICE DAILY Follow-up/Referrals: Jared Johnson, [Primary Care Provider] -
[2025-01-28 12:36] LABS: Basophils Percent Auto 0.3 % (0.2-1.2); Eosinophils Percent Auto 0.4 % (0-4.4); Hematocrit 32.3 % (42.0-52.0); Hemoglobin 9.8 g/dL (14.0-18.0); Immature Granulocyte Absolute 0.03 K/mm3 (0.00-0.031); Immature Granulocyte Percent A 0.3 % (0-0.5); Lymphocytes Absolute Auto 1.02 K/mm3 (0.9-3.2); Lymphocytes Percent Auto 10.6 % (18.3-44.2); Mean Corpuscular HGB Conc 30.3 g/dl (32-36); Mean Corpuscular Hemoglobin 27.1 pg (26-34); Mean Corpuscular Volume 89.5 fl (80-100); Mean Platelet Volume 10.2 fl (7.4-10.4); Monocytes Absolute Auto 0.9 K/mm3 (0.1-0.6); Monocytes Percent Auto 9.1 % (2.6-8.5); Neutrophils Absolute Auto 7.6 K/mm3 (1.3-6.7); Neutrophils Percent Auto 79.3 % (45.5-73.1); Platelet Count Result 234 k/mm3 (150-375); Red Blood Count 3.61 M/mm3 (4.6-6.20); Red Cell Distribution Width 19.5 % (11.5-14.5); White Blood Count 9.6 K/mm3 (4.5-10.0)
--- OUTSIDE RECORDS SUMMARY | 2025-01-28 12:37 | XMS_ITS ---
Author Organization [facility] Address [facility] [address] [place] [address] Care Team Providers Care Commercial Development Manager Name Role Phone Benjamin Murrell DO Unavailable [phone] Brad Farrell MD Unavailable [phone] Jared Johnson DO Primary Care Provider [phone] Costa Aparicio MD Unavailable [phone] Active Problems Problem Noted Date Diagnosed Date [...] drip/phlegm. Assessment & Plan (07/21/2024 10:38 AM DIGITAL DESIGN ENGINEER): The patient has stage II COPD and [...] 10/23/2022 Assessment & Plan (10/23/2022 12:50 PM DIGITAL DESIGN ENGINEER): I have ordered an iron and ferritin level. Pulmonary nodule 10/23/2022 Assessment & Plan (10/31/2024 11:19 AM CDT): CT scanning managed by Oncology every 3 months. Assessment & Plan (07/21/2024 10:36 AM DIGITAL DESIGN ENGINEER): The pulmonary nodules are presumed metastatic lesions [...] Keytruda. Assessment & Plan (10/23/2022 12:49 PM DIGITAL DESIGN ENGINEER): The patient is getting a CT scan [...] year Assessment & Plan (07/21/2024 10:37 AM DIGITAL DESIGN ENGINEER): The PLMS/RLS symptoms are under control with [...] mg. Assessment & Plan (10/23/2022 12:50 PM DIGITAL DESIGN ENGINEER): Due to the patient's limb movements on [...] months Assessment & Plan (07/21/2024 10:37 AM DIGITAL DESIGN ENGINEER): The patient did smoke a few cigarettes [...] ordered. Assessment & Plan (10/23/2022 12:52 PM DIGITAL DESIGN ENGINEER): The patient did smoke 1-2 packs of [...] 07/17/2022 Assessment & Plan (08/21/2022 11:15 AM DIGITAL DESIGN ENGINEER): Has improved with the use of Mucinex and Flonase daily Assessment & Plan (07/17/2022 12:38 PM DIGITAL DESIGN ENGINEER): The patient has had problems with significant coughing and sputum production. I will order Mucinex 600 mg p.o. b.i.d. and he will also start Flonase 2 puffs in each nostril daily. Prostate cancer 05/28/2022 Overview (05/28/2022): Added automatically from request for surgery [id number] Dehydration 12/03/2020 Malignant neoplasm of cecum 08/29/2020 [...] adapt Assessment & Plan (07/21/2024 10:36 AM DIGITAL DESIGN ENGINEER): The patient has restarted CPAP at 11 [...] adapt. Assessment & Plan (10/23/2022 12:49 PM DIGITAL DESIGN ENGINEER): Due to the patient being unable to tolerate the CPAP titration study and snoring under the mask I will increase the patient's CPAP to 13 cm of water pressure while sleeping. His DME is adapt. Assessment & Plan (08/21/2022 11:16 AM DIGITAL DESIGN ENGINEER): Will continue with CPAP therapy at 11 cm water pressure. Patient will complete a CPAP titration study later this month starting at 11 cm water pressure and titrated as needed. Assessment & Plan (07/17/2022 12:36 PM DIGITAL DESIGN ENGINEER): The patient was diagnosed with obstructive sleep [...] Medications No medications scheduled. Fluorouracil / Leucovorin ([place]) 8 week Cycles - Colon* Plan [...] breath. Assessment & Plan (10/23/2022 12:48 PM DIGITAL DESIGN ENGINEER): Patient continue to use Breztri two puffs [...] 23 Assessment & Plan (08/21/2022 11:16 AM DIGITAL DESIGN ENGINEER): Patient will complete a PFT later this month. I have given the patient a discount card for Breztri and the patient will continue with Combivent in the meantime. The patient was instructed to call into the office to see if we have samples of Breztri. Patient is following with Oncology and continues Keytruda. Assessment & Plan (07/17/2022 12:36 PM DIGITAL DESIGN ENGINEER): The patient presents with dyspnea and has been receiving Keytruda. He quit smoking 6 years ago and did smoke 1.5 packs of cigarettes per day for 45 years. I have recommended starting with full PFTs .
--- OUTSIDE RECORDS SUMMARY | 2025-01-28 12:37 | XMS_ITS | Continuity of Care Document ---
Author Organization [facility] Address [address] [place] [address] Phone Care Team Providers Care Personal Development Coach Name Role Phone Amie Duran MD Unavailable [...] Diagnoses Date Provider Providers Copied on Encounter [facility], [address], [place], [place], [address], tel:[phone] [facility] Status post total hip replacement, right Renee Holloway. [address], [place], [place], [address] , [place]. tel: [phone] Referring Provider: [address], [place], [address] . tel:[phone] [facility], [address], [place], [place], [address], tel:[phone] [facility] Primary osteoarthritis of right hipStatus post total hip replacement, right Renee Holloway. [address], [place], [place], [address] , [place]. [phone] Referring Provider: Amie Duran, [address], [place], [address] . tel:[phone] [facility], [address], [place], [place], [address], [place] tel:[phone] [facility] Primary osteoarthritis of right hip Renee Hammondon. [address], [place], [place], [address] , [place]. [phone] Referring Provider: [address], [place], [address] . tel:[phone] Family History Family Member Type Diagnosis Age At Onset Problem (finding) Family history of Hepat itis C Payers Payer name Insurance type Covered democrat ID Authoriza tion(s) MEDICARE MB [id number] BCBS INACTIVE OUT OF STATE [id number] Social History Type Description Quantity Date Captured [...]
--- OUTSIDE RECORDS SUMMARY | 2025-01-28 12:37 | XMS_ITS | Encounter Summary ---
Author Organization [facility] Healthcare Address [address] [place] [address] Care Team Providers Care Medical Coding Technician Name Role Phone Benjamin Murrell DO Unavailable [phone] Brad Farrell MD Unavailable [phone] Jared Johnson DO Primary Care Provider [phone] Costa Aparicio MD Unavailable [phone] Encounter Details Date Type Department Care Team (Late st Contact Info) Description 01/27/2025 Telephone [facility] Medical Group Cardiology [address] [facility] [address] [address] Costa Aparicio MD [address] [place] [address] Social History Tobacco Use Types Packs/Day Years Used Date Smoking Tobacco: Former Cigarettes 1.5 45 1 971 - 2016 Passive Smoke Exposure: Past Smokeless Tobacco: Never Alcohol Use Standard Drinks/Week Comments Yes 0 (1 standard drink = 0.6 oz pur e alcohol) 2-3 pr week [facility] Utilities Answer Date Recorded In the [...] often do you attend chur ch or samaritan services? More than 4 times per year 03/08/2024 Do you belong to any clubs o r organizations such as protestant groups, unions, fraternal or athletic groups, or [...] place to sleep or slept in a prison (including now)? No 03/05/2023 Housing Stability Vital Sign Answer Mario e Recorded In the last 12 months, was t here a time when you were not able to pay the mortgage or rent on time? No 03/08/2024 In the past 12 months, how m any times have you moved where you were living? 0 03/08/2024 At any time in the past 12 m [facility], were you homeless or living in a prison (including now)? No 03/08/2024 Personal Safety Answer Date Recorded Have you ever been in or are you currently in a harmful physical or emotional relationship or is someone making you feel afraid or unsafe? Denies 01/20/2025 Sex and Gender Information Value Date Recorded Sex Assigned at Not on file Legal Sex Male 4:14 AM BEND SORTER Gender Identity Male 11/07/2019 11:07 AM CDT [...] 62 Standing BP: 104/61 HR: 70 Contact [phone] * Telephone Encounter - Osmel Mcclure RN - 01/27/2025 9:51 AM CDT Spoke with , only experiencing symptoms when going from sitting to standing position. They havechecked it during this time and states it is lower. She is not at home right now. She reports he has had a problem with dehydration in the past but he's been receiving fluids outpatient at [facility] (pt continues to be treated by oncologist at [facility] for [facility]) Advised to call [...] and he recommended they speak to his wage and hour investigator because he may be on toomuch BP medications. Please advise she would a call back with an update on what [facility] thinks needs niles done thank you Contact: documented in this encounter Plan of Treatment Not on file documented as of this encounter Visit Diagnoses Not on filedocumented in this encounter Care Teams Medical Coding Technician Relationship Specialty Start Date End Date Jared Johnson DO [address] [place] [address] PCP - General Internal Medicine 03/25/23 Benjamin Murrell DO [address] [place] [address] MEDICAL ONCOLOGY, [address] [address] Medical Oncologist/Civil Manager Hematology and Oncology 08/21/22 Brad Farrell MD [address] [address] Consulting Physician Pulmonary Disease 03/05/23 Costa Aparicio MD [address] [address] Consulting Physician Cardiology 03/25/23 documented as of this encounter
--- OUTSIDE RECORDS SUMMARY | 2025-01-28 12:37 | XMS_ITS | Clinical Summary ---
Author Organization [facility] Address [address] [facility] [place] [address] Care Team Providers Care Finishing Supervisor Plastic Sheets Name Role Phone Jared Johnson DO Primary Care Provider Amie Duran MD Unavailable [phone] Source Comments [facility],non-owned Affiliates and Associated Physician Practices is amultiple site organization consisting of ambulatory clinics and hospital sitesin [place], [place], [place] and [place]. This disclosure is being madepursuant to the Care Everywhere program and may not contain all information available regarding this patient. 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) Not on file Not on file N ot on file Last Filed Vital Signs Vital Sign Reading Time Taken Comments Blood Pressure 131/89 04/17/2020 2:06 PM CDT Pulse 69 04/17/2020 2:06 PM CDT Temperature 36.7 C (98 F) 10/13/2017 11:31 AM COST RECORDER Respiratory Rate 20 08/02/2018 1:55 PM COST RECORDER Oxygen Saturation 99% 04/17/2020 2:06 PM CDT [...] this topic Medical Devices Implanted Type Area Marine Designer Device Identifier Shelf Expiration Date Model / Serial / Lot Kannan Bone [place] Hv Implanted:Qty: 1 on 02/23/2014 by Amie Duran MD at [facility] Left: Knee [employer] 06/17/2015 [id number] / / Femural 2 Pegged Medium Implanted:Qty: 1 on 02/23/2014 by Amie Duran MD at [facility] Left: Knee [id number] / / Tibial Component B 4 Implanted:Qty: 1 on 02/23/2014 by Amie Duran MD at [facility] Left: Knee [id number] / / Acetabular Liner Implanted:Qty: 1 on 07/29/2016 by Amie Duran MD at [facility] Right: Hip [id number] 01/17/2021 [id number] / / [id number] Bone Screw Implanted:Qty: 1 on 07/29/2016 by Amie Duran MD at [facility] Right: Hip [id number] 05/23/2025 [id number] / / [id number] Acetabular Shell Implanted:Qty: 1 on 07/29/2016 by Amie Duran MD at [facility] Right: Hip [id number] 07/06/2026 [id number] / / [id number] Femoral Stem Implanted:Qty: 1 on 07/29/2016 by Amie Duran MD at [facility] Right: Hip [id number] 02/19/2026 [id number] / / [id number] Head Implanted:Qty: 1 on 07/29/2016 by Amie Duran MD at [facility] Right: Hip [id number] 06/22/2026 [id number] / / [id number] Procedures Procedure Name Priority Date/Time Associated Diagnosis Comments COMPREHENSIVE METABOLIC PANEL 10/31/2019 9:58 AM CDT HEPATITIS C RNA QUANTITATIVE Routine 09/14/2017 3:03 PM COST RECORDER from Last 3 Months or Most Recently [...] Resulting Agency Comment Lab Testing performed at: [facility] [address] [facility] [id number] Cheikh Valdez MD LAB - CHEMISTRY ORDERABLES F inal Result [facility] INSURANCE BILL [address] [place] [address] * HEPATITIS C RNA QUANTITATIVE PCR (09/14/2017 3:03 PM COST RECORDER) Hepatitis C Virus RNA PCR Accession No: [id number] [facility] Hepatitis C Virus RNA PCR Specimen: Serum [facility] Hepatitis C Virus RNA PCR Reference: [id number] [facility] Hepatitis C Virus RNA PCR [facility] Hepatitis C Virus RNA PCR [facility] Hepatitis C Virus RNA PCR [facility] Hepatitis C Virus RNA PCR Test: Hepatitis C RT-PCR (Quantitative) [facility] Hepatitis C Virus RNA PCR [facility] Hepatitis C Virus RNA PCR [facility] Hepatitis C Virus RNA PCR RESULT [facility] Hepatitis [facility] Virus RNA PCR Not Detected [facility] Hepatitis C Virus RNA PCR [facility] Hepatitis C Virus RNA PCR Reference Range [facility] Hepatitis [facility] Virus RNA PCR Not Detected [facility] Hepatitis C Virus RNA PCR [facility] Hepatitis C Virus RNA PCR INTERPRETATION [facility] Hepatitis C Virus RNA PCR The quantitative Hepatitis C viral RNA RT-PCR determination [facility] Hepatitis C Virus RNA PCR was performed on a serum sample and is reported in IU/ml. [facility] Hepatitis C Virus RNA PCR Hepatitis C viral RNA was not detected. [facility] Hepatitis C Virus RNA PCR [facility] Hepatitis C Virus RNA PCR COMMENT [facility] Hepatitis C Virus RNA PCR The Hepatitis C viral (HCV) RNA analysis utilized a serum [facility] Hepatitis C Virus RNA PCR sample, real-time reverse coater operator PCR, and is reported [facility] Hepatitis C Virus RNA PCR as Not Detected, Detected (<12 IU/ml), Quantity (IU/ml) or [facility] Hepatitis C Virus RNA PCR >100,000,000 IU/ml. [facility] Hepatitis C Virus RNA PCR [facility] Hepatitis C Virus RNA PCR The limit of quantiation of the assay is 12 IU/ml (100% of [facility] Hepatitis C Virus RNA PCR samples with this HCV RNA level were detected). The linear [facility] Hepatitis C Virus RNA PCR range is from 12 IU/ml to 100,000,000 IU/ml. Values less [facility] Hepatitis C Virus RNA PCR than 12 IU/ml are reported as Detected (<12 IU/ml). Values [facility] Hepatitis C Virus RNA PCR greater than 100,000,000 IU/ml are reported as >100,000,000 [facility] Hepatitis C Virus RNA PCR IU/ml. [facility] Hepatitis C Virus RNA PCR [facility] Hepatitis C Virus RNA PCR The detection/quantita tion of HCV RNA in serum is based on [facility] Hepatitis C Virus RNA PCR the isolation of HCV RNA with reverse coater operator of [facility] Hepatitis C Virus RNA PCR genomic HCV RNA followed by real-time PCR in the presence of [facility] Hepatitis C Virus RNA PCR an unrelated RNA internal control. The internal control [facility] Hepatitis C Virus RNA PCR ensures that RNA is isolated, and that no general [facility] Hepatitis C Virus RNA PCR significant inhibitors of the RT-PCR process are present. [facility] Hepatitis C Virus RNA PCR [facility] Hepatitis C Virus RNA PCR This analysis was performed using an [place] FDA approved test [facility] Hepatitis C Virus RNA PCR methodology (Bro RealTime HCV). [facility] Hepatitis C Virus RNA PCR [facility] Hepatitis [facility] Virus RNA PCR [facility] Hepatitis C Virus RNA PCR [facility] Hepatitis C Virus RNA PCR [facility] Hepatitis C Virus RNA PCR Test performed at [facility] Hepatitis C Virus RNA PCR Laboratories, [address] [place] [address] PATHOLOGY LAB Hepatitis C Virus RNA PCR [facility] Hepatitis C Virus RNA PCR [facility] Hepatitis C Virus RNA PCR [facility] Hepatitis C Virus RNA PCR This case has been personally reviewed and interpreted by [facility] Hepatitis C Virus RNA PCR the attending (teaching) pathologist. [facility] Hepatitis C Virus RNA PCR [facility] Hepatitis C Virus RNA PCR [facility] Hepatitis C Virus RNA PCR Final Diagnosis performed by Carlos Seth PHD. [facility] Hepatitis C Virus RNA PCR Electronically signed 09/19/2017 [facility] Blood specimen (specimen) BLOOD SPECIMEN / Unknown 09/14/2017 3:03 PM COST RECORDER 09/14/2017 3:22 PM COST RECORDER Ba Lau MD LAB - CHEMISTRY ORDERABLES Alexandra pedroza Result [facility] [address] [place] [address]. [address] [phone] from Last 3 Months or Most Recently Relevant to Health Maintenance Insurance MEDICARE ANTHEM MEDICARE ANTHEM ANTHEM MEDICARE [facility] Advance Directives * Full Code (Latest Code Status on File) Date Activated Date Inactivated Comments 07/29/2016 2:38 PM 07/31/2016 3:10 PM * Full Code Date Activated Date Inactivated Comments 02/23/2014 11:04 AM 02/24/2014 4:53 PM Care Teams Finishing Supervisor Plastic Sheets Relationship Specialty Start Date End Date Jared Johnson DO PCP - General Internal Medicine 01/02/14 Amie Duran MD Orthopedic Surgery 01/11/14
--- OUTSIDE RECORDS SUMMARY | 2025-01-28 12:37 | XMS_ITS | Continuity of Care Document ---
Author Organization [facility] Address [address] [place] [address] Phone Care Team Providers Care Electron Microprobe Operator Name Role Phone Noe Velasco Unavailable Unavailable Procedures Procedure Date Post-op Follow-up Visit Post-op Follow-up Visit Remove Cataract, Insert Lens Eye Exam, New Patient Echo Exam Of Eye Advance Directives Directive Yes / No Effective Date File Name No Information Encounters Encounter Description Practice Location Reason(s) For Visit Diagnoses Date Provider Providers Copied on Encounter [facility], [address] [place] [address] [address], [place], [place], [id number], tel:[phone] [facility] No Information 8 Rod Liu. [address] [place], [place] [address]ate [address], [place], [place], [facility], . tel:[phone] [facility], [address] [place] [address] [address], [place], [place], [id number], [place] tel:[phone] [facility] No Information 8 Rod Liu. [address] [facility] [address], [place], [place], [facility], [place]. tel:[phone] Referring Provider: Felice Odom, [address] [facility] [address], [place], [place], [facility]. tel:[phone] [facility], [address], [place], [place], [id number], [place] tel:[phone] [facility] Information 200 [address] Rod Edzaria. [address] [place] [address] , [address], [place], [place], [facility], [place]. tel:[phone] Referring Provider: Felice Odom, [address] [place] [address] [address], [place], [place], [facility]. tel:[phone] [facility], [address], [place], [place], [id number], [place] tel:[phone] [facility] No Information 200 [address] Rod Liu. [address] [place] [address] , [address], [place], [place], [facility], [place]. tel:[phone] Referring Provider: Felice Odom, [address] [place] [address] [address], [place], [place], [facility]. tel:[phone] Family History Family Member Type Diagnosis Age At Onset No Information Payers Payer name Insurance type Covered green party ID Authoriza tion(s) No Information Social History [...]
--- OUTSIDE RECORDS SUMMARY | 2025-01-28 12:37 | XMS_ITS | Continuity of Care Document ---
Author Organization [facility] Address [address] [facility] [address] [place] [address] Phone Care Team Providers Care Paddle Dyeing Machine Operator Name Role Phone Vickey PT,MPT,ATC, Mikal Unavailable [...] Diagnoses Date Provider Providers Copied on Encounter [facility] [address], [place], [place], [id number], tel:[phone] [place] No Information AMAURY Sarmiento, [place]. [facility], [place], [place], [id number], tel:[phone] [place] No Information AMAURY Sarmiento, [place]. Referring Provider: Benjamin [address], [address]. tel:[phone] [facility], [place], [place], [id number], tel:[phone] [place] No Information 5 Vickey Renae [place], [place], [place]. Referring Provider: Benjamin Shepherd, [address], [place], [address]. tel:[phone] [employer] [place], [address] [facility] [address], [place], [place], [id number], [place] tel:[phone] [place] No Information Vickey Renae [place], . Referring Provider: Benjamin Shepherd, [address], [place], [address]. tel:[phone] Family History Family Member Type Diagnosis Age At Onset No Information Payers Payer name Insurance type Covered democrat ID Authortomya gabriela(s) Medicare [place] [id number] [facility] [id number] Social History Type Description Quantity Date Captured [...]
--- OUTSIDE RECORDS SUMMARY | 2025-01-28 12:38 | XMS_ITS | Clinical Summary ---
Author Organization [facility] Address [facility] [place] [address] Care Team Providers Care Product Development Worker Name Role Phone Benjamin Murrell DO Unavailable [phone] Brad Farrell MD Unavailable [phone] Jared Johnson DO Primary Care Provider Costa Aparicio MD Unavailable [phone] Allergies Active Allergy Reactions Criticality Noted Date [...] drip/phlegm. Assessment & Plan (07/21/2024 10:38 AM CAR AND YARD SUPERVISOR): The patient has stage II COPD and [...] 10/23/2022 Assessment & Plan (10/23/2022 12:50 PM CAR AND YARD SUPERVISOR): I have ordered an iron and ferritin level. Pulmonary nodule 10/23/2022 Assessment & Plan (10/31/2024 11:19 AM CDT): CT scanning managed by Oncology every 3 months. Assessment & Plan (07/21/2024 10:36 AM CAR AND YARD SUPERVISOR): The pulmonary nodules are presumed metastatic lesions [...] Keytruda. 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 Assessment & Plan (10/23/2022 12:50 PM CAR AND YARD SUPERVISOR): Due to the patient's limb movements on [...] months Assessment & Plan (07/21/2024 10:37 AM CAR AND YARD SUPERVISOR): The patient did smoke a few cigarettes [...] ordered. Assessment & Plan (10/23/2022 12:52 PM CAR AND YARD SUPERVISOR): The patient did smoke 1-2 packs of [...] 07/17/2022 Assessment & Plan (08/21/2022 11:15 AM CAR AND YARD SUPERVISOR): Has improved with the use of Mucinex and Flonase daily Assessment & Plan (07/17/2022 12:38 PM CAR AND YARD SUPERVISOR): The patient has had problems with significant coughing and sputum production. I will order Mucinex 600 mg p.o. b.i.d. and he will also start Flonase 2 puffs in each nostril daily. Prostate cancer 05/28/2022 Overview (05/28/2022): Added automatically from request for surgery [id number] Dehydration 12/03/2020 Malignant neoplasm of cecum 08/29/2020 [...] adapt Assessment & Plan (07/21/2024 10:36 AM CAR AND YARD SUPERVISOR): The patient has restarted CPAP at 11 [...] adapt. Assessment & Plan (10/23/2022 12:49 PM CAR AND YARD SUPERVISOR): Due to the patient being unable to tolerate the CPAP titration study and snoring under the mask I will increase the patient's CPAP to 13 cm of water pressure while sleeping. His DME is adapt. Assessment & Plan (08/21/2022 11:16 AM CAR AND YARD SUPERVISOR): Will continue with CPAP therapy at 11 cm water pressure. Patient will complete a CPAP titration study later this month starting at 11 cm water pressure and titrated as needed. Assessment & Plan (07/17/2022 12:36 PM CAR AND YARD SUPERVISOR): The patient was diagnosed with obstructive sleep [...] breath. Assessment & Plan (10/23/2022 12:48 PM CAR AND YARD SUPERVISOR): Patient continue to use Breztri two puffs [...] 23 Assessment & Plan (08/21/2022 11:16 AM CAR AND YARD SUPERVISOR): Patient will complete a PFT later this month. I have given the patient a discount card for Breztri and the patient will continue with Combivent in the meantime. The patient was instructed to call into the office to see if we have samples of Breztri. Patient is following with Oncology and continues Keytruda. Assessment & Plan (07/17/2022 12:36 PM CAR AND YARD SUPERVISOR): The patient presents with dyspnea and has been receiving Keytruda. He quit smoking 6 years ago and did smoke 1.5 packs of cigarettes per day for 45 years. I have recommended starting with full PFTs . Encounters Date Type Department Care Team Description 01/27/2025 Telephone [facility] Cardiology [address] [place] [address] Costa Aparicio MD 01/20/2025 10:17 AM CDT - 01/21/2025 4:40 PM CDT Hospital Encounter [place] [address] Med Surg [address] [place] [address] Benjamin Murrell, Obstipation (Primary Dx); Centrilobular emphysema [...] care 01/20/2025 8:00 AM CDT Office Visit [facility] Oncology [address] [place] [address] [phone] Benjamin Murrell DO Malignant neoplasm of cecum (HCC) (Primary Dx); Malignant neoplasm metastatic to liver (HCC); Prevention of chemotherapy-induced neutropenia 01/20/2025 7:30 AM CDT Clinical Support [address] [address] Malignant neoplasm metastatic to liver (HCC); Malignant neoplasm of cecum (HCC); Prevention of chemotherapy-induced neutropenia 01/20/2025 Orders Only [facility] [address] [place] [address] [phone] Meg Lopez RN Malignant neoplasm of cecum (HCC) (Primary Dx); Malignant neoplasm metastatic to liver (HCC) 01/17/2025 3:06 PM CDT - 01/17/2025 11:59 PM CDT Hospital Encounter [facility] Office Building [address] [place] [phone] Prostate cancer (HCC); Incomplete bladder emptying Discharge Disposition: Discharge to home or self care 01/17/2025 2:20 PM CDT Office Visit [facility] Surgery [address] [place] [address] [phone] Cheikh Dexter MD Prostate cancer (HCC) (Primary Dx); Incomplete bladder emptying; BPH with obstruction/lower urinary tract symptoms 01/06/2025 12:45 PM CDT Infusion [address] [phone] Dehydration (Primary Dx); Malignant neoplasm of cecum (HCC); Malignant neoplasm metastatic to liver (HCC) 01/06/2025 11:30 AM CDT - 01/06/2025 11:59 PM CDT Hospital Encounter [facility] MOB 1 DIAG IMG [address] [place] [address] Malignant neoplasm of cecum (HCC); Malignant neoplasm metastatic to liver (HCC); Bloating Discharge Disposition: Discharge to home or self care 01/06/2025 11:15 AM CDT Clinical Support [address] [address] Malignant neoplasm of cecum (HCC); Malignant neoplasm metastatic to liver (HCC) 01/06/2025 10:30 AM CDT Office Visit [facility] Oncology [address] [place] [address] [phone] Benjamin Murrell, Bloating (Primary Dx); Malignant neoplasm of cecum (HCC); Malignant neoplasm metastatic to liver (HCC) 01/05/2025 Telephone [facility] [address] [place] [address] [place] [phone] Bianca Christianson, ELI 01/03/2025 Telephone [facility] [address] [place] [address] [place] [phone] Bianca Christianson, ELI 12/30/2024 4:30 PM CDT Infusion [address] [phone] Malignant neoplasm of cecum (HCC); Malignant neoplasm metastatic to liver (HCC) 12/30/2024 2:44 PM CDT - 12/30/2024 11:59 PM CDT Hospital Encounter [facility] CT [address] [place] [address] Malignant neoplasm of cecum (HCC); Malignant neoplasm metastatic to liver (HCC); Memory loss; Dizziness Discharge Disposition: Discharge to home or self care 12/30/2024 1:00 PM CDT Infusion [address] [phone] Anemia associated with chemotherapy (Primary Dx); Malignant neoplasm of cecum (HCC); Malignant neoplasm metastatic to liver (HCC); Iron deficiency anemia, unspecified iron deficiency anemia type 12/30/2024 8:30 AM CDT Infusion [facility] at [address] [phone] Anemia associated with chemotherapy (Primary Dx); Malignant neoplasm metastatic to liver (HCC); Malignant neoplasm of cecum (HCC); Prevention of chemotherapy-induced neutropenia; Dehydration; Iron deficiency anemia, unspecified iron deficiency anemia type 12/30/2024 8:00 AM CDT Clinical Support [address] [address] Malignant neoplasm metastatic to liver (HCC); Malignant neoplasm of cecum (HCC); Prevention of chemotherapy-induced neutropenia; Iron deficiency anemia, unspecified iron deficiency anemia type 12/30/2024 Orders Only [facility] [address] [place] [phone] Bianca Christianson RN Malignant neoplasm of cecum (HCC) (Primary Dx); Malignant neoplasm metastatic to liver (HCC); Iron deficiency anemia, unspecified iron deficiency anemia type; Memory loss; Dizziness 12/30/2024 Orders Only [facility] [address] [place] [phone] Benjamin Murrell DO 12/16/2024 11:00 AM CDT Office Visit [facility] Oncology [address] [place] [phone] Benjamin Murrell, Malignant neoplasm of cecum (HCC) (Primary Dx); Malignant neoplasm metastatic to liver (HCC); Prevention of chemotherapy-induced neutropenia 12/16/2024 10:30 AM CDT Clinical Support [facility] at [address] [address] Malignant neoplasm metastatic to liver (HCC); Malignant neoplasm of cecum (HCC); Prevention of chemotherapy-induced neutropenia 12/15/2024 Orders Only [facility] Oncology [address] [place] [phone] Benjamin Murrell DO 11/24/2024 9:45 AM CDT Infusion [address] [place] [phone] Prevention of chemotherapy-induced neutropenia (Primary Dx); Malignant neoplasm metastatic to liver (HCC); Malignant neoplasm of cecum (HCC) 11/24/2024 9:15 AM CDT Office Visit [facility] Oncology [address] [place] [phone] Benjamin Murrell, Malignant neoplasm metastatic to liver (HCC) (Primary Dx); Malignant neoplasm of cecum (HCC); Prevention of chemotherapy-induced neutropenia; Iron deficiency anemia, unspecified iron deficiency anemia type 11/24/2024 8:45 AM CDT Clinical Support [address] [address] Malignant neoplasm metastatic to liver (HCC); Malignant neoplasm of cecum (HCC); Prevention of chemotherapy-induced neutropenia; Abnormal PSA 11/23/2024 Orders Only [facility] Oncology [address] [place] [phone] Benjamin Murrell DO 11/18/2024 5:23 PM CDT - 11/18/2024 11:59 PM CDT Hospital Encounter [facility] [address] [place] [address] Malignant neoplasm metastatic to liver (HCC); Malignant neoplasm of cecum (HCC) Discharge Disposition: Discharge to home or self care 11/04/2024 12:30 PM CDT Infusion [address] [phone] Prevention of chemotherapy-induced neutropenia (Primary Dx); Malignant neoplasm metastatic to liver (HCC); Malignant neoplasm of cecum (HCC); Abnormal PSA 11/04/2024 12:00 PM CDT Clinical Support [place] [address] [place] [address] Malignant neoplasm metastatic to liver (HCC); Malignant neoplasm of cecum (HCC); Prevention of chemotherapy-induced neutropenia 11/04/2024 Orders Only [facility] Oncology [address] [place] [address] [address] [place] [phone] Benjamin Murrell DO 10/31/2024 10:45 AM CDT Office Visit [facility] Pulmonary [address] [place] [phone] Christina Owen NP HECTOR on CPAP (Primary Dx); Pulmonary nodule; Centrilobular emphysema (HCC); PLMD (periodic limb movement disorder); Personal history of tobacco use 10/31/2024 Telephone [facility] Pulmonary [address] [place] [phone] Brad Farrell MD Request For [...] (benign prostatic hyperplasia) Dental crowns present molar [place] n Hyperlipidemia Anesthesia complication Difficu tly laying [...] oz pur e alcohol) 2-3 pr week [facility] Utilities Answer Date Recorded In the past 12 months has e [employer], gas, oil, or water [employer] threatened to shut off services in your [...] week 03/08/2024 How often do you attend [facility] center or mormon services? More than 4 times per year 03/08/2024 Do you belong to any clubs o r organizations such as latter day groups, unions, fraternal or athletic groups, or [...] place to sleep or slept in a mcc (including now)? No 03/05/2023 Housing Stability Vital Sign Answer Mario e Recorded In the last 12 months, was t here a time when you were not able to pay the mortgage or rent on time? No 03/08/2024 In the past 12 months, how m any times have you moved where you were living? 0 03/08/2024 At any time in the past 12 m [facility], were you homeless or living in a mcc (including now)? No 03/08/2024 Personal Safety Answer Date Recorded Have you ever been in or are you currently in a harmful physical or emotional relationship or is someone making you feel afraid or unsafe? Denies 01/20/2025 Sex and Gender Information Value Date Recorded Sex Assigned at Not on file Legal Sex Male 4:14 AM CAR AND YARD SUPERVISOR Gender Identity Male 11/07/2019 11:07 AM CDT [...] history exists Medical Devices Implanted Type Area Undergraduate Intern Device Identifier Shelf Expiration Date Model / [...] POCT LIPID PANEL Routine 08/30/2024 3:16 PM CAR AND YARD SUPERVISOR Need for lipid screening HEMOGLOBIN A1C Routine 10/14/2023 9:51 AM CAR AND YARD SUPERVISOR HEPATITIS C ANTIBODY Routine 07/30/2017 4:07 PM CAR AND YARD SUPERVISOR from Last 3 Months or Most Recently [...] Frank Evangelista M.D. MM: MM Report ID: [id number] Reading Location: [place] [address] Procedure Note Frank Evangelista MD - 01/20/2025 [...] Frank Evangelista M.D. MM: MM Report ID: [id number] Reading Location: [id number] us Mitali Moulton [facility] CT PROCEDURES Final Resul t * [...] was last reviewed 2021. Testing performed by: [address] [address] Blood 01/20/2025 7:43 AM CDT 01/20/2025 8:06 AM CDT us Benjamin Murrell DO LAB BLOOD ORDERABLES Final R esult [facility] [address] [facility] Department [place] [address] * Differential, auto (01/20/2025 7:43 AM CDT) Neutrophil abs 4.76 1.50 - 6.50 K/cumm Comment:Testing performed by : [address] [address] Imm gran abs 0.02 0.00 - 0.10 K/cumm [facility] Comment:Testing performed by : [address] [address] Lymphocyte abs 1.70 0.80 - 3.30 K/cumm [facility] Comment:Testing performed by : [address], [place]., [address] Monocyte abs 0.76 0.20 - 0.80 K/cumm [facility] Comment:Testing performed by : [address], [place]., [address] Eosinophil abs 0.10 0.00 - 0.50 K/cumm [facility] Comment:Testing performed by : [address], [place]., [address] Basophil abs 0.04 0.00 - 0.10 K/cumm [facility] Comment:Testing performed by : [address] [address] Neutrophil pct 64.5 % [facility] Comment: Interpretive Data Percent cell count reference ranges are not reported, since discordance with absolute values may lead to misinterpretation of CBC data. Current Interpretive Data was last revised on 2017. Testing performed by: [address] [address] Imm gran pct 0.3 % [facility] Comment: Interpretive Data Percent cell count reference ranges are not reported, since discordance with absolute values may lead to misinterpretation of CBC data. Current Interpretive Data was last revised on 2017. Testing performed by: [address] [address] Lymphocyte pct 23.0 % [facility] Comment: Interpretive Data Percent cell count reference ranges are not reported, since discordance with absolute values may lead to misinterpretation of CBC data. Current Interpretive Data was last revised on 2017. Testing performed by: [address] [address] Monocyte pct 10.3 % [facility] Comment: Interpretive Data Percent cell count reference ranges are not reported, since discordance with absolute values may lead to misinterpretation of CBC data. Current Interpretive Data was last revised on 2017. Testing performed by: [address] [address] Eosinophil pct 1.4 % [facility] Comment: Interpretive Data Percent cell count reference ranges are not reported, since discordance with absolute values may lead to misinterpretation of CBC data. Current Interpretive Data was last revised on 2017. Testing performed by: [address] [address] Basophil pct 0.5 % [facility] Comment: Interpretive Data Percent cell count reference ranges are not reported, since discordance with absolute values may lead to misinterpretation of CBC data. Current Interpretive Data was last revised on 2017. Testing performed by: [address] [address] Blood 01/20/2025 7:43 AM CDT 01/20/2025 7:45 AM CDT Benjamin Murrell DO LAB BLOOD ORDERABLES Final R esult [facility] Department [place] [address] * (ABNORMAL) CBC with auto differential (01/20/2025 7:43 AM CDT) WBC 7.38 3.80 - 9.90 K/cumm Comment:Testing performed by : [address] [address] Hgb 9.9(L) 13.0 - 17.5 g/dL [facility] Comment:Testing performed by : [address] [address] Hct 31.8(L) 38.9 - 50.3 % [facility] Comment:Testing performed by : [address] [address] Plt 250 150 - 400 K/cumm [facility] Comment:Testing performed by : [address] [address] MPV 11.0 9.1 - 12.3 fL [facility] Comment:Testing performed by : [address] [address] RBC 3.66(L) 4.30 - 5.80 M/cumm [facility] Comment:Testing performed by : [address] [address] MCV 86.9 81.3 - 96.4 fL [facility] Comment:Testing performed by : [address] [address] MCH 27.0(L) 27.1 - 33.3 pg [facility] Comment:Testing performed by : [address] [address] MCHC 31.1(L) 32.3 - 35.7 g/dL [facility] Comment:Testing performed by : [address] [address] RDW CV 19.3(H) 11.1 - 14.9 % [facility] Comment:Testing performed by : [address] [address] RDW SD 61.1(H) 35.7 - 48.1 fL [facility] Comment:Testing performed by : [address] [address] NRBC abs 0.00 0.00 - 0.01 K/cumm [facility] Comment:Testing performed by : [address] [address] ANC Prelim 4.76 1.50 - 6.50 K/cumm [facility] Comment: Interpretive Data The rapid ANC is a preliminary automated count and may vary from the final ANC (Neut Abs) reported in the WBC differential that follows. Current interpretive data was last revised 2024. Testing performed by: [address] [address] Blood 01/20/2025 7:43 AM CDT 01/20/2025 7:45 AM CDT us Benjamin Murrell DO LAB BLOOD ORDERABLES Final R esult [facility] [address] [facility] Department [place] [address] * (ABNORMAL) Comprehensive metabolic panel (01/20/2025 7:43 AM CDT) Sodium 131(L) 135 - 145 mmol/L Comment:Testing performed by : [facility], [address] [place] [address]., [address] Potassium, pl 4.1 3.3 - 4.9 mmol/L [facility] Comment:Testing performed by : [address], [place]., [address] Chloride 99 97 - 110 mmol/L [facility] Comment:Testing performed by : [address], [place]., [address] CO2 21(L) 22 - 32 mmol/L [facility] Comment:Testing performed by : [address], [place]., [address] Anion gap 11 2 - 15 mmol/L [facility] Comment:Testing performed by : [address], [place]., [address] BUN 14 6 - 25 mg/dL [facility] Comment:Testing performed by : [address], [place]., [address] Creatinine 0.90 0.80 - 1.30 mg/dL [facility] Comment:Testing performed by : [address], [place]., [address] Glucose 103 70 - 199 mg/dL [facility] Comment: Interpretive Data Fasting glucose >/= 126 [...] was last revised 2022. Testing performed by: [address] [address] Calcium 9.2 8.5 - 10.3 mg/dL [facility] Comment:Testing performed by : [address], [place]., [address] Bilirubin, total 0.7 0.1 - 1.2 mg/dL [facility] Comment:Testing performed by : [address] [address] Protein, pl 7.1 6.5 - 8.5 g/dL [facility] Comment:Testing performed by : [address] [address] Albumin 3.4(L) 3.5 - 5.0 g/dL [facility] Comment:Testing performed by : [address] [address] Alk phos 414(H) 40 - 130 Units/L [facility] Comment:Testing performed by : [address] [address] ALT 27 7 - 55 Units/L [facility] Comment:Testing performed by : [address] [address] AST 81(H) 10 - 50 Units/L [facility] Comment:Testing performed by : [address] [address] Blood 01/20/2025 7:43 AM CDT 01/20/2025 7:45 AM CDT us Benjamin Murrell DO LAB BLOOD ORDERABLES Final R esult [facility] Department [place] [address] * Measure post void residual (01/17/2025 2:51 PM CDT) Narrative Stephanie Bailey [facility] - 01/17/2025 2:51 PM CDT Measurement of Post Void Residual urine and/or bladder capacity PVR = 369 ml us Cheikh Dexter MD NURSING ASSESSMENTS Final Result * Urine culture Urine, bladder (01/17/2025 2:49 PM CDT) Report Final Report: Less than 100,000 colonies/mL (clinically insignificant growth based on current clinical standards) Comment:Testing performed by : [facility], [address] [facility] [place]., [address] Organism (CLINICALLY INSIGNIFICANT GROWTH [facility] Urine, bladder 01/17/2025 2: 49 PM CDT 01/18/2025 12:02 AM CDT Narrative [facility] - 01/19/2025 8:08 AM CDT Testing performed by [facility] Microbiology Laboratory ([phone]) Cheikh Dexter MD LAB MICROBIOLOGY - GENERAL ORDER CAM Final Result [facility] [address] [facility] Department [place] [address] * (ABNORMAL) POCT urinalysis dipstick (01/17/2025 2:48 PM CDT) Color, Urine, POC Dark [place] Clarity, ur, POC Clear Clear Glucose, ur, POC Negative Negative Bilirubin, ur, POC 1+(A) Negative Ketones, ur, POC Negative Negative Specific [place], POC 1.025 1.003 - 1.030 Blood, ur, [...] by Ryan Greene M.D. CH: Report ID: [id number] Reading Location: [id number] Procedure Note Ryan Greene Jr., MD - [...] Ryan Greene M.D. CH: SARITA Report ID: [id number] Reading Location: [id number] us Benjamin Murrell DO IMG XR PROCEDURES [...] was last reviewed 2021. Testing performed by: [facility], [address] [place] [address]., [address] Blood 01/06/2025 11:2 5 AM CDT 01/06/2025 11:36 AM CDT us Benjamin Murrell DO LAB BLOOD ORDERABLES Final R esult [facility] [address] [facility] Department [place] [address] * (ABNORMAL) Differential, auto (01/06/2025 11:25 AM CDT) Neutrophil abs 4.42 1.50 - 6.50 K/cumm Comment:Testing performed by : [facility], [address] [place] [address], [place]., [address] Imm gran abs 0.40(H) 0.00 - 0.10 K/cumm [facility] Comment:Testing performed by : [address], [place]., [address] Lymphocyte abs 1.10 0.80 - 3.30 K/cumm [facility] Comment:Testing performed by : [address], [place]., [address] Monocyte abs 0.59 0.20 - 0.80 K/cumm [facility] Comment:Testing performed by : [address], [place]., [address] Eosinophil abs 0.12 0.00 - 0.50 K/cumm [facility] Comment:Testing performed by : [address], [place]., [address] Basophil abs 0.03 0.00 - 0.10 K/cumm [facility] Comment:Testing performed by : [address] [address] Neutrophil pct 66.3 % [facility] Comment: Interpretive Data Percent cell count reference ranges are not reported, since discordance with absolute values may lead to misinterpretation of CBC data. Current Interpretive Data was last revised on 2017. Testing performed by: [address] [address] Imm gran pct 6.0 % [facility] Comment: Interpretive Data Percent cell count reference ranges are not reported, since discordance with absolute values may lead to misinterpretation of CBC data. Current Interpretive Data was last revised on 2017. Testing performed by: [address] [address] Lymphocyte pct 16.5 % [facility] Comment: Interpretive Data Percent cell count reference ranges are not reported, since discordance with absolute values may lead to misinterpretation of CBC data. Current Interpretive Data was last revised on 2017. Testing performed by: [address] [address] Monocyte pct 8.9 % [facility] Comment: Interpretive Data Percent cell count reference ranges are not reported, since discordance with absolute values may lead to misinterpretation of CBC data. Current Interpretive Data was last revised on 2017. Testing performed by: [address] [address] Eosinophil pct 1.8 % [facility] Comment: Interpretive Data Percent cell count reference ranges are not reported, since discordance with absolute values may lead to misinterpretation of CBC data. Current Interpretive Data was last revised on 2017. Testing performed by: [address] [address] Basophil pct 0.5 % UBALDO Comment: Interpretive Data Percent cell count reference ranges are not reported, since discordance with absolute values may lead to misinterpretation of CBC data. Current Interpretive Data was last revised on 2017. Testing performed by: [address] [address] Blood 01/06/2025 11:2 5 AM CDT 01/06/2025 11:36 AM CDT us Benjamin Murrell DO LAB BLOOD ORDERABLES Final R esult UBALDO [address] [facility] [place] [address] * (ABNORMAL) CBC with auto differential (01/06/2025 11:25 AM CDT) WBC 6.66 3.80 - 9.90 K/cumm Comment:Testing performed by : [address] [address] Hgb 9.4(L) 13.0 - 17.5 g/dL UBALDO Comment:Testing performed by : [address] [address] Hct 29.8(L) 38.9 - 50.3 % UBALDO Comment:Testing performed by : [address] [address] Plt 207 150 - 400 K/cumm UBALDO Comment:Testing performed by : [address] [address] MPV 10.8 9.1 - 12.3 fL UBALDO Comment:Testing performed by : [address] [address] RBC 3.36(L) 4.30 - 5.80 M/cumm UBALDO Comment:Testing performed by : [address] [address] MCV 88.7 81.3 - 96.4 fL UBALDO Comment:Testing performed by : [address] [address] MCH 28.0 27.1 - 33.3 pg UBALDO Comment:Testing performed by : [address] [address] MCHC 31.5(L) 32.3 - 35.7 g/dL UBALDO Comment:Testing performed by : [address] [address] RDW CV 18.5(H) 11.1 - 14.9 % UBALDO Comment:Testing performed by : [address] [address] RDW SD 60.4(H) 35.7 - 48.1 fL UBALDO Comment:Testing performed by : [address] [address] NRBC abs 0.00 0.00 - 0.01 K/cumm UBALDO Comment:Testing performed by : [address] [address] ANC Prelim 4.42 1.50 - 6.50 K/cumm UBALDO Comment: Interpretive Data The rapid ANC is a preliminary automated count and may vary from the final ANC (Neut Abs) reported in the WBC differential that follows. Current interpretive data was last revised 2024. Testing performed by: [address] [address] Blood 01/06/2025 11:2 5 AM CDT 01/06/2025 11:36 AM CDT us Benjamin Murrell DO LAB BLOOD ORDERABLES Final R esult Performing Organization Address City/[facility] Co de Phone Number UBALDO [address] [place] [address] * Ammonia (01/06/2025 11:25 AM CDT) Ammonia 32 <=50 mcmol/L Comment: Please note on 12/23/2023 the unit of measure changed from mcg/dL to mcmol/L. Current Interpretive Data was last revised on 2023. Testing performed by: [address] [address] Blood 01/06/2025 11:2 5 AM CDT 01/06/2025 11:36 AM CDT Benjamin Murrell DO LAB BLOOD ORDERABLES Final R esult Performing Organization Address [facility] Co de Phone Number UBALDO [facility] [place] [address] * (ABNORMAL) Comprehensive metabolic panel (01/06/2025 11:25 AM CDT) Sodium 134(L) 135 - 145 mmol/L Comment:Testing performed by : [address] [address] Potassium, pl 4.6 3.3 - 4.9 mmol/L UBALDO Comment:Testing performed by : [address] [address] Chloride 101 97 - 110 mmol/L UBALDO Comment:Testing performed by : [address] [address] CO2 23 22 - 32 mmol/L UBALDO Comment:Testing performed by : [address] [address] Anion gap 10 2 - 15 mmol/L UBALDO Comment:Testing performed by : [address] [address] BUN 16 6 - 25 mg/dL UBALDO Comment:Testing performed by : [address] [address] Creatinine 0.90 0.80 - 1.30 mg/dL [facility] Comment:Testing performed by : [address] [address] Glucose 139 70 - 199 mg/dL [facility] Comment: Interpretive Data Fasting glucose >/= 126 [...] was last revised 2022. Testing performed by: [address] [address] Calcium 8.9 8.5 - 10.3 mg/dL [facility] Comment:Testing performed by : [address] [address] Bilirubin, total 0.6 0.1 - 1.2 mg/dL [facility] Comment:Testing performed by : [address] [address] Protein, pl 6.7 6.5 - 8.5 g/dL [facility] Comment:Testing performed by : [address] [address] Albumin 3.2(L) 3.5 - 5.0 g/dL [facility] Comment:Testing performed by : [address] [address] Alk phos 375(H) 40 - 130 Units/L [facility] Comment:Testing performed by : [address] [address] ALT 27 7 - 55 Units/L [facility] Comment:Testing performed by : [address] [address] AST 60(H) 10 - 50 Units/L [facility] Comment:Testing performed by : [address] [address] Blood 01/06/2025 11:2 5 AM CDT 01/06/2025 11:36 AM CDT Benjamin Murrell DO LAB BLOOD ORDERABLES Final R esult UBALDO [facility] Department [place] [address] * CT head with & without contrast [...] by Ryan Greene M.D. T: Report ID: [id number] Reading Location: [id number] Procedure Note Ryan Greene Jr., MD - [...] by Ryan Greene M.D. T: Report ID: [id number] Reading Location: [place] [address] Benjamin Murrell DO IMG CT PROCEDURES Final Resu lt * Transfuse RBC (12/30/2024 1:19 PM CDT) Blood us Benjamin Murrell DO BLOOD TRANSFUSION ORDERABLES Final Result * Prepare RBC: 1 Units (12/30/2024 10:21 AM CDT) Units requested 1 Comment:Testing performed by : [facility], [address] [place] [address]., [address] Units requested Cata MATAMOROS Comment:Testing performed by : [address] [address] Unit Number [id number] Product code [id number] [facility] Blood Expiration Date [facility] Blood Type (for scanning) 6200 [facility] Product Blood Type APOS [facility] Dispense Status DISPENSED [facility] Blood 12/30/2024 10:2 1 AM CDT 12/30/2024 10:21 AM CDT Benjamin Murrell BLOOD BANK PRODUCT ORDERABLE S Final Result Performing Organization Address [facility] de Phone Number [address] [place] [address] * ABO/Rh (12/30/2024 9:14 AM CDT) ABO/Rh A Positive Comment:Testing performed by : [facility], [address] [place] [address], [address] Blood 12/30/2024 9:14 AM CDT 12/30/2024 9:37 AM CDT Narrative [facility] - 12/30/2024 10:19 AM CDT Has the patient had Daratumumab or Isatuximab in the past 6 months?->No Benjamin Murrell LAB BLOOD BANK TEST ORDERABL ES Final Result Performing Organization Address [facility] de Phone Number [address] [place] [address] * Crossmatch (12/30/2024 9:14 AM CDT) Crossmatch Compatible [facility] Unit number for crossmatch [id number] [facility] Blood 12/30/2024 9:14 AM CDT 12/30/2024 9:37 AM CDT Benjamin Murrell LAB BLOOD BANK TEST ORDERABL ES Final Result Performing Organization Address [facility] Co de Phone Number [address] [place] [address] * Antibody screen (12/30/2024 9:14 AM CDT) Ruperto, indirect, Gel Interpretation Negative ABSC Comment:Testing performed by : [facility], [address] [place] [address]., [address] Blood 12/30/2024 9:14 AM CDT 12/30/2024 9:37 AM CDT Kelly UBALDO - 12/30/2024 10:22 AM CDT Has the patient had Daratumumab or Isatuximab in the past 6 months?->No Benjamin Murrell DO LAB BLOOD BANK TEST ORDERABL ES Final Result UBALDO [facility] [place] [address] * eGFR (12/30/2024 8:14 AM CDT) Pathologist [facility] eGFR 78 >=60 mL/min/1. 73 m2 Comment: [...] was last reviewed 2021. Testing performed by: [facility], [address] [place] [address]., [address] Blood 12/30/2024 8:14 AM CDT 12/30/2024 8:16 AM CDT us Benjamin Murrell DO LAB BLOOD ORDERABLES Final R esult UBALDO [address] [facility] Department [place] [address] * Differential, auto (12/30/2024 8:14 AM CDT) Neutrophil abs 5.64 1.50 - 6.50 K/cumm Comment:Testing performed by : [address] [address] Imm gran abs 0.08 0.00 - 0.10 K/cumm UBALDO Comment:Testing performed by : [address] [address] Lymphocyte abs 1.33 0.80 - 3.30 K/cumm UBALDO Comment:Testing performed by : [address] [address] Monocyte abs 0.80 0.20 - 0.80 K/cumm UBALDO Comment:Testing performed by : [address] [address] Eosinophil abs 0.07 0.00 - 0.50 K/cumm UBALDO Comment:Testing performed by : [address] [address] Basophil abs 0.04 0.00 - 0.10 K/cumm UBALDO Comment:Testing performed by : [address] [address] Neutrophil pct 70.8 % UBALDO Comment: Interpretive Data Percent cell count reference ranges are not reported, since discordance with absolute values may lead to misinterpretation of CBC data. Current Interpretive Data was last revised on 2017. Testing performed by: [address] [address] Imm gran pct 1.0 % UBALDO Comment: Interpretive Data Percent cell count reference ranges are not reported, since discordance with absolute values may lead to misinterpretation of CBC data. Current Interpretive Data was last revised on 2017. Testing performed by: [address] [address] Lymphocyte pct 16.7 % [facility] Comment: Interpretive Data Percent cell count reference ranges are not reported, since discordance with absolute values may lead to misinterpretation of CBC data. Current Interpretive Data was last revised on 2017. Testing performed by: [address] [address] Monocyte pct 10.1 % [facility] Comment: Interpretive Data Percent cell count reference ranges are not reported, since discordance with absolute values may lead to misinterpretation of CBC data. Current Interpretive Data was last revised on 2017. Testing performed by: [address] [address] Eosinophil pct 0.9 % [facility] Comment: Interpretive Data Percent cell count reference ranges are not reported, since discordance with absolute values may lead to misinterpretation of CBC data. Current Interpretive Data was last revised on 2017. Testing performed by: [address] [address] Basophil pct 0.5 % [facility] Comment: Interpretive Data Percent cell count reference ranges are not reported, since discordance with absolute values may lead to misinterpretation of CBC data. Current Interpretive Data was last revised on 2017. Testing performed by: [address] [address] Blood 12/30/2024 8:14 AM CDT 12/30/2024 8:16 AM CDT Benjamin Murrell DO LAB BLOOD ORDERABLES Final R esult [facility] [address] [facility] Department [place] [address] * (ABNORMAL) Iron profile w/ IBC (12/30/2024 8:14 AM CDT) Pathologist [facility] Iron 24(L) 50 - 150 mcg/dL Comment:Testing performed by : [address] [address] TIBC 199(L) 250 - 400 mcg/dL UBALDO Comment:Testing performed by : [address] [address] Transferrin saturation 12(L) 20 - 50 % UBALDO Comment:Testing performed by : [address] [address] Blood 12/30/2024 8:14 AM CDT 12/30/2024 9:37 AM CDT Benjamin Murrell DO LAB BLOOD ORDERABLES Final R esult [facility] [address] [facility] Department [place] [address] * (ABNORMAL) CBC with auto differential (12/30/2024 8:14 AM CDT) WBC 7.96 3.80 - 9.90 K/cumm Comment:Testing performed by : [address] [address] Hgb 8.3(L) 13.0 - 17.5 g/dL UBALDO Comment:Testing performed by : [address] [address] Hct 26.2(L) 38.9 - 50.3 % UBALDO Comment:Testing performed by : [address] [address] Plt 210 150 - 400 K/cumm UBALDO Comment:Testing performed by : [address] [address] MPV 9.9 9.1 - 12.3 fL UBALDO Comment:Testing performed by : [address] [address] RBC 2.95(L) 4.30 - 5.80 M/cumm UBALDO Comment:Testing performed by : [address] [address] MCV 88.8 81.3 - 96.4 fL UBALDO Comment:Testing performed by : [address] [address] MCH 28.1 27.1 - 33.3 pg UBALDO Comment:Testing performed by : [address] [address] MCHC 31.7(L) 32.3 - 35.7 g/dL UBALDO MATAMOROS Comment:Testing performed by : [address] [address] RDW CV 18.7(H) 11.1 - 14.9 % UBALDO Comment:Testing performed by : [address] [address] RDW SD 60.2(H) 35.7 - 48.1 fL UBALDO Comment:Testing performed by : [address] [address] NRBC abs 0.00 0.00 - 0.01 K/cumm UBALDO Comment:Testing performed by : [address] [address] ANC Prelim 5.64 1.50 - 6.50 K/cumm UBALDO Comment: Interpretive Data The rapid ANC is a preliminary automated count and may vary from the final ANC (Neut Abs) reported in the WBC differential that follows. Current interpretive data was last revised 2024. Testing performed by: [address] [address] Blood 12/30/2024 8:14 AM CDT 12/30/2024 8:16 AM CDT Benjamin Murrell DO LAB BLOOD ORDERABLES Final R esult UBALDO [address] [facility] Department [place] [address] * (ABNORMAL) Reticulocyte Count (12/30/2024 8:14 AM CDT) Retics, absolute 58 20 - 87 K/cumm Comment:Testing performed by : [address] [address] Retics 1.9 0.4 - 2.9 % UBALDO Comment:Testing performed by : [address] [address] Reticulocyte Hgb 25.4(L) 30.5 - 38.0 pg UBALDO Comment:Testing performed by : [address] [address] Blood 12/30/2024 8:14 AM CDT 12/30/2024 8:16 AM CDT Benjamin Murrell DO LAB BLOOD ORDERABLES Final R esult Performing Organization Address City/[facility] Co de Phone Number [address] [place] [address] * (ABNORMAL) Ferritin (12/30/2024 8:14 AM CDT) Ferritin 942(H) 30 - 400 ng/mL Comment:Testing performed by : [address] [address] Blood 12/30/2024 8:14 AM CDT 12/30/2024 9:37 AM CDT Benjamin Murrell DO LAB BLOOD ORDERABLES Final R esult Performing Organization Address [facility] Co de Phone Number [address] [place] [address] * (ABNORMAL) Vitamin B12 (12/30/2024 8:14 AM CDT) Vitamin B12 >2,000(H) 230 - 1,250 pg/mL Comment:Testing performed by : [address] [address] Blood 12/30/2024 8:14 AM CDT 12/30/2024 9:37 AM CDT Benjamin Murrell DO LAB BLOOD ORDERABLES Final R esult Performing Organization Address City/[facility] Co de Phone Number [address] [place] [address] * (ABNORMAL) Comprehensive metabolic panel (12/30/2024 8:14 AM CDT) Sodium 134(L) 135 - 145 mmol/L Comment:Testing performed by : [address] [address] Potassium, pl 4.2 3.3 - 4.9 mmol/L UBALDO Comment:Testing performed by : [address] [address] Chloride 101 97 - 110 mmol/L UBALDO Comment:Testing performed by : [address] [address] CO2 21(L) 22 - 32 mmol/L UBALDO Comment:Testing performed by : [address] [address] Anion gap 12 2 - 15 mmol/L UBALDO Comment:Testing performed by : [address] [address] BUN 18 6 - 25 mg/dL UBALDO Comment:Testing performed by : [address] [address] Creatinine 1.00 0.80 - 1.30 mg/dL UBALDO Comment:Testing performed by : [address] [address] Glucose 187 70 - 199 mg/dL UBALDO [...] was last revised 2022. Testing performed by: [address] [address] Calcium 8.5 8.5 - 10.3 mg/dL UBALDO Comment:Testing performed by : [address] [address] Bilirubin, total 0.4 0.1 - 1.2 mg/dL UBALDO Comment:Testing performed by : [address] [address] Protein, pl 6.5 6.5 - 8.5 g/dL UBALDO Comment:Testing performed by : [address] [address] Albumin 3.2(L) 3.5 - 5.0 g/dL UBALDO Comment:Testing performed by : [address] [address] Alk phos 346(H) 40 - 130 Units/L UBALDO Comment:Testing performed by : [address] [address] ALT 26 7 - 55 Units/L UBALDO Comment:Testing performed by : [address], [address] AST 65(H) 10 - 50 Units/L UBALDO Comment:Testing performed by : [address] [address] Blood 12/30/2024 8:14 AM CDT 12/30/2024 8:16 AM CDT Benjamin Murrell DO LAB BLOOD ORDERABLES Final R esult UBALDO [address] [facility] Department of Laboratories [place], [place] [id number] * eGFR (12/16/2024 10:11 AM CDT) eGFR [...] was last reviewed 2021. Testing performed by: [address] [address] Blood 12/16/2024 10:1 1 AM CDT 12/16/2024 10:16 AM CDT Benjamin Murrell DO LAB BLOOD ORDERABLES Final R esult [facility] [address] [facility] Department [place] [address] * (ABNORMAL) Differential, auto (12/16/2024 10:11 AM CDT) Neutrophil abs 6.39 1.50 - 6.50 K/cumm Comment:Testing performed by : [address] [address] Imm gran abs 0.19(H) 0.00 - 0.10 K/cumm UBALDO Comment:Testing performed by : [address] [address] Lymphocyte abs 1.68 0.80 - 3.30 K/cumm UBALDO Comment:Testing performed by : [address] [address] Monocyte abs 1.61(H) 0.20 - 0.80 K/cumm UBALDO Comment:Testing performed by : [address] [address] Eosinophil abs 0.07 0.00 - 0.50 K/cumm UBALDO Comment:Testing performed by : [address] [address] Basophil abs 0.03 0.00 - 0.10 K/cumm UBALDO Comment:Testing performed by : [address] [address] Neutrophil pct 64.1 % UBALDO Comment: Interpretive Data Percent cell count reference ranges are not reported, since discordance with absolute values may lead to misinterpretation of CBC data. Current Interpretive Data was last revised on 2017. Testing performed by: [address] [address] Imm gran pct 1.9 % UBALDO Comment: Interpretive Data Percent cell count reference ranges are not reported, since discordance with absolute values may lead to misinterpretation of CBC data. Current Interpretive Data was last revised on 2017. Testing performed by: [address] [address] Lymphocyte pct 16.9 % [facility] Comment: Interpretive Data Percent cell count reference ranges are not reported, since discordance with absolute values may lead to misinterpretation of CBC data. Current Interpretive Data was last revised on 2017. Testing performed by: [address] [address] Monocyte pct 16.1 % [facility] Comment: Interpretive Data Percent cell count reference ranges are not reported, since discordance with absolute values may lead to misinterpretation of CBC data. Current Interpretive Data was last revised on 2017. Testing performed by: [address] [address] Eosinophil pct 0.7 % [facility] Comment: Interpretive Data Percent cell count reference ranges are not reported, since discordance with absolute values may lead to misinterpretation of CBC data. Current Interpretive Data was last revised on 2017. Testing performed by: [address] [address] Basophil pct 0.3 % [facility] Comment: Interpretive Data Percent cell count reference ranges are not reported, since discordance with absolute values may lead to misinterpretation of CBC data. Current Interpretive Data was last revised on 2017. Testing performed by: [address] [address] Blood 12/16/2024 10:1 1 AM CDT 12/16/2024 10:16 AM CDT us Benjamin Murrell DO LAB BLOOD ORDERABLES Final R esult UABLDO [address] [facility] Department [place] [address] * (ABNORMAL) CBC with auto differential (12/16/2024 10:11 AM CDT) [facility] WBC 9.97(H) 3.80 - 9.90 K/cumm Comment:Testing performed by : [address] [address] Hgb 9.2(L) 13.0 - 17.5 g/dL UBALDO Comment:Testing performed by : [address] [address] Hct 29.5(L) 38.9 - 50.3 % UBALDO Comment:Testing performed by : [address] [address] Plt 261 150 - 400 K/cumm UBALDO Comment:Testing performed by : [address] [address] MPV 11.0 9.1 - 12.3 fL UBALDO Comment:Testing performed by : [address] [address] RBC 3.26(L) 4.30 - 5.80 M/cumm UBALDO Comment:Testing performed by : [address] [address] MCV 90.5 81.3 - 96.4 fL UBALDO Comment:Testing performed by : [address] [address] MCH 28.2 27.1 - 33.3 pg UBALDO Comment:Testing performed by : [address] [address] MCHC 31.2(L) 32.3 - 35.7 g/dL UBALDO Comment:Testing performed by : [address], [address] RDW CV 18.4(H) 11.1 - 14.9 % UBALDO MATAMOROS Comment:Testing performed by : [address] [address] RDW SD 60.7(H) 35.7 - 48.1 fL UBALDO MATAMOROS Comment:Testing performed by : [address] [address] NRBC abs 0.00 0.00 - 0.01 K/cumm UBALDO MATAMOROS Comment:Testing performed by : [address] [address] ANC Prelim 6.39 1.50 - 6.50 K/cumm UBALDO Comment: Interpretive Data The rapid ANC is a preliminary automated count and may vary from the final ANC (Neut Abs) reported in the WBC differential that follows. Current interpretive data was last revised 2024. Testing performed by: [address] [address] Blood 12/16/2024 10:1 1 AM CDT 12/16/2024 10:16 AM CDT us Benjamin Murrell DO LAB BLOOD ORDERABLES Final R esult UBALDO [address] [facility] Department of Laboratories [place], [place] [id number] * (ABNORMAL) Comprehensive metabolic panel (12/16/2024 10:11 AM CDT) Sodium 133(L) 135 - 145 mmol/L Comment:Testing performed by : [address] [address] Potassium, pl 4.1 3.3 - 4.9 mmol/L UBALDO MATAMOROS Comment:Testing performed by : [address] [address] Chloride 96(L) 97 - 110 mmol/L UBALDO MATAMOROS Comment:Testing performed by : [address] [address] CO2 25 22 - 32 mmol/L UBALDO MATAMOROS Comment:Testing performed by : [address] [address] Anion gap 12 2 - 15 mmol/L UBALDO Comment:Testing performed by : [address] [address] BUN 15 6 - 25 mg/dL UBALDO Comment:Testing performed by : [address], [place]., [address] Creatinine 0.70(L) 0.80 - 1.30 mg/dL UBALDO Comment:Testing performed by : [address] [address] Glucose 149 70 - 199 mg/dL UBALDO [...] was last revised 2022. Testing performed by: [address] [address] Calcium 8.6 8.5 - 10.3 mg/dL UBALDO Comment:Testing performed by : [address] [address] Bilirubin, total 0.4 0.1 - 1.2 mg/dL UBALDO Comment:Testing performed by : [address] [address] Protein, pl 6.5 6.5 - 8.5 g/dL UBALDO Comment:Testing performed by : [address] [address] Albumin 3.5 3.5 - 5.0 g/dL UBALDO Comment:Testing performed by : [address] [address] Alk phos 375(H) 40 - 130 Units/L UBALDO Comment:Testing performed by : [address] [address] ALT 24 7 - 55 Units/L UBALDO Comment:Testing performed by : [facility], [address] [place] [address]., [address] AST 51(H) 10 - 50 Units/L UBALDO Comment:Testing performed by : [facility], [address] [place] [address]., [address] Blood 12/16/2024 10:1 1 AM CDT 12/16/2024 10:16 AM CDT Benjamin Murrell DO LAB BLOOD ORDERABLES Final R esult Performing Organization Address [facility] Co de Phone Number ANGELA[address] [place] [address] * (ABNORMAL) Erythropoietin (11/24/2024 11:02 AM CDT) [facility] Erythropoietin 36.7(H) 2.6 - 18.5 mIUnits/m L [place] [facility] Comment: Test Performed by: [facility] [address] [place] [address] Internal Revenue Service Agent: Leighton Gregory Ph.D.; CLIA# [id number] Testing performed by: [address] [address] Blood 11/24/2024 11:0 2 AM CDT 11/24/2024 11:13 AM CDT Benjamin Murrell DO LAB BLOOD ORDERABLES Final R esult Performing Organization Address [facility] Co de Phone Number ANGELA[address] [place] [address] [facility] * eGFR (11/24/2024 8:51 AM CDT) [facility] eGFR >90 >=60 mL/min/1. 73 m2 Comment: [...] was last reviewed 2021. Testing performed by: [address] [address] Blood 11/24/2024 8:51 AM CDT 11/24/2024 8:52 AM CDT Benjamin Murrell DO LAB BLOOD ORDERABLES Final R esult [facility] [address] [facility] Department of Laboratories [place], [place] [id number] * (ABNORMAL) Differential, auto (11/24/2024 8:51 AM CDT) Neutrophil abs 8.23(H) 1.50 - 6.50 K/cumm Comment:Testing performed by : [address] [address] Imm gran abs 0.21(H) 0.00 - 0.10 K/cumm UBALDO Comment:Testing performed by : [address] [address] Lymphocyte abs 1.69 0.80 - 3.30 K/cumm UBALDO Comment:Testing performed by : [address] [address] Monocyte abs 1.45(H) 0.20 - 0.80 K/cumm UBALDO Comment:Testing performed by : [address] [address] Eosinophil abs 0.04 0.00 - 0.50 K/cumm UBALDO Comment:Testing performed by : [address] [address] Basophil abs 0.03 0.00 - 0.10 K/cumm UBALDO Comment:Testing performed by : [address] [address] Neutrophil pct 70.7 % [facility] Comment: Interpretive Data Percent cell count reference ranges are not reported, since discordance with absolute values may lead to misinterpretation of CBC data. Current Interpretive Data was last revised on 2017. Testing performed by: [address] [address] Imm gran pct 1.8 % [facility] Comment: Interpretive Data Percent cell count reference ranges are not reported, since discordance with absolute values may lead to misinterpretation of CBC data. Current Interpretive Data was last revised on 2017. Testing performed by: [address] [address] Lymphocyte pct 14.5 % [facility] Comment: Interpretive Data Percent cell count reference ranges are not reported, since discordance with absolute values may lead to misinterpretation of CBC data. Current Interpretive Data was last revised on 2017. Testing performed by: [address] [address] Monocyte pct 12.4 % [facility] Comment: Interpretive Data Percent cell count reference ranges are not reported, since discordance with absolute values may lead to misinterpretation of CBC data. Current Interpretive Data was last revised on 2017. Testing performed by: [address] [address] Eosinophil pct 0.3 % [facility] Comment: Interpretive Data Percent cell count reference ranges are not reported, since discordance with absolute values may lead to misinterpretation of CBC data. Current Interpretive Data was last revised on 2017. Testing performed by: [address] [address] Basophil pct 0.3 % [facility] Comment: Interpretive Data Percent cell count reference ranges are not reported, since discordance with absolute values may lead to misinterpretation of CBC data. Current Interpretive Data was last revised on 2017. Testing performed by: [address] [address] Blood 11/24/2024 8:51 AM CDT 11/24/2024 8:52 AM CDT Benjamin Murrell DO LAB BLOOD ORDERABLES Final R esult UBALDO [address] [facility] Department [place] [address] * (ABNORMAL) CBC with auto differential (11/24/2024 8:51 AM CDT) WBC 11.65(H) 3.80 - 9.90 K/cumm Comment:Testing performed by : [address] [address] Hgb 8.8(L) 13.0 - 17.5 g/dL UBALDO Comment:Testing performed by : [address] [address] Hct 28.0(L) 38.9 - 50.3 % UBALDO Comment:Testing performed by : [address] [address] Plt 191 150 - 400 K/cumm UBALDO Comment:Testing performed by : [address] [address] MPV 9.7 9.1 - 12.3 fL UBALDO Comment:Testing performed by : [address] [address] RBC 3.13(L) 4.30 - 5.80 M/cumm UBALDO Comment:Testing performed by : [address] [address] MCV 89.5 81.3 - 96.4 fL UBALDO Comment:Testing performed by : [address] [address] MCH 28.1 27.1 - 33.3 pg UBALDO Comment:Testing performed by : [address] [address] MCHC 31.4(L) 32.3 - 35.7 g/dL UBALDO Comment:Testing performed by : [address] [address] RDW CV 19.4(H) 11.1 - 14.9 % UBALDO Comment:Testing performed by : [address] [address] RDW SD 63.8(H) 35.7 - 48.1 fL UBALDO Comment:Testing performed by : [address] [address] NRBC abs 0.00 0.00 - 0.01 K/cumm UBALDO Comment:Testing performed by : [address] [address] ANC Prelim 8.23(H) 1.50 - 6.50 K/cumm UBALDO Comment: Interpretive Data The rapid ANC is a preliminary automated count and may vary from the final ANC (Neut Abs) reported in the WBC differential that follows. Current interpretive data was last revised 2024. Testing performed by: [address] [address] Blood 11/24/2024 8:51 AM CDT 11/24/2024 8:52 AM CDT us Benjamin Murrell DO LAB BLOOD ORDERABLES Final R esult [facility] [address] [facility] Department [place] [address] * PSA diagnostic (11/24/2024 8:51 [...] data last revised 21. Testing performed by: [address] [address] Blood 11/24/2024 8:51 AM CDT 11/24/2024 9:43 AM CDT Benjamin Murrell LAB BLOOD ORDERABLES Final R esult Performing Organization Address [facility] de Phone Number [address] [place] [place] [address] * (ABNORMAL) CEA (11/24/2024 8:51 AM CDT) CEA 156.0(H) <=5.0 ng/mL Comment: Interpretive Data: Reference Range: Non-Smokers: 0.0 5.0 ng/mL Smokers: 0.0 6.5 ng/mL The Lester CEA assay procedure was used. Results from different manufacturers or methods may not be comparable. Serial testing should be performed using the same method. Current interpretive data was last revised 2023. Testing performed by: [address] [address] Blood 11/24/2024 8:51 AM CDT 11/24/2024 9:43 AM CDT Benjamin Murrell LAB BLOOD ORDERABLES Final R [facility] Performing Organization Address City/[facility] de Phone Number [place] [id number] [facility] [place] [employer] [place] [address] * (ABNORMAL) Comprehensive metabolic panel (11/24/2024 8:51 AM CDT) Sodium 135 135 - 145 mmol/L Comment:Testing performed by : [address] [address] Potassium, pl 4.3 3.3 - 4.9 mmol/L UBALDO Comment:Testing performed by : [address] [address] Chloride 100 97 - 110 mmol/L UBALDO Comment:Testing performed by : [address] [address] CO2 25 22 - 32 mmol/L UBALDO Comment:Testing performed by : [address] [address] Anion gap 10 2 - 15 mmol/L UBALDO Comment:Testing performed by : [address] [address] BUN 18 6 - 25 mg/dL UBALDO Comment:Testing performed by : [address] [address] Creatinine 0.70(L) 0.80 - 1.30 mg/dL UBALDO Comment:Testing performed by : [address] [address] Glucose 120 70 - 199 mg/dL UBALDO [...] was last revised 2022. Testing performed by: [address] [address] Calcium 8.8 8.5 - 10.3 mg/dL UBALDO Comment:Testing performed by : [address] [address] Bilirubin, total 0.5 0.1 - 1.2 mg/dL UBALDO Comment:Testing performed by : [address] [address] Protein, pl 6.7 6.5 - 8.5 g/dL UBALDO Comment:Testing performed by : [address] [address] Albumin 3.7 3.5 - 5.0 g/dL UBALDO Comment:Testing performed by : [facility], [address] [place] [address]., [address] Alk phos 310(H) 40 - 130 Units/L UBALDO [place] Comment:Testing performed by : [address] [address] ALT 29 7 - 55 Units/L UBALDO [place] Comment:Testing performed by : [address] [address] AST 51(H) 10 - 50 Units/L UBALDO Comment:Testing performed by : [address] [address] Blood 11/24/2024 8:51 AM CDT 11/24/2024 8:52 AM CDT Benjamin Murrell DO LAB BLOOD ORDERABLES Final R esult Performing Organization Address City/State/[facility] Co de Phone Number UBALDO [address] [facility] Department [place] [address] * CT Chest Abdomen Pelvis W Contrast [...] Tony Marsh D.O. PS: PS Report ID: [id number] Reading Location: [id number] Procedure Note Tony Marsh, DO - 11/25/2024 [...] Tony Marsh D.O. PS: PS Report ID: [id number] Reading Location: [id number] us Benjamin Murrell DO IMG CT PROCEDURES [...] was last reviewed 2021. Testing performed by: [address] [address] Blood 11/04/2024 12:3 3 PM CDT 11/04/2024 12:35 PM CDT us Benjamin Murrell DO LAB BLOOD ORDERABLES Final R esult UBALDO [address] [facility] Department [place] [address] * (ABNORMAL) Differential, auto (11/04/2024 12:33 PM CDT) Neutrophil abs 7.4(H) 1.5 - 6.5 K/cumm Comment:Testing performed by : [address] [address] Imm gran abs 0.2(H) 0.0 - 0.1 K/cumm UBALDO MATAM[place]OS Comment:Testing performed by : [address] [address] Lymphocyte abs 1.8 0.8 - 3.3 K/cumm CERNER Comment:Testing performed by : [address] [address] Monocyte abs 1.5(H) 0.2 - 0.8 K/cumm CERNER Comment:Testing performed by : [address], [place]., [address] Eosinophil abs 0.1 0.0 - 0.5 K/cumm [facility] Comment:Testing performed by : [address], [place]., [address] Basophil abs 0.0 0.0 - 0.1 K/cumm [facility] Comment:Testing performed by : [address] [address] Neutrophil pct 67.2 % CERNER Comment: Interpretive Data Percent cell count reference ranges are not reported, since discordance with absolute values may lead to misinterpretation of CBC data. Current Interpretive Data was last revised on 2017. Testing performed by: [address] [address] Imm gran pct 1.6 % CERNER Comment: Interpretive Data Percent cell count reference ranges are not reported, since discordance with absolute values may lead to misinterpretation of CBC data. Current Interpretive Data was last revised on 2017. Testing performed by: [address] [address] Lymphocyte pct 16.5 % CERNER Comment: Interpretive Data Percent cell count reference ranges are not reported, since discordance with absolute values may lead to misinterpretation of CBC data. Current Interpretive Data was last revised on 2017. Testing performed by: [address] [address] Monocyte pct 13.2 % CERNER Comment: Interpretive Data Percent cell count reference ranges are not reported, since discordance with absolute values may lead to misinterpretation of CBC data. Current Interpretive Data was last revised on 2017. Testing performed by: [address] [address] Eosinophil pct 1.1 % CERNER Comment: Interpretive Data Percent cell count reference ranges are not reported, since discordance with absolute values may lead to misinterpretation of CBC data. Current Interpretive Data was last revised on 2017. Testing performed by: [address] [address] Basophil pct 0.4 % UBALDO Comment: Interpretive Data Percent cell count reference ranges are not reported, since discordance with absolute values may lead to misinterpretation of CBC data. Current Interpretive Data was last revised on 2017. Testing performed by: [address] [address] Blood 11/04/2024 12:3 3 PM CDT 11/04/2024 12:35 PM CDT us Benjamin Murrell DO LAB BLOOD ORDERABLES Final R esult UBALDO [address] [facility] Department [place] [address] * (ABNORMAL) CBC with auto differential (11/04/2024 12:33 PM CDT) WBC 11.0(H) 3.8 - 9.9 K/cumm Comment:Testing performed by : [address] [address] Hgb 9.7(L) 13.0 - 17.5 g/dL UBALDO Comment:Testing performed by : [address] [address] Hct 31.3(L) 38.9 - 50.3 % UBALDO Comment:Testing performed by : [address] [address] Plt 290 150 - 400 K/cumm UBALDO Comment:Testing performed by : [address] [address] MPV 9.6 9.1 - 12.3 fL UBALDO Comment:Testing performed by : [address] [address] RBC 3.46(L) 4.30 - 5.80 M/cumm UBALDO Comment:Testing performed by : [address] [address] MCV 90.5 81.3 - 96.4 fL UBALDO Comment:Testing performed by : [address] [address] MCH 28.0 27.1 - 33.3 pg UBALDO Comment:Testing performed by : [address] [address] MCHC 31.0(L) 32.3 - 35.7 g/dL UBALDO Comment:Testing performed by : [address] [address] RDW CV 20.1(H) 11.1 - 14.9 % UBALDO Comment:Testing performed by : [address] [address] RDW SD 67.0(H) 35.7 - 48.1 fL UBALDO Comment:Testing performed by : [address] [address] NRBC abs 0.00 0.00 - 0.01 K/cumm UBALDO Comment:Testing performed by : [address] [address] Blood 11/04/2024 12:3 3 PM CDT 11/04/2024 12:35 PM CDT Benjamin Murrell DO LAB BLOOD ORDERABLES Final R esult UBALDO [address] [facility] Department of Laboratories [place], [place] [id number] * (ABNORMAL) CEA (11/04/2024 12:33 PM CDT) [facility] CEA 141.0(H) <=5.0 ng/mL Comment: Interpretive Data: Reference Range: Non-Smokers: 0.0 5.0 ng/mL Smokers: 0.0 6.5 ng/mL The Lester CEA assay procedure was used. Results from different manufacturers or methods may not be comparable. Serial testing should be performed using the same method. Current interpretive data was last revised 2023. Testing performed by: [address] [address] Blood 11/04/2024 12:3 3 PM CDT 11/04/2024 3:56 PM CDT Benjamin Murrell DO LAB BLOOD ORDERABLES Final R esult UBALDO [address] [facility] Department [place] [address] * (ABNORMAL) Comprehensive metabolic panel (11/04/2024 12:33 PM CDT) Sodium 135 135 - 145 mmol/L Comment:Testing performed by : [address] [address] Potassium, pl 4.8 3.3 - 4.9 mmol/L UBALDO Comment:Testing performed by : [address] [address] Chloride 99 97 - 110 mmol/L UBALDO Comment:Testing performed by : [address] [address] CO2 27 22 - 32 mmol/L UBALDO Comment:Testing performed by : [address] [address] Anion gap 9 2 - 15 mmol/L UBALDO Comment:Testing performed by : [address] [address] BUN 22 6 - 25 mg/dL UBALDO Comment:Testing performed by : [address] [address] Creatinine 0.70(L) 0.80 - 1.30 mg/dL UBALDO Comment:Testing performed by : [address] [address] Glucose 91 70 - 199 mg/dL UBALDO [...] was last revised 2022. Testing performed by: [address] [address] Calcium 9.0 8.5 - 10.3 mg/dL UBALDO Comment:Testing performed by : [address] [address] Bilirubin, total 0.3 0.1 - 1.2 mg/dL UBALDO Comment:Testing performed by : [address] [address] Protein, pl 6.8 6.5 - 8.5 g/dL UBALDO Comment:Testing performed by : [address] [address] Albumin 3.8 3.5 - 5.0 g/dL UBALDO Comment:Testing performed by : [address] [address] Alk phos 360(H) 40 - 130 Units/L UBALDO Comment:Testing performed by : [address] [address] ALT 21 7 - 55 Units/L UBALDO Comment:Testing performed by : [address] [address] AST 30 10 - 50 Units/L UBALDO Comment:Testing performed by : [address] [address] Blood 11/04/2024 12:3 3 PM CDT 11/04/2024 12:35 PM CDT us Benjamin Murrell DO LAB BLOOD ORDERABLES Final R esult UBALDO [address] [facility] Department [place] [address] * POCT lipid panel (08/30/2024 3:16 PM CAR AND [employer]ARD SUPERVISOR) [facility] Cholesterol, POC 113 mg/dL Comment:GLU 100 HDL, POC 44 mg/dL Triglycerides, POC 79 mg/dL LDL Cholesterol POC 53 mg/dL Chol/HDL Ratio, POC 1.2 Non-HDL Cholesterol, POC 69 mg/dL Cholesterol Total, POC 113 mg/dL Capillary blood 08/30/2024 3 :16 PM CAR AND YARD SUPERVISOR us Costa Aparicio MD POINT OF CARE TEST ORDER CAM Final Result * (ABNORMAL) Hemoglobin A1c (10/14/2023 9:51 AM [employer] AND [employer]ARD SUPERVISOR) [facility] Hgb A1C 6.6(H) 4.0 - 5.6 % UBALDO Comment:Testing performed by : [address] [address] Estimated Average Glucose 143 mg/dL UBALDO Comment: The ADA recommends reporting an estimated Average Glucose (eAG) with all Hemoglobin A1c results using the equation derived from a study of 507 normal and diabetic adults. Minority populations were underrepresented and children were not included. (Diabetes Care 31:4775-3370, 2008). The eAG is not equivalent to a fasting glucose. Testing performed by: [facility], [address] [place] [address]., [address] Blood 10/14/2023 9:51 AM CAR AND YARD SUPERVISOR 10/14/2023 12:19 PM CAR AND YARD SUPERVISOR us Notinfile Unknown LAB BLOOD ORDERABLES Final Res ult [facility] [address] [facility] Department [place] [address] * (ABNORMAL) Hepatitis C antibody (07/30/2017 4:07 PM CAR AND [employer]ARD SUPERVISOR) [facility] Hep C Ab REACTIVE( H) NONREACTIVE 07/30/2017 6:24 PM CAR AND YARD SUPERVISOR [facility] HISTORICAL RESULTS Comment: [employer] using LUIS DANIEL (chemiluminescent immunoassay) technology. NONREACTIVE: [...] Hepatitis C Virus Note 07/30/2017 6:24 PM CAR AND YARD SUPERVISOR [facility] HISTORICAL RESULTS Comment: Sample to be confirmed by real-time PCR method. 07/30/2017 4:07 PM CAR AND YARD SUPERVISOR 07/30/2017 4:12 PM CAR AND YARD SUPERVISOR Narrative [facility] HISTORICAL RESULTS - 07/30/2017 6:24 PM CAR AND YARD SUPERVISOR Mayco Mcmullen MD LAB MICROBIOLOGY - GENERAL ORDERABLES Final Result [facility] HISTORICAL RESULTS from Last 3 Months or Most Recently Relevant to Health Maintenance Insurance MEDICARE [facility] MEDICARE SUPPLEMENT [facility]ICARE [facility] MEDICARE SUPPLEMENT Advance Directives For more information, please contact: [phone] * Full Code (Latest Code Status on File) Date Activated Date Inactivated Comments 08/20/2024 10:17 AM 08/22/2024 7:39 PM * Full Code Date Activated Date Inactivated Comments 08/11/2024 11:45 AM 08/12/2024 5:12 AM * Full Code Date Activated Date Inactivated Comments 03/07/2024 3:13 PM 03/09/2024 6:03 PM * Full Code Date Activated Date Inactivated Comments 03/04/2023 3:57 PM 03/06/2023 5:13 PM Care Teams Product Development Worker Relationship Specialty Start Date End Date Jared Johnson DO [address] [facility] [place] [address] PCP - General Internal Medicine 03/25/23 Benjamin Murrell DO [address] [facility] MEDICAL ONCOLOGY, [facility] [address] [place] [address] Medical Oncologist/Salesperson [employer] Hematology and Oncology 08/21/22 Brad Farrell MD [address] [facility] [address] [place] [address] Consulting Physician Pulmonary Disease 03/05/23 Costa Aparicio MD [address] [facility] [address] [facility] [address] [place] [address] Consulting Physician Cardiology 03/25/23
--- OUTSIDE RECORDS SUMMARY | 2025-01-28 12:38 | XMS_ITS | Encounter Summary ---
Author Organization [facility] Address [address] [place] [address] Phone Care Team Providers Care Cabinet Maker Name Role Phone Jared Johnson DO Primary Care Provider [phone] Junaid Mccauley MD, [facility] Unavailable [phone] Jared Johnson DO Primary Care Provider [phone] Cheikh Valdze MD Unavailable Benjamin Murrell DO Unavailable Benjamin Murrell DO Unavailable Brad Farrell MD Unavailable [phone] Jared Johnson DO Primary Care Provider Costa Aparicio MD Unavailable [phone] Encounter Details Date Type Department Care Team (Late st Contact Info) Description 08/27/2020 Telephone [facility] Oncology [address] [place] [address] [address] [place] [address] Idalia Blake, ELI Social History Tobacco Use Types Packs/Day Years Used Date Smoking Tobacco: Former Cigarettes 1.5 45 Smokeless Tobacco: Never Alcohol Use Standard Drinks/Week Comments Yes 0 (1 standard drink = 0.6 oz pur e alcohol) 2-3 pr week Sex and Gender Information Value Date Recorded Sex Assigned at Not on file Legal Sex Male 4:14 AM 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 CONSULTANT Gender Identity Male 11/07/2019 11:07 AM CDT [...] documented as of this encounter Care Teams Cabinet Maker Relationship Specialty Start Date End Date Jared Johnson DO PCP - General 07/31/20 01/21/21 Jared Johnson DO PCP - General Internal Medicine 01/22/21 03/24/23 Jared Johnson DO [address] [address] PCP - General Internal Medicine 03/25/23 Artis Quiroga Jr., MD Medical Oncologist/Clinical Education Academic Coordinator Medical Oncology 09/24/20 08/20/22 Cheikh Valdez MD [address] [facility] [address] [address] Consulting Physician Cardiology 07/15/22 03/24/23 Benjamin Murrell DO [address] [address] Medical Oncologist/Clinical Education Academic Coordinator Hematology and Oncology 07/15/22 08/20/22 Benjamin Murrell DO [address] [place] [address] [address] Medical Oncologist/Clinical Education Academic Coordinator Hematology and Oncology 08/21/22 Brad Farrell MD [address] [address] Consulting Physician Pulmonary Disease 03/05/23 Costa Aparicio MD [address] [address] Consulting Physician Cardiology 03/25/23 documented as of this encounter
--- OUTSIDE RECORDS SUMMARY | 2025-01-28 12:38 | XMS_ITS | Referral Summary ---
Author Organization [facility] Address [facility] [place] [address] Care Team Providers Care Cake Former Name Role Phone Benjamin Murrell DO Unavailable [phone] Brad Farrell MD Unavailable [phone] Jared Johnson DO Primary Care Provider + [phone] Costa Aparicio MD Unavailable [phone] Encounters Date Type Department Care Team Description 01/27/2025 Telephone [facility] Medical Group Cardiology [address] [place] [address] Costa Aparicio MD 01/20/2025 10:17 AM CDT - 01/21/2025 4:40 PM CDT Hospital Encounter [facility] 4 Med S[address] [place] [phone] Benjamin Murrell DO Obstipation (Primary Dx); Centrilobular [...] home or self care 01/20/2025 Orders Only [facility] Oncology [address] [place] [phone] Meg Lopez RN Malignant neoplasm of cecum (HCC) (Primary Dx); Malignant neoplasm metastatic to liver (HCC) 01/20/2025 7:30 AM CDT Clinical Support [address] [address] Malignant neoplasm metastatic to liver (HCC); Malignant neoplasm of cecum (HCC); Prevention of chemotherapy-induced neutropenia 01/20/2025 8:00 AM CDT Office Visit [facility] Oncology [address] [place] [phone] Benjamin Murrell DO Malignant neoplasm of cecum (HCC) (Primary Dx); Malignant neoplasm metastatic to liver (HCC); Prevention of chemotherapy-induced neutropenia 01/17/2025 3:06 PM CDT - 01/17/2025 11:59 PM CDT Hospital Encounter [facility] Office Building [address] [place] [phone] Prostate cancer (HCC); Incomplete bladder emptying Discharge Disposition: Discharge to home or self care 01/17/2025 2:20 PM CDT Office Visit [facility] Surgery [address] [place] [phone] Cheikh Dexter MD Prostate cancer (HCC) (Primary Dx); Incomplete bladder emptying; BPH with obstruction/lower urinary tract symptoms 01/06/2025 12:45 PM CDT Infusion [address] [phone] Dehydration (Primary Dx); Malignant neoplasm of cecum (HCC); Malignant neoplasm metastatic to liver (HCC) 01/06/2025 11:30 AM CDT - 01/06/2025 11:59 PM CDT Hospital Encounter [facility] MOB 1 DIAG IMG [address] [place] [address] Malignant neoplasm of cecum (HCC); Malignant neoplasm metastatic to liver (HCC); Bloating Discharge Disposition: Discharge to home or self care 01/06/2025 11:15 AM CDT Clinical Support [facility] at [address] [phone] Malignant neoplasm of cecum (HCC); Malignant neoplasm metastatic to liver (HCC) 01/06/2025 10:30 AM CDT Office Visit [facility] Oncology [address] [place] [phone] Benjamin Murrell DO Bloating (Primary Dx); Malignant neoplasm of cecum (HCC); Malignant neoplasm metastatic to liver (HCC) 01/05/2025 Telephone [facility] Oncology [address] [place] [phone] Bianca Christianson, ELI 01/03/2025 Telephone [facility] Oncology [address] [place] [phone] Bianca Christianson, ELI 12/30/2024 2:44 PM CDT - 12/30/2024 11:59 PM CDT Hospital Encounter [facility] [address] [place] [address] Malignant neoplasm of cecum (HCC); Malignant neoplasm metastatic to liver (HCC); Memory loss; Dizziness Discharge Disposition: Discharge to home or self care 12/30/2024 1:00 PM CDT Infusion [facility] at [address] [phone] Anemia associated with chemotherapy (Primary Dx); Malignant neoplasm of cecum (HCC); Malignant neoplasm metastatic to liver (HCC); Iron deficiency anemia, unspecified iron deficiency anemia type 12/30/2024 Orders Only [facility] Oncology [address] [place] [phone] Bianca Christianson, ELI Malignant neoplasm of cecum (HCC) (Primary Dx); Malignant neoplasm metastatic to liver (HCC); Iron deficiency anemia, unspecified iron deficiency anemia type; Memory loss; Dizziness 12/30/2024 Orders Only [facility] Oncology [address] [place] [phone] Benjamin Murrell DO 12/30/2024 4:30 PM CDT Infusion [facility] at [address] [phone] Malignant neoplasm of cecum (HCC); Malignant neoplasm metastatic to liver (HCC) 12/30/2024 8:30 AM CDT Infusion [address] [phone] Anemia associated with chemotherapy (Primary Dx); Malignant neoplasm metastatic to liver (HCC); Malignant neoplasm of cecum (HCC); Prevention of chemotherapy-induced neutropenia; Dehydration; Iron deficiency anemia, unspecified iron deficiency anemia type 12/30/2024 8:00 AM CDT Clinical Support [address] [address] Malignant neoplasm metastatic to liver (HCC); Malignant neoplasm of cecum (HCC); Prevention of chemotherapy-induced neutropenia; Iron deficiency anemia, unspecified iron deficiency anemia type 12/16/2024 10:30 AM CDT Clinical Support [address] [address] Malignant neoplasm metastatic to liver (HCC); Malignant neoplasm of cecum (HCC); Prevention of chemotherapy-induced neutropenia 12/16/2024 11:00 AM CDT Office Visit [facility] Oncology [address] [place] [phone] Benjamin Murrell DO Malignant neoplasm of cecum (HCC) (Primary Dx); Malignant neoplasm metastatic to liver (HCC); Prevention of chemotherapy-induced neutropenia 12/15/2024 Orders Only [facility] Oncology [address] [place] [phone] Benjamin Murrell DO 11/24/2024 8:45 AM CDT Clinical Support [address] [address] Malignant neoplasm metastatic to liver (HCC); Malignant neoplasm of cecum (HCC); Prevention of chemotherapy-induced neutropenia; Abnormal PSA 11/24/2024 9:45 AM CDT Infusion [facility] at [address] [phone] Prevention of chemotherapy-induced neutropenia (Primary Dx); Malignant neoplasm metastatic to liver (HCC); Malignant neoplasm of cecum (HCC) 11/24/2024 9:15 AM CDT Office Visit [facility] Oncology [address] [place] [phone] Benjamin Murrell DO Malignant neoplasm metastatic to liver (HCC) (Primary Dx); Malignant neoplasm of cecum (HCC); Prevention of chemotherapy-induced neutropenia; Iron deficiency anemia, unspecified iron deficiency anemia type 11/23/2024 Orders Only [facility] Oncology [address] [place] [phone] Benjamin Murrell DO 11/18/2024 5:23 PM CDT - 11/18/2024 11:59 PM CDT Hospital Encounter [facility] [address] [place] [address] Malignant neoplasm metastatic to liver (HCC); Malignant neoplasm of cecum (HCC) Discharge Disposition: Discharge to home or self care 11/04/2024 Orders Only [facility] Oncology [address] [place] [phone] Benjamin Murrell DO 11/04/2024 12:30 PM CDT Infusion [facility] at [address] [phone] Prevention of chemotherapy-induced neutropenia (Primary Dx); Malignant neoplasm metastatic to liver (HCC); Malignant neoplasm of cecum (HCC); Abnormal PSA 11/04/2024 12:00 PM CDT Clinical Support [address] [address] Malignant neoplasm metastatic to liver (HCC); Malignant neoplasm of cecum (HCC); Prevention of chemotherapy-induced neutropenia 10/31/2024 Telephone [facility] Pulmonary [address] [place] [phone] Brad Farrell MD Request For Order(s) 10/31/2024 10:45 AM CDT Office Visit [facility] Pulmonary [address] [place] [address] Christina Owen NP HECTOR on [...] drip/phlegm. Assessment & Plan (07/21/2024 10:38 AM VP TRANSPORTATION): The patient has stage II COPD and [...] 10/23/2022 Assessment & Plan (10/23/2022 12:50 PM VP TRANSPORTATION): I have ordered an iron and ferritin level. Pulmonary nodule 10/23/2022 Assessment & Plan (10/31/2024 11:19 AM CDT): CT scanning managed by Oncology every 3 months. Assessment & Plan (07/21/2024 10:36 AM VP TRANSPORTATION): The pulmonary nodules are presumed metastatic lesions [...] Keytruda. 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 Assessment & Plan (10/23/2022 12:50 PM VP TRANSPORTATION): Due to the patient's limb movements on [...] months Assessment & Plan (07/21/2024 10:37 AM VP TRANSPORTATION): The patient did smoke a few cigarettes [...] ordered. Assessment & Plan (10/23/2022 12:52 PM VP TRANSPORTATION): The patient did smoke 1-2 packs of [...] 07/17/2022 Assessment & Plan (08/21/2022 11:15 AM VP TRANSPORTATION): Has improved with the use of Mucinex and Flonase daily Assessment & Plan (07/17/2022 12:38 PM VP TRANSPORTATION): The patient has had problems with significant coughing and sputum production. I will order Mucinex 600 mg p.o. b.i.d. and he will also start Flonase 2 puffs in each nostril daily. Prostate cancer 05/28/2022 Overview (05/28/2022): Added automatically from request for surgery [id number] Dehydration 12/03/2020 Malignant neoplasm of cecum 08/29/2020 [...] adapt Assessment & Plan (07/21/2024 10:36 AM VP TRANSPORTATION): The patient has restarted CPAP at 11 [...] adapt. Assessment & Plan (10/23/2022 12:49 PM VP TRANSPORTATION): Due to the patient being unable to tolerate the CPAP titration study and snoring under the mask I will increase the patient's CPAP to 13 cm of water pressure while sleeping. His DME is adapt. Assessment & Plan (08/21/2022 11:16 AM VP TRANSPORTATION): Will continue with CPAP therapy at 11 cm water pressure. Patient will complete a CPAP titration study later this month starting at 11 cm water pressure and titrated as needed. Assessment & Plan (07/17/2022 12:36 PM VP TRANSPORTATION): The patient was diagnosed with obstructive sleep [...] breath. Assessment & Plan (10/23/2022 12:48 PM VP TRANSPORTATION): Patient continue to use Breztri two puffs [...] 10/24/19 Assessment & Plan (08/21/2022 11:16 AM VP TRANSPORTATION): Patient will complete a PFT later this month. I have given the patient a discount card for Breztri and the patient will continue with Combivent in the meantime. The patient was instructed to call into the office to see if we have samples of Breztri. Patient is following with Oncology and continues Keytruda. Assessment & Plan (07/17/2022 12:36 PM VP TRANSPORTATION): The patient presents with dyspnea and has [...] oz pur e alcohol) 2-3 pr week [facility] Utilities Answer Date Recorded In the past 12 months has [employer], gas, oil, or water company threatened to [...] often do you attend chur ch or jain services? More than 4 times per year 03/08/2024 Do you belong to any clubs o r organizations such as episcopalian groups, unions, fraternal or athletic groups, or [...] place to sleep or slept in a detention (including now)? No 03/05/2023 Housing Stability Vital Sign Answer Mario e Recorded In the last 12 months, was t here a time when you were not able to pay the mortgage or rent on time? No 03/08/2024 In the past 12 months, how m any times have you moved where you were living? 0 03/08/2024 At any time in the past 12 m [facility], were you homeless or living in a detention (including now)? No 03/08/2024 Personal Safety Answer Date Recorded Have you ever been in or are you currently in a harmful physical or emotional relationship or is someone making you feel afraid or unsafe? Denies 01/20/2025 Sex and Gender Information Value Date Recorded Sex Assigned at Not on file Legal Sex Male 4:14 AM VP TRANSPORTATION Gender Identity Male 11/07/2019 11:07 AM CDT [...] on file Medical Devices Implanted Type Area Collision Estimator Device Identifier Shelf Expiration Date Model / [...] POCT LIPID PANEL Routine 08/30/2024 3:16 PM VP TRANSPORTATION Need for lipid screening HEMOGLOBIN A1C Routine 10/14/2023 9:51 AM VP TRANSPORTATION HEPATITIS C ANTIBODY Routine 07/30/2017 4:07 PM VP TRANSPORTATION from Last 3 Months or Most Recently [...] Frank Evangelista M.D. MM: MM Report ID: [id number] Reading Location: [place] [address] Procedure Note Frank Evangelista MD - 01/20/2025 [...] Frank Evangelista M.D. MM: MM Report ID: [id number] Reading Location: [id number] Mitali Moulton MUTUEL CLERK IMG CT PROCEDURES Final Resul t * [...] was last reviewed 2021. Testing performed by: [address] [address] Blood 01/20/2025 7:43 AM CDT 01/20/2025 8:06 AM CDT Benjamin Murrell DO LAB BLOOD ORDERABLES Final [facility] [address] [facility] Department [place] [address] * Differential, auto (01/20/2025 7:43 AM CDT) Neutrophil abs 4.76 1.50 - 6.50 K/cumm Comment:Testing performed by : [address] [address] Imm gran abs 0.02 0.00 - 0.10 K/cumm U[facility]DO Comment:Testing performed by : [address] [address] Lymphocyte abs 1.70 0.80 - 3.30 K/cumm U[facility]DO Comment:Testing performed by : [address] [address] Monocyte abs 0.76 0.20 - 0.80 K/cumm UBALDO Comment:Testing performed by : [address] [address] Eosinophil abs 0.10 0.00 - 0.50 K/cumm UBALDO Comment:Testing performed by : [address] [address] Basophil abs 0.04 0.00 - 0.10 K/cumm [facility] Comment:Testing performed by : [address] [address] Neutrophil pct 64.5 % [facility] Comment: Interpretive Data Percent cell count reference ranges are not reported, since discordance with absolute values may lead to misinterpretation of CBC data. Current Interpretive Data was last revised on 2017. Testing performed by: [address] [address] Imm gran pct 0.3 % [facility] Comment: Interpretive Data Percent cell count reference ranges are not reported, since discordance with absolute values may lead to misinterpretation of CBC data. Current Interpretive Data was last revised on 2017. Testing performed by: [address] [address] Lymphocyte pct 23.0 % [facility] Comment: Interpretive Data Percent cell count reference ranges are not reported, since discordance with absolute values may lead to misinterpretation of CBC data. Current Interpretive Data was last revised on 2017. Testing performed by: [address] [address] Monocyte pct 10.3 % [facility] Comment: Interpretive Data Percent cell count reference ranges are not reported, since discordance with absolute values may lead to misinterpretation of CBC data. Current Interpretive Data was last revised on 2017. Testing performed by: [address] [address] Eosinophil pct 1.4 % [facility] Comment: Interpretive Data Percent cell count reference ranges are not reported, since discordance with absolute values may lead to misinterpretation of CBC data. Current Interpretive Data was last revised on 2017. Testing performed by: [address] [address] Basophil pct 0.5 % [facility] Comment: Interpretive Data Percent cell count reference ranges are not reported, since discordance with absolute values may lead to misinterpretation of CBC data. Current Interpretive Data was last revised on 2017. Testing performed by: [address] [address] Blood 01/20/2025 7:43 AM CDT 01/20/2025 7:45 AM CDT Benjamin Murrell DO LAB BLOOD ORDERABLES Final R esult [facility] [address] [facility] Department of Laboratories [place], [place] [id number] * (ABNORMAL) CBC with auto differential (01/20/2025 7:43 AM CDT) Pathologist [facility] WBC 7.38 3.80 - 9.90 K/cumm Comment:Testing performed by : [address] [address] Hgb 9.9(L) 13.0 - 17.5 g/dL U[facility] Comment:Testing performed by : [address] [address] Hct 31.8(L) 38.9 - 50.3 % [facility] Comment:Testing performed by : [address] [address] Plt 250 150 - 400 K/cumm U[facility] Comment:Testing performed by : [address] [address] MPV 11.0 9.1 - 12.3 fL [facility] Comment:Testing performed by : [address] [address] RBC 3.66(L) 4.30 - 5.80 M/cumm [facility] Comment:Testing performed by : [address] [address] MCV 86.9 81.3 - 96.4 fL [facility] Comment:Testing performed by : [address] [address] MCH 27.0(L) 27.1 - 33.3 pg [facility] Comment:Testing performed by : [address] [address] MCHC 31.1(L) 32.3 - 35.7 g/dL [facility] Comment:Testing performed by : [address] [address] RDW CV 19.3(H) 11.1 - 14.9 % [facility] Comment:Testing performed by : [address] [address] RDW SD 61.1(H) 35.7 - 48.1 fL [facility] MATAMOROS Comment:Testing performed by : [address] [address] NRBC abs 0.00 0.00 - 0.01 K/cumm [facility] Comment:Testing performed by : [address] [address] ANC Prelim 4.76 1.50 - 6.50 K/cumm [facility] Comment: Interpretive Data The rapid ANC is a preliminary automated count and may vary from the final ANC (Neut Abs) reported in the WBC differential that follows. Current interpretive data was last revised 2024. Testing performed by: [address] [address] Blood 01/20/2025 7:43 AM CDT 01/20/2025 7:45 AM CDT us Benjamin Murrell DO LAB BLOOD ORDERABLES Final R esult [facility] [address] [facility] [place] [address] * (ABNORMAL) Comprehensive metabolic panel (01/20/2025 7:43 AM CDT) Sodium 131(L) 135 - 145 mmol/L Comment:Testing performed by : [address] [address] Potassium, pl 4.1 3.3 - 4.9 mmol/L [facility] MATAMOROS Comment:Testing performed by : [address] [address] Chloride 99 97 - 110 mmol/L [facility] Comment:Testing performed by : [address] [address] CO2 21(L) 22 - 32 mmol/L U[facility] MH Comment:Testing performed by : [address] [address] Anion gap 11 2 - 15 mmol/L [facility] Comment:Testing performed by : [address] [address] BUN 14 6 - 25 mg/dL [facility] Comment:Testing performed by : [address] [address] Creatinine 0.90 0.80 - 1.30 mg/dL [facility] Comment:Testing performed by : [address] [address] Glucose 103 70 - 199 mg/dL [facility] [...] was last revised 2022. Testing performed by: [address] [address] Calcium 9.2 8.5 - 10.3 mg/dL [facility] Comment:Testing performed by : [address] [address] Bilirubin, total 0.7 0.1 - 1.2 mg/dL [facility] Comment:Testing performed by : [address] [address] Protein, pl 7.1 6.5 - 8.5 g/dL [facility] Comment:Testing performed by : [address] [address] Albumin 3.4(L) 3.5 - 5.0 g/dL [facility] Comment:Testing performed by : [address] [address] Alk phos 414(H) 40 - 130 Units/L [facility] MATAMOROS Comment:Testing performed by : [facility], [address] [place] [address]., [address] ALT 27 7 - 55 Units/L [facility] MATAMOROS Comment:Testing performed by : [address] [address] AST 81(H) 10 - 50 Units/L [facility] MATAMOROS Comment:Testing performed by : [facility], [address] [place] [address]., [address] Blood 01/20/2025 7:43 AM CDT 01/20/2025 7:45 AM CDT Benjamin Murrell DO LAB BLOOD ORDERABLES Final R esult [facility] [address] [facility] [place], [place] [id number] * Measure post void residual (01/17/2025 2:51 PM CDT) Narrative Stephanie Bailey [facility] - 01/17/2025 2:51 PM CDT Measurement of Post Void Residual urine and/or bladder capacity PVR = 369 ml Cheikh Dexter MD NURSING ASSESSMENTS Final Result * Urine culture Urine, bladder (01/17/2025 2:49 PM CDT) Report Final Report: Less than 100,000 colonies/mL (clinically insignificant growth based on current clinical standards) Comment:Testing performed by : [facility], [address] [place]., [address] Organism (CLINICALLY INSIGNIFICANT GROWTH [facility] MATAMOROS Urine, bladder 01/17/2025 2: 49 PM CDT 01/18/2025 12:02 AM CDT Narrative [facility] - 01/19/2025 8:08 AM CDT Testing performed by [facility] Microbiology Laboratory ([phone]) Cheikh Dexter MD LAB MICROBIOLOGY - GENERAL ORDER CAM Final Result Performing Organization Address City/[facility]/ZIP Co de Phone Number [facility] [address] [facility] [place] [address] * (ABNORMAL) POCT urinalysis dipstick (01/17/2025 2:48 PM CDT) Color, Urine, POC Dark Kasey Clarity, ur, POC Clear Clear Glucose, ur, POC Negative Negative Bilirubin, ur, POC 1+(A) Negative Ketones, ur, POC Negative Negative Specific Black, POC 1.025 1.003 - 1.030 Blood, ur, [...] Ryan Greene M.D. CH: CH Report ID: [id number] Reading Location: [id number] Procedure Note Ryan Greene Jr., MD - [...] Ryan Greene M.D. CH: CH Report ID: [id number] Reading Location: [id number] Benjamin Murrell DO IMG XR PROCEDURES Final [...] was last reviewed 2021. Testing performed by: [address] [address] Blood 01/06/2025 11:2 5 AM CDT 01/06/2025 11:36 AM CDT us Benjamin Murrell DO LAB BLOOD ORDERABLES Final R esult [facility] [address] [facility] Department [place] [address] * (ABNORMAL) Differential, auto (01/06/2025 11:25 AM CDT) Neutrophil abs 4.42 1.50 - 6.50 K/cumm Comment:Testing performed by : [address] [address] Imm gran abs 0.40(H) 0.00 - 0.10 K/cumm [facility] MATAMOROS Comment:Testing performed by : [address] [address] Lymphocyte abs 1.10 0.80 - 3.30 K/cumm UBALDO Comment:Testing performed by : [address] [address] Monocyte abs 0.59 0.20 - 0.80 K/cumm [facility] Comment:Testing performed by : [address] [address] Eosinophil abs 0.12 0.00 - 0.50 K/cumm [facility] Comment:Testing performed by : [address] [address] Basophil abs 0.03 0.00 - 0.10 K/cumm [facility] Comment:Testing performed by : [address] [address] Neutrophil pct 66.3 % [facility] Comment: Interpretive Data Percent cell count reference ranges are not reported, since discordance with absolute values may lead to misinterpretation of CBC data. Current Interpretive Data was last revised on 2017. Testing performed by: [address] [address] Imm gran pct 6.0 % [facility] Comment: Interpretive Data Percent cell count reference ranges are not reported, since discordance with absolute values may lead to misinterpretation of CBC data. Current Interpretive Data was last revised on 2017. Testing performed by: [address] [address] Lymphocyte pct 16.5 % [facility] Comment: Interpretive Data Percent cell count reference ranges are not reported, since discordance with absolute values may lead to misinterpretation of CBC data. Current Interpretive Data was last revised on 2017. Testing performed by: [address] [address] Monocyte pct 8.9 % [facility] Comment: Interpretive Data Percent cell count reference ranges are not reported, since discordance with absolute values may lead to misinterpretation of CBC data. Current Interpretive Data was last revised on 2017. Testing performed by: [address] [address] Eosinophil pct 1.8 % [facility] Comment: Interpretive Data Percent cell count reference ranges are not reported, since discordance with absolute values may lead to misinterpretation of CBC data. Current Interpretive Data was last revised on 2017. Testing performed by: [address] [address] Basophil pct 0.5 % [facility] Comment: Interpretive Data Percent cell count reference ranges are not reported, since discordance with absolute values may lead to misinterpretation of CBC data. Current Interpretive Data was last revised on 2017. Testing performed by: [address] [address] Blood 01/06/2025 11:2 5 AM CDT 01/06/2025 11:36 AM CDT us Benjamin Murrell DO LAB BLOOD ORDERABLES Final R esult [facility] [address] [facility] [place] [address] * (ABNORMAL) CBC with auto differential (01/06/2025 11:25 AM CDT) WBC 6.66 3.80 - 9.90 K/cumm Comment:Testing performed by : [address] [address] Hgb 9.4(L) 13.0 - 17.5 g/dL [facility] Comment:Testing performed by : [address] [address] Hct 29.8(L) 38.9 - 50.3 % [facility] Comment:Testing performed by : [address] [address] Plt 207 150 - 400 K/cumm [facility] Comment:Testing performed by : [address] [address] MPV 10.8 9.1 - 12.3 fL UBALDO Comment:Testing performed by : [address] [address] RBC 3.36(L) 4.30 - 5.80 M/cumm UBALDO MATAMOROS Comment:Testing performed by : [address] [address] MCV 88.7 81.3 - 96.4 fL UBALDO Comment:Testing performed by : [address] [address] MCH 28.0 27.1 - 33.3 pg UBALDO Comment:Testing performed by : [address] [address] MCHC 31.5(L) 32.3 - 35.7 g/dL UBALDO Comment:Testing performed by : [address] [address] RDW CV 18.5(H) 11.1 - 14.9 % UBALDO Comment:Testing performed by : [address] [address] RDW SD 60.4(H) 35.7 - 48.1 fL UBALDO Comment:Testing performed by : [address] [address] NRBC abs 0.00 0.00 - 0.01 K/cumm UBALDO Comment:Testing performed by : [address] [address] ANC Prelim 4.42 1.50 - 6.50 K/cumm UBALDO Comment: Interpretive Data The rapid ANC is a preliminary automated count and may vary from the final ANC (Neut Abs) reported in the WBC differential that follows. Current interpretive data was last revised 2024. Testing performed by: [address] [address] Blood 01/06/2025 11:2 5 AM CDT 01/06/2025 11:36 AM CDT Benjamin Murrell DO LAB BLOOD ORDERABLES Final R esult [facility] [address] [facility] [place] [address] * Ammonia (01/06/2025 11:25 AM CDT) Ammonia 32 <=50 mcmol/L Comment: Please note on 12/23/2023 the unit of measure changed from mcg/dL to mcmol/L. Current Interpretive Data was last revised on 2023. Testing performed by: [address] [address] Blood 01/06/2025 11:2 5 AM CDT 01/06/2025 11:36 AM CDT Benjamin Murrell DO LAB BLOOD ORDERABLES Final R esult [facility] [address] [facility] [place] [address] * (ABNORMAL) Comprehensive metabolic panel (01/06/2025 11:25 AM CDT) Sodium 134(L) 135 - 145 mmol/L Comment:Testing performed by : [address] [address] Potassium, pl 4.6 3.3 - 4.9 mmol/L UBALDO Comment:Testing performed by : [address] [address] Chloride 101 97 - 110 mmol/L UBALDO Comment:Testing performed by : [address] [address] CO2 23 22 - 32 mmol/L UBALDO Comment:Testing performed by : [address] [address] Anion gap 10 2 - 15 mmol/L UBALDO Comment:Testing performed by : [address] [address] BUN 16 6 - 25 mg/dL UBALDO Comment:Testing performed by : [address] [address] Creatinine 0.90 0.80 - 1.30 mg/dL UBALDO Comment:Testing performed by : [address] [address] Glucose 139 70 - 199 mg/dL UBALDO [...] was last revised 2022. Testing performed by: [address] [address] Calcium 8.9 8.5 - 10.3 mg/dL UBALDO Comment:Testing performed by : [address] [address] Bilirubin, total 0.6 0.1 - 1.2 mg/dL UBALDO Comment:Testing performed by : [address] [address] Protein, pl 6.7 6.5 - 8.5 g/dL UBALDO Comment:Testing performed by : [address] [address] Albumin 3.2(L) 3.5 - 5.0 g/dL UBALDO Comment:Testing performed by : [address] [address] Alk phos 375(H) 40 - 130 Units/L UBALDO Comment:Testing performed by : [address] [address] ALT 27 7 - 55 Units/L UBALDO Comment:Testing performed by : [address] [address] AST 60(H) 10 - 50 Units/L UBALDO Comment:Testing performed by : [address] [address] Blood 01/06/2025 11:2 5 AM CDT 01/06/2025 11:36 AM CDT us Benjamin Murrell DO LAB BLOOD ORDERABLES Final R esult UBALDO MATAMOROS [address] [facility] [place] [address] * CT head with & without contrast [...] by Ryan Greene M.D. T: Report ID: [id number] Reading Location: [id number] Procedure Note Ryan Greene Jr., MD - [...] by Ryan Greene M.D. T: Report ID: [id number] Reading Location: [place] [address] Benjamin Murrell DO IMG CT PROCEDURES Final Resu lt * Transfuse RBC (12/30/2024 1:19 PM CDT) Blood Benjamin Murrell DO BLOOD TRANSFUSION ORDERABLES Final Result * Prepare RBC: 1 Units (12/30/2024 10:21 AM CDT) Units requested 1 Comment:Testing performed by : [address] [address] Units requested Ready UBALDO Comment:Testing performed by : [address] [address] Unit Number [id number] Product code [id number] UBALDO Blood Expiration Date [id number] UBALDO Product Blood Type (for scanning) 6200 UBALDO Product Blood Type APOS UBALDO Dispense Status DISPENSED UBALDO Blood 12/30/2024 10:2 1 AM CDT 12/30/2024 10:21 AM CDT Benjamin Murrell DO BLOOD BANK PRODUCT ORDERABLE S Final Result [address] [address] * ABO/Rh (12/30/2024 9:14 AM CDT) ABO/Rh A Positive Comment:Testing performed by : [facility], [address] [place] [address]., [address] Blood 12/30/2024 9:14 AM CDT 12/30/2024 9:37 AM CDT Narrative UBALDO - 12/30/2024 10:19 AM CDT Has the patient had Daratumumab or Isatuximab in the past 6 months?->No Benjamin Murrell DO LAB BLOOD BANK TEST ORDERABL ES Final Result Performing Organization Address [facility] de Phone Number [address] [address] * Crossmatch (12/30/2024 9:14 AM CDT) Pathologist [facility] Crossmatch Compatible [facility] Unit number for crossmatch [id number] [facility] Blood 12/30/2024 9:14 AM CDT 12/30/2024 9:37 AM CDT Benjamin Murrell DO LAB BLOOD BANK TEST ORDERABL ES Final Result Performing Organization Address [facility] de Phone Number [address] [address] * Antibody screen (12/30/2024 9:14 AM CDT) Ruperto, indirect, Gel Interpretation Negative ABSC Comment:Testing performed by : [facility], [address] [place] [address]., [address] Blood 12/30/2024 9:14 AM CDT 12/30/2024 9:37 AM CDT Narrative UBALDO - 12/30/2024 10:22 AM CDT Has the patient had Daratumumab or Isatuximab in the past 6 months?->No Benjamin Murrell DO LAB BLOOD BANK TEST ORDERABL ES Final Result Performing Organization Address [facility] de Phone Number UBALDO [address] [place] [address] * eGFR (12/30/2024 8:14 AM CDT) eGFR [...] was last reviewed 2021. Testing performed by: [facility], [address] [place] [address]., [address] Blood 12/30/2024 8:14 AM CDT 12/30/2024 8:16 AM CDT Benjamin Murrell DO LAB BLOOD ORDERABLES Final R esult Performing Organization Address [facility] Co de Phone Number UBALDO [address] [place] [address] * Differential, auto (12/30/2024 8:14 AM CDT) Neutrophil abs 5.64 1.50 - 6.50 K/cumm Comment:Testing performed by : [address] [address] Imm gran abs 0.08 0.00 - 0.10 K/cumm [facility] Comment:Testing performed by : [address] [address] Lymphocyte abs 1.33 0.80 - 3.30 K/cumm [facility] Comment:Testing performed by : [address] [address] Monocyte abs 0.80 0.20 - 0.80 K/cumm [facility] Comment:Testing performed by : [address], [place]., [address] Eosinophil abs 0.07 0.00 - 0.50 K/cumm [facility] Comment:Testing performed by : [address] [address] Basophil abs 0.04 0.00 - 0.10 K/cumm [facility] Comment:Testing performed by : [address] [address] Neutrophil pct 70.8 % [facility] Comment: Interpretive Data Percent cell count reference ranges are not reported, since discordance with absolute values may lead to misinterpretation of CBC data. Current Interpretive Data was last revised on 2017. Testing performed by: [address] [address] Imm gran pct 1.0 % [facility] Comment: Interpretive Data Percent cell count reference ranges are not reported, since discordance with absolute values may lead to misinterpretation of CBC data. Current Interpretive Data was last revised on 2017. Testing performed by: [address] [address] Lymphocyte pct 16.7 % [facility] Comment: Interpretive Data Percent cell count reference ranges are not reported, since discordance with absolute values may lead to misinterpretation of CBC data. Current Interpretive Data was last revised on 2017. Testing performed by: [address] [address] Monocyte pct 10.1 % [facility] Comment: Interpretive Data Percent cell count reference ranges are not reported, since discordance with absolute values may lead to misinterpretation of CBC data. Current Interpretive Data was last revised on 2017. Testing performed by: [address] [address] Eosinophil pct 0.9 % UBALDO Comment: Interpretive Data Percent cell count reference ranges are not reported, since discordance with absolute values may lead to misinterpretation of CBC data. Current Interpretive Data was last revised on 2017. Testing performed by: [address] [address] Basophil pct 0.5 % UBALDO Comment: Interpretive Data Percent cell count reference ranges are not reported, since discordance with absolute values may lead to misinterpretation of CBC data. Current Interpretive Data was last revised on 2017. Testing performed by: [address] [address] Blood 12/30/2024 8:14 AM CDT 12/30/2024 8:16 AM CDT Benjamin Murrell DO LAB BLOOD ORDERABLES Final R esult [facility] [address] [facility] [place] [address] * (ABNORMAL) Iron profile w/ IBC (12/30/2024 8:14 AM CDT) Iron 24(L) 50 - 150 mcg/dL Comment:Testing performed by : [address] [address] TIBC 199(L) 250 - 400 mcg/dL UBALDO Comment:Testing performed by : [address] [address] Transferrin saturation 12(L) 20 - 50 % UBALDO Comment:Testing performed by : [address] [address] Blood 12/30/2024 8:14 AM CDT 12/30/2024 9:37 AM CDT Benjamin Murrell DO LAB BLOOD ORDERABLES Final R esult [facility] [address] [facility] [place] [address] * (ABNORMAL) CBC with auto differential (12/30/2024 8:14 AM CDT) WBC 7.96 3.80 - 9.90 K/cumm Comment:Testing performed by : [address] [address] Hgb 8.3(L) 13.0 - 17.5 g/dL UBALDO Comment:Testing performed by : [address] [address] Hct 26.2(L) 38.9 - 50.3 % UBALDO Comment:Testing performed by : [address] [address] Plt 210 150 - 400 K/cumm UBALDO Comment:Testing performed by : [address] [address] MPV 9.9 9.1 - 12.3 fL UBALDO Comment:Testing performed by : [address] [address] RBC 2.95(L) 4.30 - 5.80 M/cumm UBALDO Comment:Testing performed by : [address] [address] MCV 88.8 81.3 - 96.4 fL UBALDO Comment:Testing performed by : [address] [address] MCH 28.1 27.1 - 33.3 pg UBALDO Comment:Testing performed by : [address] [address] MCHC 31.7(L) 32.3 - 35.7 g/dL UBALDO Comment:Testing performed by : [address] [address] RDW CV 18.7(H) 11.1 - 14.9 % UBALDO Comment:Testing performed by : [address], [address] RDW SD 60.2(H) 35.7 - 48.1 fL UBALDO Comment:Testing performed by : [address] [address] NRBC abs 0.00 0.00 - 0.01 K/cumm UBALDO Comment:Testing performed by : [address] [address] ANC Prelim 5.64 1.50 - 6.50 K/cumm UBALDO Comment: Interpretive Data The rapid ANC is a preliminary automated count and may vary from the final ANC (Neut Abs) reported in the WBC differential that follows. Current interpretive data was last revised 2024. Testing performed by: [address] [address] Blood 12/30/2024 8:14 AM CDT 12/30/2024 8:16 AM CDT Benjamin Murrell DO LAB BLOOD ORDERABLES Final R esult Performing Organization Address [facility]/State/ZIP Co de Phone Number UBALDO [address] [facility] [place] [address] * (ABNORMAL) Reticulocyte Count (12/30/2024 8:14 AM CDT) Retics, absolute 58 20 - 87 K/cumm Comment:Testing performed by : [address] [address] Retics 1.9 0.4 - 2.9 % UBALDO Comment:Testing performed by : [address] [address] Reticulocyte Hgb 25.4(L) 30.5 - 38.0 pg UBALDO Comment:Testing performed by : [address] [address] Blood 12/30/2024 8:14 AM CDT 12/30/2024 8:16 AM CDT Benjamin Murrell DO LAB BLOOD ORDERABLES Final R esult Performing Organization Address [facility] Co de Phone Number ANGELA[address] [address] * (ABNORMAL) Ferritin (12/30/2024 8:14 AM CDT) Pathologist [facility] Ferritin 942(H) 30 - 400 ng/mL Comment:Testing performed by : [address] [address] Blood 12/30/2024 8:14 AM CDT 12/30/2024 9:37 AM CDT Benjamin Murrell DO LAB BLOOD ORDERABLES Final R esult Performing Organization Address [facility] Co de Phone Number ANGELA[address] [place] [address] * (ABNORMAL) Vitamin B12 (12/30/2024 8:14 AM CDT) [facility] Vitamin B12 >2,000(H) 230 - 1,250 pg/mL Comment:Testing performed by : [address] [address] Blood 12/30/2024 8:14 AM CDT 12/30/2024 9:37 AM CDT Benjamin Murrell DO LAB BLOOD ORDERABLES Final R esrust Performing Organization Address [facility] Co de Phone Number ANGELA[address] [address] * (ABNORMAL) Comprehensive metabolic panel (12/30/2024 8:14 AM CDT) [facility] Sodium 134(L) 135 - 145 mmol/L Comment:Testing performed by : [address] [address] Potassium, pl 4.2 3.3 - 4.9 mmol/L UBALDO Comment:Testing performed by : [address] [address] Chloride 101 97 - 110 mmol/L UBALDO Comment:Testing performed by : [address] [address] CO2 21(L) 22 - 32 mmol/L UBALDO Comment:Testing performed by : [address] [address] Anion gap 12 2 - 15 mmol/L UBALDO Comment:Testing performed by : [address] [address] BUN 18 6 - 25 mg/dL UBALDO Comment:Testing performed by : [address], [place]., [address] Creatinine 1.00 0.80 - 1.30 mg/dL UBALDO Comment:Testing performed by : [address] [address] Glucose 187 70 - 199 mg/dL UBALDO [...] was last revised 2022. Testing performed by: [address] [address] Calcium 8.5 8.5 - 10.3 mg/dL UBALDO Comment:Testing performed by : [address] [address] Bilirubin, total 0.4 0.1 - 1.2 mg/dL UBALDO Comment:Testing performed by : [address] [address] Protein, pl 6.5 6.5 - 8.5 g/dL UBALDO Comment:Testing performed by : [address] [address] Albumin 3.2(L) 3.5 - 5.0 g/dL UBALDO Comment:Testing performed by : [address] [address] Alk phos 346(H) 40 - 130 Units/L UBALDO MATAMOROS Comment:Testing performed by : [address] [address] ALT 26 7 - 55 Units/L UBALDO MATAMOROS Comment:Testing performed by : [address] [address] AST 65(H) 10 - 50 Units/L UBALDO Comment:Testing performed by : [address] [address] Blood 12/30/2024 8:14 AM CDT 12/30/2024 8:16 AM CDT Benjamin Murrell DO LAB BLOOD ORDERABLES Final R esult UBALDO [facility] [place] [address] * eGFR (12/16/2024 10:11 AM CDT) eGFR [...] was last reviewed 2021. Testing performed by: [address] [address] Blood 12/16/2024 10:1 1 AM CDT 12/16/2024 10:16 AM CDT us Benjamin Murrell DO LAB BLOOD ORDERABLES Final R esult UBALDO [address] [facility] [place] [address] * (ABNORMAL) Differential, auto (12/16/2024 10:11 AM CDT) Neutrophil abs 6.39 1.50 - 6.50 K/cumm Comment:Testing performed by : [address] [address] Imm gran abs 0.19(H) 0.00 - 0.10 K/cumm UBALDO Comment:Testing performed by : [address] [address] Lymphocyte abs 1.68 0.80 - 3.30 K/cumm UBALDO Comment:Testing performed by : [address] [address] Monocyte abs 1.61(H) 0.20 - 0.80 K/cumm UBALDO Comment:Testing performed by : [address] [address] Eosinophil abs 0.07 0.00 - 0.50 K/cumm UBALDO Comment:Testing performed by : [address] [address] Basophil abs 0.03 0.00 - 0.10 K/cumm [facility] Comment:Testing performed by : [address] [address] Neutrophil pct 64.1 % [facility] Comment: Interpretive Data Percent cell count reference ranges are not reported, since discordance with absolute values may lead to misinterpretation of CBC data. Current Interpretive Data was last revised on 2017. Testing performed by: [address] [address] Imm gran pct 1.9 % UBALDO Comment: Interpretive Data Percent cell count reference ranges are not reported, since discordance with absolute values may lead to misinterpretation of CBC data. Current Interpretive Data was last revised on 2017. Testing performed by: [address] [address] Lymphocyte pct 16.9 % [facility] Comment: Interpretive Data Percent cell count reference ranges are not reported, since discordance with absolute values may lead to misinterpretation of CBC data. Current Interpretive Data was last revised on 2017. Testing performed by: [address] [address] Monocyte pct 16.1 % [facility] Comment: Interpretive Data Percent cell count reference ranges are not reported, since discordance with absolute values may lead to misinterpretation of CBC data. Current Interpretive Data was last revised on 2017. Testing performed by: [address] [address] Eosinophil pct 0.7 % [facility] Comment: Interpretive Data Percent cell count reference ranges are not reported, since discordance with absolute values may lead to misinterpretation of CBC data. Current Interpretive Data was last revised on 2017. Testing performed by: [address] [address] Basophil pct 0.3 % [facility] Comment: Interpretive Data Percent cell count reference ranges are not reported, since discordance with absolute values may lead to misinterpretation of CBC data. Current Interpretive Data was last revised on 2017. Testing performed by: [address] [address] Blood 12/16/2024 10:1 1 AM CDT 12/16/2024 10:16 AM CDT us Benjamin Murrell DO LAB BLOOD ORDERABLES Final R esult UBALDO MATAMOROS [address] [facility] [place] [address] * (ABNORMAL) CBC with auto differential (12/16/2024 10:11 AM CDT) WBC 9.97(H) 3.80 - 9.90 K/cumm Comment:Testing performed by : [address] [address] Hgb 9.2(L) 13.0 - 17.5 g/dL [facility] MH Comment:Testing performed by : [address] [address] Hct 29.5(L) 38.9 - 50.3 % CERNER MH Comment:Testing performed by : [address] [address] Plt 261 150 - 400 K/cumm [facility] Comment:Testing performed by : [address] [address] MPV 11.0 9.1 - 12.3 fL [facility]ER[facility] Comment:Testing performed by : [address] [address] RBC 3.26(L) 4.30 - 5.80 M/cumm [facility] MH Comment:Testing performed by : [address] [address] MCV 90.5 81.3 - 96.4 fL CERNER Comment:Testing performed by : [address], [address] MCH 28.2 27.1 - 33.3 pg [facility] MH Comment:Testing performed by : [address] [address] MCHC 31.2(L) 32.3 - 35.7 g/dL CERNER Comment:Testing performed by : [address] [address] RDW CV 18.4(H) 11.1 - 14.9 % CERNER Comment:Testing performed by : [address], [address] RDW SD 60.7(H) 35.7 - 48.1 fL [facility] Comment:Testing performed by : [address] [address] NRBC abs 0.00 0.00 - 0.01 K/cumm UBALDO MH Comment:Testing performed by : [address] [address] ANC Prelim 6.39 1.50 - 6.50 K/cumm UBALDO Comment: Interpretive Data The rapid ANC is a preliminary automated count and may vary from the final ANC (Neut Abs) reported in the WBC differential that follows. Current interpretive data was last revised 2024. Testing performed by: [address] [address] Blood 12/16/2024 10:1 1 AM CDT 12/16/2024 10:16 AM CDT us Benjamin Murrell DO LAB BLOOD ORDERABLES Final R esult UBALDO [address] [facility] [place] [address] * (ABNORMAL) Comprehensive metabolic panel (12/16/2024 10:11 AM CDT) Sodium 133(L) 135 - 145 mmol/L Comment:Testing performed by : [address] [address] Potassium, pl 4.1 3.3 - 4.9 mmol/L UBALDO Comment:Testing performed by : [address] [address] Chloride 96(L) 97 - 110 mmol/L UBALDO Comment:Testing performed by : [address] [address] CO2 25 22 - 32 mmol/L UBALDO Comment:Testing performed by : [address] [address] Anion gap 12 2 - 15 mmol/L UBALDO Comment:Testing performed by : [address] [address] BUN 15 6 - 25 mg/dL UBALDO Comment:Testing performed by : [address] [address] Creatinine 0.70(L) 0.80 - 1.30 mg/dL UBALDO Comment:Testing performed by : [address] [address] Glucose 149 70 - 199 mg/dL UBALDO [...] was last revised 2022. Testing performed by: [address] [address] Calcium 8.6 8.5 - 10.3 mg/dL UBALDO Comment:Testing performed by : [address] [address] Bilirubin, total 0.4 0.1 - 1.2 mg/dL UBALDO Comment:Testing performed by : [address] [address] Protein, pl 6.5 6.5 - 8.5 g/dL UBALDO Comment:Testing performed by : [address] [address] Albumin 3.5 3.5 - 5.0 g/dL UBALDO Comment:Testing performed by : [address] [address] Alk phos 375(H) 40 - 130 Units/L UBALDO Comment:Testing performed by : [address] [address] ALT 24 7 - 55 Units/L UBALDO Comment:Testing performed by : [address] [address] AST 51(H) 10 - 50 Units/L UBALDO Comment:Testing performed by : [address] [address] Blood 12/16/2024 10:1 1 AM CDT 12/16/2024 10:16 AM CDT Benjamin Murrell [employer] LAB BLOOD ORDERABLES Final R esult Performing Organization Address City/[facility] Co de Phone Number UBALDO [address] [place], [place] [id number] * (ABNORMAL) Erythropoietin (11/24/2024 11:02 AM CDT) Erythropoietin 36.7(H) 2.6 - 18.5 mIUnits/m [facility] [place] [facility] Comment: Test Performed by: [facility] [address] [place] [address] Senior Speech Pathologist: Leighton Gregory Ph.D.; CLIA# [id number] Testing performed by: [facility], [address] [place] [address]., [address] Blood 11/24/2024 11:0 2 AM CDT 11/24/2024 11:13 AM CDT Benjamin Murrell [employer] LAB BLOOD ORDERABLES Final R esult Performing Organization Address [facility] Co de Phone Number UBALDO [address] [place] [address] [place] [facility] * eGFR (11/24/2024 8:51 AM [...] was last reviewed 2021. Testing performed by: [address] [address] Blood 11/24/2024 8:51 AM CDT 11/24/2024 8:52 AM CDT Benjamin Murrell DO LAB BLOOD ORDERABLES Final R esult [facility] [address] [facility] [place] [address] * (ABNORMAL) Differential, auto (11/24/2024 8:51 AM CDT) Neutrophil abs 8.23(H) 1.50 - 6.50 K/cumm Comment:Testing performed by : [address] [address] Imm gran abs 0.21(H) 0.00 - 0.10 K/cumm UBALDO Comment:Testing performed by : [address] [address] Lymphocyte abs 1.69 0.80 - 3.30 K/cumm UBALDO Comment:Testing performed by : [address] [address] Monocyte abs 1.45(H) 0.20 - 0.80 K/cumm UBALDO Comment:Testing performed by : [address] [address] Eosinophil abs 0.04 0.00 - 0.50 K/cumm UBALDO Comment:Testing performed by : [address] [address] Basophil abs 0.03 0.00 - 0.10 K/cumm UBALDO Comment:Testing performed by : [address] [address] Neutrophil pct 70.7 % UBALDO Comment: Interpretive Data Percent cell count reference ranges are not reported, since discordance with absolute values may lead to misinterpretation of CBC data. Current Interpretive Data was last revised on 2017. Testing performed by: [address] [address] Imm gran pct 1.8 % [facility] Comment: Interpretive Data Percent cell count reference ranges are not reported, since discordance with absolute values may lead to misinterpretation of CBC data. Current Interpretive Data was last revised on 2017. Testing performed by: [address] [address] Lymphocyte pct 14.5 % [facility] Comment: Interpretive Data Percent cell count reference ranges are not reported, since discordance with absolute values may lead to misinterpretation of CBC data. Current Interpretive Data was last revised on 2017. Testing performed by: [address] [address] Monocyte pct 12.4 % [facility] Comment: Interpretive Data Percent cell count reference ranges are not reported, since discordance with absolute values may lead to misinterpretation of CBC data. Current Interpretive Data was last revised on 2017. Testing performed by: [address] [address] Eosinophil pct 0.3 % [facility] [facility] Comment: Interpretive Data Percent cell count reference ranges are not reported, since discordance with absolute values may lead to misinterpretation of CBC data. Current Interpretive Data was last revised on 2017. Testing performed by: [address] [address] Basophil pct 0.3 % [facility] Comment: Interpretive Data Percent cell count reference ranges are not reported, since discordance with absolute values may lead to misinterpretation of CBC data. Current Interpretive Data was last revised on 2017. Testing performed by: [address] [address] Blood 11/24/2024 8:51 AM CDT 11/24/2024 8:52 AM CDT us Benjamin Murrell DO LAB BLOOD ORDERABLES Final R esult UBALDO [address] [facility] [place] [address] * (ABNORMAL) CBC with auto differential (11/24/2024 8:51 AM CDT) [facility] WBC 11.65(H) 3.80 - 9.90 K/cumm Comment:Testing performed by : [address] [address] Hgb 8.8(L) 13.0 - 17.5 g/dL UBALDO Comment:Testing performed by : [address] [address] Hct 28.0(L) 38.9 - 50.3 % UBALDO Comment:Testing performed by : [address], [address] Plt 191 150 - 400 K/cumm UBALDO Comment:Testing performed by : [address] [address] MPV 9.7 9.1 - 12.3 fL UBALDO Comment:Testing performed by : [address], [address] RBC 3.13(L) 4.30 - 5.80 M/cumm UBALDO Comment:Testing performed by : [address] [address] MCV 89.5 81.3 - 96.4 fL U[facility]DO Comment:Testing performed by : [address] [address] MCH 28.1 27.1 - 33.3 pg UBALDO Comment:Testing performed by : [address], [address] MCHC 31.4(L) 32.3 - 35.7 g/dL U[facility]DO Comment:Testing performed by : [address], [address] RDW CV 19.4(H) 11.1 - 14.9 % [facility] Comment:Testing performed by : [address] [address] RDW SD 63.8(H) 35.7 - 48.1 fL U[facility]DO Comment:Testing performed by : [address], [address] NRBC abs 0.00 0.00 - 0.01 K/cumm UBALDO Comment:Testing performed by : [address] [address] ANC Prelim 8.23(H) 1.50 - 6.50 K/cumm UBALDO Comment: Interpretive Data The rapid ANC is a preliminary automated count and may vary from the final ANC (Neut Abs) reported in the WBC differential that follows. Current interpretive data was last revised 2024. Testing performed by: [address] [address] Blood 11/24/2024 8:51 AM CDT 11/24/2024 8:52 AM CDT Benjamin Murrell [employer] LAB BLOOD ORDERABLES Final R esult Performing Organization Address [facility] de Phone Number [place] [phone] [facility] [place] [address] * PSA diagnostic (11/24/2024 8:51 AM CDT) PSA-Total 1.67 <=6.20 ng/mL Comment: Interpretive Data AGE SEX REFERENCE INTERVAL 0 minutes-150 years Female None 0 minutes-49 years Male None 50-59 years Male 0-3.90 60-69 years Male 0-5.40 70-79 years Male 0-6.20 80-150 years Male 0-6.20 The [employer] PSA Total assay procedure was used. Results from different manufacturers or methods may not be comparable. Serial testing should be performed using the same method. Current interpretive data last revised 21. Testing performed by: [address] [address] Blood 11/24/2024 8:51 AM CDT 11/24/2024 9:43 AM CDT Benjamin Vidya Handy LAB BLOOD ORDERABLES Final R esult Performing Organization Address [facility] de Phone Number [place] [phone] [facility] [place] [address] * (ABNORMAL) CEA (11/24/2024 8:51 AM CDT) Pathologist [facility] CEA 156.0(H) <=5.0 ng/mL Comment: Interpretive Data: Reference Range: Non-Smokers: 0.0 5.0 ng/mL Smokers: 0.0 6.5 ng/mL The [employer] CEA assay procedure was used. Results from different manufacturers or methods may not be comparable. Serial testing should be performed using the same method. Current interpretive data was last revised 2023. Testing performed by: [address] [address] Blood 11/24/2024 8:51 AM CDT 11/24/2024 9:43 AM CDT Benjamin Murrell DO LAB BLOOD ORDERABLES Final R esult UBALDO [address] [facility] Department [place] [address] * (ABNORMAL) Comprehensive metabolic panel (11/24/2024 8:51 AM CDT) [facility] Sodium 135 135 - 145 mmol/L Comment:Testing performed by : [address] [address] Potassium, pl 4.3 3.3 - 4.9 mmol/L UBALDO Comment:Testing performed by : [address] [address] Chloride 100 97 - 110 mmol/L UBALDO Comment:Testing performed by : [address] [address] CO2 25 22 - 32 mmol/L U[facility]DO Comment:Testing performed by : [address] [address] Anion gap 10 2 - 15 mmol/L U[facility]DO Comment:Testing performed by : [address] [address] BUN 18 6 - 25 mg/dL UBALDO Comment:Testing performed by : [address] [place]., [address] Creatinine 0.70(L) 0.80 - 1.30 mg/dL U[facility]DO Comment:Testing performed by : [address] [address] Glucose 120 70 - 199 mg/dL UBALDO [...] was last revised 2022. Testing performed by: [address] [address] Calcium 8.8 8.5 - 10.3 mg/dL UBALDO Comment:Testing performed by : [address] [address] Bilirubin, total 0.5 0.1 - 1.2 mg/dL [facility] Comment:Testing performed by : [address] [address] Protein, pl 6.7 6.5 - 8.5 g/dL [facility] Comment:Testing performed by : [address] [address] Albumin 3.7 3.5 - 5.0 g/dL [facility] Comment:Testing performed by : [address] [address] Alk phos 310(H) 40 - 130 Units/L UBALDO Comment:Testing performed by : [address] [address] ALT 29 7 - 55 Units/L [facility] Comment:Testing performed by : [address] [address] AST 51(H) 10 - 50 Units/L U[facility]DO Comment:Testing performed by : [address] [address] Blood 11/24/2024 8:51 AM CDT 11/24/2024 8:52 AM CDT us Benjamin Murrell DO LAB BLOOD ORDERABLES Final R esult UBALDO [address] [facility] Department [place] [address] * CT Chest Abdomen Pelvis W Contrast [...] Tony Marsh D.O. PS: PS Report ID: [id number] Reading Location: [id number] Procedure Note Tony Marsh, DO - 11/25/2024 [...] Tony Marsh D.O. PS: PS Report ID: [id number] Reading Location: [id number] us Benjamin Murrell DO IMG CT PROCEDURES [...] was last reviewed 2021. Testing performed by: [address] [address] Blood 11/04/2024 12:3 3 PM CDT 11/04/2024 12:35 PM CDT Benjamin Murrell DO LAB BLOOD ORDERABLES Final R esult UBALDO [facility] Department of Laboratories [place], [place] [id number] * (ABNORMAL) Differential, auto (11/04/2024 12:33 PM CDT) Neutrophil abs 7.4(H) 1.5 - 6.5 K/cumm Comment:Testing performed by : [address] [address] Imm gran abs 0.2(H) 0.0 - 0.1 K/cumm UBALDO Comment:Testing performed by : [address] [address] Lymphocyte abs 1.8 0.8 - 3.3 K/cumm UBALDO Comment:Testing performed by : [address] [address] Monocyte abs 1.5(H) 0.2 - 0.8 K/cumm UBALDO Comment:Testing performed by : [address] [address] Eosinophil abs 0.1 0.0 - 0.5 K/cumm UBALDO Comment:Testing performed by : [address] [address] Basophil abs 0.0 0.0 - 0.1 K/vickeym UBALDO Comment:Testing performed by : [address] [address] Neutrophil pct 67.2 % [facility] Comment: Interpretive Data Percent cell count reference ranges are not reported, since discordance with absolute values may lead to misinterpretation of CBC data. Current Interpretive Data was last revised on 2017. Testing performed by: [address] [address] Imm gran pct 1.6 % [facility] Comment: Interpretive Data Percent cell count reference ranges are not reported, since discordance with absolute values may lead to misinterpretation of CBC data. Current Interpretive Data was last revised on 2017. Testing performed by: [address] [address] Lymphocyte pct 16.5 % [facility] Comment: Interpretive Data Percent cell count reference ranges are not reported, since discordance with absolute values may lead to misinterpretation of CBC data. Current Interpretive Data was last revised on 2017. Testing performed by: [address] [address] Monocyte pct 13.2 % [facility] Comment: Interpretive Data Percent cell count reference ranges are not reported, since discordance with absolute values may lead to misinterpretation of CBC data. Current Interpretive Data was last revised on 2017. Testing performed by: [address] [address] Eosinophil pct 1.1 % [facility] Comment: Interpretive Data Percent cell count reference ranges are not reported, since discordance with absolute values may lead to misinterpretation of CBC data. Current Interpretive Data was last revised on 2017. Testing performed by: [address] [address] Basophil pct 0.4 % [facility] Comment: Interpretive Data Percent cell count reference ranges are not reported, since discordance with absolute values may lead to misinterpretation of CBC data. Current Interpretive Data was last revised on 2017. Testing performed by: [address] [address] Blood 11/04/2024 12:3 3 PM CDT 11/04/2024 12:35 PM CDT us Benjamin Murrell DO LAB BLOOD ORDERABLES Final R esult UBALDO [address] [facility] Department [place] [address] * (ABNORMAL) CBC with auto differential (11/04/2024 12:33 PM CDT) WBC 11.0(H) 3.8 - 9.9 K/cumm Comment:Testing performed by : [address] [address] Hgb 9.7(L) 13.0 - 17.5 g/dL UBALDO Comment:Testing performed by : [address] [address] Hct 31.3(L) 38.9 - 50.3 % [facility] Comment:Testing performed by : [address] [address] Plt 290 150 - 400 K/cumm UBALDO Comment:Testing performed by : [address] [address] MPV 9.6 9.1 - 12.3 fL U[facility]DO Comment:Testing performed by : [address] [address] RBC 3.46(L) 4.30 - 5.80 M/cumm UBALDO Comment:Testing performed by : [address] [address] MCV 90.5 81.3 - 96.4 fL U[facility]DO Comment:Testing performed by : [address] [address] MCH 28.0 27.1 - 33.3 pg UBALDO Comment:Testing performed by : [address] [address] MCHC 31.0(L) 32.3 - 35.7 g/dL UBALDO Comment:Testing performed by : [facility], [address] [place] [address]., [address] RDW CV 20.1(H) 11.1 - 14.9 % UBALDO Comment:Testing performed by : [address] [address] RDW SD 67.0(H) 35.7 - 48.1 fL UBALDO Comment:Testing performed by : [address] [address] NRBC abs 0.00 0.00 - 0.01 K/cumm UBALDO Comment:Testing performed by : [address] [address] Blood 11/04/2024 12:3 3 PM CDT 11/04/2024 12:35 PM CDT Benjamin [employer] LAB BLOOD ORDERABLES Final R Lalina Performing Organization Address [facility] de Phone Number [address] Department [place] [address] * (ABNORMAL) CEA (11/04/2024 12:33 PM CDT) [facility] Signature CEA 141.0(H) <=5.0 ng/mL Comment: Interpretive Data: Reference Range: Non-Smokers: 0.0 5.0 ng/mL Smokers: 0.0 6.5 ng/mL The [employer] CEA assay procedure was used. Results from different manufacturers or methods may not be comparable. Serial testing should be performed using the same method. Current interpretive data was last revised 2023. Testing performed by: [address] [address] Blood 11/04/2024 12:3 3 PM CDT 11/04/2024 3:56 PM CDT Benjamin Murrell [employer] LAB BLOOD ORDERABLES Final R Lalina Performing Organization Address [facility] de Phone Number [address] Department [place] [address] * (ABNORMAL) Comprehensive metabolic panel (11/04/2024 12:33 PM CDT) Sodium 135 135 - 145 mmol/L Comment:Testing performed by : [address], [place]., [address] Potassium, pl 4.8 3.3 - 4.9 mmol/L U[facility]DO Comment:Testing performed by : [address], [place]., [address] Chloride 99 97 - 110 mmol/L U[facility] Comment:Testing performed by : [address] [address] CO2 27 22 - 32 mmol/L [facility] Comment:Testing performed by : [address], [place]., [address] Anion gap 9 2 - 15 mmol/L [facility] Comment:Testing performed by : [address] [address] BUN 22 6 - 25 mg/dL U[facility] Comment:Testing performed by : [address], [place]., [address] Creatinine 0.70(L) 0.80 - 1.30 mg/dL U[facility] Comment:Testing performed by : [address], [place]., [address] Glucose 91 70 - 199 mg/dL UBALDO [...] was last revised 2022. Testing performed by: [address], [place]., [address] Calcium 9.0 8.5 - 10.3 mg/dL [facility] Comment:Testing performed by : [address] [address] Bilirubin, total 0.3 0.1 - 1.2 mg/dL [facility] Comment:Testing performed by : [address] [address] Protein, pl 6.8 6.5 - 8.5 g/dL U[facility]DO Comment:Testing performed by : [address] [address] Albumin 3.8 3.5 - 5.0 g/dL [facility] Comment:Testing performed by : [address], [place]., [address] Alk phos 360(H) 40 - 130 Units/L [facility] Comment:Testing performed by : [address] [address] ALT 21 7 - 55 Units/L [facility] Comment:Testing performed by : [address] [address] AST 30 10 - 50 Units/L [facility] Comment:Testing performed by : [address] [address] Blood 11/04/2024 12:3 3 PM CDT 11/04/2024 12:35 PM CDT Benjamin Murrell DO LAB BLOOD ORDERABLES Final R esult UBALDO [address] [facility] [place] [address] * POCT lipid panel (08/30/2024 3:16 PM [facility]) Cholesterol, POC 113 mg/dL Comment:GLU 100 HDL, POC 44 mg/dL Triglycerides, POC 79 mg/dL LDL Cholesterol POC 53 mg/dL Chol/HDL Ratio, POC 1.2 Non-HDL Cholesterol, POC 69 mg/dL Cholesterol Total, POC 113 mg/dL Capillary blood 08/30/2024 3 :16 PM [facility] Costa Aparicio MD POINT OF CARE TEST ORDER CAM Final Result * (ABNORMAL) Hemoglobin A1c (10/14/2023 9:51 AM [facility]) [facility] Hgb A1C 6.6(H) 4.0 - 5.6 % [facility] Comment:Testing performed by : [facility], [address] [place] [address]., [address] Estimated Average Glucose 143 mg/dL UBALDO Comment: The ADA recommends reporting an estimated Average Glucose (eAG) with all Hemoglobin A1c results using the equation derived from a study of 507 normal and diabetic adults. Minority populations were underrepresented and children were not included. (Diabetes Care 31:6447-2144, 2008). The eAG is not equivalent to a fasting glucose. Testing performed by: [facility], [address] [place] [address]., [address] Blood 10/14/2023 9:51 AM [facility] 10/14/2023 12:19 PM [facility] us Not[employer] Unknown LAB BLOOD ORDERABLES Final Res ult UBALDO [address] [facility] Department of Laboratories [place], [place] [id number] * (ABNORMAL) Hepatitis C antibody (07/30/2017 4:07 PM [facility]) [facility] Hep C Ab REACTIVE( H) NONREACTIVE 07/30/2017 6:24 PM [facility] HISTORICAL RESULTS Comment: [employer] using LUIS DANIEL (chemiluminescent immunoassay) technology. NONREACTIVE: [...] Hepatitis C Virus Note 07/30/2017 6:24 PM [facility] HISTORICAL RESULTS Comment: Sample to be confirmed by real-time PCR method. 07/30/2017 4:07 PM [facility] 07/30/2017 4:12 PM [facility] Narrative [facility] HISTORICAL RESULTS - 07/30/2017 6:24 PM [facility] Mayco Mcmullen MD LAB MICROBIOLOGY - GENERAL ORDERABLES Final Result [facility] HISTORICAL RESULTS from Last 3 Months or Most Recently Relevant to Health Maintenance Insurance MEDICARE [facility] MEDICARE SUPPLEMENT MEDICARE [facility] MEDICARE SUPPLEMENT Advance Directives For more information, please contact: [phone] * Full Code (Latest Code Status on File) Date Activated Date Inactivated Comments 08/20/2024 10:17 AM 08/22/2024 7:39 PM * Full Code Date Activated Date Inactivated Comments 08/11/2024 11:45 AM 08/12/2024 5:12 AM * Full Code Date Activated Date Inactivated Comments 03/07/2024 3:13 PM 03/09/2024 6:03 PM * Full Code Date Activated Date Inactivated Comments 03/04/2023 3:57 PM 03/06/2023 5:13 PM Care Teams Cake Former Relationship Specialty Start Date End Date Jared Johnson DO [address] [place] [address] PCP - General Internal Medicine 03/25/23 Benjamin Murrell DO [address] [place] [address] MEDICAL ONCOLOGY, [address] [address] Medical Oncologist/Academic Support Director Hematology and Oncology 08/21/22 Brad Farrell MD [address] [place] [address] Consulting Physician Pulmonary Disease 03/05/23 Costa Aparicio MD [address] [place] [address] Consulting Physician Cardiology 03/25/23
[2025-01-28 12:49] LABS: Alanine Aminotransferase 31 U/L (6-50); Albumin Level 3.4 g/dL (3.5-5.1); Alkaline Phosphatase 346 U/L (38-126); Anion Gap 12 mmol/L (4-12); Aspartate Amino Transferase 108 U/L (17-59); Bilirubin,Total 1.3 mg/dL (0.2-1.3); Blood Urea Nitrogen 15 mg/dL (9-20); Calcium 8.9 mg/dL (8.4-10.2); Carbon Dioxide 19 mmol/L (22-30); Chloride 105 mmol/L (98-107); Estimated CRCL calculation 73 ml/min; Estimated Glomerular Filt Rate > 60; Glucose 157 mg/dL (65-110); Potassium 4.3 mmol/L (3.4-5.0); Sodium 136 mmol/L (137-145)
[2025-01-28 12:52] LABS: INR 1.5; Prothrombin Time 17.9 Seconds (11.1-14.7)
[2025-01-28 12:53] LABS: Partial Thromboplastin Time 37.3 Seconds (22.3-36.8)
[2025-01-28 12:58] LABS: NT Pro B Type Natriuretic Pept 690 pg/mL (19.9-100)
== END 2025-01-28 14:32 | disposition home or self-care (01) ==
PROVIDERS: Emergency Provider Emergency Medicine; PCP Internal Medicine
DX: I48.91 Unspecified atrial fibrillation (principal); C18.9 Malignant neoplasm of colon, unspecified; C78.7 Secondary malignant neoplasm of liver and intrahepatic bile duct; I10 Essential (primary) hypertension; E78.00 Pure hypercholesterolemia, unspecified; E11.9 Type 2 diabetes mellitus without complications; G47.33 Obstructive sleep apnea (adult) (pediatric); Z87.442 Personal history of urinary calculi; Z85.46 Personal history of malignant neoplasm of prostate; Z79.82 Long term (current) use of aspirin; Z79.899 Other long term (current) drug therapy; Z79.01 Long term (current) use of anticoagulants; I45.2 Bifascicular block; R94.31 Abnormal electrocardiogram [ECG] [EKG]
CPT/HCPCS: 36415; 71045; 80053; 83880; 85025; 85610; 85730; 93005; 99283